=== PATIENT | female | born 1935 | race Caucasian/White ===

== ENCOUNTER → 2024-12-30 05:00 | Outpatient (REF) | payer MEDICARE, SELFPAY ==
--- OUTSIDE RECORDS SUMMARY | 2024-12-30 04:33 | XMS RPT_ITS | CCD ---
Author Organization [facility] Care Team Providers Care Pharmaceutical Representative Name Role Phone Leda Singh Attending Unavailable PROVIDER, UNKNOWN Referring Unavailable Brown, Louis Primary Care Unavailable Leda Singh Attending Unavailable PROVIDER, UNKNOWN Referring Unavailable Brown, Louis Primary Care Unavailable Leda Singh Attending Unavailable PROVIDER, UNKNOWN Referring Unavailable Brown, Louis Primary Care Unavailable BALTES TOLL BRIDGE OPERATOR-HISTOTECHNOLOGIST SUPERVISOR, MINE Primary Care Physician BALTES TOLL BRIDGE OPERATOR-HISTOTECHNOLOGIST SUPERVISOR, MINE Attending Unavailabl e BALTES TOLL BRIDGE OPERATOR-HISTOTECHNOLOGIST SUPERVISOR, MINE Primary Care Unavailabl e BALTES TOLL BRIDGE OPERATOR-HISTOTECHNOLOGIST SUPERVISOR, MINE Attending Unavailabl e BALTES TOLL BRIDGE OPERATOR-HISTOTECHNOLOGIST SUPERVISOR, MINE Primary Care Unavailabl e ALISE FLOWERS DO Attending Unavailable BALTES TOLL BRIDGE OPERATOR-HISTOTECHNOLOGIST SUPERVISOR, MINE Primary Care Unavailabl e BALTES TOLL BRIDGE OPERATOR-HISTOTECHNOLOGIST SUPERVISOR, MINE Attending Unavailabl e BALTES TOLL BRIDGE OPERATOR-HISTOTECHNOLOGIST SUPERVISOR, MINE Primary Care Unavailabl e BALTES TOLL BRIDGE OPERATOR-HISTOTECHNOLOGIST SUPERVISOR, MINE Attending Unavailabl e BALTES TOLL BRIDGE OPERATOR-HISTOTECHNOLOGIST SUPERVISOR, MINE Primary Care Unavailabl e BALTES TOLL BRIDGE OPERATOR-HISTOTECHNOLOGIST SUPERVISOR, MINE Attending Unavailabl e BALTES TOLL BRIDGE OPERATOR-HISTOTECHNOLOGIST SUPERVISOR, MINE Primary Care Unavailabl e BALTES TOLL BRIDGE OPERATOR-HISTOTECHNOLOGIST SUPERVISOR, MINE Attending Unavailabl e BALTES TOLL BRIDGE OPERATOR-HISTOTECHNOLOGIST SUPERVISOR, MINE Primary Care Unavailabl GERARDO Fletcher MD Attending Unavail able BALTES TOLL BRIDGE OPERATOR-HISTOTECHNOLOGIST SUPERVISOR, MINE Primary Care Unavailabl e ALISE FLOWERS DO Attending Unavailable BALTES TOLL BRIDGE OPERATOR-HISTOTECHNOLOGIST SUPERVISOR, MINE Primary Care Unavailabl ALISE Sheikh DO Attending Unavailable BALTES TOLL BRIDGE OPERATOR-HISTOTECHNOLOGIST SUPERVISOR, MINE Primary Care Unavailabl e SARAH MOON, VIKY Attending U navailable BALTES TOLL BRIDGE OPERATOR-HISTOTECHNOLOGIST SUPERVISOR, MINE Primary Care Unavailabl e BALTES TOLL BRIDGE OPERATOR-HISTOTECHNOLOGIST SUPERVISOR, MINE Attending Unavailabl e BALTES TOLL BRIDGE OPERATOR-HISTOTECHNOLOGIST SUPERVISOR, MINE Primary Care Unavailabl e BALTES TOLL BRIDGE OPERATOR-HISTOTECHNOLOGIST SUPERVISOR, MINE Attending Unavailabl e BALTES TOLL BRIDGE OPERATOR-HISTOTECHNOLOGIST SUPERVISOR, MINE Primary Care Unavailabl e BALTES TOLL BRIDGE OPERATOR-HISTOTECHNOLOGIST SUPERVISOR, MINE Attending Unavailabl e BALTES TOLL BRIDGE OPERATOR-HISTOTECHNOLOGIST SUPERVISOR, MINE Primary Care Unavailabl e Candice Ricketts Unavailable Unavailable BALTES TOLL BRIDGE OPERATOR-HISTOTECHNOLOGIST SUPERVISOR, MINE Primary Care Unavailabl e HERVE MOON, DR NOHEMI Trejo Admitting Unavailable PLUNK DO, RAFAELA Attending Unavailable PACO DO, ALOK Sousa Attending Unavailable BALTES TOLL BRIDGE OPERATOR-HISTOTECHNOLOGIST SUPERVISOR, MINE Primary Care Unavailabl e BALTES TOLL BRIDGE OPERATOR-HISTOTECHNOLOGIST SUPERVISOR, MINE Attending Unavailabl e BALTES TOLL BRIDGE OPERATOR-HISTOTECHNOLOGIST SUPERVISOR, MINE Primary Care Unavailabl e BALTES TOLL BRIDGE OPERATOR-HISTOTECHNOLOGIST SUPERVISOR, MINE Attending Unavailabl e BALTES TOLL BRIDGE OPERATOR-HISTOTECHNOLOGIST SUPERVISOR, MINE Primary Care Unavailabl e BALTES TOLL BRIDGE OPERATOR-HISTOTECHNOLOGIST SUPERVISOR, MINE Primary Care Unavailabl e BALTES TOLL BRIDGE OPERATOR-HISTOTECHNOLOGIST SUPERVISOR, MINE Attending Unavailabl e [facility], Apostolic Attending Louis Martin Primary Care Unavailable Allergies Allergy Classification Reported Allergen(s) Allergy Type Date of Onset Reaction(s) Facility (20 sources) Penicillins; Translations: [penicillins] Drug allergy 04-17-2018 [facility] (1 source) Acetaminophen Drug Allergy 04-17-2018 [facility] (1 source) HYDROcodone Drug Allergy 04-17-2018 [facility] Medications Current Medications Medication Drug Class(es) Dates Sig (Normalized) Sig (Original) acetaminophen 500 mg oral tablet (6 sources) Start: 03-13-2024 acetaminophen 500 mg oral tablet Dose : 1,000 mg = 2 tab(s), Oral, TID, PRN pain or fever, 0 Refill(s) Start Date: 03/13/24 Status: Ordered Repeat number: 1 Start: 01-05-2024 acetaminophen 500 mg oral tablet Dose : 1,000 mg = 2 tab(s), Oral, TID, PRN pain or fever, 0 Refill(s) Start Date: 01/05/24 Status: Ordered Start: 08-21-2023 Tylenol Oral, BID, 0 Refill(s) Start Date: 08/21/23 Status: Ordered Albuterol (Eqv-Ventolin HFA) 90 mcg/inh inhalation aerosol (3 sources) Start: 02-16-2024 take 1 dose by inhalation every six hours as needed for wheezing Albuterol (Eqv-Ventolin HFA) 90 mcg/inh inhalation aerosol Dose = 2 puff(s), Inhalation, q6hr, PRN as needed for wheezing, 0 Refill(s) Start Date: 02/16/24 Status: Ordered Repeat number: 1 Start: 02-16-2024 take 1 dose by inhal ation every six hours as needed for wheezing Albuterol (Eqv-Ventolin HFA) 90 mcg/inh inhalation aerosol Dose = 2 puff(s), Inhalation, q6hr, PRN as needed for wheezing, 0 Refill(s) Start Date: 02/16/24 Status: Ordered albuterol MDI (90 mcg/inh) CFC free inhalation aerosol (2 sources) Start: 01-29-2024 take 1-2 puff(s) by inhalation every four hours as needed for wheezing albuterol MDI (90 mcg/inh) CFC free inhalation aerosol See Instructions, PRN Shortness of breath or wheezing, 1 to 2 puff(s) Inhalation q4h, # 18 gram(s), 0 Refill(s), Pharmacy: [facility]/pharmacy #[id number], Acute bronchitis, 169, cm, 01/29/24 11:38:00 EDT, Height, kg, 01/16/24 12:34:00 EDT, Dosing Weight Start Date: 01/29/24 Status: Ordered amLODIPine 5 mg oral tablet (20 sources) Dihydropyridine Calcium Channel Emely Start: 08-07-2024 End: 08-02-2025 amLODIPine 5 mg oral tablet Dose : 5 mg = 1 tab(s), Oral, qDay, TAKE 1 TABLET BY MOUTH EVERY DAY, # 90 tab(s), 3 Refill(s), Pharmacy: [facility], 170.2, cm, 02/16/24 7:41:00 EDT, Height, kg, 03/25/24 10:52:00 EDT, Dosing Weight Start Date: 08/07/24 Stop Date: 08/02/25 Status: Ordered Quantity: 90.0 Unit: tab(s) Repeat number: 4 Start: 08-01-2023 End: 07-26-2024 take 1 tablet by mouth once daily amLODIPine 5 mg oral tablet TAKE 1 TABLET BY MOUTH EVERY DAY Start Date: 02/16/24 Status: Ordered Start: 07-25-2022 amLODIPine 5 m g oral tablet Dose : 5 mg = 1 tab(s), Oral, qDay, # 90 tab(s), 3 Refill(s), Pharmacy: [facility], Hypertension Type 2 diabetes mellitus, 170.2, cm, 06/24/22 9:30:00 EST, Height, kg, 06/24/22 9:30:00 EST, Dosing Weight Start Date: 07/25/22 Status: Ordered Start: 01-15-2021 amLODIPine 5 m g oral tablet Dose : 5 mg = 1 tab(s), Oral, qDay, # 90 tab(s), 3 Refill(s), [facility]acy: [facility] [place] [address], Hypertension Type 2 diabetes mellitus, 171.5, cm, 09/15/20 10:04:00 EDT, Height, kg, 09/15/20 10:04:00 EDT, Dosing Weight Start Date: 01/15/21 Status: Ordered apixaban 2.5 mg oral tablet (3 sources) Factor Xa Inhibitor Start: 06-21-2023 Eliquis 2. 5 mg oral tablet Dose : 2.5 mg = 1 tab(s), Oral, BID, # 60 tab(s), 2 Refill(s), Pharmacy: [facility], 170, cm, 05/22/23 14:08:00 EST, Height, 74.6, kg, 05/22/23 14:08:00 EST, Dosing Weight Start Date: 06/21/23 Status: Ordered Start: 05-10-2023 Eliquis 2.5 mg oral tablet Dose : 2.5 mg = 1 tab(s), Oral, BID, # 60 tab(s), 0 Refill(s), Pharmacy: [facility], 170.2, cm, 04/14/23 15:12:00 EST, Height, 72.7, kg, 04/14/23 15:12:00 EST, Dosing Weight Start Date: 05/10/23 Status: Ordered aspirin 81 mg delayed release oral tablet (20 sources) Platelet Aggregation Inhibitor, Nonsteroidal Anti-inflammatory Drug Start: 03-14-2017 aspirin 81 mg ora l delayed release tablet Dose : 81 mg = 1 tab(s), Oral, Daily, 0 Refill(s) Start Date: 03/14/17 Status: Ordered Start: 03-14-2017 aspirin 81 mg oral delayed release tablet Dose : 81 mg = 1 tab(s), Oral, Daily, 0 Refill(s) Start Date: 03/14/17 Status: Ordered biotin 5 mg oral capsule (12 sources) Start: 06-22-2021 biotin 5000 mc g oral caps Dose : 5,000 mcg = 1 cap(s), Oral, Daily, 0 Refill(s) Start Date: 06/22/21 Status: Ordered DME MISCellaneous (20 sources) Start: 09-23-2022 DME MISCellane ous See Instructions, Libre2 Cardwell Use to scan Edward sensor at least once every 8 hours, # 1 EA, 0 Refill(s), Pharmacy: [facility], 170.2, cm, 09/23/22 11:04:00 EDT, Height, 72.9 Start Date: 09/23/22 Status: Ordered Start: 09-23-2022 DME MISCellane ous See Instructions, Libre2 Sensors. Apply one sensor to back of arm once every 14 days, # 2 EA, 11 Refill(s), Pharmacy: [facility], 170.2, cm, 09/23/22 11:04:00 EDT, Height, 72.9 Start Date: 09/23/22 Status: Ordered doxycycline hyclate 100 mg oral capsule (2 sources) Tetracycline-class Drug Start: 01-29-2024 End: 02-05-2024 doxycycline hyclate 100 mg oral capsule Dose : 100 mg = 1 cap(s), Oral, BID, X 7 day(s), # 14 cap(s), 0 Refill(s), 02/05/24 12:25:00 PM EDT, Pharmacy: [facility]/pharmacy #[id number], Acute rhinosinusitis, 169, cm, 01/29/24 11:38:00 EDT, Height, 74.9, kg, 01/16/24 12:34:00 EDT, Dosing Weight Start Date: 01/29/24 Stop Date: 02/05/24 Status: Ordered 0.5 ML dulaglutide 9 MG/ML Auto-Injector [Trulicity] (20 sources) GLP-1 Receptor Agonist Start: 03-25-2024 inject 1 dose by subcutaneous injection every week Trulicity Pen 4.5 mg/0.5 mL subcutaneous solution Dose : 0.5 mL =, Subcutaneous, qWeek, rotate injection sites, # 2 mL, 6 Refill(s), Pharmacy: [facility], 170.2, cm, 02/16/24 7:41:00 EDT, Height, kg, 03/25/24 10:52:00 EDT, Dosing Weight Start Date: 03/25/24 Status: Ordered Quantity: 2.0 Unit: mL Repeat number: 7 Start: 02-16-2024 inject 0.5 mL by sub cutaneous injection every week Trulicity Pen 4.5 mg/0.5 mL subcutaneous solution INJECT 0.5ML UNDER THE SKIN EVERY WEEK; rotate injection sites Start Date: 02/16/24 Status: Ordered Start: 11-22-2023 inject 1 dose by sub cutaneous injection every week Trulicity Pen 4.5 mg/0.5 mL subcutaneous solution Dose : 0.5 mL =, Subcutaneous, qWeek, rotate injection sites, # 2 mL, 3 Refill(s), Pharmacy: [facility], 170, cm, 08/21/23 11:26:00 EDT, Height, kg, 09/18/23 11:16:00 EDT, Dosing Weight Start Date: 11/22/23 Status: Ordered Start: 06-23-2023 inject 0.5 mL by sub cutaneous injection every week Trulicity Pen 3 mg/0.5 mL subcutaneous solution Dose : 3 mg = 0.5 mL, Subcutaneous, qWeek, rotate injection sites, # 2 mL, 4 Refill(s), 0.5 mL/Pen, Pharmacy: [facility], 170, cm, 05/22/23 14:08:00 EST, Height, kg, 05/22/23 14:08:00 EST, Dosing Weight Start Date: 06/23/23 Status: Ordered Start: 05-25-2023 inject 0.5 mL by sub cutaneous injection every week Trulicity Pen 0.75 mg/0.5 mL subcutaneous solution Dose : 0.75 mg = 0.5 mL, Subcutaneous, qWeek, rotate injection sites, # 2 mL, 3 Refill(s), 0.5 mL/Pen, Pharmacy: [facility], 170, cm, 05/22/23 14:08:00 EST, Height, kg, 05/22/23 14:08:00 EST, Dosing Weight Start Date: 05/25/23 Status: Ordered Start: 08-26-2022 inject 0.5 mL by sub cutaneous injection every week Trulicity Pen 1.5 mg/0.5 mL subcutaneous solution Dose : 1.5 mg = 0.5 mL, Subcutaneous, qWeek, rotate injection sites, # 2 mL, 6 Refill(s), Pharmacy: [facility], 170.2, cm, 06/24/22 9:30:00 EST, Height Start Date: 08/26/22 Status: Ordered Start: 08-20-2021 Trulicity Pen 0.75 mg/0.5 mL subcutaneous solution Dose : 0.75 mg = 0.5 mL, Subcutaneous, qWeek, Patient is receiving medication through [facility] Patient Assistance Program., 0.5 mL/Pen Start Date: 08/20/21 Status: Ordered Fish Oils (19 sources) Start: 06-22-2021 Fish Oil 1200 mg oral capsule Dose : 2,400 mg = 2 cap(s), Oral, Daily, w/D in it, 0 Refill(s) Start Date: 06/22/21 Status: Ordered Repeat number: 1 Start: 06-22-2021 Fish Oil 1200 mg oral capsule Dose : 2,400 mg = 2 cap(s), Oral, Daily, w/D in it, 0 Refill(s) Start Date: 06/22/21 Status: Ordered Start: 06-22-2021 Fish Oil 1200 mg oral capsule Dose : 1,200 mg = 1 cap(s), Oral, BID, 0 Refill(s) Start Date: 06/22/21 Status: Ordered fluticasone propionate 0.05 mg/actuat metered dose nasal spray (2 sources) Corticosteroid Start: 01-29-2024 End: 02-28-2024 take 100 ug nasal route once daily fluticasone 50 mcg/inh NASAL spray 100 mcg Dose = 2 spray(s), Nostril, each, qDay, shake well before using, # 16 gram(s), 0 Refill(s), Pharmacy: [facility]/pharmacy #[id number], Acute rhinosinusitis, 169, cm, 01/29/24 11:38:00 EDT, Height, kg, 01/16/24 12:34:00 EDT, Dosing Weight Start Date: 01/29/24 Stop Date: 02/28/24 Status: Ordered FreeStyle Edward 2 Sensor (5 sources) Start: 03-15-2024 FreeStyle Libr e 2 Sensor See Instructions, Place once sensor to the back of the upper arm every 14 days. Use reader or phone angelina to scan sensor for daily blood sugar checks. 1 month supply, # 2 EA, 11 Refill(s), Pharmacy: [facility], 170.2, cm, 02/16/24 7:41:00 EDT, Height, 74.2, kg, 03/13/24 11:27:00 EDT, Dosing Weight Start Date: 03/15/24 Status: Ordered Quantity: 2.0 Unit: EA Repeat number: 12 Start: 09-19-2023 FreeStyle Libr e 2 Sensor See Instructions, Place once sensor to the back of the upper arm every 14 days. Use reader or phone angelina to scan sensor for daily blood sugar checks. 1 month supply, # 2 EA, 5 Refill(s), Pharmacy: [facility], 170, cm, 08/21/23 11:26:00 EDT, Height, 74.9, kg, 09/18/23 11:16:00 EDT, Dosing Weight Start Date: 09/19/23 Status: Ordered FreeStyle Edward 2 Sensor kit (3 sources) Start: 02-16-2024 FreeStyle Libr e 2 Sensor kit FreeStyle Ewdard 2 Sensor kit, PLACE ONE SENSOR TO THE BACK OF THE UPPER ARM EVERY 14 DAYS,USE READER OR PHONE ANGELINA TO SCAN SENSOR FOR DAILY BLOOD SUGAR CHEC [place] Start Date: 02/16/24 Status: Ordered Repeat number: 1 Start: 02-16-2024 FreeStyle Libr e 2 Sensor kit FreeStyle Edward 2 Sensor kit, PLACE ONE SENSOR TO THE BACK OF THE UPPER ARM EVERY 14 DAYS,USE READER OR PHONE ANGELINA TO SCAN SENSOR FOR DAILY BLOOD SUGAR CHEC [place] Start Date: 02/16/24 Status: Ordered FreeStyle Edward 3 Cardwell (2 sources) Start: 03-25-2024 FreeStyle Libr e 3 Cardwell See Instructions, Use reader to scan sensor once with every new sensor. Keep reader within 33 feet of the sensor and transmitter for daily blood sugar checks, # 1 EA, 0 Refill(s), Pharmacy: [facility], 170.2, cm, 02/16/24 7:41:00 EDT, Height, 74.9, kg, 03/25/24 10:52:00 EDT, Dosing Weight Start Date: 03/25/24 Status: Ordered Quantity: 1.0 Unit: EA Repeat number: 1 FreeStyle Edward 3+ Sensors (2 sources) Start: 03-25-2024 FreeStyle Libr e 3+ Sensors See Instructions, Place once sensor to the back of the upper arm every 15 days. Remove old sensor prior to placing new one and rotate application sites. Use reader or phone angelina for daily blood sugar checks., # 2 EA, 6 Refill(s), Pharmacy: [facility], 170.2, cm, 02/16/24 7:41:00 EDT, Height, 74.9, kg, 03/25/24 10:52:00 EDT, Dosing Weight Start Date: 03/25/24 Status: Ordered Quantity: 2.0 Unit: EA Repeat number: 7 furosemide 20 mg oral tablet (6 sources) Loop Diuretic Start: 08-22-2024 End: 11-30-2024 Lasix 20 mg oral tablet Dose : 10 mg = 0.5 tab(s), Oral, qDay, # 50 tab(s), 0 Refill(s), Pharmacy: [facility]/pharmacy #[id number], HTN - Hypertension Peripheral edema, 163.2, cm, 08/22/24 7:31:00 EDT, Height, kg, 08/22/24 7:31:00 EDT, Dosing Weight Start Date: 08/22/24 Stop Date: 11/30/24 Status: Ordered Quantity: 50.0 Unit: tab(s) Repeat number: 1 Indications: Localized edema; Essential (primary) hypertension; Start: 01-17-2024 End: 04-16-2024 take 1 tablet by mouth once daily as needed furosemide 20 mg oral tablet TAKE 1 TABLET BY MOUTH EVERY DAY NEEDED FOR SWELLING Start Date: 02/16/24 Status: Ordered glipiZIDE 10 mg oral tablet (15 sources) Sulfonylurea Start: 03-15-2024 GlipiZIDE XL 1 0 mg oral tablet, extended release Dose : 20 mg = 2 tab(s), Oral, qDay, # 180 tab(s), 2 Refill(s), Pharmacy: [facility], 170.2, cm, 02/16/24 7:41:00 EDT, Height, kg, 03/13/24 11:27:00 EDT, Dosing Weight Start Date: 03/15/24 Status: Ordered Quantity: 180.0 Unit: tab(s) Repeat number: 3 Start: 02-16-2024 take 2 tablets by mo uth once daily glipiZIDE 10 mg oral tablet, extended release TAKE TWO TABLETS BY MOUTH EVERY DAY Start Date: 02/16/24 Status: Ordered Start: 01-08-2024 glipiZIDE 10 m g oral tablet, extended release Dose : 20 mg = 2 tab(s), Oral, qDay, # 60 tab(s), 1 Refill(s), Pharmacy: [facility], 169, cm, 01/05/24 9:04:00 EDT, Height, kg, 01/05/24 9:04:00 EDT, Dosing Weight Start Date: 01/08/24 Status: Ordered Start: 08-04-2023 glipiZIDE 10 m g oral tablet, extended release Dose : 10 mg = 1 tab(s), Oral, qDay, Take with food, # 30 tab(s), 0 Refill(s), Pharmacy: [facility]/pharmacy #[id number], 170, cm, 05/22/23 14:08:00 EST, Height, kg, 05/22/23 14:08:00 EST, Dosing Weight Start Date: 08/04/23 Status: Ordered Start: 03-25-2021 End: 09-20-2021 glipiZIDE 10 mg oral tablet Dose : 5 mg = 0.5 tab(s), Oral, qDay, 0 Refill(s) Start Date: 08/20/21 Status: Ordered 12 hr guaiFENesin 600 mg extended release oral tablet (2 sources) Start: 01-29-2024 End: 02-08-2024 guaiFENesin 600 mg oral tablet, extended release Dose : 600 mg = 1 tab(s), Oral, q12h, X 10 day(s), # 20 tab(s), 0 Refill(s), 02/08/24 12:25:00 PM EDT, Pharmacy: [facility]/pharmacy #[id number], Acute rhinosinusitis Acute bronchitis, 169, cm, 01/29/24 11:38:00 EDT, Height, kg, 01/16/24 12:34:00 EDT, Dosing Weight Start Date: 01/29/24 Stop Date: 02/08/24 Status: Ordered metFORMIN hydrochloride 500 mg oral tablet (20 sources) Biguanide Start: 08-16-2024 End: 02-12-2025 take 1 tablet by mouth twice daily metFORMIN 500 mg oral tablet (IR) 1 tab, Oral, BID, # 180 tab(s), 1 Refill(s), other reason (Rx), Alternating constipation and diarrhea Start Date: 08/16/24 Stop Date: 02/12/25 Status: Ordered Quantity: 180.0 Unit: tab(s) Repeat number: 2 Indications: Other specified symptoms and signs involving the digestive system and abdomen; Start: 02-16-2024 take 2 tablets by mo uth twice daily metFORMIN 500 mg oral tablet (IR) TAKE TWO TABLETS BY MOUTH TWICE A DAY Start Date: 02/16/24 Status: Ordered Start: 09-19-2023 metFORMIN 500 mg oral tablet (IR) Dose : 1,000 mg = 2 tab(s), Oral, BID, # 360 tab(s), 3 Refill(s), Pharmacy: [facility], 170, cm, 08/21/23 11:26:00 EDT, Height, kg, 09/18/23 11:16:00 EDT, Dosing Weight Start Date: 09/19/23 Status: Ordered Start: 09-02-2022 metFORMIN 500 mg oral tablet (IR) Dose : 1,000 mg = 2 tab(s), Oral, BID, # 360 tab(s), 3 Refill(s), Pharmacy: [facility], 170.2, cm, 06/24/22 9:30:00 EST, Height, kg, 06/24/22 9:30:00 EST, Dosing Weight Start Date: 09/02/22 Status: Ordered Start: 01-15-2021 metFORMIN 500 mg oral tablet (IR) Dose : 1,000 mg = 2 tab(s), Oral, BID, # 360 tab(s), 3 Refill(s), [facility], Type 2 diabetes mellitus, 171.5, cm, 09/15/20 10:04:00 EDT, Height, kg, 09/15/20 10:04:00 EDT, Dosing Weight Start Date: 01/15/21 Status: Ordered [facility] Medication (2 sources) Start: 03-13-2024 [facility] Medicatio n [facility] Mannatech vitamins and things-for some reason they were all removed from he chart., 0 Refill(s), 72.6 Start Date: 03/13/24 Status: Ordered Repeat number: 1 nutritional supplement (20 sources) Start: 03-25-2021 take 1 tablet by mouth twice daily nutritional supplement Dose = 2 tab(s), Oral, BID, Catalyst, 0 Refill(s) Start Date: 03/25/21 Status: Ordered Start: 03-25-2021 nutritional izquierdo pplement BID, Catalyst, 0 Refill(s) Start Date: 03/25/21 Status: Ordered Start: 03-25-2021 nutritional izquierdo pplement Catalyst, 0 Refill(s) Start Date: 03/25/21 Status: Ordered Start: 07-03-2020 take 1 tablet by lvi th once daily at bedtime nutritional supplement Dose = 2 tab(s), Oral, qHS, Manacleanse, 0 Refill(s) Start Date: 07/03/20 Status: Ordered Start: 07-03-2020 take 1 tablet by liv th twice daily nutritional supplement Dose = 1 tab(s), Oral, BID, Phyto-Aloe, 0 Refill(s) Start Date: 07/03/20 Status: Ordered Start: 07-03-2020 nutritional izquierdo pplement BID, Phyto-Aloe, 0 Refill(s) Start Date: 07/03/20 Status: Ordered Start: 07-03-2020 nutritional izquierdo pplement Manacleanse, 0 Refill(s) Start Date: 07/03/20 Status: Ordered Start: 07-03-2020 nutritional izquierdo pplement Phyto-Aloe, 0 Refill(s) Start Date: 07/03/20 Status: Ordered Start: 07-03-2020 take 1 tablet by liv th twice daily nutritional supplement Dose = 1 tab(s), Oral, BID, Cardiobalance, 0 Refill(s) Start Date: 07/03/20 Status: Ordered Start: 07-03-2020 nutritional izquierdo pplement BID, Cardiobalance, 0 Refill(s) Start Date: 07/03/20 Status: Ordered Start: 07-03-2020 nutritional izquierdo pplement Cardiobalance, 0 Refill(s) Start Date: 07/03/20 Status: Ordered Start: 07-03-2020 take 1 tablet by liv th twice daily nutritional supplement Dose = 1 tab(s), Oral, BID, Ambratose AO dietary supplement, 0 Refill(s) Start Date: 07/03/20 Status: Ordered Start: 07-03-2020 nutritional izquierdo pplement BID, Ambratose AO dietary supplement, 0 Refill(s) Start Date: 07/03/20 Status: Ordered Start: 07-03-2020 nutritional izquierdo pplement Ambratose AO dietary supplement, 0 Refill(s) Start Date: 07/03/20 Status: Ordered Start: 07-03-2020 nutritional izquierdo pplement Dose = 1 tab(s), Oral, BID, Mannatech Plus, 0 Refill(s) Start Date: 07/03/20 Status: Ordered Start: 07-03-2020 nutritional izquierdo pplement BID, Mannatech Plus, 0 Refill(s) Start Date: 07/03/20 Status: Ordered Start: 07-03-2020 nutritional izquierdo pplement Mannatech Plus, 0 Refill(s) Start Date: 07/03/20 Status: Ordered oxybutynin chloride 5 mg oral tablet (2 sources) Cholinergic Muscarinic Antagonist Start: 03-12-2021 oxybutynin 5 mg oral tablet Dose : 5 mg = 1 tab(s), Oral, BID, # 30 tab(s), 2 Refill(s), [facility]: [facility], Urinary incontinence Nocturia, 171.5, cm, 03/12/21 9:47:00 EDT, Height, kg, 03/12/21 9:47:00 EDT, Dosing Weight Start Date: 03/12/21 Status: Ordered polyethylene glycol 3350 [id number] mg powder for oral solution (1 source) Osmotic Laxative Start: 02-17-2024 End: 03-18-2024 MiraLax oral powder for reconstitution Dose : 17 gram(s) =, Oral, qDay, May take every other day if having loose stools, X 30 day(s), # 255 gram(s), 0 Refill(s), 03/18/24 9:49:00 AM EDT, [id number] 170.2, cm, 02/16/24 7:41:00 EDT, Height, kg, 02/16/24 7:41:00 EDT, Dosing Weight Start Date: 02/17/24 Stop Date: 03/18/24 Status: Ordered Sport (16 sources) Start: 06-22-2021 Sport Sport, Oral, BID, Mannatech-when exercising, 0 Refill(s), 75.9 Start Date: 06/22/21 Status: Ordered sulfamethoxazole 800 mg / trimethoprim 160 mg oral tablet (2 sources) Dihydrofolate Reductase Inhibitor Antibacterial, Sulfonamide Antimicrobial Start: 09-27-2024 End: 10-02-2024 take 1 tablet by mouth every twelve hours Bactrim DS 800 mg-160 mg oral tablet Dose = 1 tab(s), Oral, q12h, X 5 day(s), # 10 tab(s), 0 Refill(s), Pharmacy: [facility]/pharmacy #[id number], 163.2, cm, 09/27/24 10:39:00 EDT, Height, 73.1, kg, 09/27/24 10:39:00 EDT, Dosing Weight Start Date: 09/27/24 Stop Date: 10/02/24 Status: Ordered Quantity: 10.0 Unit: tab(s) Repeat number: 1 24 hr tolterodine tartrate 2 mg extended release oral capsule (17 sources) Cholinergic Muscarinic Antagonist Start: 05-22-2024 tolterodine 2 mg oral capsule, extended release Dose : 2 mg = 1 cap(s), Oral, BID, TAKE 1 CAPSULE BY MOUTH TWICE A DAY, # 180 cap(s), 1 Refill(s), Pharmacy: [facility], 170.2, cm, 02/16/24 7:41:00 EDT, Height, kg, 03/25/24 10:52:00 EDT, Dosing Weight Start Date: 05/22/24 Status: Ordered Quantity: 180.0 Unit: cap(s) Repeat number: 2 Start: 02-16-2024 take 1 capsule by mo uth twice daily tolterodine 2 mg oral capsule, extended release TAKE 1 CAPSULE BY MOUTH TWICE A DAY Start Date: 02/16/24 Status: Ordered Start: 08-01-2023 End: 11-29-2023 take 1 capsule by mouth twice daily tolterodine 2 mg oral capsule, extended release 1 cap(s), Oral, BID, # 60 cap(s), 3 Refill(s), JANICE, Pharmacy: [facility], 170, cm, 05/22/23 14:08:00 EST, Height, kg, 05/22/23 14:08:00 EST, Dosing Weight Start Date: 08/01/23 Stop Date: 11/29/23 Status: Ordered Start: 12-29-2022 End: 04-28-2023 take 1 capsule by mouth twice daily tolterodine 2 mg oral capsule, extended release 1 cap(s), Oral, BID, # 60 cap(s), 3 Refill(s), JANICE, Pharmacy: [facility], 170.2, cm, 12/23/22 8:59:00 EDT, Height, kg, 12/23/22 8:59:00 EDT, Dosing Weight Start Date: 12/29/22 Stop Date: 04/28/23 Status: Ordered Start: 10-07-2021 tolterodine 2 mg oral capsule, extended release Dose : 2 mg = 1 cap(s), Oral, qDay, # 30 cap(s), 11 Refill(s), Pharmacy: [facility], 170.2, cm, 06/22/21 9:33:00 EST, Height Start Date: 10/07/21 Status: Ordered Vitamin B Complex 100 (19 sources) Start: 03-14-2017 take 1 tablet by mouth once daily Vitamin B Complex 100 1 tab, Oral, Daily, 0 Refill(s) Start Date: 03/14/17 Status: Ordered Vitamin D3 1000 intl units oral capsule (8 sources) Start: 03-14-2017 Vitamin D3 100 0 intl units oral capsule Dose : 1,000 unit(s) = 1 cap(s), Oral, BID, 0 Refill(s) Start Date: 03/14/17 Status: Ordered zinc acetate 50 mg oral capsule (19 sources) Start: 03-14-2017 take 0.5 tablet by mouth once daily zinc (as acetate) 50 mg oral capsule 0.5 tab(s), Oral, Daily, # 250 cap(s), 0 Refill(s) Start Date: 03/14/17 Status: Ordered Start: 03-14-2017 zinc (as aceta te) 50 mg oral capsule Dose : 50 mg = 1 cap(s), Oral, Daily, # 250 cap(s), 0 Refill(s) Start Date: 03/14/17 Status: Ordered Completed/Discontinued Medications Medication Drug Class(es) Dates Sig (Normalized) Sig (Original) docusate sodium 100 mg oral capsule (2 sources) Start: 02-04-2024 End: 02-14-2024 Colace 100 mg oral capsule Dose : 100 mg = 1 cap(s), Oral, BID, PRN for constipation, # 60 cap(s), 0 Refill(s) Start Date: 02/04/24 Stop Date: 02/14/24 Status: Ordered gabapentin 100 mg oral capsule (2 sources) Anti-epileptic Agent Start: 10-15-2021 End: 11-14-2021 gabapentin 100 mg oral capsule Dose : 100 mg = 1 cap(s), Oral, BID, # 60 cap(s), 0 Refill(s), Pharmacy: [address], Peripheral neuropathy, 170.2, cm, 10/15/21 9:37:00 EDT, Height, 66.9 Start Date: 10/15/21 Stop Date: 11/14/21 Status: Ordered meloxicam 15 mg oral tablet (3 sources) Nonsteroidal Anti-inflammatory Drug Start: 10-17-2022 End: 10-24-2022 meloxicam 15 mg oral tablet Dose : 15 mg = 1 tab(s), Oral, qDay, # 7 tab(s), 0 Refill(s), Pharmacy: [facility]/pharmacy #[id number], Bursitis of left knee Left hip pain, 170.2, cm, 10/17/22 10:36:00 EDT, Height Start Date: 10/17/22 Stop Date: 10/24/22 Status: Ordered Problems Active Problems Problem Classification Problem Date Documented Date Episodic/Chronic Acquired foot deformities (16 sources) Hammer toe 10-15-2021 Chronic Cardiac dysrhythmias (18 sources) Atrial fibrillation; Translations: [Atrial trigeminy] 05-22-2023 Chronic Conditions associated with dizziness or vertigo (1 source) Dizziness and giddiness; Translations: [Dizziness and giddiness] Onset: 04-05-20 Episodic Diabetes mellitus with complications (1 source) Type 2 diabetes mellitus with hyperglycemia; Translations: [Type 2 diabetes mellitus with hyperglycemia] Onset: 12-20-19 Chronic Diabetes mellitus without complication (20 sources) Type 2 diabetes mellitus without complications; Translations: [Type 2 diabetes mellitus] Onset: 05-11-2012-10-2019 Chronic Disorders of lipid metabolism (20 sources) Hypercholesterolemia 04-05-2019 Chronic E Codes: Fall (2 sources) Fall 09-27-2024 Essential hypertension (20 sources) Essential (primary) hypertension; Translations: [Hypertensive disorder] Onset: 05-11-2007-09-2019 Chronic Fluid and electrolyte disorders (2 sources) Hyperkalemia; Translations: [Hyperkalemia] Episodic Genitourinary symptoms and ill-defined conditions (20 sources) Urinary incontinence 03-14-2017 Chronic Genitourinary symptoms and ill-defined conditions (4 sources) Increased frequency of urination; Translations: [Frequency of micturition] Onset: 09-28-19 25 09-27-2024 Episodic Heart valve disorders (10 sources) Heart murmur 05-22-2023 Episodic Mycoses (16 sources) Onychomycosis 10-15-2021 Episodic Osteoarthritis (20 sources) Arthritis; Translations: [Osteoarthritis of knee] 03-14-2017 Chronic 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 (2 sources) 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; Translations: [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] Onset: 05-11-20 Other connective tissue disease (1 source) Iliotibial band friction syndrome of left knee; Translations: [Iliotibial band syndrome, left leg] Episodic Other connective tissue disease (14 sources) Bursitis of left knee 10-17-2022 Episodic Other gastrointestinal disorders (2 sources) Constipation, unspecified; Translations: [Constipation, unspecified] Onset: 02-04-20 24 Episodic Other nervous system disorders (2 sources) Carpal tunnel syndrome, left upper limb; Translations: [Carpal tunnel syndrome, left upper limb] Onset: 05-11-20 18 Chronic Other nervous system disorders (2 sources) Carpal tunnel syndrome, right upper limb; Translations: [Carpal tunnel syndrome, right upper limb] Onset: 03-06-20 18 Chronic Other nervous system disorders (20 sources) Carpal tunnel syndrome 03-14-2017 Chronic Comment on above: Right Other nervous system disorders (2 sources) Abnormal gait 09-27-2024 Episodic Other non-traumatic joint disorders (14 sources) Hip pain 10-17-2022 Episodic Residual codes; unclassified (20 sources) Amnesia 03-25-2021 Episodic Residual codes; unclassified (16 sources) Foot at risk 10-15-2021 Episodic Residual codes; unclassified (2 sources) Peripheral edema 08-22-2024 Episodic Spondylosis; intervertebral disc disorders; other back problems (20 sources) Sciatica; Translations: [Stenosis of lumbar vertebral foramen] 03-14-2017 Episodic Comment on above: Right Unclassified (20 sources) Body mass index 20-24 - normal 10-15-2021 Unclassified (14 sources) Never used tobacco 10-17-2022 Unclassified (10 sources) Patient encounter status 05-22-2023 Past or Other Problems Problem Classification Problem Date Documented Da te Episodic/Chronic Allergic reactions (2 sources) Allergy status to penicillin; Translations: [Allergy status to penicillin] Onset: 05-11-2018 Episodic 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 (2 sources) 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; Translations: [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] Onset: 05-11-2018 Episodic Other connective tissue disease (2 sources) Trigger thumb, right thumb; Translations: [Trigger thumb, right thumb] Onset: 03-06-2018 Episodic Other connective tissue disease (2 sources) Ganglion, left hand; Translations: [Ganglion, left hand] Onset: 05-11-2018 Episodic Other connective tissue disease (2 sources) Other synovitis and tenosynovitis, right forearm; Translations: [Other synovitis and tenosynovitis, right forearm] Onset: 03-06-2018 Episodic Other eye disorders (2 sources) Cataract extraction status, right eye; Translations: [Cataract extraction status, right eye] Onset: 05-11-2018 Episodic Other eye disorders (2 sources) Cataract extraction status, left eye; Translations: [Cataract extraction status, left eye] Onset: 05-11-2018 Episodic Results Test Name Value Interpretation Reference Range Facility .Auto Diffon 09-27-2024 Basophil, Absolute 0.0 10 3/mcL Normal 0.0-0.3 [facility] Comment on above: Performed By: #### C BC, CMP, ANEU, ADIFF, GFR #### [address] [address] Basophils/100 WBC (Bld) 0.4 % Normal 0.0-2.5 [facility] Comment on above: Performed By: #### C BC, CMP, ANEU, ADIFF, GFR #### [address] [address] Eosinophil, Absolute 0.0 10 3/mcL Normal 0.0-0.7 [facility] Comment on above: Performed By: #### C BC, CMP, ANEU, ADIFF, GFR #### [address] [address] Eosinophils/100 WBC (Bld) 0.4 % Normal 0.0-6.0 [facility] Comment on above: Performed By: #### C BC, CMP, ANEU, ADIFF, GFR #### [address] [address] Lymphocyte, Absolute 1.6 10 3/mcL Normal 0.9-4.3 [facility] Comment on above: Performed By: #### C BC, CMP, ANEU, ADIFF, GFR #### [address] [address] Lymphocytes/100 WBC (Bld) 16.7 % Low 20.0-40.0 [facility] Comment on above: Performed By: #### C BC, CMP, ANEU, ADIFF, GFR #### [address] [address] Monocyte, Absolute 0.7 10 3/mcL Normal 0.1-1.4 [facility] Comment on above: Performed By: #### C BC, CMP, ANEU, ADIFF, GFR #### [address] [address] Monocytes/100 WBC (Bld) 7.3 % Normal 2.0-13.0 [facility] Comment on above: Performed By: #### C BC, CMP, ANEU, ADIFF, GFR #### [address] [address] Neutrophils/100 WBC (Bld) 75.2 % High 50.0-75.0 [facility] Comment on above: Performed By: #### C BC, CMP, ANEU, ADIFF, GFR #### [address] [address] .GFRon 09-27-2024 Estimated Glomerular Filtration Rate 65 ml/min/1.73sqm Normal [facility] Comment on above: Result Comment: Stages of Chronic Kidney Disease (CKD) Stage Description eGFR(ml/min/1.73 sq.m.) CKD 1 Normal kidney function or >=90 normal kindney function with possible kidney damage (ex. Proteinuria) CKD 2 Kidney damage with mild loss 60-89 of kidney function CKD 3a Mild to moderate loss of kidney 45-59 function CKD 3b Moderate to severe loss of 30-44 of kindey function CKD 4 Severe loss of kidney function 15-29 CKD 5 Kidney failure <15 Note: (go live 2024) the eGFR calculation was updated to the 2020 CKD-EPI creatinine equation without a race factor to calculate the eGFR results. Performed By: #### G FR, FROYLAN, MDW, BMP, CBC, ANEU #### [address] [address] .NEUABSon 09-27-2024 Neutrophil, Absolute 7.2 10 3/mcL Normal 2.3-8.1 [facility] Comment on above: Performed By: #### C BC, CMP, ANEU, ADIFF, GFR #### [address] [id number] [place], [place] [address] CBCon 09-27-2024 Erythrocyte distribution width (RBC) [Ratio] 14.1 % Normal 11.5-15.5 [facility] Comment on above: Performed By: #### C BC, CMP, ANEU, ADIFF, GFR #### [address] [address] Hematocrit (Bld) [Volume fraction] 37.8 % Normal 34.0-46.0 [facility] Comment on above: Performed By: #### C BC, CMP, ANEU, ADIFF, GFR #### [place] [address] Hgb 12.6 G/dL Normal 12.0-16.0 [facility] Comment on above: Performed By: #### C BC, CMP, ANEU, ADIFF, GFR #### [place] [address] MCH (RBC) [Entitic mass] 30.8 pg Normal 27.0-33.0 [facility] Comment on above: Performed By: #### C BC, CMP, ANEU, ADIFF, GFR #### [place] [address] MCHC 33.4 G/dL Normal 32.0-36.0 [facility] Comment on above: Performed By: #### C BC, CMP, ANEU, ADIFF, GFR #### [place] [address] MCV (RBC) [Entitic vol] 92.3 fL Normal 80.0-99.0 [facility] Comment on above: Performed By: #### C BC, CMP, ANEU, ADIFF, GFR #### [address] [address] Platelet 235 10 3/mcL Normal 150-450 [facility] Comment on above: Performed By: #### C BC, CMP, ANEU, ADIFF, GFR #### [address] [address] Platelet mean volume (Bld) [Entitic vol] 8.8 fL Normal 6.6-10.5 [facility] Comment on above: Performed By: #### C BC, CMP, ANEU, ADIFF, GFR #### [address] [address] RBC 4.09 10 6/mcL Low 4.10-5.30 [facility] Comment on above: Performed By: #### C BC, CMP, ANEU, ADIFF, GFR #### [address] [address] WBC 9.6 10 3/mcL Normal 4.5-10.8 [facility] Comment on above: Performed By: #### C BC, CMP, ANEU, ADIFF, GFR #### [address] [address] CMPon 09-27-2024 Albumin Level 3.5 G/dL Normal 3.4-4.8 [facility] Comment on above: Performed By: #### C BC, CMP, ANEU, ADIFF, GFR #### [address] [address] Albumin/Globulin [Mass ratio] 0.9 {ratio} Low 1.1-2.5 [facility] Comment on above: Performed By: #### C BC, CMP, ANEU, ADIFF, GFR #### [address] [address] ALP [Catalytic activity/Vol] 135 U/L Normal 40-135 [facility] Comment on above: Performed By: #### C BC, CMP, ANEU, ADIFF, GFR #### [address] [address] ALT [Catalytic activity/Vol] 30 U/L Normal 14-59 [facility] Comment on above: Performed By: #### C BC, CMP, ANEU, ADIFF, GFR #### [address] [address] AST [Catalytic activity/Vol] 22 U/L Normal 10-40 [facility] Comment on above: Performed By: #### C BC, CMP, ANEU, ADIFF, GFR #### [address] [address] Bili Total 1.0 mg/dL Normal 0.2-1.0 [facility] Comment on above: Result Comment: Use of this assay is not recommended for patients undergoing treatment with eltrombopag due to the potential for falsely elevated results. Performed By: #### C BC, CMP, ANEU, ADIFF, GFR #### [address] [address] BUN/Creatinine Ratio 34 ratio High 7-27 [facility] Comment on above: Performed By: #### C BC, CMP, ANEU, ADIFF, GFR #### [place] [id number] Calcium [Mass/Vol] 9.5 mg/dL Normal 8.4-10.[address] [facility] Comment on above: Performed By: #### C BC, CMP, ANEU, ADIFF, GFR #### [place] [address] Chloride [Moles/Vol] 99 mmol/L Normal 98-107 [facility] Comment on above: Performed By: #### C BC, CMP, ANEU, ADIFF, GFR #### [place] [address] CO2 [Moles/Vol] 27 mmol/L Normal 23-31 [facility] Comment on above: Performed By: #### C BC, CMP, ANEU, ADIFF, GFR #### [address] [address] Creatinine [Mass/Vol] 0.86 mg/dL Normal 0.51-0.95 [facility] Comment on above: Performed By: #### C BC, CMP, ANEU, ADIFF, GFR #### [address] [address] Electrolyte Balance 8.0 mEq/L Normal 4.0-15.0 [facility] Comment on above: Performed By: #### C BC, CMP, ANEU, ADIFF, GFR #### [address] [address] Globulin 3.7 G/dL Normal 2.7-4.4 [facility] Comment on above: Performed By: #### C BC, CMP, ANEU, ADIFF, GFR #### [address] [address] Glucose [Mass/Vol] 359 mg/dL High 83-[address] [facility] Comment on above: Performed By: #### C BC, CMP, ANEU, ADIFF, GFR #### [address] [address] Potassium [Moles/Vol] 5.0 mmol/L Normal 3.5-5.1 [facility] Comment on above: Performed By: #### C BC, CMP, ANEU, ADIFF, GFR #### [address] [address] Sodium [Moles/Vol] 134 mmol/L Low 136-[address] [facility] Comment on above: Performed By: #### C BC, CMP, ANEU, ADIFF, GFR #### [address] [address] Total Protein 7.2 G/dL Normal 6.4-8.2 [facility] Comment on above: Performed By: #### C BC, CMP, ANEU, ADIFF, GFR #### [address] [address] Urea nitrogen [Mass/Vol] 29 mg/dL High 7-18 [facility] Comment on above: Performed By: #### C BC, CMP, ANEU, ADIFF, GFR #### [address] [address] LABORATORYOrdered By: SYSTEM SYSTEM on 09-27-2024 Albumin BCP dye [Mass/Vol] 3.5 G/dL Normal 3.4 - 4.8 G/dL AO ADM SS Albumin/Globulin [Mass ratio] 0.9 {ratio} Low 1.1 - 2.5 ratio AO ADM SS ALP [Catalytic activity/Vol] 135 U/L Normal 40 - 135 U/L AO ADM SS ALT With P-5'-P [Catalytic activity/Vol] 30 U/L Normal 14 - 59 U/L AO ADM SS AST With P-5'-P [Catalytic activity/Vol] 22 U/L Normal 10 - 40 U/L AO ADM SS Basophils (Bld) [#/Vol] 0.0 103/mcL Normal 0.0 - 0.3 10^3/mcL AO Workflow SS Basophils/100 WBC (Bld) 0.4 % Normal 0.0 - 2.5 % AO Workflow SS Bilirubin [Mass/Vol] 1.0 mg/dL Normal 0.2 - 1 .0 mg/dL AO ADM SS Comment on above: Interpretive Data: U se of this assay is not recommended for patients undergoing treatment with eltrombopag due to the potential for falsely elevated results. Calcium [Mass/Vol] 9.5 mg/dL Normal 8.4 - 10. 2 mg/dL AO ADM SS Chloride [Moles/Vol] 99 mmol/L Normal 98 - 10 7 mmol/L AO ADM SS CO2 [Moles/Vol] 27 mmol/L Normal 23 - 31 mmol/L AO ADM SS Creatinine [Mass/Vol] 0.86 mg/dL Normal 0.51 - 0.95 mg/dL AO ADM SS Electrolyte Balance 8.0 mEq/L Normal 4.0 - 15 .0 mEq/L AO ADM SS Eosinophil, Absolute 0.0 103/mcL Normal 0.0 - 0 .7 10^3/mcL AO Workflow SS Eosinophils/100 WBC (Bld) 0.4 % Normal 0.0 - 6.0 % AO Workflow SS Erythrocyte distribution width (RBC) [Ratio] 14.1 % Normal 11.5 - 15.5 % AO Workflow SS Estimated Glomerular Filtration Rate 65 ml/min/1.73sqm Invalid Interpretation Code AO Chemistry S Comment on above: Interpretive Data: Stages of Chronic Kidney Disease (CKD) Stage Description eGFR(ml/min/1.73 sq.m.) CKD 1 Normal kidney function or >=90 normal kindney function with possible kidney damage (ex. Proteinuria) CKD 2 Kidney damage with mild loss 60-89 of kidney function CKD 3a Mild to moderate loss of kidney 45-59 function CKD 3b Moderate to severe loss of 30-44 of kindey function CKD 4 Severe loss of kidney function 15-29 CKD 5 Kidney failure <15 Note: (go live 2024) the eGFR calculation was updated to the 2020 CKD-EPI creatinine equation without a race factor to calculate the eGFR results. Globulin 3.7 G/dL Normal 2.7 - 4.4 G/dL AO ADM SS Glucose [Mass/Vol] 359 mg/dL High 83 - 110 mg/dL AO ADM SS Hematocrit (Bld) [Volume fraction] 37.8 % Normal 34.0 - 46.0 % AO Workflow SS Hemoglobin (Bld) [Mass/Vol] 12.6 G/dL Normal 12.0 - 16.0 G/dL AO Workflow SS Lymphocytes (Bld) [#/Vol] 1.6 103/mcL Normal 0.9 - 4.3 10^3/mcL AO Workflow SS Lymphocytes/100 WBC (Bld) 16.7 % Low 20.0 - 40.0 % AO Workflow SS MCH (RBC) [Entitic mass] 30.8 pg Normal 27.0 - 33.0 pg AO Workflow SS MCHC 33.4 G/dL Normal 32.0 - 36.0 G/dL AO Workflow SS MCV (RBC) [Entitic vol] 92.3 fL Normal 80.0 - 99.0 fL AO Workflow SS Monocytes (Bld) [#/Vol] 0.7 103/mcL Normal 0.1 - 1.4 10^3/mcL AO Workflow SS Monocytes/100 WBC (Bld) 7.3 % Normal 2.0 - 13.0 % AO Workflow SS Neutrophils (Bld) [#/Vol] 7.2 103/mcL Normal 2.3 - 8.1 10^3/mcL AO Workflow SS Neutrophils/100 WBC (Bld) 75.2 % High 50.0 - 75.0 % AO Workflow SS Platelet mean volume (Bld) [Entitic vol] 8.8 fL Normal 6.6 - 10.5 fL AO Workflow SS Platelets (Bld) [#/Vol] 235 103/mcL Normal 150 - 450 10^3/mcL AO Workflow SS Potassium [Moles/Vol] 5.0 mmol/L Normal 3.5 - 5.1 mmol/L AO ADM SS Protein [Mass/Vol] 7.2 G/dL Normal 6.4 - 8.2 G/dL AO ADM SS RBC (Bld) [#/Vol] 4.09 106/mcL Low 4.10 - 5.3 0 10^6/mcL AO Workflow SS Sodium [Moles/Vol] 134 mmol/L Low 136 - 145 mmol/L AO ADM SS Urea nitrogen [Mass/Vol] 29 mg/dL High 7 - 18 mg/dL AO ADM SS Urea nitrogen/Creatinine [Mass ratio] 34 ratio High 7 - 27 ratio AO ADM SS WBC (Bld) [#/Vol] 9.6 103/mcL Normal 4.5 - 10.8 10^3/mcL AO Workflow SS No Panel Informationon 09-27 Culture Urine 50,000 - 100,000 cfu/ml Multiple bacterial morphotypes present. Probable Contamination. Suggest recollection if clinically indicated. [facility] .GFRon 08-19-2024 Estimated Glomerular Filtration Rate 50 ml/min/1.73sqm Normal [facility] Comment on above: Result Comment: Stages of Chronic Kidney Disease (CKD) Stage Description eGFR(ml/min/1.73 sq.m.) CKD 1 Normal kidney function or >=90 normal kindney function with possible kidney damage (ex. Proteinuria) CKD 2 Kidney damage with mild loss 60-89 of kidney function CKD 3a Mild to moderate loss of kidney 45-59 function CKD 3b Moderate to severe loss of 30-44 of kindey function CKD 4 Severe loss of kidney function 15-29 CKD 5 Kidney failure <15 Note: (go live 2024) the eGFR calculation was updated to the 2020 CKD-EPI creatinine equation without a race factor to calculate the eGFR results. Performed By: #### G FROYLAN HAMMER MDW, ISAIAH, CBC, ANEU #### [address] [address] BMPon 08-19-2024 BUN/Creatinine Ratio 24 ratio Normal 7-27 [facility] Comment on above: Performed By: #### FROYLAN EDMOND MDW, ISAIAH, CBC, ANEU #### [id number] [place], [place] [address] Calcium [Mass/Vol] 9.9 mg/dL Normal 8.4-10.[address] [facility] Comment on above: Performed By: #### FROYLAN EDMOND MDW, ISAIAH, CBC, ANEU #### [address] [address] Chloride [Moles/Vol] 100 mmol/L Normal 98-107 [facility] Comment on above: Performed By: #### FROYLAN EDMOND MDW, ISAIAH, CBC, ANEU #### [address] [address] CO2 [Moles/Vol] 29 mmol/L Normal 23-31 [facility] Comment on above: Performed By: #### G FROYLAN HAMMER MDW, ISAIAH, CBC, ANEU #### [address] [address] Creatinine [Mass/Vol] 1.08 mg/dL High 0.55-1.02 [facility] Comment on above: Result Comment: Test ing performed on Siemens Dimension EXL analyzer using a modified kinetic Trung technique. Performed By: #### G FROYLAN HAMMER MDW, ISAIAH, CBC, ANEU #### [address] [address] Electrolyte Balance 8.0 mEq/L Normal 4.0-15.0 [facility] Comment on above: Performed By: #### G FROYLAN HAMMER MDW, ISAIAH, CBC, ANEU #### [address] [address] Glucose [Mass/Vol] 210 mg/dL High 83-[address] [facility] Comment on above: Performed By: #### G FROYLAN HAMMER MDW, ISAIAH, CBC, ANEU #### [address] [address] Potassium [Moles/Vol] 4.8 mmol/L Normal 3.5-5.1 [facility] Comment on above: Performed By: #### FROYLAN EDMOND MDW, BMP, CBC, ANEU #### [address] [address] Sodium [Moles/Vol] 137 mmol/L Normal 136-[address] [facility] Comment on above: Performed By: #### FROYLAN EDMOND MDW, BMP, CBC, ANEU #### [address] [address] Urea nitrogen [Mass/Vol] 26 mg/dL High 7-18 [facility] Comment on above: Performed By: #### G , MD FROYLANW, BMP, CBC, ANEU #### [address] [address] .Auto Diffon 02-17-2024 Basophil, Absolute 0.0 10 3/mcL Normal 0.0-0.2 [facility] Comment on above: Performed By: #### G FR, FROYLAN, MDW, BMP, CBC, ANEU #### [address] [address] Basophils/100 WBC (Bld) 0.5 % Normal 0.0-2.5 [facility] Comment on above: Performed By: #### G FR, FROYLAN, W, BMP, CBC, ANEU #### [address] [address] Eosinophil, Absolute 0.1 10 3/mcL Normal 0.0-0.4 [facility] Comment on above: Performed By: #### G FR, FROYLAN, W, BMP, CBC, ANEU #### [address] [address] Eosinophils/100 WBC (Bld) 1.6 % Normal 0.0-7.0 [facility] Comment on above: Performed By: #### G FR, FROYLAN, W, BMP, CBC, ANEU #### [address] [address] Lymphocyte, Absolute 1.9 10 3/mcL Normal 0.8-3.9 [facility] Comment on above: Performed By: #### G FR, FROYLAN, MDW, BMP, CBC, ANEU #### [address] [address] Lymphocytes/100 WBC (Bld) 31.7 % Normal 10.0-50.0 [facility] Comment on above: Performed By: #### G FR, ADCECILIO, MDW, BMP, CBC, ANEU #### [address] [address] Monocyte, Absolute 0.5 10 3/mcL Normal 0.2-1.0 [facility] Comment on above: Performed By: #### G , ROHITH GALEANO, BMP, CBC, ANEU #### [address] [address] Monocytes/100 WBC (Bld) 9.1 % Normal 1.7-13.0 [facility] Comment on above: Performed By: #### G , FROYLAN, ROHITH, BMP, CBC, ANEU #### [address] [address] Neutrophils/100 WBC (Bld) 57.1 % Normal 37.0-80.0 [facility] Comment on above: Performed By: #### G , FROYLAN, ROHITH, BMP, CBC, ANEU #### [address] [address] .GFRon 02-17-2024 GFR 77 ml/min/1.73sqm Normal [facility] Comment on above: Result Comment: GFR Population mean for , Non- Americans Ages 20-29 = 116 mL/min/1.73 sq.m. Ages 30-39 = 107 mL/min/1.73 sq.m. Ages 40-49 = 99 mL/min/1.73 sq.m. Ages 50-59 = 93 mL/min/1.73 sq.m. Ages 60-69 = 85 mL/min/1.73 sq.m. Ages 70+ = 75 mL/min/1.73 sq.m. Chronic Kidney Disease: Less than 60 mL/min/1.73 square meters End Stage Renal Disease: Less than 15 mL/min/1.73 square meters Performed By: #### G , FROYLAN, ROHITH, BMP, CBC, ANEU #### [address] [address] GFR Non- 63 ml/min/1.73sqm Normal [facility] Comment on above: Result Comment: GFR Population mean for , Non- Americans Ages 20-29 = 116 mL/min/1.73 sq.m. Ages 30-39 = 107 mL/min/1.73 sq.m. Ages 40-49 = 99 mL/min/1.73 sq.m. Ages 50-59 = 93 mL/min/1.73 sq.m. Ages 60-69 = 85 mL/min/1.73 sq.m. Ages 70+ = 75 mL/min/1.73 sq.m. Chronic Kidney Disease: Less than 60 mL/min/1.73 square meters End Stage Renal Disease: Less than 15 mL/min/1.73 square meters Performed By: #### G , ROHITH GALEANO, BMP, CBC, ANEU #### [place] [address] .NEUABSon 02-17-2024 Neutrophil, Absolute 3.4 10 3/mcL Normal 2.9-6.2 [facility] Comment on above: Performed By: #### G FROYLAN HAMMER MDW, BMP, CBC, ANEU #### [place] [address] CBCon 02-17-2024 Erythrocyte distribution width (RBC) [Ratio] 14.4 % Normal 11.5-14.5 [facility] Comment on above: Performed By: #### G FROYLAN HAMMER MDW, BMP, CBC, ANEU #### [place] [address] Hematocrit (Bld) [Volume fraction] 35.1 % Low 37.0-47.0 [facility] Comment on above: Performed By: #### G FROYLAN HAMMER MDW, BMP, CBC, ANEU #### [place] [address] Hgb 11.9 G/dL Low 12.0-16.0 [facility] Comment on above: Performed By: #### G , MD FROYLANW, BMP, CBC, ANEU #### [place] [address] MCH (RBC) [Entitic mass] 30.6 pg Normal 27.0-31.2 [facility] Comment on above: Performed By: #### G , MD FROYLANW, BMP, CBC, ANEU #### [place] [address] MCHC 33.9 G/dL Normal 33.0-37.0 [facility] Comment on above: Performed By: #### G , ROHITH GALEANO, BMP, CBC, ANEU #### [address] [address] MCV (RBC) [Entitic vol] 90.4 fL Normal 80.0-94.0 [facility] Comment on above: Performed By: #### G , ROHITH GALEANO, BMP, CBC, ANEU #### [address] [address] Platelet 229 10 3/mcL Normal 130-400 [facility] Comment on above: Performed By: #### Ana HAMMER, ROHITH GALEANO, BMP, CBC, ANEU #### [address] [address] Platelet mean volume (Bld) [Entitic vol] 7.7 fL Normal 7.4-10.4 [facility] Comment on above: Performed By: #### G , ROHITH GALEANO, BMP, CBC, ANEU #### [address] [address] RBC 3.88 10 6/mcL Low 4.20-5.40 [facility] Comment on above: Performed By: #### G , ROHITH GALEANO, BMP, CBC, ANEU #### [address] [address] WBC 5.9 10 3/mcL Normal 4.6-10.8 [facility] Comment on above: Performed By: #### G , ROHITH GALEANO, BMP, CBC, ANEU #### [address] [address] CMPon 02-17-2024 Albumin Level 3.0 G/dL Low 3.4-4.8 [facility] Comment on above: Performed By: #### G , MD FROYLANW, BMP, CBC, ANEU #### [address] [address] Albumin/Globulin [Mass ratio] 0.9 {ratio} Low 1.1-2.5 [facility] Comment on above: Performed By: #### G FROYLAN HAMMER MDW, ISAIAH, CBC, ANEU #### [address] [address] ALP [Catalytic activity/Vol] 94 U/L Normal 40-135 [facility] Comment on above: Performed By: #### G FROYLAN HAMMER MDW, ISAIAH, CBC, ANEU #### [place] [address] ALT [Catalytic activity/Vol] 18 U/L Normal 14-59 [facility] Comment on above: Performed By: #### G FROYLAN HAMMER MDW, ISAIAH, CBC, ANEU #### [place] [address] AST [Catalytic activity/Vol] 23 U/L Normal 10-40 [facility] Comment on above: Performed By: #### G FROYLAN HAMMER MDW, BMP, CBC, ANEU #### [address] [address] Bili Total 1.2 mg/dL High 0.2-1.0 [facility] Comment on above: Result Comment: Use of this assay is not recommended for patients undergoing treatment with eltrombopag due to the potential for falsely elevated results. Performed By: #### G FROYLAN HAMMER MDW, ISAIAH, CBC, ANEU #### [place] [address] BUN/Creatinine Ratio 16 ratio Normal 7-27 [facility] Comment on above: Performed By: #### G FROYLAN HAMMER MDW, ISAIAH, CBC, ANEU #### [place] [id number] Calcium [Mass/Vol] 8.8 mg/dL Normal 8.4-10.[address] [facility] Comment on above: Performed By: #### G FROYLAN HAMMER MDW, ISAIAH, CBC, ANEU #### [address] [address] Chloride [Moles/Vol] 104 mmol/L Normal 98-107 [facility] Comment on above: Performed By: #### G FROYLAN HAMMER MDW, BMP, CBC, ANEU #### [address] [address] CO2 [Moles/Vol] 30 mmol/L Normal 23-31 [facility] Comment on above: Performed By: #### G FROYLAN HAMMER MDW, BMP, CBC, ANEU #### [place] [address] Creatinine [Mass/Vol] 0.85 mg/dL Normal 0.55-1.02 [facility] Comment on above: Result Comment: Test ing performed on [employer] Dimension EXL analyzer using a modified kinetic Trung technique. Performed By: #### G FROYLAN HAMMER MDW, BMP, CBC, ANEU #### [place] [address] Electrolyte Balance 4.0 mEq/L Normal 4.0-15.0 [facility] Comment on above: Performed By: #### G FROYLAN HAMMER MDW, BMP, CBC, ANEU #### [place] [address] Globulin 3.3 G/dL Normal [facility] Comment on above: Performed By: #### FROYLAN EDMOND MDW, BMP, CBC, ANEU #### [place] [address] Glucose [Mass/Vol] 140 mg/dL High 83-[address] [facility] Comment on above: Performed By: #### G FROYLAN HAMMER MDW, BMP, CBC, ANEU #### [place] [address] Potassium [Moles/Vol] 4.2 mmol/L Normal 3.5-5.1 [facility] Comment on above: Performed By: #### G , ROHITH GALEANO, BMP, CBC, ANEU #### [place] [address] Sodium [Moles/Vol] 138 mmol/L Normal 136-[address] [facility] Comment on above: Performed By: #### G FROYLAN HAMMER MDW, ISAIAH, CBC, ANEU #### [place] [id number] [place], [place] [address] Total Protein 6.3 G/dL Low 6.4-8.2 [facility] Comment on above: Performed By: #### FROYLAN EDMOND MDW, ISAIAH, CBC, ANEU #### [place] [id number] [place], [place] [address] Urea nitrogen [Mass/Vol] 14 mg/dL Normal 7-18 [facility] Comment on above: Performed By: #### G FROYLAN HAMMER MDW, ISAIAH, CBC, ANEU #### [place] [id number] [place], [place] [address] LABORATORYOrdered By: Avril Quinones on 02-17-2024 Blood Glucose Testing Reason Routine (02/17/24 12:03 PM) [facility] Glucose [Mass/Vol] 128 mg/dL High 82 - 115 mg/dL [facility] Blood Glucose Testing Reason Routine (02/17/24 7:57 AM) [facility] Glucose [Mass/Vol] 165 mg/dL High 82 - 115 mg/dL [facility] LABORATORYOrdered By: SYSTEM SYSTEM on 02-17-2024 Albumin BCP dye [Mass/Vol] 3.0 G/dL Low 3.4 - 4.8 G/dL AO ADM SS Albumin/Globulin [Mass ratio] 0.9 {ratio} Low 1.1 - 2.5 ratio AO ADM SS ALP [Catalytic activity/Vol] 94 U/L Normal 40 - 135 U/L AO ADM SS ALT With P-5'-P [Catalytic activity/Vol] 18 U/L Normal 14 - 59 U/L AO ADM SS AST With P-5'-P [Catalytic activity/Vol] 23 U/L Normal 10 - 40 U/L AO ADM SS Basophils (Bld) [#/Vol] 0.0 103/mcL Normal 0.0 - 0.2 10^3/mcL AO Workflow SS Basophils/100 WBC (Bld) 0.5 % Normal 0.0 - 2.5 % AO Workflow SS Bilirubin [Mass/Vol] 1.2 mg/dL High 0.2 - 1 .0 mg/dL AO ADM SS Comment on above: Interpretive Data: U se of this assay is not recommended for patients undergoing treatment with eltrombopag due to the potential for falsely elevated results. Calcium [Mass/Vol] 8.8 mg/dL Normal 8.4 - 10. 2 mg/dL AO ADM SS Chloride [Moles/Vol] 104 mmol/L Normal 98 - 10 7 mmol/L AO ADM SS CO2 [Moles/Vol] 30 mmol/L Normal 23 - 31 mmol/L AO ADM SS Creatinine [Mass/Vol] 0.85 mg/dL Normal 0.55 - 1.02 mg/dL AO ADM SS Comment on above: Interpretive Data: T esting performed on [employer] Dimension EXL analyzer using a modified kinetic Trung technique. Electrolyte Balance 4.0 mEq/L Normal 4.0 - 15 .0 mEq/L AO ADM SS Eosinophil, Absolute 0.1 103/mcL Normal 0.0 - 0 .4 10^3/mcL AO Workflow SS Eosinophils/100 WBC (Bld) 1.6 % Normal 0.0 - 7.0 % AO Workflow SS Erythrocyte distribution width (RBC) [Ratio] 14.4 % Normal 11.5 - 14.5 % AO Workflow SS GFR/1.73 sq M.predicted among blacks MDRD (S/P/Bld) [Vol rate/Area] 77 ml/min/1.73sqm Invalid Interpretation Code AO Chemistry S Comment on above: Interpretive Data: GFR Population mean for , Non- Americans Ages 20-29 = 116 mL/min/1.73 sq.m. Ages 30-39 = 107 mL/min/1.73 sq.m. Ages 40-49 = 99 mL/min/1.73 sq.m. Ages 50-59 = 93 mL/min/1.73 sq.m. Ages 60-69 = 85 mL/min/1.73 sq.m. Ages 70+ = 75 mL/min/1.73 sq.m. Chronic Kidney Disease: Less than 60 mL/min/1.73 square meters End Stage Renal Disease: Less than 15 mL/min/1.73 square meters GFR/1.73 sq M.predicted among non-blacks MDRD (S/P/Bld) [Vol rate/Area] 63 ml/min/1.73sqm Invalid Interpretation Code AO Chemistry S Comment on above: Interpretive Data: GFR Population mean for , Non- Americans Ages 20-29 = 116 mL/min/1.73 sq.m. Ages 30-39 = 107 mL/min/1.73 sq.m. Ages 40-49 = 99 mL/min/1.73 sq.m. Ages 50-59 = 93 mL/min/1.73 sq.m. Ages 60-69 = 85 mL/min/1.73 sq.m. Ages 70+ = 75 mL/min/1.73 sq.m. Chronic Kidney Disease: Less than 60 mL/min/1.73 square meters End Stage Renal Disease: Less than 15 mL/min/1.73 square meters Globulin 3.3 G/dL Invalid Interpretation Code AO ADM SS Glucose [Mass/Vol] 140 mg/dL High 83 - 110 mg/dL AO ADM SS Hematocrit (Bld) [Volume fraction] 35.1 % Low 37.0 - 47.0 % AO Workflow SS Hemoglobin (Bld) [Mass/Vol] 11.9 G/dL Low 12.0 - 16.0 G/dL AO Workflow SS Lymphocytes (Bld) [#/Vol] 1.9 103/mcL Normal 0.8 - 3.9 10^3/mcL AO Workflow SS Lymphocytes/100 WBC (Bld) 31.7 % Normal 10.0 - 50.0 % AO Workflow SS Magnesium [Mass/Vol] 2.5 mg/dL High 1.8 - 2 .4 mg/dL AO ADM SS MCH (RBC) [Entitic mass] 30.6 pg Normal 27.0 - 31.2 pg AO Workflow SS MCHC 33.9 G/dL Normal 33.0 - 37.0 G/dL AO Workflow SS MCV (RBC) [Entitic vol] 90.4 fL Normal 80.0 - 94.0 fL AO Workflow SS Monocytes (Bld) [#/Vol] 0.5 103/mcL Normal 0.2 - 1.0 10^3/mcL AO Workflow SS Monocytes/100 WBC (Bld) 9.1 % Normal 1.7 - 13.0 % AO Workflow SS Neutrophils (Bld) [#/Vol] 3.4 103/mcL Normal 2.9 - 6.2 10^3/mcL AO Workflow SS Neutrophils/100 WBC (Bld) 57.1 % Normal 37.0 - 80.0 % AO Workflow SS Platelet mean volume (Bld) [Entitic vol] 7.7 fL Normal 7.4 - 10.4 fL AO Workflow SS Platelets (Bld) [#/Vol] 229 103/mcL Normal 130 - 400 10^3/mcL AO Workflow SS Potassium [Moles/Vol] 4.2 mmol/L Normal 3.5 - 5.1 mmol/L AO ADM SS Protein [Mass/Vol] 6.3 G/dL Low 6.4 - 8.2 G/dL AO ADM SS RBC (Bld) [#/Vol] 3.88 106/mcL Low 4.20 - 5.4 0 10^6/mcL AO Workflow SS Sodium [Moles/Vol] 138 mmol/L Normal 136 - 145 mmol/L AO ADM SS Urea nitrogen [Mass/Vol] 14 mg/dL Normal 7 - 18 mg/dL AO ADM SS Urea nitrogen/Creatinine [Mass ratio] 16 ratio Normal 7 - 27 ratio AO ADM SS WBC (Bld) [#/Vol] 5.9 103/mcL Normal 4.6 - 10.8 10^3/mcL AO Workflow SS MGon 02-17-2024 Magnesium [Mass/Vol] 2.5 mg/dL High 1.8-2.4 [facility] Comment on above: Performed By: #### G FROYLAN HAMMER MDW, BMP, CBC, ANEU #### [place] [id number] [place], [place] [address] .Auto Diffon 02-16-2024 Basophil, Absolute 0.0 10 3/mcL Normal 0.0-0.2 [facility] Comment on above: Performed By: #### G FROYLAN HAMMER MDW, BMP, CBC, ANEU #### [facility] [address] [place], [place] [address] Basophils/100 WBC (Bld) 0.3 % Normal 0.0-2.5 [facility] Comment on above: Performed By: #### G FR, FROYLAN, W, BMP, CBC, ANEU #### [address] [address] Eosinophil, Absolute 0.0 10 3/mcL Normal 0.0-0.4 [facility] Comment on above: Performed By: #### G FR, FROYLAN, MDW, BMP, CBC, ANEU #### [address] [address] Eosinophils/100 WBC (Bld) 1.0 % Normal 0.0-7.0 [facility] Comment on above: Performed By: #### G FR, FROYLAN, W, BMP, CBC, ANEU #### [address] [address] Lymphocyte, Absolute 1.2 10 3/mcL Normal 0.8-3.9 [facility] Comment on above: Performed By: #### G FR, FROYLAN, MDW, BMP, CBC, ANEU #### [address] [address] Lymphocytes/100 WBC (Bld) 16.6 % Normal 10.0-50.0 [facility] Comment on above: Performed By: #### G FR, FROYLAN, MDW, BMP, CBC, ANEU #### [address] [address] Monocyte, Absolute 0.4 10 3/mcL Normal 0.2-1.0 [facility] Comment on above: Performed By: #### G FR, FROYLAN, MDW, BMP, CBC, ANEU #### [address] [address] Monocytes/100 WBC (Bld) 6.6 % Normal 1.7-13.0 [facility] Comment on above: Performed By: #### G FR, ADIFF, MDW, BMP, CBC, ANEU #### [address] [address] Neutrophils/100 WBC (Bld) 75.3 % Normal 37.0-80.0 [facility] Comment on above: Performed By: #### G FROYLAN HAMMER MDW, BMP, CBC, ANEU #### [address] [address] .GFRon 02-16-2024 GFR 68 ml/min/1.73sqm Normal [facility] Comment on above: Result Comment: GFR Population mean for , Non- Americans Ages 20-29 = 116 mL/min/1.73 sq.m. Ages 30-39 = 107 mL/min/1.73 sq.m. Ages 40-49 = 99 mL/min/1.73 sq.m. Ages 50-59 = 93 mL/min/1.73 sq.m. Ages 60-69 = 85 mL/min/1.73 sq.m. Ages 70+ = 75 mL/min/1.73 sq.m. Chronic Kidney Disease: Less than 60 mL/min/1.73 square meters End Stage Renal Disease: Less than 15 mL/min/1.73 square meters Performed By: #### G , FROYLAN, ROHITH, BMP, CBC, ANEU #### [address] [address] GFR Non- 56 ml/min/1.73sqm Normal [facility] Comment on above: Result Comment: GFR Population mean for , Non- Americans Ages 20-29 = 116 mL/min/1.73 sq.m. Ages 30-39 = 107 mL/min/1.73 sq.m. Ages 40-49 = 99 mL/min/1.73 sq.m. Ages 50-59 = 93 mL/min/1.73 sq.m. Ages 60-69 = 85 mL/min/1.73 sq.m. Ages 70+ = 75 mL/min/1.73 sq.m. Chronic Kidney Disease: Less than 60 mL/min/1.73 square meters End Stage Renal Disease: Less than 15 mL/min/1.73 square meters Performed By: #### G , FROYLAN, ROHITH, BMP, CBC, ANEU #### [address] [address] .MDWon 02-16-2024 Monocyte Distribution Width Not performed Normal 0.00-20.00 [facility] Comment on above: Result Comment: ROHITH testing unable to be performed on [id number] instrumentation. Performed By: #### G FROYLAN HAMMER MDW, BMP, CBC, ANEU #### [address] [address] .NEUABSon 02-16-2024 Neutrophil, Absolute 5.4 10 3/mcL Normal 2.9-6.2 [facility] Comment on above: Performed By: #### G FROYLAN HAMMER MDW, BMP, CBC, ANEU #### [address] [address] BMPon 02-16-2024 BUN/Creatinine Ratio 22 ratio Normal 7-27 [facility] Comment on above: Performed By: #### G FROYLAN HAMMER MDW, BMP, CBC, ANEU #### [address] [address] Calcium [Mass/Vol] 9.3 mg/dL Normal 8.4-10.[address] [facility] Comment on above: Performed By: #### G FROYLAN HAMMER MDW, BMP, CBC, ANEU #### [address] [address] Chloride [Moles/Vol] 100 mmol/L Normal 98-107 [facility] Comment on above: Performed By: #### G FROYLAN HAMMER MDW, BMP, CBC, ANEU #### [address] [address] CO2 [Moles/Vol] 27 mmol/L Normal 23-31 [facility] Comment on above: Performed By: #### G FROYLAN HAMMER MDW, BMP, CBC, ANEU #### [address] [address] Creatinine [Mass/Vol] 0.94 mg/dL Normal 0.55-1.02 [facility] Comment on above: Result Comment: Test ing performed on [employer] Dimension EXL analyzer using a modified kinetic Trung technique. Performed By: #### G FROYLAN HAMMER MDW, BMP, CBC, ANEU #### [address] [address] Electrolyte Balance 10.0 mEq/L Normal 4.0-15.0 [facility] Comment on above: Performed By: #### G , ROHITH GALEANO, BMP, CBC, ANEU #### [address] [address] Glucose [Mass/Vol] 225 mg/dL High 83-[address] [facility] Comment on above: Performed By: #### G , ROHITH GALEANO, BMP, CBC, ANEU #### [address] [address] Potassium [Moles/Vol] 4.1 mmol/L Normal 3.5-5.1 [facility] Comment on above: Performed By: #### G FROYLAN HAMMER MDW, BMP, CBC, ANEU #### [address] [address] Sodium [Moles/Vol] 137 mmol/L Normal 136-[address] [facility] Comment on above: Performed By: #### G FROYLAN HAMMER MDW, BMP, CBC, ANEU #### [address] [address] Urea nitrogen [Mass/Vol] 21 mg/dL High 7-18 [facility] Comment on above: Performed By: #### G FROYLAN HAMMER MDW, BMP, CBC, ANEU #### [address] [address] CBCon 02-16-2024 Erythrocyte distribution width (RBC) [Ratio] 13.8 % Normal 11.5-14.5 [facility] Comment on above: Performed By: #### G FROYLAN HAMMER MDW, BMP, CBC, ANEU #### [address] [address] Hematocrit (Bld) [Volume fraction] 39.0 % Normal 37.0-47.0 [facility] Comment on above: Performed By: #### G , ROHITH GALEANO, BMP, CBC, ANEU #### [address] [address] Hgb 13.4 G/dL Normal 12.0-16.0 [facility] Comment on above: Performed By: #### G , ROHITH GALEANO, BMP, CBC, ANEU #### [place] [address] MCH (RBC) [Entitic mass] 30.7 pg Normal 27.0-31.2 [facility] Comment on above: Performed By: #### G , ROHITH GALEANO, BMP, CBC, ANEU #### [place] [address] MCHC 34.4 G/dL Normal 33.0-37.0 [facility] Comment on above: Performed By: #### G , ROHITH GALEANO, BMP, CBC, ANEU #### [place] [address] MCV (RBC) [Entitic vol] 89.3 fL Normal 80.0-94.0 [facility] Comment on above: Performed By: #### G FROYLAN HAMMER MDW, BMP, CBC, ANEU #### [address] [address] Platelet 252 10 3/mcL Normal 130-400 [facility] Comment on above: Performed By: #### G FROYLAN HAMMER MDW, BMP, CBC, ANEU #### [address] [address] Platelet mean volume (Bld) [Entitic vol] 7.7 fL Normal 7.4-10.4 [facility] Comment on above: Performed By: #### G FROYLAN HMAMER MDW, BMP, CBC, ANEU #### [address] [address] RBC 4.37 10 6/mcL Normal 4.20-5.40 [facility] Comment on above: Performed By: #### G FROYLAN HAMMER MDW, BMP, CBC, ANEU #### [facility] [address] [place], [place] [address] WBC 7.2 10 3/mcL Normal 4.6-10.8 [facility] Comment on above: Performed By: #### G FROYLAN HAMMER MDW, ISAIAH, CBC, ANEU #### [facility] [address] [place], [place] [address] CT ABDOMEN/PELVIS W/O CONTRA STon 02-16-2024 CT ABDOMEN/PELVIS W/O CONTRAST ORIGINAL EXAMINATION: CT OF THE ABDOMEN AND PELVIS WITHOUT CONTRAST TECHNIQUE: CT of the abdomen and pelvis was performed without the administration of intravenous contrast. Multiplanar reformatted images are provided for review. Automated exposure control, iterative reconstruction, and/or weight based adjustment of the mA/kV was utilized to reduce the radiation dose to as low as reasonably achievable. COMPARISON: None HISTORY: ORDERING SYSTEM PROVIDED HISTORY: Reason for Exam: abdominal pain, constipation FINDINGS: Lack of intravenous contrast limits evaluation for certain pathology. LOWER THORAX: Imaged lungs are clear. No visible pericardial or pleural effusion. GI TRACT: Small hiatal hernia. The bowel is not obstructed. Surgically absent appendix. A large amount of well-formed stool distends the rectum up to 8.6 cm in diameter with associated mural thickening and hazy changes in the imaged perianal fat. SOLID ORGANS: The unenhanced liver, spleen, pancreas, and adrenal glands are unremarkable. Sludge and stones are present in the gallbladder. There is no lesion identified in the unenhanced kidneys. No hydronephrosis. The urinary bladder is unremarkable. 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 LYMPH/VASCULAR/MESENT MYRA: No abdominopelvic lymphadenopathy, free fluid, or free air. There is mild to moderate calcified atherosclerotic disease of the nonaneurysmal aorta. SOFT TISSUES/BONES: No acute process of the subcutaneous soft tissues or osseous structures. Degenerative spinal changes include grade 1 anterolisthesis of L3 on L4 and L4 on L5. Bilateral hip degenerative changes. 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 Cholelithiasis and gallbladder sludge. I have personally reviewed the images of this examination and agree with the resident's findings and interpretation. Interpreted by: Chito Ray MD Preliminary Report By: Albert Long Electronically signed By Chito Ray MD Dictated Date: 02/16/2024 5:00:30 AM Prelim Date: 02/16/2024 5:11:56 AM Sign Date: 02/16/2024 5:52:34 AM Ordering Provider: ERIKA JORDAN Normal [facility] LABORATORYOrdered By: Ileana Kam on 02-16-2024 Blood Glucose Testing Reason Routine (02/16/24 9:29 PM) [facility] Glucose [Mass/Vol] 162 mg/dL High 82 - 115 mg/dL [facility] LABORATORYOrdered By: Jacqueline Brown on 02-16-2024 Appearance (U) Clear (02/16/24 4:16 AM) Normal Clear AO Auto Urine SS Bilirubin Ql (U) Negative (02/16/24 4:16 AM) Normal Negative AO Auto Urine SS Color (U) Yellow (02/16/24 4:16 AM) Normal AO Auto Urine SS Glucose Test strip (U) [Mass/Vol] 100 mg/dL Invalid Interpretation Code Negative AO Auto Urine SS Hemoglobin Auto test strip (U) [Mass/Vol] Negative (02/16/24 4:16 AM) Normal Negative AO Auto Urine SS Ketones Ql (U) Negative Normal Negative AO Auto Ur ine SS Monocyte distribution width Auto (Bld) [Entitic vol] Not Performed 1 (02/16/24 4:16 AM) Normal 0.00 - 20.00 AO Hematology S Comment on above: Result Comment: ROHITH testing unable to be performed on [id number] instrumentation. UA Leuk Est Negative (02/16/24 4:16 AM) Normal Negative AO Auto Urine SS UA Nitrite Negative (02/16/24 4:16 AM) Normal Negative AO Auto Urine SS UA pH 7.0 (02/16/24 4:16 AM) Normal 5.0 - 8.0 AO Auto Urine SS UA Protein Negative Normal Negative AO Auto Urine SS UA Spec Grav 1.025 (02/16/24 4:16 AM) Normal 1.015-1.025 AO Auto Urine SS UA Specimen Type Clean Catch (02/16/24 4:16 AM) Normal AO Auto Urine SS UA Urobilinogen 0.2 E.U./dL Normal 0.2-1.0 AO Auto Urine SS LABORATORYOrdered By: SYSTEM SYSTEM on 02-16-2024 Basophils (Bld) [#/Vol] 0.0 103/mcL Normal 0.0 - 0.2 10^3/mcL AO Workflow SS Basophils/100 WBC (Bld) 0.3 % Normal 0.0 - 2.5 % AO Workflow SS Calcium [Mass/Vol] 9.3 mg/dL Normal 8.4 - 10. 2 mg/dL AO ADM SS Chloride [Moles/Vol] 100 mmol/L Normal 98 - 10 7 mmol/L AO ADM SS CO2 [Moles/Vol] 27 mmol/L Normal 23 - 31 mmol/L AO ADM SS Creatinine [Mass/Vol] 0.94 mg/dL Normal 0.55 - 1.02 mg/dL AO ADM SS Comment on above: Interpretive Data: T esting performed on [employer] Dim[employer] EXL analyzer using a modified kinetic Trung technique. Electrolyte Balance 10.0 mEq/L Normal 4.0 - 15 .0 mEq/L AO ADM SS Eosinophil, Absolute 0.0 103/mcL Normal 0.0 - 0 .4 10^3/mcL AO Workflow SS Eosinophils/100 WBC (Bld) 1.0 % Normal 0.0 - 7.0 % AO Workflow SS Erythrocyte distribution width (RBC) [Ratio] 13.8 % Normal 11.5 - 14.5 % AO Workflow SS GFR/1.73 sq M.predicted among blacks MDRD (S/P/Bld) [Vol rate/Area] 68 ml/min/1.73sqm Invalid Interpretation Code AO Chemistry S Comment on above: Interpretive Data: GFR Population mean for , Non- Americans Ages 20-29 = 116 mL/min/1.73 sq.m. Ages 30-39 = 107 mL/min/1.73 sq.m. Ages 40-49 = 99 mL/min/1.73 sq.m. Ages 50-59 = 93 mL/min/1.73 sq.m. Ages 60-69 = 85 mL/min/1.73 sq.m. Ages 70+ = 75 mL/min/1.73 sq.m. Chronic Kidney Disease: Less than 60 mL/min/1.73 square meters End Stage Renal Disease: Less than 15 mL/min/1.73 square meters GFR/1.73 sq M.predicted among non-blacks MDRD (S/P/Bld) [Vol rate/Area] 56 ml/min/1.73sqm Invalid Interpretation Code AO Chemistry S Comment on above: Interpretive Data: GFR Population mean for , Non- Americans Ages 20-29 = 116 mL/min/1.73 sq.m. Ages 30-39 = 107 mL/min/1.73 sq.m. Ages 40-49 = 99 mL/min/1.73 sq.m. Ages 50-59 = 93 mL/min/1.73 sq.m. Ages 60-69 = 85 mL/min/1.73 sq.m. Ages 70+ = 75 mL/min/1.73 sq.m. Chronic Kidney Disease: Less than 60 mL/min/1.73 square meters End Stage Renal Disease: Less than 15 mL/min/1.73 square meters Glucose [Mass/Vol] 225 mg/dL High 83 - 110 mg/dL AO ADM SS Hematocrit (Bld) [Volume fraction] 39.0 % Normal 37.0 - 47.0 % AO Workflow SS Hemoglobin (Bld) [Mass/Vol] 13.4 G/dL Normal 12.0 - 16.0 G/dL AO Workflow SS Lymphocytes (Bld) [#/Vol] 1.2 103/mcL Normal 0.8 - 3.9 10^3/mcL AO Workflow SS Lymphocytes/100 WBC (Bld) 16.6 % Normal 10.0 - 50.0 % AO Workflow SS MCH (RBC) [Entitic mass] 30.7 pg Normal 27.0 - 31.2 pg AO Workflow SS MCHC 34.4 G/dL Normal 33.0 - 37.0 G/dL AO Workflow SS MCV (RBC) [Entitic vol] 89.3 fL Normal 80.0 - 94.0 fL AO Workflow SS Monocytes (Bld) [#/Vol] 0.4 103/mcL Normal 0.2 - 1.0 10^3/mcL AO Workflow SS Monocytes/100 WBC (Bld) 6.6 % Normal 1.7 - 13.0 % AO Workflow SS Neutrophils (Bld) [#/Vol] 5.4 103/mcL Normal 2.9 - 6.2 10^3/mcL AO Workflow SS Neutrophils/100 WBC (Bld) 75.3 % Normal 37.0 - 80.0 % AO Workflow SS Platelet mean volume (Bld) [Entitic vol] 7.7 fL Normal 7.4 - 10.4 fL AO Workflow SS Platelets (Bld) [#/Vol] 252 103/mcL Normal 130 - 400 10^3/mcL AO Workflow SS Potassium [Moles/Vol] 4.1 mmol/L Normal 3.5 - 5.1 mmol/L AO ADM SS RBC (Bld) [#/Vol] 4.37 106/mcL Normal 4.20 - 5.4 0 10^6/mcL AO Workflow SS Sodium [Moles/Vol] 137 mmol/L Normal 136 - 145 mmol/L AO ADM SS Urea nitrogen [Mass/Vol] 21 mg/dL High 7 - 18 mg/dL AO ADM SS Urea nitrogen/Creatinine [Mass ratio] 22 ratio Normal 7 - 27 ratio AO ADM SS WBC (Bld) [#/Vol] 7.2 103/mcL Normal 4.6 - 10.8 10^3/mcL AO Workflow SS UAon 02-16-2024 Color (U) Yellow Normal [facility] Comment on above: Performed By: #### G FROYLAN HAMMER MDW, BMP, CBC, ANEU #### [address] [address] Glucose (U) [Mass/Vol] 100 mg/dL Abnormal Negative [facility] Comment on above: Performed By: #### FROYLAN EDMOND MDW, BMP, CBC, ANEU #### [address] [address] Ketones Ql (U) Negative Normal Negative [facility] Comment on above: Performed By: #### FROYLAN EDMOND MDW, BMP, CBC, ANEU #### [address] [address] UA Appear Clear Normal Clear [facility] Comment on above: Performed By: #### FROYLAN EDMOND MDW, BMP, CBC, ANEU #### [id number] [place], [place] [address] UA Blood Negative Normal Negative [facility] Comment on above: Performed By: #### FROYLAN EDMOND MDW, ISAIAH, CBC, ANEU #### [address] [address] UA Leuk Est Negative Normal Negative [facility] Comment on above: Performed By: #### FROYLAN EDMOND MDW, BMP, CBC, ANEU #### [address] [address] UA Nitrite Negative Normal Negative [facility] Comment on above: Performed By: #### FROYLAN EDMOND MDW, BMP, CBC, ANEU #### [address] [address] UA pH 7.0 Normal 5.0 - 8.0 [facility] Comment on above: Performed By: #### FROYLAN EDMOND MDW, BMP, CBC, ANEU #### [address] [address] UA Protein Negative Normal Negative [facility] Comment on above: Performed By: #### FROYLAN EDMOND MDW, BMP, CBC, ANEU #### [address] [address] UA Spec Grav 1.025 Normal 1.015-1.025 [facility] Comment on above: Performed By: #### FROYLAN EDMOND MDW, BMP, CBC, ANEU #### [address] [address] UA Specimen Type Clean Catch Normal [facility] Comment on above: Performed By: #### FROYLAN EDMOND MDW, BMP, CBC, ANEU #### [address] [address] UA Urobilinogen 0.2 E.U./dL Normal 0.2-1.0 [facility] Comment on above: Performed By: #### FROYLAN EDMOND MDW, BMP, CBC, ANEU #### [address] [address] Urobilinogen (U) [Mass/Vol] Negative Normal Negative [facility] Comment on above: Performed By: #### FROYLAN EDMOND MDAdebayo, BMP, CBC, ANEU #### [address] [address] .GFRon 01-26-2024 GFR 63 ml/min/1.73sqm Normal [facility] ([place]) Comment on above: Result Comment: GFR Population mean for , Non- Americans Ages 20-29 = 116 mL/min/1.73 sq.m. Ages 30-39 = 107 mL/min/1.73 sq.m. Ages 40-49 = 99 mL/min/1.73 sq.m. Ages 50-59 = 93 mL/min/1.73 sq.m. Ages 60-69 = 85 mL/min/1.73 sq.m. Ages 70+ = 75 mL/min/1.73 sq.m. Chronic Kidney Disease: Less than 60 mL/min/1.73 square meters End Stage Renal Disease: Less than 15 mL/min/1.73 square meters Performed By: #### G FR, ANEU, CMP, CBC, PBNP, ADIFF #### [address] [address] GFR Non- 52 ml/min/1.73sqm Normal [facility] ([place]) Comment on above: Result Comment: GFR Population mean for , Non- Americans Ages 20-29 = 116 mL/min/1.73 sq.m. Ages 30-39 = 107 mL/min/1.73 sq.m. Ages 40-49 = 99 mL/min/1.73 sq.m. Ages 50-59 = 93 mL/min/1.73 sq.m. Ages 60-69 = 85 mL/min/1.73 sq.m. Ages 70+ = 75 mL/min/1.73 sq.m. Chronic Kidney Disease: Less than 60 mL/min/1.73 square meters End Stage Renal Disease: Less than 15 mL/min/1.73 square meters Performed By: #### G FR, ANEU, CMP, CBC, PBNP, ADIFF #### [address] [address] BMPon 01-26-2024 BUN/Creatinine Ratio 18 ratio Normal 12-29 [facility] ([place]) Comment on above: Performed By: #### G FR, ANEU, CMP, CBC, PBNP, ADIFF #### [address] [address] Calcium [Mass/Vol] 9.3 mg/dL Normal 8.4-10.2 [facility] ([place]) Comment on above: Performed By: #### G FR, ANEU, CMP, CBC, PBNP, ADIFF #### [address] [address] Chloride [Moles/Vol] 101 mmol/L Normal 98-107 [facility] ([place]) Comment on above: Performed By: #### G FR, ANEU, CMP, CBC, PBNP, ADIFF #### [address] [address] CO2 [Moles/Vol] 30 mmol/L Normal 23-31 [facility] ([place] Comment on above: Performed By: #### G FR, ANEU, CMP, CBC, PBNP, ADIFF #### [address] [address] Creatinine [Mass/Vol] 1.01 mg/dL Normal 0.55-1.02 [facility] ([place]) Comment on above: Performed By: #### G FR, ANEU, CMP, CBC, PBNP, ADIFF #### [address] [address] Electrolyte Balance 7.0 mEq/L Normal 4.0-15.0 [facility] ([place] Comment on above: Performed By: #### G FR, ANEU, CMP, CBC, PBNP, ADIFF #### [address] [address] Glucose [Mass/Vol] 188 mg/dL High 83-110 [facility] ([place]) Comment on above: Performed By: #### G FR, ANEU, CMP, CBC, PBNP, ADIFF #### [address] [address] Potassium [Moles/Vol] 4.6 mmol/L Normal 3.5-5.1 [facility] ([place]) Comment on above: Performed By: #### G FR, ANEU, CMP, CBC, PBNP, ADIFF #### [id number] [place], [place] [address] Sodium [Moles/Vol] 138 mmol/L Normal 136-145 [facility] ([place]) Comment on above: Performed By: #### G FR, ANEU, CMP, CBC, PBNP, ADIFF #### [id number] [place], [place] [address] Urea nitrogen [Mass/Vol] 18 mg/dL Normal 7-18 [facility] ([place] Comment on above: Performed By: #### G FR, ANEU, CMP, CBC, PBNP, ADIFF #### [id number] [place], [place] [address] LABORATORYOrdered By: Page Arce on 01-26-2024 Albumin DL <= 20 mg/L (U) [Mass/Vol] 6221 mcg/dL Invalid Interpretation Code AO ADM SS Albumin/Creatinine DL <= 20 mg/L (U) [Mass ratio] 49 mcg/mg High 0 - 30 mcg/mg AO ADM SS Creatinine (U) [Mass/Vol] 127.0 mg/dL High 28.0 - 117.0 mg/dL AO ADM SS LABORATORYOrdered By: [employer] on 01-26-2024 Calcium [Mass/Vol] 9.3 mg/dL Normal 8.4 - 10. 2 mg/dL AO ADM SS Chloride [Moles/Vol] 101 mmol/L Normal 98 - 10 7 mmol/L AO ADM SS CO2 [Moles/Vol] 30 mmol/L Normal 23 - 31 mmol/L AO ADM SS Creatinine [Mass/Vol] 1.01 mg/dL Normal 0.55 - 1.02 mg/dL AO ADM SS Electrolyte Balance 7.0 mEq/L Normal 4.0 - 15 .0 mEq/L AO ADM SS GFR/1.73 sq M.predicted among blacks MDRD (S/P/Bld) [Vol rate/Area] 63 ml/min/1.73sqm Invalid Interpretation Code AO Chemistry S Comment on above: Interpretive Data: GFR Population mean for , Non- Americans Ages 20-29 = 116 mL/min/1.73 sq.m. Ages 30-39 = 107 mL/min/1.73 sq.m. Ages 40-49 = 99 mL/min/1.73 sq.m. Ages 50-59 = 93 mL/min/1.73 sq.m. Ages 60-69 = 85 mL/min/1.73 sq.m. Ages 70+ = 75 mL/min/1.73 sq.m. Chronic Kidney Disease: Less than 60 mL/min/1.73 square meters End Stage Renal Disease: Less than 15 mL/min/1.73 square meters GFR/1.73 sq M.predicted among non-blacks MDRD (S/P/Bld) [Vol rate/Area] 52 ml/min/1.73sqm Invalid Interpretation Code AO Chemistry S Comment on above: Interpretive Data: GFR Population mean for , Non- Americans Ages 20-29 = 116 mL/min/1.73 sq.m. Ages 30-39 = 107 mL/min/1.73 sq.m. Ages 40-49 = 99 mL/min/1.73 sq.m. Ages 50-59 = 93 mL/min/1.73 sq.m. Ages 60-69 = 85 mL/min/1.73 sq.m. Ages 70+ = 75 mL/min/1.73 sq.m. Chronic Kidney Disease: Less than 60 mL/min/1.73 square meters End Stage Renal Disease: Less than 15 mL/min/1.73 square meters Glucose [Mass/Vol] 188 mg/dL High 83 - 110 mg/dL AO ADM SS Potassium [Moles/Vol] 4.6 mmol/L Normal 3.5 - 5.1 mmol/L AO ADM SS Sodium [Moles/Vol] 138 mmol/L Normal 136 - 145 mmol/L AO ADM SS Urea nitrogen [Mass/Vol] 18 mg/dL Normal 7 - 18 mg/dL AO ADM SS Urea nitrogen/Creatinine [Mass ratio] 18 ratio Normal 7 - 27 ratio AO ADM SS MALBRon 01-26-2024 U Creatinine 127.0 mg/dL High 28.0-117.0 [facility] ([place]) Comment on above: Performed By: #### G FR, ANEU, CMP, CBC, PBNP, ADIFF #### [address] [address] U Microalb 6221 mcg/dL Normal [facility] ([place]) Comment on above: Performed By: #### G FR, ANEU, CMP, CBC, PBNP, ADIFF #### [address] [address] U Ratio Alb/Cre 49 mcg/mg High 0-30 [facility] ([place]) Comment on above: Performed By: #### G FR, ANEU, CMP, CBC, PBNP, ADIFF #### [address] [address] .Auto Diffon 01-16-2024 Basophil, Absolute 0.1 10 3/mcL Normal 0.0-0.2 [facility] ([place]) Comment on above: Performed By: #### C BC, BMP, PBNP, ADIFF, ANEU, TSH, GFR #### [address] [address] Basophils/100 WBC (Bld) 0.8 % Normal 0.0-2.5 [facility] ([place]) Comment on above: Performed By: #### C BC, BMP, PBNP, ADIFF, ANEU, TSH, GFR #### [address] [address] Eosinophil, Absolute 0.1 10 3/mcL Normal 0.0-0.4 [facility] ([place]) Comment on above: Performed By: #### C BC, BMP, PBNP, ADIFF, ANEU, TSH, GFR #### [address] [address] Eosinophils/100 WBC (Bld) 0.9 % Normal 0.0-7.0 [facility] ([place]) Comment on above: Performed By: #### C BC, BMP, PBNP, ADIFF, ANEU, TSH, GFR #### [address] [address] Lymphocyte, Absolute 1.9 10 3/mcL Normal 0.8-3.9 [facility] ([place]) Comment on above: Performed By: #### C BC, BMP, PBNP, ADIFF, ANEU, TSH, GFR #### [address] [address] Lymphocytes/100 WBC (Bld) 29.0 % Normal 10.0-50.0 [facility] ([place]) Comment on above: Performed By: #### C BC, BMP, PBNP, ADIFF, ANEU, TSH, GFR #### [address] [address] Monocyte, Absolute 0.5 10 3/mcL Normal 0.2-1.0 [facility] ([place]) Comment on above: Performed By: #### C BC, BMP, PBNP, ADIFF, ANEU, TSH, GFR #### [address] [address] Monocytes/100 WBC (Bld) 8.0 % Normal 1.7-13.0 [facility] ([place]) Comment on above: Performed By: #### C BC, BMP, PBNP, ADIFF, ANEU, TSH, GFR #### [address] [address] Neutrophils/100 WBC (Bld) 61.3 % Normal 37.0-80.0 [facility] ([place] Comment on above: Performed By: #### C BC, BMP, PBNP, ADIFF, ANEU, TSH, GFR #### [address] [address] .GFRon 01-16-2024 GFR 72 ml/min/1.73sqm Normal [facility] ([place]) Comment on above: Result Comment: GFR Population mean for , Non- Americans Ages 20-29 = 116 mL/min/1.73 sq.m. Ages 30-39 = 107 mL/min/1.73 sq.m. Ages 40-49 = 99 mL/min/1.73 sq.m. Ages 50-59 = 93 mL/min/1.73 sq.m. Ages 60-69 = 85 mL/min/1.73 sq.m. Ages 70+ = 75 mL/min/1.73 sq.m. Chronic Kidney Disease: Less than 60 mL/min/1.73 square meters End Stage Renal Disease: Less than 15 mL/min/1.73 square meters Performed By: #### G FR, ANEU, CMP, CBC, PBNP, ADIFF #### [address] [address] GFR Non- 59 ml/min/1.73sqm Normal [facility] ([place] Comment on above: Result Comment: GFR Population mean for , Non- Americans Ages 20-29 = 116 mL/min/1.73 sq.m. Ages 30-39 = 107 mL/min/1.73 sq.m. Ages 40-49 = 99 mL/min/1.73 sq.m. Ages 50-59 = 93 mL/min/1.73 sq.m. Ages 60-69 = 85 mL/min/1.73 sq.m. Ages 70+ = 75 mL/min/1.73 sq.m. Chronic Kidney Disease: Less than 60 mL/min/1.73 square meters End Stage Renal Disease: Less than 15 mL/min/1.73 square meters Performed By: #### G FR, ANEU, CMP, CBC, PBNP, ADIFF #### [address] [address] .NEUABSon 01-16-2024 Neutrophil, Absolute 4.1 10 3/mcL Normal 2.9-6.2 [facility] ([place] Comment on above: Performed By: #### C BC, BMP, PBNP, ADIFF, ANEU, TSH, GFR #### [address] [address] BMPon 01-16-2024 BUN/Creatinine Ratio 20 ratio Normal 7-27 [facility] ([place] Comment on above: Performed By: #### C BC, BMP, PBNP, ADIFF, ANEU, TSH, GFR #### [address] [address] Calcium [Mass/Vol] 10.0 mg/dL Normal 8.4-10.2 [facility] ([place] Comment on above: Performed By: #### C BC, BMP, PBNP, ADIFF, ANEU, TSH, GFR #### [address] [address] Chloride [Moles/Vol] 103 mmol/L Normal 98-107 [facility] ([place] Comment on above: Performed By: #### C BC, BMP, PBNP, ADIFF, ANEU, TSH, GFR #### [address] [address] CO2 [Moles/Vol] 27 mmol/L Normal 23-31 [facility] ([place] Comment on above: Performed By: #### C BC, BMP, PBNP, ADIFF, ANEU, TSH, GFR #### [address] [address] Creatinine [Mass/Vol] 0.90 mg/dL Normal 0.55-1.02 [facility] ([place] Comment on above: Performed By: #### C BC, BMP, PBNP, ADIFF, ANEU, TSH, GFR #### [address] [address] Electrolyte Balance 11.0 mEq/L Normal 4.0-15.0 [facility] ([place] Comment on above: Performed By: #### C BC, BMP, PBNP, ADIFF, ANEU, TSH, GFR #### [address] [address] Glucose [Mass/Vol] 120 mg/dL High 83-110 [facility] ([place] Comment on above: Performed By: #### C BC, BMP, PBNP, ADIFF, ANEU, TSH, GFR #### [address] [address] Potassium [Moles/Vol] 5.5 mmol/L High 3.5-5.1 [facility] ([place] Comment on above: Performed By: #### C BC, BMP, PBNP, ADIFF, ANEU, TSH, GFR #### [address] [address] Sodium [Moles/Vol] 141 mmol/L Normal 136-145 [facility] ([place] Comment on above: Performed By: #### C BC, BMP, PBNP, ADIFF, ANEU, TSH, GFR #### [place] [address] Urea nitrogen [Mass/Vol] 18 mg/dL Normal 7-18 [facility] ([place] Comment on above: Performed By: #### C BC, BMP, PBNP, ADIFF, ANEU, TSH, GFR #### [address] [place] [address] CBCon 01-16-2024 Erythrocyte distribution width (RBC) [Ratio] 13.8 % Normal 11.5-14.5 [facility] ([place] Comment on above: Performed By: #### C BC, BMP, PBNP, ADIFF, ANEU, TSH, GFR #### [address] [place] [address] Hematocrit (Bld) [Volume fraction] 37.2 % Normal 37.0-47.0 [facility] ([place] Comment on above: Performed By: #### C BC, BMP, PBNP, ADIFF, ANEU, TSH, GFR #### [address] [place] [address] Hgb 12.3 G/dL Normal 12.0-16.0 [facility] ([place] Comment on above: Performed By: #### C BC, BMP, PBNP, ADIFF, ANEU, TSH, GFR #### [address] [place] [address] MCH (RBC) [Entitic mass] 30.6 pg Normal 27.0-31.2 [facility] ([place] Comment on above: Performed By: #### C BC, BMP, PBNP, ADIFF, ANEU, TSH, GFR #### [address] [place] [address] MCHC 33.0 G/dL Normal 33.0-37.0 [facility] ([place] Comment on above: Performed By: #### C BC, BMP, PBNP, ADIFF, ANEU, TSH, GFR #### [address] [place] [address] MCV (RBC) [Entitic vol] 92.7 fL Normal 80.0-94.0 [facility] ([place] Comment on above: Performed By: #### C BC, BMP, PBNP, ADIFF, ANEU, TSH, GFR #### [address] [address] Platelet 248 10 3/mcL Normal 130-400 [facility] [place] Comment on above: Performed By: #### C BC, BMP, PBNP, ADIFF, ANEU, TSH, GFR #### [address] [address] Platelet mean volume (Bld) [Entitic vol] 8.8 fL Normal 7.4-10.4 [facility] [place] Comment on above: Performed By: #### C BC, BMP, PBNP, ADIFF, ANEU, TSH, GFR #### [address] [address] RBC 4.01 10 6/mcL Low 4.20-5.40 [facility] ([place]) Comment on above: Performed By: #### C BC, BMP, PBNP, ADIFF, ANEU, TSH, GFR #### [address] [address] WBC 6.6 10 3/mcL Normal 4.6-10.8 [facility] [place] Comment on above: Performed By: #### C BC, BMP, PBNP, ADIFF, ANEU, TSH, GFR #### [address] [address] PBNPon 01-16-2024 Natriuretic peptide B (Bld) [Mass/Vol] 189 pg/mL Normal 0-450 [facility] ([place] Comment on above: Result Comment: NT-p roBNP results of less than 300 pg/mL effectively rules out acute congestive heart failure with 99% negative predictive value. Performed By: #### G FR, ANEU, CMP, CBC, PBNP, ADIFF #### [address] [address] TSHon 01-16-2024 TSH Qn 1.47 m[IU]/L Normal 0.36-3.74 [facility] [place] Comment on above: Performed By: #### G FR, ANEU, CMP, CBC, PBNP, ADIFF #### [address] [address] XR CHEST 2 VIEWSon 4 XR CHEST 2 VIEWS ORIGINAL EXAMINATION: TWO XRAY VIEWS OF THE CHEST08/18/2023 11:57 am COMPARISON: 05/02/2023 HISTORY: ORDERING SYSTEM PROVIDED HISTORY: Reason for Exam: Encounter for preprocedural respiratory exam FINDINGS: The cardiomediastinal contours are normal.Bilateral lung hyperinflation. There is no consolidation, vascular congestion, pleural effusion, or pneumothorax. There are no acute abnormalities to osseous structures. IMPRESSION: Mild hyperinflation, otherwise unremarkable. I have personally reviewed the images of this examination and agree with the resident's findings and interpretation. Interpreted by: Colin Spencer MD Preliminary Report By: Quentin Mckoy Electronically signed By Colin Spencer MD Dictated Date: 08/22/2023 10:20:57 AM Prelim Date: 08/22/2023 10:25:13 AM Sign Date: 08/22/2023 10:25:13 AM Ordering Provider: ALISE Swanson [facility] ([place]) .Auto Diffon 08-18-2023 Basophil, Absolute 0.0 10 3/mcL Normal 0.0-0.2 [facility]) Comment on above: Performed By: #### G FR, ANEU, CMP, CBC, PBNP, ADIFF #### [address] [address] Basophils/100 WBC (Bld) 0.7 % Normal 0.0-2.5 [facility] ([place] Comment on above: Performed By: #### G FR, ANEU, CMP, CBC, PBNP, ADIFF #### [address] [address] Eosinophil, Absolute 0.0 10 3/mcL Normal 0.0-0.4 [facility] ([place]) Comment on above: Performed By: #### G FR, ANEU, CMP, CBC, PBNP, ADIFF #### [address] [address] Eosinophils/100 WBC (Bld) 0.4 % Normal 0.0-7.0 [facility] ([place] Comment on above: Performed By: #### G FR, ANEU, CMP, CBC, PBNP, ADIFF #### [address] [address] Lymphocyte, Absolute 1.6 10 3/mcL Normal 0.8-3.9 [facility] ([place]) Comment on above: Performed By: #### G FR, ANEU, CMP, CBC, PBNP, ADIFF #### [address] [address] Lymphocytes/100 WBC (Bld) 23.1 % Normal 10.0-50.0 [facility] ([place] Comment on above: Performed By: #### G FR, ANEU, CMP, CBC, PBNP, ADIFF #### [address] [address] Monocyte, Absolute 0.5 10 3/mcL Normal 0.2-1.0 [facility] ([place] Comment on above: Performed By: #### G FR, ANEU, CMP, CBC, PBNP, ADIFF #### [address] [address] Monocytes/100 WBC (Bld) 7.6 % Normal 1.7-13.0 [facility] ([place] Comment on above: Performed By: #### G FR, ANEU, CMP, CBC, PBNP, ADIFF #### [address] [address] Neutrophils/100 WBC (Bld) 68.2 % Normal 37.0-80.0 [facility] ([place] Comment on above: Performed By: #### G FR, ANEU, CMP, CBC, PBNP, ADIFF #### [address] [address] .GFRon 08-18-2023 GFR 75 ml/min/1.73sqm Normal [facility] ([place] Comment on above: Result Comment: GFR Population mean for , Non- Americans Ages 20-29 = 116 mL/min/1.73 sq.m. Ages 30-39 = 107 mL/min/1.73 sq.m. Ages 40-49 = 99 mL/min/1.73 sq.m. Ages 50-59 = 93 mL/min/1.73 sq.m. Ages 60-69 = 85 mL/min/1.73 sq.m. Ages 70+ = 75 mL/min/1.73 sq.m. Chronic Kidney Disease: Less than 60 mL/min/1.73 square meters End Stage Renal Disease: Less than 15 mL/min/1.73 square meters Performed By: #### G FR, ANEU, CMP, CBC, PBNP, ADIFF #### [address] [address] GFR Non- 62 ml/min/1.73sqm Normal [facility] ([place] Comment on above: Result Comment: GFR Population mean for , Non- Americans Ages 20-29 = 116 mL/min/1.73 sq.m. Ages 30-39 = 107 mL/min/1.73 sq.m. Ages 40-49 = 99 mL/min/1.73 sq.m. Ages 50-59 = 93 mL/min/1.73 sq.m. Ages 60-69 = 85 mL/min/1.73 sq.m. Ages 70+ = 75 mL/min/1.73 sq.m. Chronic Kidney Disease: Less than 60 mL/min/1.73 square meters End Stage Renal Disease: Less than 15 mL/min/1.73 square meters Performed By: #### G FR, ANEU, CMP, CBC, PBNP, ADIFF #### [address] [address] .NEUABSon 08-18-2023 Neutrophil, Absolute 4.6 10 3/mcL Normal 2.9-6.2 [facility] ([place]) Comment on above: Performed By: #### G FR, ANEU, CMP, CBC, PBNP, ADIFF #### [address] [address] APTTon 08-18-2023 aPTT Coag (Bld) [Time] 31.9 s Normal 25.0-35.0 [facility] ([place] Comment on above: Result Comment: For Heparin anticoagulation therapy, the recommended therapeutic range is: 50.6-87.4 seconds. Patients on heparin therapy may have an extreme result. Performed By: #### G FR, ANEU, CMP, CBC, PBNP, ADIFF #### [address] [address] Heparin dose (APTT) Unknown Normal [facility] ([place] Comment on above: Performed By: #### G FR, ANEU, CMP, CBC, PBNP, ADIFF #### [address] [address] BMPon 08-18-2023 BUN/Creatinine Ratio 29 ratio High 7-27 [facility] ([place] Comment on above: Performed By: #### G FR, ANEU, CMP, CBC, PBNP, ADIFF #### [address] [address] Calcium [Mass/Vol] 9.9 mg/dL Normal 8.4-10.2 [facility] ([place] Comment on above: Performed By: #### G FR, ANEU, CMP, CBC, PBNP, ADIFF #### [address] [address] Chloride [Moles/Vol] 100 mmol/L Normal 98-107 [facility] ([place] Comment on above: Performed By: #### G FR, ANEU, CMP, CBC, PBNP, ADIFF #### [address] [address] CO2 [Moles/Vol] 29 mmol/L Normal 23-31 [facility] ([place] Comment on above: Performed By: #### G FR, ANEU, CMP, CBC, PBNP, ADIFF #### [address] [address] Creatinine [Mass/Vol] 0.87 mg/dL Normal 0.55-1.02 [facility] ([place] Comment on above: Performed By: #### G FR, ANEU, CMP, CBC, PBNP, ADIFF #### [address] [address] Electrolyte Balance 8.0 mEq/L Normal 4.0-15.0 [facility] ([place] Comment on above: Performed By: #### G FR, ANEU, CMP, CBC, PBNP, ADIFF #### [address] [address] Glucose [Mass/Vol] 187 mg/dL High 83-110 [facility] ([place] Comment on above: Performed By: #### G FR, ANEU, CMP, CBC, PBNP, ADIFF #### [address] [address] Potassium [Moles/Vol] 5.4 mmol/L High 3.5-5.1 [facility] ([place] Comment on above: Performed By: #### G FR, ANEU, CMP, CBC, PBNP, ADIFF #### [address] [address] Sodium [Moles/Vol] 137 mmol/L Normal 136-145 [facility] ([place] Comment on above: Performed By: #### G FR, ANEU, CMP, CBC, PBNP, ADIFF #### [address] [address] Urea nitrogen [Mass/Vol] 25 mg/dL High 7-18 [facility] ([place] Comment on above: Performed By: #### G FR, ANEU, CMP, CBC, PBNP, ADIFF #### [address] [address] CBCon 08-18-2023 Erythrocyte distribution width (RBC) [Ratio] 13.8 % Normal 11.5-14.5 [facility] ([place] Comment on above: Performed By: #### G FR, ANEU, CMP, CBC, PBNP, ADIFF #### [address] [address] Hematocrit (Bld) [Volume fraction] 36.0 % Low 37.0-47.0 [facility] ([place] Comment on above: Performed By: #### G FR, ANEU, CMP, CBC, PBNP, ADIFF #### [address] [address] Hgb 12.3 G/dL Normal 12.0-16.0 [facility] ([place] Comment on above: Performed By: #### G FR, ANEU, CMP, CBC, PBNP, ADIFF #### [address] [address] MCH (RBC) [Entitic mass] 30.8 pg Normal 27.0-31.2 [facility] ([place] Comment on above: Performed By: #### G FR, ANEU, CMP, CBC, PBNP, ADIFF #### [address] [address] MCHC 34.1 G/dL Normal 33.0-37.0 [facility] ([place] Comment on above: Performed By: #### G FR, ANEU, CMP, CBC, PBNP, ADIFF #### [address] [address] MCV (RBC) [Entitic vol] 90.6 fL Normal 80.0-94.0 [facility] ([place] Comment on above: Performed By: #### G FR, ANEU, CMP, CBC, PBNP, ADIFF #### [address] [address] Platelet 261 10 3/mcL Normal 130-400 [facility] [place] Comment on above: Performed By: #### G FR, ANEU, CMP, CBC, PBNP, ADIFF #### [address] [address] Platelet mean volume (Bld) [Entitic vol] 8.3 fL Normal 7.4-10.4 [facility] [place] Comment on above: Performed By: #### G FR, ANEU, CMP, CBC, PBNP, ADIFF #### [address] [address] RBC 3.98 10 6/mcL Low 4.20-5.40 [facility] ([place] Comment on above: Performed By: #### G FR, ANEU, CMP, CBC, PBNP, ADIFF #### [facility] [address] [place], [place] [address] WBC 6.7 10 3/mcL Normal 4.6-10.8 [facility] [place] Comment on above: Performed By: #### G FR, ANEU, CMP, CBC, PBNP, ADIFF #### [facility] [address] [place], [place] [address] LABORATORYOrdered By: Jazmin Ascencio on 08-18-2023 aPTT Coag (PPP) [Time] 31.9 s Normal 25.0 - 35.0 seconds AO [facility] Comment on above: Interpretive Data: F or Heparin anticoagulation therapy, the recommended therapeutic range is: 50.6-87.4 seconds. Patients on heparin therapy may have an extreme result. Heparin dose (APTT) Unknown (08/18/23 10:58 AM) Normal AO Coagulation S INR Coag (PPP) [Relative time] 1.0 {INR} Invalid Interpretation Code AO [facility] Comment on above: Interpretive Data: Maximiliano sen [employer] [place] [employer] (CHEST, 1992, [id number]) recommended therapeutic range for oral anticoagulant therapy is: LOW RISK: Prophylaxis of venous thrombosis INR: 2.0-3.0 Treatment of pulmonary embolism 2.0-3.0 Prevention of systemic embolism 2.0-3.0 HIGH RISK: Mechanical prosthetic valves 2.5-3.5 PT Coag (PPP) [Time] 12.0 s Normal 9.0 - 1 4.2 seconds AO [facility] SS LABORATORYOrdered By: SYSTEM SYSTEM on 08-18-2023 Basophil, Absolute 0.0 103/mcL Normal 0.0 - 0.2 10^3/mcL AO Workflow SS Basophils/100 WBC (Bld) 0.7 % Normal 0.0 - 2.5 % AO Workflow SS Calcium [Mass/Vol] 9.9 mg/dL Normal 8.4 - 10. 2 mg/dL AO ADM SS Chloride [Moles/Vol] 100 mmol/L Normal 98 - 10 7 mmol/L AO ADM SS CO2 [Moles/Vol] 29 mmol/L Normal 23 - 31 mmol/L AO ADM SS Creatinine [Mass/Vol] 0.87 mg/dL Normal 0.55 - 1.02 mg/dL AO ADM SS Electrolyte Balance 8.0 mEq/L Normal 4.0 - 15 .0 mEq/L AO ADM SS Eosinophil, Absolute 0.0 103/mcL Normal 0.0 - 0 .4 10^3/mcL AO Workflow SS Eosinophils/100 WBC (Bld) 0.4 % Normal 0.0 - 7.0 % AO Workflow SS Erythrocyte distribution width (RBC) [Ratio] 13.8 % Normal 11.5 - 14.5 % AO Workflow SS GFR/1.73 sq M.predicted among blacks MDRD (S/P/Bld) [Vol rate/Area] 75 ml/min/1.73sqm Invalid Interpretation Code AO Chemistry S Comment on above: Interpretive Data: GFR Population mean for , Non- Americans Ages 20-29 = 116 mL/min/1.73 sq.m. Ages 30-39 = 107 mL/min/1.73 sq.m. Ages 40-49 = 99 mL/min/1.73 sq.m. Ages 50-59 = 93 mL/min/1.73 sq.m. Ages 60-69 = 85 mL/min/1.73 sq.m. Ages 70+ = 75 mL/min/1.73 sq.m. Chronic Kidney Disease: Less than 60 mL/min/1.73 square meters End Stage Renal Disease: Less than 15 mL/min/1.73 square meters GFR/1.73 sq M.predicted among non-blacks MDRD (S/P/Bld) [Vol rate/Area] 62 ml/min/1.73sqm Invalid Interpretation Code AO Chemistry S Comment on above: Interpretive Data: GFR Population mean for , Non- Americans Ages 20-29 = 116 mL/min/1.73 sq.m. Ages 30-39 = 107 mL/min/1.73 sq.m. Ages 40-49 = 99 mL/min/1.73 sq.m. Ages 50-59 = 93 mL/min/1.73 sq.m. Ages 60-69 = 85 mL/min/1.73 sq.m. Ages 70+ = 75 mL/min/1.73 sq.m. Chronic Kidney Disease: Less than 60 mL/min/1.73 square meters End Stage Renal Disease: Less than 15 mL/min/1.73 square meters Glucose [Mass/Vol] 187 mg/dL High 83 - 110 mg/dL AO ADM SS Hematocrit (Bld) [Volume fraction] 36.0 % Low 37.0 - 47.0 % AO Workflow SS Hemoglobin (Bld) [Mass/Vol] 12.3 G/dL Normal 12.0 - 16.0 G/dL AO Workflow SS Lymphocyte, Absolute 1.6 103/mcL Normal 0.8 - 3 .9 10^3/mcL AO Workflow SS Lymphocytes/100 WBC (Bld) 23.1 % Normal 10.0 - 50.0 % AO Workflow SS MCH (RBC) [Entitic mass] 30.8 pg Normal 27.0 - 31.2 pg AO Workflow SS MCHC 34.1 G/dL Normal 33.0 - 37.0 G/dL AO Workflow SS MCV (RBC) [Entitic vol] 90.6 fL Normal 80.0 - 94.0 fL AO Workflow SS Monocyte, Absolute 0.5 103/mcL Normal 0.2 - 1.0 10^3/mcL AO Workflow SS Monocytes/100 WBC (Bld) 7.6 % Normal 1.7 - 13.0 % AO Workflow SS Neutrophil, Absolute 4.6 103/mcL Normal 2.9 - 6 .2 10^3/mcL AO Workflow SS Neutrophils/100 WBC (Bld) 68.2 % Normal 37.0 - 80.0 % AO Workflow SS Platelet mean volume (Bld) [Entitic vol] 8.3 fL Normal 7.4 - 10.4 fL AO Workflow SS Platelets (Bld) [#/Vol] 261 103/mcL Normal 130 - 400 10^3/mcL AO Workflow SS Potassium [Moles/Vol] 5.4 mmol/L High 3.5 - 5.1 mmol/L AO ADM SS RBC (Bld) [#/Vol] 3.98 106/mcL Low 4.20 - 5.4 0 10^6/mcL AO Workflow SS Sodium [Moles/Vol] 137 mmol/L Normal 136 - 145 mmol/L AO ADM SS Urea nitrogen [Mass/Vol] 25 mg/dL High 7 - 18 mg/dL AO ADM SS Urea nitrogen/Creatinine [Mass ratio] 29 ratio High 7 - 27 ratio AO ADM SS WBC (Bld) [#/Vol] 6.7 103/mcL Normal 4.6 - 10.8 10^3/mcL AO Workflow SS PROon 08-18-2023 PT Coag (PPP) [Time] 12.0 s Normal 9.0-14.2 [facility] ([place]) Comment on above: Performed By: #### G FR, ANEU, CMP, CBC, PBNP, ADIFF #### [address] [address] PT International Ratio 1.0 Normal [facility] ([place]) Comment on above: Result Comment: [employer] [place] [employer] (CHEST, 1992, 102:312S-25S) recommended therapeutic range for oral anticoagulant therapy is: LOW RISK: Prophylaxis of venous thrombosis INR: 2.0-3.0 Treatment of pulmonary embolism 2.0-3.0 Prevention of systemic embolism 2.0-3.0 HIGH RISK: Mechanical prosthetic valves 2.5-3.5 Performed By: #### G FR, ANEU, CMP, CBC, PBNP, ADIFF #### [address] [address] CPEPon 08-04-2023 C-Peptide 4.24 ng/mL High 0.81-3.85 [facility] ([place]) Comment on above: Performed By: #### G FR, ANEU, CMP, CBC, PBNP, ADIFF #### [address] [address] LABORATORYOrdered By: SYSTEM SYSTEM on 08-04-2023 C peptide [Mass/Vol] 4.24 ng/mL High 0.81 - 3.85 ng/mL ADM SS .Auto Diffon 05-02-2023 Basophil, Absolute 0.1 10 3/mcL Normal 0.0-0.2 [facility] ([place]) Comment on above: Performed By: #### G FR, ANEU, CMP, CBC, PBNP, ADIFF #### [address] [address] Basophils/100 WBC (Bld) 0.9 % Normal 0.0-2.5 [facility] ([place]) Comment on above: Performed By: #### G FR, ANEU, CMP, CBC, PBNP, ADIFF #### [place] [address] [place], [place] [address] Eosinophil, Absolute 0.1 10 3/mcL Normal 0.0-0.4 [facility] ([place]) Comment on above: Performed By: #### G FR, ANEU, CMP, CBC, PBNP, ADIFF #### [address] [address] Eosinophils/100 WBC (Bld) 1.3 % Normal 0.0-7.0 [facility] ([place] Comment on above: Performed By: #### G FR, ANEU, CMP, CBC, PBNP, ADIFF #### [address] [address] Lymphocyte, Absolute 1.7 10 3/mcL Normal 0.8-3.9 [facility] ([place]) Comment on above: Performed By: #### G FR, ANEU, CMP, CBC, PBNP, ADIFF #### [address] [address] Lymphocytes/100 WBC (Bld) 23.2 % Normal 10.0-50.0 [facility] ([place] Comment on above: Performed By: #### G FR, ANEU, CMP, CBC, PBNP, ADIFF #### [address] [address] Monocyte, Absolute 0.6 10 3/mcL Normal 0.2-1.0 [facility] ([place] Comment on above: Performed By: #### G FR, ANEU, CMP, CBC, PBNP, ADIFF #### [address] [address] Monocytes/100 WBC (Bld) 8.4 % Normal 1.7-13.0 [facility] ([place] Comment on above: Performed By: #### G FR, ANEU, CMP, CBC, PBNP, ADIFF #### [address] [address] Neutrophils/100 WBC (Bld) 66.2 % Normal 37.0-80.0 [facility] ([place] Comment on above: Performed By: #### G FR, ANEU, CMP, CBC, PBNP, ADIFF #### [address] [address] .GFRon 05-02-2023 GFR 75 ml/min/1.73sqm Normal [facility] ([place]) Comment on above: Result Comment: GFR Population mean for , Non- Americans Ages 20-29 = 116 mL/min/1.73 sq.m. Ages 30-39 = 107 mL/min/1.73 sq.m. Ages 40-49 = 99 mL/min/1.73 sq.m. Ages 50-59 = 93 mL/min/1.73 sq.m. Ages 60-69 = 85 mL/min/1.73 sq.m. Ages 70+ = 75 mL/min/1.73 sq.m. Chronic Kidney Disease: Less than 60 mL/min/1.73 square meters End Stage Renal Disease: Less than 15 mL/min/1.73 square meters Performed By: #### G FR, ANEU, CMP, CBC, PBNP, ADIFF #### [address] [address] GFR Non- 62 ml/min/1.73sqm Normal [facility] ([place] Comment on above: Result Comment: GFR Population mean for , Non- Americans Ages 20-29 = 116 mL/min/1.73 sq.m. Ages 30-39 = 107 mL/min/1.73 sq.m. Ages 40-49 = 99 mL/min/1.73 sq.m. Ages 50-59 = 93 mL/min/1.73 sq.m. Ages 60-69 = 85 mL/min/1.73 sq.m. Ages 70+ = 75 mL/min/1.73 sq.m. Chronic Kidney Disease: Less than 60 mL/min/1.73 square meters End Stage Renal Disease: Less than 15 mL/min/1.73 square meters Performed By: #### G FR, ANEU, CMP, CBC, PBNP, ADIFF #### [address] [address] .NEUABSon 05-02-2023 Neutrophil, Absolute 4.9 10 3/mcL Normal 2.9-6.2 [facility] ([place]) Comment on above: Performed By: #### G FR, ANEU, CMP, CBC, PBNP, ADIFF #### [address] [address] APTTon 05-02-2023 aPTT Coag (Bld) [Time] 33.0 s Normal 25.0-35.0 [facility] ([place]) Comment on above: Result Comment: For Heparin anticoagulation therapy, the recommended therapeutic range is: 50.6-87.4 seconds. Patients on heparin therapy may have an extreme result. Performed By: #### G FR, ANEU, CMP, CBC, PBNP, ADIFF #### [address] [address] Heparin dose (APTT) Unknown Normal [facility] ([place] Comment on above: Performed By: #### G FR, ANEU, CMP, CBC, PBNP, ADIFF #### [address] [address] BMPon 05-02-2023 BUN/Creatinine Ratio 26 ratio Normal 7-27 [facility] ([place] Comment on above: Performed By: #### G FR, ANEU, CMP, CBC, PBNP, ADIFF #### [address] [address] Calcium [Mass/Vol] 9.4 mg/dL Normal 8.4-10.2 [facility] ([place]) Comment on above: Performed By: #### G FR, ANEU, CMP, CBC, PBNP, ADIFF #### [address] [address] Chloride [Moles/Vol] 102 mmol/L Normal 98-107 [facility] ([place] Comment on above: Performed By: #### G FR, ANEU, CMP, CBC, PBNP, ADIFF #### [address] [address] CO2 [Moles/Vol] 29 mmol/L Normal 23-31 [facility] ([place]) Comment on above: Performed By: #### G FR, ANEU, CMP, CBC, PBNP, ADIFF #### [address] [address] Creatinine [Mass/Vol] 0.87 mg/dL Normal 0.55-1.02 [facility] ([place]) Comment on above: Performed By: #### G FR, ANEU, CMP, CBC, PBNP, ADIFF #### [address] [address] Electrolyte Balance 8.0 mEq/L Normal 4.0-15.0 [facility] ([place] Comment on above: Performed By: #### G FR, ANEU, CMP, CBC, PBNP, ADIFF #### [address] [address] Glucose [Mass/Vol] 187 mg/dL High 83-110 [facility] ([place] Comment on above: Performed By: #### G FR, ANEU, CMP, CBC, PBNP, ADIFF #### [address] [address] Potassium [Moles/Vol] 5.3 mmol/L High 3.5-5.1 [facility] ([place] Comment on above: Performed By: #### G FR, ANEU, CMP, CBC, PBNP, ADIFF #### [address] [address] Sodium [Moles/Vol] 139 mmol/L Normal 136-145 [facility] ([place] Comment on above: Performed By: #### G FR, ANEU, CMP, CBC, PBNP, ADIFF #### [address] [address] Urea nitrogen [Mass/Vol] 23 mg/dL High 7-18 [facility] ([place] Comment on above: Performed By: #### G FR, ANEU, CMP, CBC, PBNP, ADIFF #### [address] [address] CBCon 05-02-2023 Erythrocyte distribution width (RBC) [Ratio] 13.5 % Normal 11.5-14.5 [facility] ([place] Comment on above: Performed By: #### G FR, ANEU, CMP, CBC, PBNP, ADIFF #### [address] [address] Hematocrit (Bld) [Volume fraction] 37.0 % Normal 37.0-47.0 [facility] ([place] Comment on above: Performed By: #### G FR, ANEU, CMP, CBC, PBNP, ADIFF #### [place] [id number] Hgb 12.3 G/dL Normal 12.0-16.0 [facility] ([place] Comment on above: Performed By: #### G FR, ANEU, CMP, CBC, PBNP, ADIFF #### [place] [address] MCH (RBC) [Entitic mass] 30.6 pg Normal 27.0-31.2 [facility] ([place] Comment on above: Performed By: #### G FR, ANEU, CMP, CBC, PBNP, ADIFF #### [place] [address] MCHC 33.4 G/dL Normal 33.0-37.0 [facility] ([place] Comment on above: Performed By: #### G FR, ANEU, CMP, CBC, PBNP, ADIFF #### [address] [address] MCV (RBC) [Entitic vol] 91.8 fL Normal 80.0-94.0 [facility] ([place] Comment on above: Performed By: #### G FR, ANEU, CMP, CBC, PBNP, ADIFF #### [address] [address] Platelet 336 10 3/mcL Normal 130-400 [facility] [place] Comment on above: Performed By: #### G FR, ANEU, CMP, CBC, PBNP, ADIFF #### [address] [address] Platelet mean volume (Bld) [Entitic vol] 7.8 fL Normal 7.4-10.4 [facility] [place] Comment on above: Performed By: #### G FR, ANEU, CMP, CBC, PBNP, ADIFF #### [place] [id number] [place], [place] [address] RBC 4.03 10 6/mcL Low 4.20-5.40 [facility] ([place]) Comment on above: Performed By: #### G FR, ANEU, CMP, CBC, PBNP, ADIFF #### [place] [id number] [place], [place] [address] WBC 7.4 10 3/mcL Normal 4.6-10.8 [facility] [place] Comment on above: Performed By: #### G FR, ANEU, CMP, CBC, PBNP, ADIFF #### [address] [address] PROon 05-02-2023 PT Coag (PPP) [Time] 11.6 s Normal 9.0-14.2 [facility] ([place] Comment on above: Performed By: #### G FR, ANEU, CMP, CBC, PBNP, ADIFF #### [address] [address] PT International Ratio 1.0 Normal [facility] ([place] Comment on above: Result Comment: [employer] [place] [employer] (CHEST, 1992, 102:312S-25S) recommended therapeutic range for oral anticoagulant therapy is: LOW RISK: Prophylaxis of venous thrombosis INR: 2.0-3.0 Treatment of pulmonary embolism 2.0-3.0 Prevention of systemic embolism 2.0-3.0 HIGH RISK: Mechanical prosthetic valves 2.5-3.5 Performed By: #### G FR, ANEU, CMP, CBC, PBNP, ADIFF #### [address] [address] XR CHEST 2 VIEWSon XR CHEST 2 VIEWS ORIGINAL EXAMINATION: TWO XRAY VIEWS OF THE CHEST05/02/2023 10:05 am XR Chest, two views COMPARISON: 04/05/2021 HISTORY: ORDERING SYSTEM PROVIDED HISTORY: Reason for Exam: Encounter for pre-procedural respiratory exam, , patient with diabetes and hypertension FINDINGS: The lungs show no suspicious nodule, infiltrate, consolidation or mass. Heart size and mediastinal contours are stable accounting for differences in projection and patient position. No pneumothorax, pleural fluid, or vascular congestion is seen. The bones show no acute process. Mild calcification of aorta. Lungs appear hyperexpanded on the lateral view with increased retrosternal clear space. IMPRESSION: No acute cardio pulmonary process. Question lung hyperexpansion/COPD. Interpreted by: Jose Matthew MD Preliminary Report By: Jose Matthew MD Electronically signed By Jose Matthew MD Dictated Date: 05/02/2023 5:03:10 PM Prelim Date: 05/02/2023 5:04:28 PM Sign Date: 05/02/2023 5:04:28 PM Ordering Provider: ALISE FLOWERS [facility] ([place]) .GFRon 04-17-2023 GFR 78 ml/min/1.73sqm Normal [facility] ([place]) Comment on above: Result Comment: GFR Population mean for , Non- Americans Ages 20-29 = 116 mL/min/1.73 sq.m. Ages 30-39 = 107 mL/min/1.73 sq.m. Ages 40-49 = 99 mL/min/1.73 sq.m. Ages 50-59 = 93 mL/min/1.73 sq.m. Ages 60-69 = 85 mL/min/1.73 sq.m. Ages 70+ = 75 mL/min/1.73 sq.m. Chronic Kidney Disease: Less than 60 mL/min/1.73 square meters End Stage Renal Disease: Less than 15 mL/min/1.73 square meters Performed By: #### G FR, ANEU, CMP, CBC, PBNP, ADIFF #### [address] [address] GFR Non- 64 ml/min/1.73sqm Normal [facility] ([place] Comment on above: Result Comment: GFR Population mean for , Non- Americans Ages 20-29 = 116 mL/min/1.73 sq.m. Ages 30-39 = 107 mL/min/1.73 sq.m. Ages 40-49 = 99 mL/min/1.73 sq.m. Ages 50-59 = 93 mL/min/1.73 sq.m. Ages 60-69 = 85 mL/min/1.73 sq.m. Ages 70+ = 75 mL/min/1.73 sq.m. Chronic Kidney Disease: Less than 60 mL/min/1.73 square meters End Stage Renal Disease: Less than 15 mL/min/1.73 square meters Performed By: #### G FR, ANEU, CMP, CBC, PBNP, ADIFF #### [address] [address] BMPon 04-17-2023 BUN/Creatinine Ratio 24 ratio Normal 7-27 [facility] ([place] Comment on above: Order Comment: STAT Performed By: #### G FR, ANEU, CMP, CBC, PBNP, ADIFF #### [address] [address] Calcium [Mass/Vol] 9.3 mg/dL Normal 8.4-10.2 [facility] ([place]) Comment on above: Order Comment: STAT Performed By: #### G FR, ANEU, CMP, CBC, PBNP, ADIFF #### [address] [address] Chloride [Moles/Vol] 98 mmol/L Normal 98-107 [facility] ([place] Comment on above: Order Comment: STAT Performed By: #### G FR, ANEU, CMP, CBC, PBNP, ADIFF #### [address] [address] CO2 [Moles/Vol] 26 mmol/L Normal 23-31 [facility] ([place]) Comment on above: Order Comment: STAT Performed By: #### G FR, ANEU, CMP, CBC, PBNP, ADIFF #### [address] [address] Creatinine [Mass/Vol] 0.84 mg/dL Normal 0.55-1.02 [facility] ([place]) Comment on above: Order Comment: STAT Performed By: #### G FR, ANEU, CMP, CBC, PBNP, ADIFF #### [address] [address] Electrolyte Balance 12.0 mEq/L Normal 4.0-15.0 [facility] ([place] Comment on above: Order Comment: STAT Performed By: #### G FR, ANEU, CMP, CBC, PBNP, ADIFF #### [address] [address] Glucose [Mass/Vol] 126 mg/dL High 83-110 [facility] ([place]) Comment on above: Order Comment: STAT Performed By: #### G FR, ANEU, CMP, CBC, PBNP, ADIFF #### [address] [address] Potassium [Moles/Vol] 4.4 mmol/L Normal 3.5-5.1 [facility] ([place] Comment on above: Order Comment: STAT Performed By: #### G FR, ANEU, CMP, CBC, PBNP, ADIFF #### [address] [address] Sodium [Moles/Vol] 136 mmol/L Normal 136-145 [facility] ([place] Comment on above: Order Comment: STAT Performed By: #### G FR, ANEU, CMP, CBC, PBNP, ADIFF #### [address] [address] Urea nitrogen [Mass/Vol] 20 mg/dL High 7-18 [facility] ([place] Comment on above: Order Comment: STAT Performed By: #### G FR, ANEU, CMP, CBC, PBNP, ADIFF #### [address] [address] LABORATORYOrdered By: SYSTEM SYSTEM on 04-17-2023 Calcium [Mass/Vol] 9.3 mg/dL Invalid Interpretation Code 8.4 - 10.2 mg/dL AO ADM SS Chloride [Moles/Vol] 98 mmol/L Invalid Interpretation Code 98 - 107 mmol/L AO ADM SS CO2 [Moles/Vol] 26 mmol/L Invalid Interpretation Code 23 - 31 mmol/L AO ADM SS Creatinine [Mass/Vol] 0.84 mg/dL Invalid Interpretation Code 0.55 - 1.02 mg/dL AO ADM SS Electrolyte Balance 12.0 mEq/L Invalid Interpretation Code 4.0 - 15.0 mEq/L AO ADM SS GFR/1.73 sq M.predicted among blacks MDRD (S/P/Bld) [Vol rate/Area] 78 ml/min/1.73sqm Invalid Interpretation Code AO Chemistry S Comment on above: Interpretive Data: GFR Population mean for , Non- Americans Ages 20-29 = 116 mL/min/1.73 sq.m. Ages 30-39 = 107 mL/min/1.73 sq.m. Ages 40-49 = 99 mL/min/1.73 sq.m. Ages 50-59 = 93 mL/min/1.73 sq.m. Ages 60-69 = 85 mL/min/1.73 sq.m. Ages 70+ = 75 mL/min/1.73 sq.m. Chronic Kidney Disease: Less than 60 mL/min/1.73 square meters End Stage Renal Disease: Less than 15 mL/min/1.73 square meters GFR/1.73 sq M.predicted among non-blacks MDRD (S/P/Bld) [Vol rate/Area] 64 ml/min/1.73sqm Invalid Interpretation Code AO Chemistry S Comment on above: Interpretive Data: GFR Population mean for , Non- Americans Ages 20-29 = 116 mL/min/1.73 sq.m. Ages 30-39 = 107 mL/min/1.73 sq.m. Ages 40-49 = 99 mL/min/1.73 sq.m. Ages 50-59 = 93 mL/min/1.73 sq.m. Ages 60-69 = 85 mL/min/1.73 sq.m. Ages 70+ = 75 mL/min/1.73 sq.m. Chronic Kidney Disease: Less than 60 mL/min/1.73 square meters End Stage Renal Disease: Less than 15 mL/min/1.73 square meters Glucose [Mass/Vol] 126 mg/dL Invalid Interpretation Code 83 - 110 mg/dL AO ADM SS Potassium [Moles/Vol] 4.4 mmol/L Invalid Interpretation Code 3.5 - 5.1 mmol/L AO ADM SS Sodium [Moles/Vol] 136 mmol/L Invalid Interpretation Code 136 - 145 mmol/L AO ADM SS Urea nitrogen [Mass/Vol] 20 mg/dL Invalid Interpretation Code 7 - 18 mg/dL AO ADM SS Urea nitrogen/Creatinine [Mass ratio] 24 ratio Invalid Interpretation Code 7 - 27 ratio AO ADM SS .Auto Diffon 04-14-2023 Basophil, Absolute 0.1 10 3/mcL Normal 0.0-0.2 [facility] ([place]) Comment on above: Performed By: #### G FR, ANEU, CMP, CBC, PBNP, ADIFF #### [address] [address] Basophils/100 WBC (Bld) 0.9 % Normal 0.0-2.5 [facility] ([place] Comment on above: Performed By: #### G FR, ANEU, CMP, CBC, PBNP, ADIFF #### [address] [address] Eosinophil, Absolute 0.1 10 3/mcL Normal 0.0-0.4 [facility] ([place]) Comment on above: Performed By: #### G FR, ANEU, CMP, CBC, PBNP, ADIFF #### [address] [address] Eosinophils/100 WBC (Bld) 1.2 % Normal 0.0-7.0 [facility] ([place] Comment on above: Performed By: #### G FR, ANEU, CMP, CBC, PBNP, ADIFF #### [address] [address] Lymphocyte, Absolute 1.8 10 3/mcL Normal 0.8-3.9 [facility] ([place]) Comment on above: Performed By: #### G FR, ANEU, CMP, CBC, PBNP, ADIFF #### [address] [address] Lymphocytes/100 WBC (Bld) 25.9 % Normal 10.0-50.0 [facility] ([place] Comment on above: Performed By: #### G FR, ANEU, CMP, CBC, PBNP, ADIFF #### [address] [address] Monocyte, Absolute 0.6 10 3/mcL Normal 0.2-1.0 [facility] ([place] Comment on above: Performed By: #### G FR, ANEU, CMP, CBC, PBNP, ADIFF #### [address] [address] Monocytes/100 WBC (Bld) 9.4 % Normal 1.7-13.0 [facility] ([place] Comment on above: Performed By: #### G FR, ANEU, CMP, CBC, PBNP, ADIFF #### [address] [address] Neutrophils/100 WBC (Bld) 62.6 % Normal 37.0-80.0 [facility] ([place]) Comment on above: Performed By: #### G FR, ANEU, CMP, CBC, PBNP, ADIFF #### [address] [address] .GFRon 04-14-2023 GFR 72 ml/min/1.73sqm Normal [facility] ([place]) Comment on above: Result Comment: GFR Population mean for , Non- Americans Ages 20-29 = 116 mL/min/1.73 sq.m. Ages 30-39 = 107 mL/min/1.73 sq.m. Ages 40-49 = 99 mL/min/1.73 sq.m. Ages 50-59 = 93 mL/min/1.73 sq.m. Ages 60-69 = 85 mL/min/1.73 sq.m. Ages 70+ = 75 mL/min/1.73 sq.m. Chronic Kidney Disease: Less than 60 mL/min/1.73 square meters End Stage Renal Disease: Less than 15 mL/min/1.73 square meters Performed By: #### G FR, ANEU, CMP, CBC, PBNP, ADIFF #### [address] [address] GFR Non- 60 ml/min/1.73sqm Normal [facility] ([place] Comment on above: Result Comment: GFR Population mean for , Non- Americans Ages 20-29 = 116 mL/min/1.73 sq.m. Ages 30-39 = 107 mL/min/1.73 sq.m. Ages 40-49 = 99 mL/min/1.73 sq.m. Ages 50-59 = 93 mL/min/1.73 sq.m. Ages 60-69 = 85 mL/min/1.73 sq.m. Ages 70+ = 75 mL/min/1.73 sq.m. Chronic Kidney Disease: Less than 60 mL/min/1.73 square meters End Stage Renal Disease: Less than 15 mL/min/1.73 square meters Performed By: #### G FR, ANEU, CMP, CBC, PBNP, ADIFF #### [place] [id number] .NEUABSon 04-14-2023 Neutrophil, Absolute 4.3 10 3/mcL Normal 2.9-6.2 [facility] ([place]) Comment on above: Performed By: #### G FR, ANEU, CMP, CBC, PBNP, ADIFF #### [address] [address] CBCon 04-14-2023 Erythrocyte distribution width (RBC) [Ratio] 13.7 % Normal 11.5-14.5 [facility] ([place] Comment on above: Performed By: #### G FR, ANEU, CMP, CBC, PBNP, ADIFF #### [place] [address] Hematocrit (Bld) [Volume fraction] 37.9 % Normal 37.0-47.0 [facility] ([place] Comment on above: Performed By: #### G FR, ANEU, CMP, CBC, PBNP, ADIFF #### [place] [id number] Hgb 12.4 G/dL Normal 12.0-16.0 [facility] ([place] Comment on above: Performed By: #### G FR, ANEU, CMP, CBC, PBNP, ADIFF #### [address] [address] MCH (RBC) [Entitic mass] 30.5 pg Normal 27.0-31.2 [facility] ([place] Comment on above: Performed By: #### G FR, ANEU, CMP, CBC, PBNP, ADIFF #### [address] [address] MCHC 32.9 G/dL Low 33.0-37.0 [facility] ([place] Comment on above: Performed By: #### G FR, ANEU, CMP, CBC, PBNP, ADIFF #### [address] [address] MCV (RBC) [Entitic vol] 92.7 fL Normal 80.0-94.0 [facility] ([place] Comment on above: Performed By: #### G FR, ANEU, CMP, CBC, PBNP, ADIFF #### [address] [address] Platelet 295 10 3/mcL Normal 130-400 [facility] [place] Comment on above: Performed By: #### G FR, ANEU, CMP, CBC, PBNP, ADIFF #### [address] [address] Platelet mean volume (Bld) [Entitic vol] 8.3 fL Normal 7.4-10.4 [facility] [place] Comment on above: Performed By: #### G FR, ANEU, CMP, CBC, PBNP, ADIFF #### [address] [address] RBC 4.08 10 6/mcL Low 4.20-5.40 [facility] ([place]) Comment on above: Performed By: #### G FR, ANEU, CMP, CBC, PBNP, ADIFF #### [address] [address] WBC 6.9 10 3/mcL Normal 4.6-10.8 [facility] [place] Comment on above: Performed By: #### G FR, ANEU, CMP, CBC, PBNP, ADIFF #### [address] [address] CMPon 04-14-2023 Albumin Level 3.7 G/dL Normal 3.4-4.8 [facility] ([place]) Comment on above: Performed By: #### G FR, ANEU, CMP, CBC, PBNP, ADIFF #### [address] [address] Albumin/Globulin [Mass ratio] 1.0 {ratio} Low 1.1-2.5 [facility] ([place]) Comment on above: Performed By: #### G FR, ANEU, CMP, CBC, PBNP, ADIFF #### [address] [id number] ALP [Catalytic activity/Vol] 124 U/L Normal 40-135 [facility] ([place]) Comment on above: Performed By: #### G FR, ANEU, CMP, CBC, PBNP, ADIFF #### [address] [address] ALT [Catalytic activity/Vol] 29 U/L Normal 14-59 [facility] ([place] Comment on above: Performed By: #### G FR, ANEU, CMP, CBC, PBNP, ADIFF #### [address] [address] AST [Catalytic activity/Vol] 19 U/L Normal 10-40 [facility] ([place] Comment on above: Performed By: #### G FR, ANEU, CMP, CBC, PBNP, ADIFF #### [address] [address] Bili Total 0.6 mg/dL Normal 0.2-1.0 [facility] ([place] Comment on above: Result Comment: Use of this assay is not recommended for patients undergoing treatment with eltrombopag due to the potential for falsely elevated results. Performed By: #### G FR, ANEU, CMP, CBC, PBNP, ADIFF #### [address] [address] BUN/Creatinine Ratio 24 ratio Normal 7-27 [facility] ([place]) Comment on above: Performed By: #### G FR, ANEU, CMP, CBC, PBNP, ADIFF #### [address] [address] Calcium [Mass/Vol] 9.9 mg/dL Normal 8.4-10.2 [facility] ([place]) Comment on above: Performed By: #### G FR, ANEU, CMP, CBC, PBNP, ADIFF #### [address] [address] Chloride [Moles/Vol] 101 mmol/L Normal 98-107 [facility] ([place]) Comment on above: Performed By: #### G FR, ANEU, CMP, CBC, PBNP, ADIFF #### [address] [address] CO2 [Moles/Vol] 28 mmol/L Normal 23-31 [facility] ([place] Comment on above: Performed By: #### G FR, ANEU, CMP, CBC, PBNP, ADIFF #### [address] [address] Creatinine [Mass/Vol] 0.90 mg/dL Normal 0.55-1.02 [facility] ([place]) Comment on above: Performed By: #### G FR, ANEU, CMP, CBC, PBNP, ADIFF #### [address] [address] Electrolyte Balance 10.0 mEq/L Normal 4.0-15.0 [facility] ([place] Comment on above: Performed By: #### G FR, ANEU, CMP, CBC, PBNP, ADIFF #### [address] [address] Globulin 3.7 G/dL Normal [facility] ([place] Comment on above: Performed By: #### G FR, ANEU, CMP, CBC, PBNP, ADIFF #### [address] [address] Glucose [Mass/Vol] 216 mg/dL High 83-110 [facility] ([place] Comment on above: Performed By: #### G FR, ANEU, CMP, CBC, PBNP, ADIFF #### [address] [address] Potassium [Moles/Vol] 5.9 mmol/L High 3.5-5.1 [facility] ([place] Comment on above: Performed By: #### G FR, ANEU, CMP, CBC, PBNP, ADIFF #### [address] [address] Sodium [Moles/Vol] 139 mmol/L Normal 136-145 [facility] ([place] Comment on above: Performed By: #### G FR, ANEU, CMP, CBC, PBNP, ADIFF #### [address] [address] Total Protein 7.4 G/dL Normal 6.4-8.2 [facility] ([place]) Comment on above: Performed By: #### G FR, ANEU, CMP, CBC, PBNP, ADIFF #### [id number] [place], [place] [address] Urea nitrogen [Mass/Vol] 22 mg/dL High 7-18 [facility]) Comment on above: Performed By: #### G FR, ANEU, CMP, CBC, PBNP, ADIFF #### [address] [address] PBNPon 04-14-2023 Natriuretic peptide B (Bld) [Mass/Vol] 158 pg/mL Normal 0-450 [facility] ([place] Comment on above: Result Comment: NT-p roBNP results of less than 300 pg/mL effectively rules out acute congestive heart failure with 99% negative predictive value. Performed By: #### G FR, ANEU, CMP, CBC, PBNP, ADIFF #### [address] [address] MRI SPINE LUMBAR W/O CONTRAS Ton 03-02-2023 MRI SPINE LUMBAR W/O CONTRAST ORIGINAL EXAMINATION: MRI OF THE LUMBAR SPINE WITHOUT CONTRAST, 02/27/2023 2:37 pm TECHNIQUE: Multiplanar multisequence MRI of the lumbar spine was performed without the administration of intravenous contrast. COMPARISON: None. HISTORY: ORDERING SYSTEM PROVIDED HISTORY: Reason for Exam: spinal stenosis lumbar region, spondylolisthesis Weakness and cramping in legs, right sciatica FINDINGS: BONES/ALIGNMENT: There is grade 1 anterolisthesis from L3 through L5. Minimal anterolisthesis of L5 on S1 is also observed. Vertebral body heights are grossly maintained. There are multilevel degenerative discs, most prominent in the lower lumbar spine. No acute or otherwise abnormal bone marrow signal changes. SPINAL CORD: The conus terminates at L2. Bunching of the cauda quinine nerve roots at L3-4 secondary to stenosis. SOFT TISSUES: No paraspinal mass identified. Small extrarenal pelves. DEGENERATIVE CHANGES: Multilevel fairly symmetric bulges, ligamentum flavum hypertrophy and facet arthropathy. T12-L1: Left central disc protrusion indents the ventral thecal sac. Mild central spinal stenosis. No neural foraminal narrowing. L1-L2: No stenosis. L2-L3: No stenosis. L3-L4: Disc material contacts the bilateral exiting nerve roots in the extraforaminal zone. Moderate spinal canal stenosis secondary to superimposed disc uncovering. Moderate to severe left and moderate right foraminal narrowing. L4-L5: Disc material, slightly asymmetric to the left, contacts the bilateral exiting nerve roots at the extraforaminal zone. Mild central canal stenosis secondary to superimposed disc uncovering. Moderate left and [id number] right neural foraminal narrowing. L5-S1: Flattened anterior thecal sac secondary to superimposed disc uncovering without central spinal stenosis. Moderate to severe right and mild left neural foraminal narrowing. IMPRESSION: Moderate L3-4 and mild L4-5 spinal canal stenosis. Foraminal stenosis (moderate right L3-4, moderate to severe right L5-S1). Correlate with radicular symptoms. I have personally reviewed the images of this examination and agree with the resident's findings and interpretation. Interpreted by: Donny Moreno DO Preliminary Report By: Yaakov Higuera Electronically signed By Donny Moreno DO Dictated Date: 03/02/2023 8:56:00 AM Prelim Date: 03/02/2023 3:44:20 PM Sign Date: 03/02/2023 3:44:20 PM Ordering Provider: ALISE FLOWERS [facility] ([place] LABORATORYOrdered By: Sahara Clancy on 10-20-2021 Albumin BCP dye [Mass/Vol] 3.7 G/dL Invalid Interpretation Code 3.4 - 4.8 G/dL AO ADM SS Albumin/Globulin [Mass ratio] 1.0 {ratio} Invalid Interpretation Code 1.1 - 2.5 ratio AO ADM SS ALP [Catalytic activity/Vol] 105 U/L Invalid Interpretation Code 40 - 135 U/L AO ADM SS ALT With P-5'-P [Catalytic activity/Vol] 53 U/L Invalid Interpretation Code 14 - 59 U/L AO ADM SS AST With P-5'-P [Catalytic activity/Vol] 36 U/L Invalid Interpretation Code 10 - 40 U/L AO ADM SS Bilirubin [Mass/Vol] 1.0 mg/dL Invalid Interpretation Code 0.2 - 1.0 mg/dL AO ADM SS Calcium [Mass/Vol] 9.6 mg/dL Invalid Interpretation Code 8.4 - 10.2 mg/dL AO ADM SS Chloride [Moles/Vol] 104 mmol/L Invalid Interpretation Code 98 - 107 mmol/L AO ADM SS Cholesterol [Mass/Vol] 222 mg/dL Invalid Interpretation Code 0 - 200 mg/dL AO ADM SS Cholesterol in HDL [Mass/Vol] 71 mg/dL Invalid Interpretation Code 40 - 60 mg/dL AO ADM SS Cholesterol in LDL [Mass/Vol] 136 mg/dL Invalid Interpretation Code 0 - 130 mg/dL AO ADM SS CO2 [Moles/Vol] 26 mmol/L Invalid Interpretation Code 23 - 31 mmol/L AO ADM SS Creatinine [Mass/Vol] 0.77 mg/dL Invalid Interpretation Code 0.55 - 1.02 mg/dL AO ADM SS Electrolyte Balance 12.0 mEq/L Invalid Interpretation Code 4.0 - 15.0 mEq/L AO ADM SS Globulin 3.6 G/dL Invalid Interpretation Code AO ADM SS Glucose [Mass/Vol] 128 mg/dL Invalid Interpretation Code 83 - 110 mg/dL AO ADM SS Potassium [Moles/Vol] 5.0 mmol/L Invalid Interpretation Code 3.5 - 5.1 mmol/L AO ADM SS Protein [Mass/Vol] 7.3 G/dL Invalid Interpretation Code 6.4 - 8.2 G/dL AO ADM SS Sodium [Moles/Vol] 142 mmol/L Invalid Interpretation Code 136 - 145 mmol/L AO ADM SS Triglyceride [Mass/Vol] 76 mg/dL Invalid Interpretation Code 0 - 150 mg/dL AO ADM SS Urea nitrogen [Mass/Vol] 21 mg/dL Invalid Interpretation Code 7 - 18 mg/dL AO ADM SS Urea nitrogen/Creatinine [Mass ratio] 27 ratio Invalid Interpretation Code 7 - 27 ratio AO ADM SS LABORATORYOrdered By: Nelida Lr on 10-20-2021 Basophil, Absolute 0.00 103/mcL Invalid Interpretation Code 0.00 - 0.19 10^3/mcL AO Auto Heme SS Basophils/100 WBC (Bld) 0.8 % Invalid Interpretation Code 0.0 - 2.5 % AO Auto Heme SS Eosinophil, Absolute 0.10 103/mcL Invalid Interpretation Code 0.00 - 0.40 10^3/mcL AO Auto Heme SS Eosinophils/100 WBC (Bld) 1.3 % Invalid Interpretation Code 0.0 - 7.0 % AO Auto Heme SS Erythrocyte distribution width (RBC) [Ratio] 14.1 % Invalid Interpretation Code 11.5 - 14.5 % AO Auto Heme SS Hematocrit (Bld) [Volume fraction] 37.7 % Invalid Interpretation Code 37.0 - 47.0 % AO Auto Heme SS Hemoglobin (Bld) [Mass/Vol] 12.8 G/dL Invalid Interpretation Code 12.0 - 16.0 G/dL AO Auto Heme SS Lymphocyte, Absolute 1.70 103/mcL Invalid Interpretation Code 0.77 - 3.85 10^3/mcL AO Auto Heme SS Lymphocytes/100 WBC (Bld) 31.9 % Invalid Interpretation Code 10.0 - 50.0 % AO Auto Heme SS MCH (RBC) [Entitic mass] 30.8 pg Invalid Interpretation Code 27.0 - 31.2 pg AO Auto Heme SS MCHC (RBC) [Mass/Vol] 33.8 G/dL Invalid Interpretation Code 33.0 - 37.0 G/dL AO Auto Heme SS MCV (RBC) [Entitic vol] 91.0 fL Invalid Interpretation Code 80.0 - 94.0 fL AO Auto Heme SS Monocyte, Absolute 0.50 103/mcL Invalid Interpretation Code 0.15 - 1.00 10^3/mcL AO Auto Heme SS Monocytes/100 WBC (Bld) 8.8 % Invalid Interpretation Code 1.7 - 13.0 % AO Auto Heme SS Neutrophil, Absolute 3.10 103/mcL Invalid Interpretation Code 2.85 - 6.16 10^3/mcL AO Auto Heme SS Neutrophils/100 WBC (Bld) 57.2 % Invalid Interpretation Code 37.0 - 80.0 % AO Auto Heme SS Platelet mean volume (Bld) [Entitic vol] 8.6 fL Invalid Interpretation Code 7.4 - 10.4 fL AO Auto Heme SS Platelets (Bld) [#/Vol] 288 103/mcL Invalid Interpretation Code 130 - 400 10^3/mcL AO Auto Heme SS RBC (Bld) [#/Vol] 4.15 106/mcL Invalid Interpretation Code 4.20 - 5.40 10^6/mcL AO Auto Heme SS WBC (Bld) [#/Vol] 5.40 103/mcL Invalid Interpretation Code 4.60 - 10.80 10^3/mcL AO Auto Heme SS LABORATORYOrdered By: SYSTEM SYSTEM on 10-20-2021 GFR 87 ml/min/1.73sqm Invalid Interpretation Code AO Chemistry S GFR Non- 71 ml/min/1.73sqm Invalid Interpretation Code AO Chemistry S No Panel Informationon 06-14 Culture Urine 50,000 - 100,000 cfu/ml Mixed growth consistent with normal urogenital laura. [facility] LABORATORYOrdered By: Homer Hurd on 04-05-2021 Albumin BCP dye [Mass/Vol] 3.7 G/dL Invalid Interpretation Code 3.4 - 4.8 G/dL AO ADM SS Albumin/Globulin [Mass ratio] 1.1 {ratio} Invalid Interpretation Code 1.1 - 2.5 ratio AO ADM SS ALP [Catalytic activity/Vol] 109 U/L Invalid Interpretation Code 40 - 135 U/L AO ADM SS ALT With P-5'-P [Catalytic activity/Vol] 40 U/L Invalid Interpretation Code 14 - 59 U/L AO ADM SS AST With P-5'-P [Catalytic activity/Vol] 30 U/L Invalid Interpretation Code 10 - 40 U/L AO ADM SS Bilirubin [Mass/Vol] 0.7 mg/dL Invalid Interpretation Code 0.2 - 1.0 mg/dL AO ADM SS Calcium [Mass/Vol] 9.2 mg/dL Invalid Interpretation Code 8.4 - 10.2 mg/dL AO ADM SS Chloride [Moles/Vol] 103 mmol/L Invalid Interpretation Code 98 - 107 mmol/L AO ADM SS CO2 [Moles/Vol] 26 mmol/L Invalid Interpretation Code 23 - 31 mmol/L AO ADM SS Creatinine [Mass/Vol] 0.84 mg/dL Invalid Interpretation Code 0.55 - 1.02 mg/dL AO ADM SS Electrolyte Balance 10.0 mEq/L Invalid Interpretation Code AO ADM SS Globulin 3.5 G/dL Invalid Interpretation Code AO ADM SS Glucose [Mass/Vol] 185 mg/dL Invalid Interpretation Code 83 - 110 mg/dL AO ADM SS Potassium [Moles/Vol] 4.6 mmol/L Invalid Interpretation Code 3.5 - 5.1 mmol/L AO ADM SS Protein [Mass/Vol] 7.2 G/dL Invalid Interpretation Code 6.4 - 8.2 G/dL AO ADM SS Sodium [Moles/Vol] 139 mmol/L Invalid Interpretation Code 136 - 145 mmol/L AO ADM SS Troponin I.cardiac DL <= 0.01 ng/mL [Mass/Vol] 5.4 ng/L Invalid Interpretation Code 0.0 - 51.4 ng/L AO ADM SS Urea nitrogen [Mass/Vol] 19 mg/dL Invalid Interpretation Code 7 - 18 mg/dL AO ADM SS Urea nitrogen/Creatinine [Mass ratio] 23 ratio Invalid Interpretation Code 7 - 27 ratio AO ADM SS LABORATORYOrdered By: Mary Ann Jolly on 04-05-2021 Appearance (U) Clear (04/05/21 8:18 AM) Invalid Interpretation Code Clear AO Auto Urine SS Basophil, Absolute 0.10 103/mcL Invalid Interpretation Code 0.00 - 0.19 10^3/mcL AO Auto Heme SS Basophils/100 WBC (Bld) 1.0 % Invalid Interpretation Code 0.0 - 2.5 % AO Auto Heme SS Bilirubin Ql (U) Negative (04/05/21 8:18 AM) Invalid Interpretation Code Negative AO Auto Urine SS Color (U) Yellow (04/05/21 8:18 AM) Invalid Interpretation Code AO Auto Urine SS Eosinophil, Absolute 0.10 103/mcL Invalid Interpretation Code 0.00 - 0.40 10^3/mcL AO Auto Heme SS Eosinophils/100 WBC (Bld) 1.1 % Invalid Interpretation Code 0.0 - 7.0 % AO Auto Heme SS Erythrocyte distribution width (RBC) [Ratio] 14.9 % Invalid Interpretation Code 11.5 - 14.5 % AO Auto Heme SS Glucose Test strip (U) [Mass/Vol] Negative Invalid Interpretation Code Negativemg/d L AO Auto Urine SS Hematocrit (Bld) [Volume fraction] 37.7 % Invalid Interpretation Code 37.0 - 47.0 % AO Auto Heme SS Hemoglobin (Bld) [Mass/Vol] 12.6 G/dL Invalid Interpretation Code 12.0 - 16.0 G/dL AO Auto Heme SS Hemoglobin Auto test strip (U) [Mass/Vol] Negative (04/05/21 8:18 AM) Invalid Interpretation Code Negative AO Auto Urine SS Ketones Ql (U) Negative Invalid Interpretation Code Negativemg/d L AO Auto Urine SS Lymphocyte, Absolute 1.30 103/mcL Invalid Interpretation Code 0.77 - 3.85 10^3/mcL AO Auto Heme SS Lymphocytes/100 WBC (Bld) 24.8 % Invalid Interpretation Code 10.0 - 50.0 % AO Auto Heme SS MCH (RBC) [Entitic mass] 30.4 pg Invalid Interpretation Code 27.0 - 31.2 pg AO Auto Heme SS MCHC (RBC) [Mass/Vol] 33.5 G/dL Invalid Interpretation Code 33.0 - 37.0 G/dL AO Auto Heme SS MCV (RBC) [Entitic vol] 90.9 fL Invalid Interpretation Code 80.0 - 94.0 fL AO Auto Heme SS Monocyte, Absolute 0.40 103/mcL Invalid Interpretation Code 0.15 - 1.00 10^3/mcL AO Auto Heme SS Monocytes/100 WBC (Bld) 8.3 % Invalid Interpretation Code 1.7 - 13.0 % AO Auto Heme SS Neutrophil, Absolute 3.30 103/mcL Invalid Interpretation Code 2.85 - 6.16 10^3/mcL AO Auto Heme SS Neutrophils/100 WBC (Bld) 64.8 % Invalid Interpretation Code 37.0 - 80.0 % AO Auto Heme SS Platelet mean volume (Bld) [Entitic vol] 8.5 fL Invalid Interpretation Code 7.4 - 10.4 fL AO Auto Heme SS Platelets (Bld) [#/Vol] 266 103/mcL Invalid Interpretation Code 130 - 400 10^3/mcL AO Auto Heme SS RBC (Bld) [#/Vol] 4.14 106/mcL Invalid Interpretation Code 4.20 - 5.40 10^6/mcL AO Auto Heme SS UA Leuk Est Negative (04/05/21 8:18 AM) Invalid Interpretation Code Negative AO Auto Urine SS UA Nitrite Negative (04/05/21 8:18 AM) Invalid Interpretation Code Negative AO Auto Urine SS UA pH 7.0 (04/05/21 8:18 AM) Invalid Interpretation Code 5.0 - 8.0 AO Auto Urine SS UA Protein Negative Invalid Interpretation Code Negativemg/d L AO Auto Urine SS UA Spec Grav 1.025 (04/05/21 8:18 AM) Invalid Interpretation Code 1.015-1.025 AO Auto Urine SS UA Specimen Type Clean Catch (04/05/21 8:18 AM) Invalid Interpretation Code AO Auto Urine SS UA Urobilinogen 0.2 E.U./dL Invalid Interpretation Code 0.2-1.0E.U./ dL AO Auto Urine SS WBC (Bld) [#/Vol] 5.10 103/mcL Invalid Interpretation Code 4.60 - 10.80 10^3/mcL AO Auto Heme SS LABORATORYOrdered By: SYSTEM SYSTEM on 04-05-2021 GFR 78 ml/min/1.73sqm Invalid Interpretation Code AO Chemistry S GFR Non- 65 ml/min/1.73sqm Invalid Interpretation Code AO Chemistry S No Panel Informationon 03-25 Culture Urine 10,000 - 50,000 cfu/ml Multiple bacterial morphotypes present. Probable Contamination. Suggest recollection if clinically indicated. [facility] Glucose,Bedsideon 05-11-2018 Glucose mass conc 143 mg/dL High 70-100 [facility] Comment on above: Result Comment: Test performed by glucose meter. Results may be 10%-15% lower than serum/plasma values. (CLIA ID [id number]) Performed By: #### B GLU #### [employer] [address] [place] [place] [address] Glucose mass conc 170 mg/dL High 70-100 [facility] Comment on above: Result Comment: Test performed by glucose meter. Results may be 10%-15% lower than serum/plasma values. (CLIA ID [id number]) Performed By: #### B GLU #### [employer] [address] [place] [place] [address] Surgical Pathologyon 018 Surgical Pathology [id number] [facility] PATHOLOGY AND LABORATORY MEDICINE [address] [place] [address] Fax - FINAL SURGICAL PATHOLOGY REPORT NAME: MICKEY PARRA : 1935 83 Y F BILLSADIA NO.: [id number] LOCATION: [place] [address] PROCEDURE 05/11/2018 DATE: SURGEON: LEDA SINGH MD RECEIVED 05/11/2018 DATE: ATTENDING: LEDA SINGH MD REPORT DATE: 05/16/2018 COPIES TO: DIAGNOSIS: LEFT MIDDLE FINGER MASS, EXCISION - PORTION OF FIBROCONNECTIVE TISSUE WITH FEATURES CONSISTENT WITH GANGLION CYST. PORTION OF BONE AND CARTILAGE WITH DEGENERATIVE CHANGES. T/KMS1 Signature> S DEAN SMITH M.D. CLINICAL INFORMATION: Left carpal tunnel syndrome SPECIMEN: MASS - SMALL, EXCISION GROSS DESCRIPTION: Left middle finger mass" Received in formalin are rubbery [id number] tissue segments which aggregate to 0.5 x 1 cm. The specimen is entirely submitted as received. (bits ns, 1) JCK/0RW Disclaimer: The following statement applies to all immunohistochemistry, in situ hybridization, molecular studies, and immunofluorescence testing. The use of one or more reagents in the above tests is regulated as an analyte specific reagent (ASR). These tests were developed and their performance characteristics determined by the clinical laboratories of [facility]. They have not been cleared by the US Food and Drug Administration (FDA). The FDA has determined that such clearance or approval is not necessary. All the above immunostains were performed on paraffin embedded tissue. Appropriate positive and negative controls (where applicable) were run in parallel with the patient's specimen; these controls showed expected staining pattern, with acceptable intensity of staining. Immunohistochemical assays have not been validated on decalcified tissues. Results should be interpreted with caution given the raised possibility of false negativity on decalcified specimens. Case reviewed at [place] [address] [place] [address]. DEPARTMENT OF PATHOLOGY AND LABORATORY MEDICINE [place], [place] [address] Normal [facility] Glucose,Bedsideon 03-06-2018 Glucose mass conc 133 mg/dL High 70-100 [facility] Comment on above: Result Comment: Test performed by glucose meter. Results may be 10%-15% lower than serum/plasma values. (CLIA ID [id number]) Performed By: #### B GLU #### [facility] [address] [place] [place] [address] Glucose mass conc 157 mg/dL High 70-100 [facility] Comment on above: Result Comment: Test performed by glucose meter. Results may be 10%-15% lower than serum/plasma values. (CLIA ID [id number]) Performed By: #### B GLU #### [facility] [address] [place] [place] [address] Vital Signs Date Time Vital Sign Value Performing Clinician Facility 02-17-2024 12:02-0400 Body temperature 97.7 [degF] DR NOHEMI EDGAR MD [facility] 02-17-2024 12:02-0400 Diastolic Blood Pressure Non-Invasive 93 mm[Hg] DR NOHEMI EDGAR MD [facility] 02-17-2024 12:02-0400 Heart rate 76 /min DR NOHEMI EDGAR MD [facility] 02-17-2024 12:02-0400 Respiratory rate 18 /min DR NOHEMI EDGAR MD [facility] 02-17-2024 12:02-0400 Systolic Blood Pressure Non-Invasive 144 mm[Hg] DR NOHEMI EDGAR MD [facility] 02-17-2024 06:23-0400 Body temperature 98.06 [degF] DR NOHEMI EDGAR MD [facility] 02-17-2024 06:23-0400 Diastolic Blood Pressure Non-Invasive 77 mm[Hg] DR NOHEMI EDGAR MD [facility] 02-17-2024 06:23-0400 Heart rate 80 /min DR NOHEMI EDGAR MD [facility] 02-17-2024 06:23-0400 Respiratory rate 18 /min DR NOHEMI EDGAR MD [facility] 02-17-2024 06:23-0400 Systolic Blood Pressure Non-Invasive 137 mm[Hg] DR NOHEMI EDGAR MD [facility] 02-17-2024 04:01-0400 Body temperature 97.7 [degF] DR NOHEMI EDGAR MD [facility] 02-17-2024 04:01-0400 Diastolic Blood Pressure Non-Invasive 71 mm[Hg] DR NOHEMI EDGAR MD [facility] 02-17-2024 04:01-0400 Heart rate 71 /min DR NOHEMI EDGAR MD [facility] 02-17-2024 04:01-0400 Respiratory rate 18 /min DR NOHEMI EDGAR MD [address] [place] [address] 02-17-2024 04:01-0400 Systolic Blood Pressure Non-Invasive 137 mm[Hg] DR NOHEMI EDGAR MD [facility] 02-16-2024 23:07-0400 Heart rate 80 /min DR NOHEMI EDGAR MD [address] [place] [address] 02-16-2024 19:19-0400 Heart rate 85 /min DR NOHEMI EDGAR MD [address] [place] [address] 02-16-2024 11:53-0400 Heart rate 85 /min DR NOHEMI EDGAR MD [address] [place] [address] 02-16-2024 07:41-0400 Body height 170.[address] NOHEMI EDGAR MD [address] [place] [address] 02-16-2024 07:41-0400 Body weight 72.[address] NOHEMI EDGAR MD [address] [place] [address] 02-16-2024 07:41-0400 Body weight 25.06 kg/m2 DR NOHEMI EDGAR MD [address] [place] [address] 02-16-2024 06:41-0400 Body weight 72.[address] NOHEMI EDGAR MD [address] [place] [address] 02-16-2024 06:37-0400 Mean blood pressure 109 mm[Hg] DR NOHEMI EDGAR MD [address] [place] [address] 02-16-2024 03:57-0400 Body height 170.[address] NOHEMI EDGAR MD [address] [place] [address] 02-16-2024 03:57-0400 Body weight 72.[address] NOHEMI EDGAR MD [address] [place] [address] 02-04-2024 06:39-0400 Diastolic Blood Pressure Non-Invasive 84 mm[Hg] GERARDO MANNING MD [facility] 02-04-2024 06:39-0400 Heart rate 82 /min GERARDO MANNING MD [facility] 02-04-2024 06:39-0400 Respiratory rate 18 /min GERARDO MANNING MD [facility] 02-04-2024 06:39-0400 Systolic Blood Pressure Non-Invasive 164 mm[Hg] GERARDO MANNING MD [facility] 02-04-2024 05:31-0400 Blood Pressure Cuff Size GERARDO MANNING MD [facility] 02-04-2024 05:31-0400 Blood Pressure Location GERARDO MANNING MD [facility] 02-04-2024 05:31-0400 Blood Pressure Method GERARDO MANNING MD [facility] 02-04-2024 05:31-0400 Body height 172.7 cm GERARDO MANNING MD [facility] 02-04-2024 05:31-0400 Body temperature 96.98 [degF] GERARDO MANNING MD [facility] 02-04-2024 05:31-0400 Body weight 72.7 kg GERARDO MANNING MD [facility] 02-04-2024 05:31-0400 Diastolic Blood Pressure Non-Invasive 90 mm[Hg] GERARDO MANNING MD [facility] 02-04-2024 05:31-0400 Heart rate 85 /min GERARDO MANNING MD [facility] 02-04-2024 05:31-0400 Respiratory rate 18 /min GERARDO MANNING MD [facility] 02-04-2024 05:31-0400 Systolic Blood Pressure Non-Invasive 182 mm[Hg] GERARDO AMNNING MD [facility] 08-21-2023 07:58-0400 Body height 170 cm MINE MONTANEZ [employer] OPERATOR-HISTOTECHNOLOGIST SUPERVISOR [facility] 08-21-2023 07:58-0400 Body weight 75.3 kg MINE MONTANEZ [employer] OPERATOR-HISTOTECHNOLOGIST SUPERVISOR [facility] Comment on above: Result Comment: 160# pt reports 08-21-2023 07:58-0400 Body weight 26.06 kg/m2 MINE MONTANE[employer] OPERATOR-HISTOTECHNOLOGIST SUPERVISOR [facility] 04-05-2021 09:39-0400 Diastolic blood pressure 71 mm[Hg] SHAGGY VAZ DO [facility] 04-05-2021 09:39-0400 Heart rate 67 /min SHAGGY VAZ DO [facility] 04-05-2021 09:39-0400 Respiratory rate 16 /min SHAGGY VAZ DO [facility] 04-05-2021 09:39-0400 Systolic blood pressure 120 mm[Hg] SHAGGY VAZ DO [facility] 04-05-2021 09:01-0400 Diastolic blood pressure 73 mm[Hg] SHAGGY VAZ DO [facility] 04-05-2021 09:01-0400 Heart rate 64 /min SHAGGY VAZ DO [facility] 04-05-2021 09:01-0400 Mean blood pressure 111 mm[Hg] SHAGGY VAZ DO [facility] 04-05-2021 09:01-0400 Respiratory rate 16 /min SHAGGY VAZ DO [facility] 04-05-2021 09:01-0400 Systolic blood pressure 188 mm[Hg] SHAGGY VAZ DO [facility] 04-05-2021 07:31-0400 Body temperature 98.06 [degF] SHAGGY VAZ DO [facility] 04-05-2021 07:31-0400 Diastolic blood pressure 78 mm[Hg] SHAGGY VAZ DO [facility] 04-05-2021 07:31-0400 Heart rate 66 /min SHAGGY VAZ DO [facility] 04-05-2021 07:31-0400 Mean blood pressure 119 mm[Hg] SHAGGY VAZ DO [facility] 04-05-2021 07:31-0400 Respiratory rate 16 /min SHAGGY VAZ DO [facility] 04-05-2021 07:31-0400 Systolic blood pressure 200 mm[Hg] SHAGGY VAZ DO [facility] Encounters Encounter Date Encounter Type Care Provider Facility Start: 12-30-2024 ambulatory [facility] Facility:[facility] Start: 12-19-2024 ambulatory MINE BALTES TOLL BRIDGE OPERATOR-HISTOTECHNOLOGIST SUPERVISOR Fa cility:[facility] Start: 09-27-2024 End: 10-01-2024 ambulatory ALOK ANTONIO DO Facility:[facility] Start: 09-27-2024 End: 10-01-2024 Outreach Lab ALOK Merry ANTONIO DO [facility] Start: 09-27-2024 End: 09-27-2024 ambulatory MINE FAIZATES TOLL BRIDGE OPERATOR-HISTOTECHNOLOGIST SUPERVISOR Facility:[facility] Start: 09-27-2024 End: 09-27-2024 Patient encounter procedure MINE BALTES TOLL BRIDGE OPERATOR-HISTOTECHNOLOGIST SUPERVISOR [facility] Start: 08-19-2024 End: 08-19-2024 ambulatory MINE BALTES TOLL BRIDGE OPERATOR-HISTOTECHNOLOGIST SUPERVISOR Facility:[facility] Start: 02-16-2024 End: 02-17-2024 Emergency department patient visit MINE TARIK TOLL BRIDGE OPERATOR-HISTOTECHNOLOGIST SUPERVISOR Facility:[facility] Start: 02-16-2024 End: 02-17-[address] NOHEMI EDGAR MD [facility] Start: 02-04-2024 End: 02-04-2024 Emergency department patient visit GERARDO MANNING MD Facility:[facility] Start: 01-26-2024 End: 01-30-2024 ambulatory MINE BALTES TOLL BRIDGE OPERATOR-HISTOTECHNOLOGIST SUPERVISOR Facility:[facility] Start: 01-26-2024 End: 01-30-2024 Outreach Lab MINE BALTES TOLL BRIDGE OPERATOR-HISTOTECHNOLOGIST SUPERVISOR [facility] Start: 01-26-2024 End: 01-26-2024 ambulatory MINE BALTES TOLL BRIDGE OPERATOR-HISTOTECHNOLOGIST SUPERVISOR Facility:[facility] Start: 01-26-2024 End: 01-26-2024 Patient encounter procedure MINE BALTES TOLL BRIDGE OPERATOR-HISTOTECHNOLOGIST SUPERVISOR [facility] Start: 01-16-2024 End: 01-16-2024 ambulatory MINE BALTES TOLL BRIDGE OPERATOR-HISTOTECHNOLOGIST SUPERVISOR Facility:[facility] Start: 12-20-2023 ambulatory MINE BALTES TOLL BRIDGE OPERATOR-HISTOTECHNOLOGIST SUPERVISOR Fa cility:[facility] Start: 08-21-2023 End: 08-21-2023 ambulatory MINE BALTES TOLL BRIDGE OPERATOR-HISTOTECHNOLOGIST SUPERVISOR Facility:[facility] Start: 08-21-2023 End: 08-21-2023 Patient encounter procedure MINE BALTES TOLL BRIDGE OPERATOR-HISTOTECHNOLOGIST SUPERVISOR [facility] Start: 08-18-2023 End: 08-18-2023 ambulatory ALISE FLOWERS DO Facility:[facility] Start: 08-18-2023 End: 08-18-2023 Patient encounter procedure ALISE FLOWERS DO [facility] Start: 08-04-2023 End: 08-04-2023 ambulatory MINE BALTES TOLL BRIDGE OPERATOR-HISTOTECHNOLOGIST SUPERVISOR Facility:[facility] Start: 08-04-2023 End: 08-04-2023 Patient encounter procedure MINE BALTES TOLL BRIDGE OPERATOR-HISTOTECHNOLOGIST SUPERVISOR [facility] Start: 06-12-2023 End: 06-12-2023 ambulatory VIKY SMITH MD Facility:[facility] Start: 06-12-2023 End: 06-12-2023 Patient encounter procedure VIKY SMITH MD [facility] Start: 05-02-2023 End: 05-02-2023 ambulatory ALISE FLOWERS DO Facility:[facility] Start: 04-17-2023 End: 04-17-2023 ambulatory MINE BALTES TOLL BRIDGE OPERATOR-HISTOTECHNOLOGIST SUPERVISOR Facility:[facility] Start: 04-17-2023 End: 04-17-2023 Patient encounter procedure MINE MONTANEZ TOLL BRIDGE OPERATOR-HISTOTECHNOLOGIST SUPERVISOR [facility] Start: 04-14-2023 End: 04-14-2023 ambulatory MINE MONTANEZ TOLL BRIDGE OPERATOR-HISTOTECHNOLOGIST SUPERVISOR Facility:[facility] Start: 02-27-2023 End: 02-27-2023 ambulatory ALISE FLOWERS DO Facility:[facility] Start: 02-27-2023 End: 02-27-2023 Patient encounter procedure ALISE FLOWERS DO [facility] Start: 01-17-2023 End: 01-17-2023 Patient encounter procedure MINE MONTANEZ TOLL BRIDGE OPERATOR-HISTOTECHNOLOGIST SUPERVISOR [facility] Start: 11-24-2022 End: 01-17-2023 Physical therapy management KOKO SOLITARIO PA-C [facility] Start: 12-13-2021 End: 12-13-2021 Patient encounter procedure MINE TARIK TOLL BRIDGE OPERATOR-HISTOTECHNOLOGIST SUPERVISOR [facility] Start: 10-20-2021 End: 10-20-2021 Patient encounter procedure MINE TARIK TOLL BRIDGE OPERATOR-HISTOTECHNOLOGIST SUPERVISOR [facility] Start: 10-11-2021 End: 10-11-2021 Patient encounter procedure MINE TARIK TOLL BRIDGE OPERATOR-HISTOTECHNOLOGIST SUPERVISOR [facility] Start: 09-20-2021 End: 09-20-2021 Patient encounter procedure MINE KENDALLCHRIS TOLL BRIDGE OPERATOR-HISTOTECHNOLOGIST SUPERVISOR [facility] Start: 08-09-2021 End: 03-07-2022 Patient encounter procedure MINE MONTANEZ TOLL BRIDGE OPERATOR-HISTOTECHNOLOGIST SUPERVISOR [facility] Start: 06-14-2021 End: 06-18-2021 Outreach Lab FLORIN BERGMAN MD [facility] Start: 04-05-2021 End: 04-05-2021 Emergency department patient visit HSAGGY VAZ DO [facility] Start: 03-25-2021 End: 03-29-2021 Outreach Lab MINE MONTANEZ TOLL BRIDGE OPERATOR-HISTOTECHNOLOGIST SUPERVISOR [facility] Start: 05-24-2018 Patient encounter procedure [facility] Start: 05-11-2018 Patient encounter procedure [facility] Start: 03-06-2018 Patient encounter procedure [facility] Procedures Date Procedure Procedure Detail Performing Clinician Start: 07-31-2020 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 L x1, R x2. Laceration of toe (disorder) MINE MONTANEZ TOLL BRIDGE OPERATOR-HISTOTECHNOLOGIST SUPERVISOR Comment on above: Right foot Oral surgery (qualif ier value) MINE MONTANEZ TOLL BRIDGE OPERATORDigital Vision Multimedia GroupHISTOTECHNOLOGIST SUPERVISOR Umbilical hernia (disorder) MINE MONTANEZ TOLL BRIDGE OPERATORDigital Vision Multimedia GroupHISTOTECHNOLOGIST SUPERVISOR Payers Date Payer Category Payer Self-pay [id number] 2024 Unknown 2021 Medicare [id number] 2021 Unknown [id number] 2019 Medicare 1937 Unknown [id number] 2.16.8 [id number] 1937 Unknown [id number] 2.16.8 40.1.690104.3.579.2.668 1937 Unknown [id number] 2.16.8 40.1.519784.3.579.2.668 1937 Unknown [id number] 2.16.8 40.1.054383.3.579.2.627 1937 Unknown [id number] 2.16.8 40.1.826569.3.579.2.627 1937 Unknown [id number] 2.16.8 40.1.694550.3.579.2.627 1937 Unknown [id number] 2.16.8 40.1.754849.3.579.2.627 1937 Unknown [id number] 2.16.8 40.1.434136.3.579.2.627 1937 Unknown [id number] 2.16.8 40.1.645454.3.579.2.627 1937 Unknown [id number] 2.16.8 40.1.393986.3.579.2.627 1937 Unknown [id number] 2.16.8 40.1.777599.3.579.2.627 1937 Unknown [id number] 2.16.8 40.1.568017.3.579.2.627 1937 Unknown [id number] 2.16.8 40.1.205246.3.579.2.627 1937 Unknown [id number] 2.16.8 40.1.915353.3.579.2.627 1937 Unknown [id number] 2.16.8 40.1.560706.3.579.2.627 1937 Unknown [id number] 2.16.8 40.1.528093.3.579.2.627 1937 Unknown [id number] 2.16.8 40.1.175408.3.579.2.627 1937 Unknown [id number] 2.16. 840.1.288218.3.579.2.7 1937 Unknown [id number] 2.16.8 40.1.224668.3.579.2.627 1937 Unknown [id number] 2.16.8 40.1.898654.3.579.2.627 1937 Unknown [id number] 2.16.8 40.1.902438.3.579.2.627 1937 Unknown [id number] 2.16.8 40.1.652950.3.579.2.627 Unknown [id number] 2.16.8 40.1.544018.3.579.2.462 Social History Date Type Detail Facility Start: 01-04-2019 End: 08-22-2024 Never smoked tobacco (finding) [facility] Comment on above: Smoke exposure for 4 0 yrs at work Sex Assigned At Female [facility] Sexual Orientation [facility] Start: 11-28-2018 Sex Female (finding) [facility] Medical Equipment Procedure Code Equipment Code Equipment Origin al Text Equipment Identifier Dates Blood Glucose Te st Strips Start: 03-16-[address]ps Start: 03-16-[address]ps Start: 03-16-[address]ps Start: 06-25-2021 See Instructions , FreeStyle Lite Test Strips, 2 Strips daily Dx: E11.9 Replaces old script., # 1 EA, 11 Refill(s), Pharmacy: [address] Controlled diabetes mellitus, 170.2, cm, 06/22/21 9:33:00 EST, Height, 75.7, kg, 06/22/21 9:33:00 E... Start: 06-25-2021 See Instructions , FreeStyle Lite Test Strips, 2 Strips daily Dx: E11.9 Replaces old script., # 1 EA, 11 Refill(s), Pharmacy: [address] Controlled diabetes mellitus, 170.2, cm, 06/22/21 9:33:00 EST, Height, 75.7, kg, 06/22/21 9:33:00 E... Start: 06-25-2021 See Instructions , FreeStyle Lite Test Strips, 2 Strips daily Dx: E11.9 Replaces old script., # 1 EA, 11 Refill(s), Pharmacy: [address] Controlled diabetes mellitus, 170.2, cm, 06/22/21 9:33:00 EST, Height, 75.7, kg, 06/22/21 9:33:00 E... Start: 06-25-2021 See Instructions , FreeStyle Lite Test Strips, 2 Strips daily Dx: E11.9 Replaces old script., # 1 EA, 11 Refill(s), Pharmacy: [address] Controlled diabetes mellitus, 170.2, cm, 06/22/21 9:33:00 EST, Height, 75.7, kg, 06/22/21 9:33:00 E... Start: 06-25-2021 See Instructions , FreeStyle Lite Test Strips, 2 Strips daily Dx: E11.9 Replaces old script., # 1 EA, 11 Refill(s), Pharmacy: [address] Controlled diabetes mellitus, 170.2, cm, 06/22/21 9:33:00 EST, Height, 75.7, kg, 06/22/21 9:33:00 EST, Dosing Weight Start: 06-25-2021 See Instructions , FreeStyle Lite Test Strips, 2 Strips daily Dx: E11.9 Replaces old script., # 1 EA, 11 Refill(s), Pharmacy: [address], Controlled diabetes mellitus, 170.2, cm, 06/22/21 9:33:00 EST, Height, 75.7, kg, 06/22/21 9:33:00 EST, Dosing Weight Start: 06-25-2021 See Instructions , FreeStyle Lite Test Strips, 2 Strips daily Dx: E11.9 Replaces old script., # 1 EA, 11 Refill(s), Pharmacy: [address], Controlled diabetes mellitus, 170.2, cm, 06/22/21 9:33:00 EST, Height, 75.7, kg, 06/22/21 9:33:00 EST, Dosing Weight Start: 06-25-2021 See Instructions , FreeStyle Lite Test Strips, 2 Strips daily Dx: E11.9 Replaces old script., # 1 EA, 11 Refill(s), Pharmacy: [address], Controlled diabetes mellitus, 170.2, cm, 06/22/21 9:33:00 EST, Height, 75.7, kg, 06/22/21 9:33:00 EST, Dosing Weight Start: 06-25-2021 See Instructions , FreeStyle Lite Test Strips, 2 Strips daily Dx: E11.9 Replaces old script., # 1 EA, 11 Refill(s), Pharmacy: [address], Controlled diabetes mellitus, 170.2, cm, 06/22/21 9:33:00 EST, Height, 75.7, kg, 06/22/21 9:33:00 EST, Dosing Weight Start: 06-25-2021 See Instructions , FreeStyle Lite Test Strips, 2 Strips daily Dx: E11.9 Replaces old script., # 1 EA, 11 Refill(s), Pharmacy: [address], Controlled diabetes mellitus, 170.2, cm, 06/22/21 9:33:00 EST, Height, 75.7, kg, 06/22/21 9:33:00 EST, Dosing Weight Start: 06-25-2021 See Instructions , FreeStyle Lite Test Strips, 2 Strips daily Dx: E11.9 Replaces old script., # 1 EA, 11 Refill(s), Pharmacy: [address], Controlled diabetes mellitus, 170.2, cm, 06/22/21 9:33:00 EST, Height, 75.7, kg, 06/22/21 9:33:00 EST, Dosing Weight Start: 06-25-2021 See Instructions , FreeStyle Lite Test Strips, 2 Strips daily Dx: E11.9 Replaces old script., # 1 EA, 11 Refill(s), Pharmacy: [address], Controlled diabetes mellitus, 170.2, cm, 06/22/21 9:33:00 EST, Height, 75.7, kg, 06/22/21 9:33:00 EST, Dosing Weight Start: 06-25-2021 See Instructions , FreeStyle Lite Test Strips, 2 Strips daily Dx: E11.9 Replaces old script., # 1 EA, 11 Refill(s), Pharmacy: [address], Controlled diabetes mellitus, 170.2, cm, 06/22/21 9:33:00 EST, Height, 75.7, kg, 06/22/21 9:33:00 EST, Dosing Weight Start: 06-25-2021 See Instructions , FreeStyle Lite Test Strips, 2 Strips daily Dx: E11.9 Replaces old script., # 1 EA, 11 Refill(s), Pharmacy: [address], Controlled diabetes mellitus, 170.2, cm, 06/22/21 9:33:00 EST, Height, 75.7, kg, 06/22/21 9:33:00 EST, Dosing Weight Start: 06-25-2021 See Instructions , FreeStyle Lite Test Strips, 2 Strips daily Dx: E11.9 Replaces old script., # 1 EA, 11 Refill(s), Pharmacy: [address], Controlled diabetes mellitus, 170.2, cm, 06/22/21 9:33:00 EST, Height, 75.7, kg, 06/22/21 9:33:00 EST, Dosing Weight Start: 06-25-2021 Functional Status Date Assessment Result Facility 02-17-2024 Functional Status Nurse Serg butler q2hrs Performed Other: [id number] [facility] 02-17-2024 Functional Status Room check performed [facility] 02-17-2024 Functional Status [facility] 02-17-2024 Functional Status [facility] 02-16-2024 Functional Status [facility] 02-16-2024 Functional Status [facility] 02-16-2024 Functional Status Other[facility] Functional Status Lunch Percent 95 [facility] 02-16-2024 Functional Status None [facility] 02-16-2024 Functional Status Minimum assistance [facility] 02-04-2024 Functional Status Up ad emy [facility] 11-24-2022 Functional Status Home Living Ad ditional Information Objective: Cardiovascular screen: BP: 120/78 HR: 73 BPM 96% Gait: Ambulates with decreased stride length and stiff leg gait pattern on the L, Lacks some terminal knee extension during terminal swing phase on the L. Effusion: min to no anterior knee effusion Functional Strength: Sit to stand: relies heavily on UE's weight shifts R, aSLR: 5 deg lag Palpation: Denies tenderness to medial and later joint line and peripatellar region. No excess warmth or obvious signs of infection [facility] Mental Status Date Assessment Result Facility 02-17-2024 Mental Status Oriented x 4, Forgetful [facility] 02-16-2024 Mental Status [facility] 02-16-2024 Mental Status [facility] 02-16-2024 Mental Status [facility] 02-04-2024 Mental Status Orientation Oriented x 4 [facility] 02-04-2024 Mental Status [facility] Clinical Notes 04-05-2021 to 09-29-2024 Note Date & Type Note Facility 09-29-2024 Note . MICRO - Microbiology PROCEDURE: Urine Culture [*1] SOURCE: Urine, Clean Catch BODY SITE: COLLECTED DATE/TIME: 09/27/2024 13:12 EDT RECEIVED DATE/TIME: 09/28/2024 13:16 EDT START DATE/TIME: 09/28/2024 13:16 EDT FREE TEXT SOURCE: FINAL REPORTS Final Report [] Verified Date/Time/Personnel: 09/29/2024 14:54 EDT 50,000 - 100,000 cfu/ml Multiple bacterial morphotypes present. Probable Contamination. Suggest recollection if clinically indicated. PRELIMINARY REPORTS Preliminary Report [] Verified Date/Time/Personnel: 09/28/2024 13:59 EDT Specimen received in lab. Performing Locations *1: This test was performed at: [address], [facility] , [facility] 02-17-2024 Note Discharge Instructions Thank you for allowing [facility] to assist you with your healthcare needs. The following is important discharge information regarding your hospital visit. Your Care Team [facility] Team Your Diagnosis Constipation HTN - Hypertension Type 2 diabetes mellitus What to do next Scheduled Follow-Up Appointments Appointment Type When With Where Contact Information StatusMEDS - Diabetic Individual Visit 03/25/2024 10:00 AM [facility] Diet Visits [phone] Confirmed PC OV 07/05/2024 08:30 AM MINE WISDOM [address] [phone] Confirmed Follow Up Appointments Follow Up with Go to emergency room if symptoms worsen When:Within 2-4 days Follow Up with MINE MONTANEZ When:Within 2-4 days Where:[address] [place] [phone] The Following Activity and Diet Have Been Ordered for You Discharge Activity - Ordered -- Resume your pre-hospitalization activity, 02/17/24 11:11:00 EDT Discharge Diet - Ordered -- No changes were made to your diet during your hospital stay. Please resume your pre hospitalization diet on discharge., 02/17/24 11:11:00 EDT The Following Equipment Has Been Ordered for You No qualifying data available. The Following Treatments Have Been Ordered for You Discharge Labs No qualifying data available. Discharge Radiology No qualifying data available. Other Therapies No qualifying data available. Post Acute Orders No qualifying data available. Someone Will Contact You Regarding These Home Health Referrals No home referrals have been ordered for you. No one will call you. Allergies penicillins Rash Medications Please ask your primary doctor or pharmacist before taking any other medication not listed, including over the counter drugs, herbal medications, vitamins and or supplements as they may interact with your home medications. What How Much When Instructions Last Dose New polyethylene glycol 3350 (MiraLax oral powder for reconstitution) 17 gram(s) by mouth Once a day Duration: 30 Days May take every other day if having loose stools Pickup at [facility]/pharmacy #[id number] Unchanged albuterol (Albuterol (Eqv-Ventolin HFA) 90 mcg/ inh inhalation aerosol) 2 puff(s) by inhalation Every 6 hours as needed for as needed for wheezing Unchanged amLODIPine (amLODIPine 5 mg oral tablet) TAKE 1 TABLET BY MOUTH EVERY DAY Unchanged aspirin (aspirin 81 mg oral delayed release tablet) 1 tab(s) by mouth Every day Unchanged docusate (Colace 100 mg oral capsule) 1 cap by mouth Two (2) times a day as needed for for constipation Duration: 10 Days Unchanged dulaglutide (Trulicity Pen 4.5 mg/ 0.5 mL subcutaneous solution) INJECT 0.5ML UNDER THE SKIN EVERY WEEK; rotate injection sites Unchanged furosemide (furosemide 20 mg oral tablet) TAKE 1 TABLET BY MOUTH EVERY DAY NEEDED FOR SWELLING Unchanged glipiZIDE (glipiZIDE 10 mg oral tablet, extended release) TAKE TWO TABLETS BY MOUTH EVERY DAY Unchanged metFORMIN (metFORMIN 500 mg oral tablet (IR)) TAKE TWO TABLETS BY MOUTH TWICE A DAY Unchanged Misc Medication (FreeStyle Edward 2 Sensor kit) PLACE ONE SENSOR TO THE BACK OF THE UPPER ARM EVERY 14 DAYS,USE READER OR PHONE ANGELINA TO SCAN SENSOR FOR DAILY BLOOD SUGAR [place] Unchanged omega-3 polyunsaturated fatty acids (Fish Oil 1200 mg oral capsule) 2 cap by mouth Every day w/ D in it Unchanged tolterodine (tolterodine 2 mg oral capsule, extended release) TAKE 1 CAPSULE BY MOUTH TWICE A DAY Pharmacy Information [facility]/pharmacy #[id number]: [address], [place] [id number] [phone] Please take this list to your next doctor s visit. Bring all medications you take, including over the counter medications, herbals and other supplements with you to your doctor s visit. Patients and families are reminded to discard old lists and to update any records with all medication providers or retail pharmacies. Education Materials Constipation (Adult) Constipation means that you have bowel movements that are less frequent than usual. Stools often become very hard and difficult to pass. Constipation is very common. At some point in life, it affects almost everyone. Since everyone's bowel habits are different, what is constipation to one person may not be to another. Your healthcare provider may do tests to diagnose constipation. It depends on what he or she finds when evaluating you. Symptoms of constipation include: Abdominal pain Bloating Vomiting Painful bowel movements Itching, swelling, bleeding, or pain around the anus Causes Constipation can have many causes. These include: Diet low in fiber Too much dairy Not drinking enough liquids Lack of exercise or physical activity (especially true for older adults) Changes in lifestyle or daily routine, including , aging, work, and travel Frequent use or misuse of laxatives Ignoring the urge to have a bowel movement or delaying it until later Medicines, such as certain prescription pain medicines, iron supplements, antacids, certain antidepressants, and calcium supplements Diseases like irritable bowel syndrome, bowel obstructions, stroke, diabetes, thyroid disease, Parkinson disease, hemorrhoids, and colon cancer Complications Potential complications of constipation can include: Hemorrhoids Rectal bleeding from hemorrhoids or anal fissures (skin tears) Hernias Dependency on laxatives Chronic constipation Fecal impaction, a severe form of constipation in which a large amount of hard stool is in your rectum that you can't pass Bowel obstruction or perforation Home care All treatment should be done after talking with your healthcare provider. This is especially true if you have another medical problems, are taking prescription medicines, or are an older adult. Treatment most often involves lifestyle changes. You may also need medicines. Your healthcare provider will tell you which will work best for you. Follow the advice below to help avoid this problem in the future. Lifestyle changes These lifestyle changes can help prevent constipation: Diet. Eat a high-fiber diet, with fresh fruit and vegetables, and reduce dairy intake, meats, and processed foods Fluids. It's important to get enough fluids each day. Drink plenty of water when you eat more fiber. If you are on diet that limits the amount of fluid you can have, talk about this with your healthcare provider. Regular exercise. Check with your healthcare provider first. Medicines Take any medicines as directed. Some laxatives are safe to use only every now and then. Others can be taken on a regular basis. While laxatives don't cause bowel dependence, they are treating the symptoms. So your constipation may return if you don't make other changes. Talk with your healthcare provider or pharmacist if you have questions. Prescription pain medicines can cause constipation. If you are taking this kind of medicine, ask your healthcare provider if you should also take a stool softener. Medicines you may take to treat constipation include: Fiber supplements Stool softeners Laxatives Enemas Rectal suppositories Follow-up care Follow up with your healthcare provider if symptoms don't get better in the next few days. You may need to have more tests or see a specialist. Call 911 Call 911 if any of these occur: Trouble breathing Stiff, rigid abdomen that is severely painful to touch Confusion Fainting or loss of consciousness Rapid heart rate Chest pain When to seek medical advice Call your healthcare provider right away if any of these occur: Fever of 100.4 F (38 C) or higher, or as directed by your healthcare provider Failure to resume normal bowel movements Pain in your abdomen or back gets worse Nausea or vomiting Swelling in your abdomen Blood in the stool Black, tarry stool Involuntary weight loss Weakness [id number] [employer] [address] [place] [address]. All rights reserved. This information is not intended as a substitute for professional medical care. Always follow your healthcare professional's instructions. Additional Information VACCINATE! IT SAVES LIVES! Members of the community who have not yet received the COVID-19 vaccine and would like to receive it can visit one of [facility] vaccine clinics. There are many vaccine clinic locations within the [facility]. For locations and available times, please visit [email or web address] It is important to note that some COVID mobile vaccine clinics are held outdoors and may be canceled in rainy or stormy conditions. To learn more about pediatric vaccinations (ages 5-11), we invite you to visit the [facility] webpage. [email or web address]-[email or web address] -Questions.html To learn more about the COVID-19 vaccine, we invite you to visit the CDC website for a list of frequently asked questions.https://www.cdc.gov/coronavi oscar/2019-ncov/vaccines/faq.html [employer] Patient Portal Access Instructions: Stay connected with your healthcare team and access your personal medical information anytime with the [employer] Patient Portal. Please follow the directions below to create your [employer] account: 1.Access the email account you provided upon registration to the hospital/physician office.2.Look for an invitation email from [facility].3.Open the email and access the invitation link: Accept Invitation to [employer].4.Fill in the required will to create your account. To access your account, visit [employer]. Click the blue button labeled "Access Patient Portal" and then log in with the username and password that you created in the steps above. You will be able to view your test results, lab results, a summary of your visits, upcoming appointments and more. There is also a convenient messaging option where you can send secure messages to your provider. In addition, you will have the ability to download any documents or summaries to your computer and/or send the information securely to a physician. Remember that your healthcare information is confidential, so carefully consider who you will allow to register on the [employer] Patient Portal for access to your information. You can also access the [employer] Patient Portal on the [employer] Anywhere angelina. Simply click on "Patient Portal" and then log into your account. If you would like to receive a full copy of your medical records, please contact the [facility] Medical Records Department by calling [phone], Monday through Monday between 8 a.m. and 4:30 p.m. HOW TO SAFELY DISPOSE OF PRESCRIPTION MEDICATIONS Please use one of the following methods to safely dispose of your unused medications. 1.Use a drug disposal kit: the drug disposal pouch allows you to safely discard your old and unused drugs. Ask your nurse to give you one when you are discharged.2.Visit a local take-back location: Many local pharmacies and police departments have programs that collect old and unwanted prescription drugs. Call your local pharmacy or go to http://[email or web address]/8I5Ks9i to find one close to you.3.Make use of household items: Use cat litter or old coffee grounds to dispose medications if other options are not available. Mix your drugs with these household products, seal them in an airtight container and throw it into the garbage. Call [facility]: [phone] to be sure your drugs can be disposed of in this way. Some medicines may require a different approach.4.Never flush your medications down the toilet. IF YOU HAVE BEEN PRESCRIBED AN OPIOID FOR PAIN If you have been prescribed an opioid (such as hydrocodone, oxycodone or morphine), it is critical to understand the possible side effects and risks of opioid pain medications. Even when taken as directed, opioids can have several side effects including: Tolerance, meaning you might need to take more of a medication for the same pain relief. Nausea, vomiting and/or constipation. Sleepiness, dizziness, dry mouth, confusion, depression or itching. Physical dependence, meaning you have withdrawal symptoms when a medication is stopped, can develop within a few days. KNOW YOUR RESPONSIBILITIES It is important to know exactly how much and how often to take the opioid pain medications you are prescribed. Never take opioids in higher amounts or more often than prescribed. Do not combine opioids with alcohol or other drugs that cause drowsiness, such as benzodiazepines, also known as benzos, including diazepam and alprazolam, muscle relaxants or sleep aids. Never sell or share prescription opioids. This is illegal. Store opioids in a secure place and out of reach of others (including children, family, friends and visitors). The last page of this document has been signed and retained as a CHART COPY. Signatures Patient Education Materials Constipation (Adult) Medication Leaflets My discharge plan and instructions have been reviewed and explained to me and IAIDA CAROLYN E understand my current condition and have read and understand these discharge instructions. I have received a written copy of the plan/instructions. If I have questions, I am aware that I should contact my doctor. 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 Patient presented to [facility] emergency department on 02/16/2024 with abdominal/rectal pain and inability to have a bowel movement. In the emergency department she was hypertensive with adequate oxygenation on room air. Labs reviewed and unremarkable. 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 Cholelithiasis and gallbladder sludge. Patient was given milk of magnesia and fleets enema in the emergency department. She was subsequently admitted. On exam today, pt denies any fever or chills. No headache or dizziness. Denies chest pain, palpitations. No cough, dyspnea, sputum production. Denies N/V/D. She has constipated and experiencing rectal pressure.. Patient states that she has never had issues with constipation prior to this month. No melena/hematochezia. No dysuria or hematuria. No new paresthesias. Review of Systems See HPI for specific ROS. All other systems reviewed and negative. Physical Exam Vitals and Measurements T: 36.6 C (Oral) TMIN: 36.1 C (Oral) TMAX: 36.6 C (Oral) HR: 85 (Monitored) RR: 20 BP: 161/74 SpO2: 97% HT: 170.2 cm WT: 72.6 kg BMI: 25.06 Weight Dosing Weight: 72.6 kg (02/16/24) Dosing Weight: 72.6 kg (02/16/24) GEN: Appears chronically ill EYES: No conjunctival erythema, drainage. EOMI EARS: Hearing grossly intact. NOSE: No nasal discharge. THROAT: Oral cavity and pharynx pink and moist. CHEST: Normal S1 and S2. Rhythm is regular. Clear to auscultation, without rales, rhonchi, wheezing. ABD: Positive bowel sounds x 4 quads. Soft, mild tenderness with palpation EXT: No significant deformity or joint abnormality. No edema. Peripheral pulses intact. 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 Cholelithiasis and gallbladder sludge. I have personally reviewed the images of this examination and agree with theresident's findings and interpretation. Assessment/Plan 1. Constipation 2. Type 2 diabetes mellitus 3. HTN - Hypertension Constipation soapsuds enema x 2, Magnesium citrate. Pattient states she normally does not get constipated. She was earlier this month. Has been eating alot of fruit and cheese lately. Type 2 diabetes mellitus- Glucose goal 180 or less and avoid hypoglycemia. Corrective sliding scale insulin. ADA diet. HTN- SBP goal 140 or less. Continue home antihypertensives. DVT prophylaxis:Lovenox Code Status:Full Code Plan of care discussed with patient. All questions answered. Patient verbalizes understanding is agreeable to plan of care. This dictation was performed using voice recognition software and may include grammatical and/or spelling errors. Problem List/Past Medical History Ongoing ??? 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: 07/31/20 Appendectomy Oral surgery Umbilical hernia Bilateral cataracts Carpal tunnel release Medications Home Medications (11) Active Albuterol (Eqv-Ventolin HFA) 90 mcg/inh inhalation aerosol 2 puff(s), PRN, Inhalation, q6hr amLODIPine 5 mg oral tablet aspirin 81 mg oral delayed release tablet 81 mg = 1 tab(s), Oral, Daily Colace 100 mg oral capsule 100 mg = 1 cap(s), PRN, Oral, BID Fish Oil 1200 mg oral capsule 2,400 mg = 2 cap(s), Oral, Daily FreeStyle Edward 2 Sensor kit furosemide 20 mg oral tablet glipiZIDE 10 mg oral tablet, extended release metFORMIN 500 mg oral tablet (IR) tolterodine 2 mg oral capsule, extended release Trulicity Pen 4.5 mg/0.5 mL subcutaneous solution Allergies penicillins Rash Social History Smoking Status - 05/03/2017 Never smoker Alcohol - No Risk, 03/21/2017 Use: Never., 01/04/2019 Exercise Exercise type: Walking., 09/01/2020 Home/Environment Self Primary State Editor:., 01/04/2019 Nutrition/Health Type of diet: Diabetic, is folllowing pbx repairer suggestions. Appetite Good. Eating Difficulties None, If mouth is dry needs a glass of water. Caffeine intake amount: One coffee daily, sometimes more., 12/23/2022 Substance Abuse - No Risk, 03/21/2017 Use: Never., 01/04/2019 Tobacco Tobacco Use: Never (less than 100 in lifetime)., 01/04/2019 Family History CAD (coronary artery disease) 02-Dec-2015 02:42:16<$>: Father. Dementia: Sister. Diabetes mellitus: Father, Sister and Brother. Heart disease: Mother and Brother. Hypertension: Mother. Memory loss: Brother. Parkinson disease: Father. Skin cancer: Brother. Stroke: Mother. Health Status Family Member(s) Immunizations No qualifying data available. Code Status Code Status - Ordered -- 02/16/24 5:59:00 EDT, Full Code, Constant Order Digitally Signed by LUIS GUZMÁN on 02/16/2024 04:01 PM [facility] 02-16-2024 Evaluation + Plan note Extrac zachary from: Title:History and Physical Author:LUIS GUZMÁN Date:02/16/24 1. Constipation 2. Type 2 diabetes mellitus 3. HTN - Hypertension Constipation soapsuds enema x 2, Magnesium citrate. Pattient states she normally does not get constipated. She was earlier this month. Has been eating alot of fruit and cheese lately. Type 2 diabetes mellitus- Glucose goal 180 or less and avoid hypoglycemia. Corrective sliding scale insulin. ADA diet. HTN- SBP goal 140 or less. Continue home antihypertensives. DVT prophylaxis:Lovenox Code Status:Full Code Plan of care discussed with patient. All questions answered. Patient verbalizes understanding is agreeable to plan of care. This dictation was performed using voice recognition software and may include grammatical and/or spelling errors. Future Appointments Appointment Date:03/25/2024 10:00:00 AM Scheduled Provider: Location:[facility] Appointment Type:MEDS - Diabetic Individual Visit Appointment Date:07/05/2024 08:30:00 AM Scheduled Provider:MINE MONTANEZ Location:[facility] Appointment Type:[facility] 09-13-2024 Pastoral care Progress note Pastoral Care Note Entered On: 02/16/2024 9:44 EDT Performed On: 02/16/2024 9:42 EDT by Rodolfo Márquez Pastoral Care Type of Pastoral Visit : Initial visit Spiritual Care Visit Initiated by : Sql Ssis Developer Spiritual Care Reason for Visit : General Spiritual Assessment : Faithful, Spiritually Strong Spiritual Care Emotional Assessment : Has Support Network, Other: tired and weary Spiritual Care Intervention : Compassion/Empathy, Supportive presence, Prayer with Patient/Family Spiritual Outcomes : Increased Peace of Mind Spiritual Plan of Care : Visit as Requested Pastoral Care Comments : patient was just admitted; pt has not slept all night and is tired; pt is encouraged to get rest and is offered a prayer and future support; pt receives these and expresses thankfulness Pastoral Care Visit Length : 5 minute(s) Rodolfo Márquez - 02/16/2024 9:42 EDT Digitally Signed by Rodolfo Márquez on 02/16/2024 09:42 AM [facility]09-13-2024 Hospital Discharge instructions Patient Education 02/16/2024 04:03:29 Constipation (Adult) Constipation (Adult) Constipation means that you have bowel movements that are less frequent than usual. Stools often become very hard and difficult to pass. Constipation is very common. At some point in life, it affects almost everyone. Since everyone's bowel habits are different, what is constipation to one person may not be to another. Your healthcare provider may do tests to diagnose constipation. It depends on what he or she finds when evaluating you. Symptoms of constipation include: Abdominal pain Bloating Vomiting Painful bowel movements Itching, swelling, bleeding, or pain around the anus Causes Constipation can have many causes. These include: Diet low in fiber Too much dairy Not drinking enough liquids Lack of exercise or physical activity (especially true for older adults) Changes in lifestyle or daily routine, including , aging, work, and travel Frequent use or misuse of laxatives Ignoring the urge to have a bowel movement or delaying it until later Medicines, such as certain prescription pain medicines, iron supplements, antacids, certain antidepressants, and calcium supplements Diseases like irritable bowel syndrome, bowel obstructions, stroke, diabetes, thyroid disease, Parkinson disease, hemorrhoids, and colon cancer Complications Potential complications of constipation can include: Hemorrhoids Rectal bleeding from hemorrhoids or anal fissures (skin tears) Hernias Dependency on laxatives Chronic constipation Fecal impaction, a severe form of constipation in which a large amount of hard stool is in your rectum that you can't pass Bowel obstruction or perforation Home care All treatment should be done after talking with your healthcare provider. This is especially true if you have another medical problems, are taking prescription medicines, or are an older adult. Treatment most often involves lifestyle changes. You may also need medicines. Your healthcare provider will tell you which will work best for you. Follow the advice below to help avoid this problem in the future. Lifestyle changes These lifestyle changes can help prevent constipation: Diet. Eat a high-fiber diet, with fresh fruit and vegetables, and reduce dairy intake, meats, and processed foods Fluids. It's important to get enough fluids each day. Drink plenty of water when you eat more fiber. If you are on diet that limits the amount of fluid you can have, talk about this with your healthcare provider. Regular exercise. Check with your healthcare provider first. Medicines Take any medicines as directed. Some laxatives are safe to use only every now and then. Others can be taken on a regular basis. While laxatives don't cause bowel dependence, they are treating the symptoms. So your constipation may return if you don't make other changes. Talk with your healthcare provider or pharmacist if you have questions. Prescription pain medicines can cause constipation. If you are taking this kind of medicine, ask your healthcare provider if you should also take a stool softener. Medicines you may take to treat constipation include: Fiber supplements Stool softeners Laxatives Enemas Rectal suppositories Follow-up care Follow up with your healthcare provider if symptoms don't get better in the next few days. You may need to have more tests or see a specialist. Call 911 Call 911 if any of these occur: Trouble breathing Stiff, rigid abdomen that is severely painful to touch Confusion Fainting or loss of consciousness Rapid heart rate Chest pain When to seek medical advice Call your healthcare provider right away if any of these occur: Fever of 100.4 F (38 C) or higher, or as directed by your healthcare provider Failure to resume normal bowel movements Pain in your abdomen or back gets worse Nausea or vomiting Swelling in your abdomen Blood in the stool Black, tarry stool Involuntary weight loss Weakness [id number] [employer] [address] [place] [address]. All rights reserved. This information is not intended as a substitute for professional medical care. Always follow yourhealthcare professional's instructions. Follow Up Care 02/16/2024 03:47:03 With:Go to emergency room if symptoms worsen Address:Unknown When:2-4 days With:MINE MONTANEZ Address: [address] [place] [address]- [phone] When:2-4 days [facility] 09-13-2024 Note ORIGINAL EXAMINATION: CT OF THE ABDOMEN AND PELVIS WITHOUT CONTRAST TECHNIQUE: CT of the abdomen and pelvis was performed without the administration of intravenous contrast. Multiplanar reformatted images are provided for review. Automated exposure control, iterative reconstruction, and/or weight based adjustment of the mA/kV was utilized to reduce the radiation dose to as low as reasonably achievable. COMPARISON: None HISTORY: ORDERING SYSTEM PROVIDED HISTORY: Reason for Exam: abdominal pain, constipation FINDINGS: Lack of intravenous contrast limits evaluation for certain pathology. LOWER THORAX: Imaged lungs are clear. No visible pericardial or pleural effusion. GI TRACT: Small hiatal hernia. The bowel is not obstructed. Surgically absent appendix. A large amount of well-formed stool distends the rectum up to 8.6 cm in diameter with associated mural thickening and hazy changes in the imaged perianal fat. SOLID ORGANS: The unenhanced liver, spleen, pancreas, and adrenal glands are unremarkable. Sludge and stones are present in the gallbladder. There is no lesion identified in the unenhanced kidneys. No hydronephrosis. The urinary bladder is unremarkable. 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 LYMPH/VASCULAR/MESENTERY: No abdominopelvic lymphadenopathy, free fluid, or free air. There is mild to moderate calcified atherosclerotic disease of the nonaneurysmal aorta. SOFT TISSUES/BONES: No acute process of the subcutaneous soft tissues or osseous structures. Degenerative spinal changes include grade 1 anterolisthesis of L3 on L4 and L4 on L5. Bilateral hip degenerative changes. 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 Cholelithiasis and gallbladder sludge. I have personally reviewed the images of this examination and agree with the resident's findings and interpretation. Interpreted by: Chito Ray MD Preliminary Report By: Albert Long Electronically signed By Chito Ray MD Dictated Date: 02/16/2024 5:00:30 AM Prelim Date: 02/16/2024 5:11:56 AM Sign Date: 02/16/2024 5:52:34 AM Ordering Provider: [facility]09-01-2024 Hospital Discharge instructions Patient Education 02/04/2024 06:00:03 Constipation (Adult) Constipation (Adult) Constipation means that you have bowel movements that are less frequent than usual. Stools often become very hard and difficult to pass. Constipation is very common. At some point in life, it affects almost everyone. Since everyone's bowel habits are different, what is constipation to one person may not be to another. Your healthcare provider may do tests to diagnose constipation. It depends on what he or she finds when evaluating you. Symptoms of constipation include: Abdominal pain Bloating Vomiting Painful bowel movements Itching, swelling, bleeding, or pain around the anus Causes Constipation can have many causes. These include: Diet low in fiber Too much dairy Not drinking enough liquids Lack of exercise or physical activity (especially true for older adults) Changes in lifestyle or daily routine, including , aging, work, and travel Frequent use or misuse of laxatives Ignoring the urge to have a bowel movement or delaying it until later Medicines, such as certain prescription pain medicines, iron supplements, antacids, certain antidepressants, and calcium supplements Diseases like irritable bowel syndrome, bowel obstructions, stroke, diabetes, thyroid disease, Parkinson disease, hemorrhoids, and colon cancer Complications Potential complications of constipation can include: Hemorrhoids Rectal bleeding from hemorrhoids or anal fissures (skin tears) Hernias Dependency on laxatives Chronic constipation Fecal impaction, a severe form of constipation in which a large amount of hard stool is in your rectum that you can't pass Bowel obstruction or perforation Home care All treatment should be done after talking with your healthcare provider. This is especially true if you have another medical problems, are taking prescription medicines, or are an older adult. Treatment most often involves lifestyle changes. You may also need medicines. Your healthcare provider will tell you which will work best for you. Follow the advice below to help avoid this problem in the future. Lifestyle changes These lifestyle changes can help prevent constipation: Diet. Eat a high-fiber diet, with fresh fruit and vegetables, and reduce dairy intake, meats, and processed foods Fluids. It's important to get enough fluids each day. Drink plenty of water when you eat more fiber. If you are on diet that limits the amount of fluid you can have, talk about this with your healthcare provider. Regular exercise. Check with your healthcare provider first. Medicines Take any medicines as directed. Some laxatives are safe to use only every now and then. Others can be taken on a regular basis. While laxatives don't cause bowel dependence, they are treating the symptoms. So your constipation may return if you don't make other changes. Talk with your healthcare provider or pharmacist if you have questions. Prescription pain medicines can cause constipation. If you are taking this kind of medicine, ask your healthcare provider if you should also take a stool softener. Medicines you may take to treat constipation include: Fiber supplements Stool softeners Laxatives Enemas Rectal suppositories Follow-up care Follow up with your healthcare provider if symptoms don't get better in the next few days. You may need to have more tests or see a specialist. Call 911 Call 911 if any of these occur: Trouble breathing Stiff, rigid abdomen that is severely painful to touch Confusion Fainting or loss of consciousness Rapid heart rate Chest pain When to seek medical advice Call your healthcare provider right away if any of these occur: Fever of 100.4 F (38 C) or higher, or as directed by your healthcare provider Failure to resume normal bowel movements Pain in your abdomen or back gets worse Nausea or vomiting Swelling in your abdomen Blood in the stool Black, tarry stool Involuntary weight loss Weakness [id number] [employer] [address] [place] [address]. All rights reserved. This information is not intended as a substitute for professional medical care. Always follow yourhealthcare professional's instructions. Follow Up Care 02/04/2024 05:28:55 With:MINE MONTANEZ Address: [address] [place] [id number] [phone] When:2-4 days [facility] 09-01-2024 Note Discharge Instructions Thank you for allowing [facility] to assist you with your healthcare needs. The following is importantdischarge information regarding your hospital visit. Diagnosis from Today's Visit Constipation What to Do Next Instructions from Your Care Team No qualifying data available. Post Acute Orders No qualifying data available. You Need to Schedule the Following Appointments Follow Up with MINE MONTANEZ When:Within 2-4 days Where:0 [place] [address]- [phone] Allergies penicillins Rash Medications Please ask your primary doctor or pharmacist before taking any other medication not listed, including over the counter drugs, herbal medications, vitamins and or supplements as they may interact withyour home medications. What How Much When Why Instructions Last Dose New docusate (Colace 100 mg oral capsule) 1 cap by mouth Two (2) times a day as needed for for constipation Duration: 10 Days Printed Prescription Unchanged acetaminophen (acetaminophen 500 mg oral tablet) 2 tab(s) by mouth Three (3) times a day as needed for pain or fever Unchanged albuterol (albuterol MDI (90 mcg/ inh) CFC free inhalation aerosol) See instructions Acute bronchitis 1 to 2 puff(s) Inhalation q4h, As needed for Shortness of breath or wheezing Unchanged amLODIPine (amLODIPine 5 mg oral tablet) 1 tab(s) by mouth Once a day Hypertension Type 2 diabetes mellitus Duration: 90 Days Unchanged aspirin (aspirin 81 mg oral delayed release tablet) 1 tab(s) by mouth Every day Unchanged DME (Blood Glucose Test Strips) See instructions Controlled diabetes mellitus FreeStyle Lite Test Strips, 2 Strips daily Dx: E11.9 Replaces old script. Unchanged DME (DME MISCellaneous) See instructions Libre2 Sensors. Apply one sensor to back of arm once every 14 days Unchanged DME (DME MISCellaneous) See instructions Libre2 Cardwell Use to scan Edward sensor at least once every 8 hours Unchanged DME (FreeStyle Edward 2 Sensor) See instructions Place once sensor to the back of the upper arm every 14 days. Use reader or phone angelina to scan sensor for daily blood sugar checks. 1 month supply Unchanged doxycycline (doxycycline hyclate 100 mg oral capsule) 1 cap by mouth Two (2) times a day Acute rhinosinusitis Duration: 7 Days Unchanged dulaglutide (Trulicity Pen 4.5 mg/ 0.5 mL subcutaneous solution) 0.5 Milliliter Subcutaneous Every week rotate injection sites Unchanged fluticasone nasal (fluticasone 50 mcg/ inh NASAL spray) 2 spray(s) each nostril Once a day Acute rhinosinusitis Duration: 30 Days shake well before using Unchanged furosemide (Lasix 20 mg oral tablet) 1 tab(s) by mouth Once a day as needed for Swelling Peripheral edema Serum potassium elevated Duration: 90 Days Unchanged glipiZIDE (glipiZIDE 10 mg oral tablet, extended release) 2 tab(s) by mouth Once a day Unchanged guaiFENesin (guaiFENesin 600 mg oral tablet, extended release) 1 tab(s) by mouth Every 12 hours Acute rhinosinusitis Acute bronchitis Duration: 10 Days Unchanged metFORMIN (metFORMIN 500 mg oral tablet (IR)) 2 tab(s) by mouth Two (2) times a day Unchanged Misc Medication (Sport) by mouth Two (2) times a day Mannatech-when exercising Unchanged multivitamin (Vitamin B Complex 100) 1 tab by mouth Every day Unchanged nutritional supplement 2 tab(s) by mouth Daily at bedtime Manacleanse Unchanged nutritional supplement 1 tab(s) by mouth Two (2) times a day Cardiobalance Unchanged nutritional supplement 1 tab(s) by mouth Two (2) times a day Ambratose AO dietary supplement Unchanged nutritional supplement 2 tab(s) by mouth Two (2) times a day Catalyst Unchanged nutritional supplement 1 tab(s) by mouth Two (2) times a day Mannatech Plus Unchanged nutritional supplement 1 tab(s) by mouth Two (2) times a day Phyto-Aloe Unchanged omega-3 polyunsaturated fatty acids (Fish Oil 1200 mg oral capsule) 2 cap by mouth Every day w/ D in it Unchanged tolterodine (tolterodine 2 mg oral capsule, extended release) 1 cap by mouth Two (2) times a day Duration: 30 Days Unchanged zinc acetate (zinc (as acetate) 50 mg oral capsule) 0.5 tab(s) by mouth Every day Please take this list to your next doctor s visit. Bring all medications you take, including over the counter medications, herbals and other supplements with you to your doctor s visit. Patients and families are reminded to discard old lists and to update any records with all medication providers or retail pharmacies. Education Materials Constipation (Adult) Constipation means that you have bowel movements that are less frequent than usual. Stools often become very hard and difficult to pass. Constipation is very common. At some point in life, it affects almost everyone. Since everyone's bowel habits are different, what is constipation to one person may not be to another. Your healthcare provider may do tests to diagnose constipation. It depends on what he or she finds when evaluating you. Symptoms of constipation include: Abdominal pain Bloating Vomiting Painful bowel movements Itching, swelling, bleeding, or pain around the anus Causes Constipation can have many causes. These include: Diet low in fiber Too much dairy Not drinking enough liquids Lack of exercise or physical activity (especially true for older adults) Changes in lifestyle or daily routine, including , aging, work, and travel Frequent use or misuse of laxatives Ignoring the urge to have a bowel movement or delaying it until later Medicines, such as certain prescription pain medicines, iron supplements, antacids, certain antidepressants, and calcium supplements Diseases like irritable bowel syndrome, bowel obstructions, stroke, diabetes, thyroid disease, Parkinson disease, hemorrhoids, and colon cancer Complications Potential complications of constipation can include: Hemorrhoids Rectal bleeding from hemorrhoids or anal fissures (skin tears) Hernias Dependency on laxatives Chronic constipation Fecal impaction, a severe form of constipation in which a large amount of hard stool is in your rectum that you can't pass Bowel obstruction or perforation Home care All treatment should be done after talking with your healthcare provider. This is especially true if you have another medical problems, are taking prescription medicines, or are an older adult. Treatment most often involves lifestyle changes. You may also need medicines. Your healthcare provider will tell you which will work best for you. Follow the advice below to help avoid this problem in the future. Lifestyle changes These lifestyle changes can help prevent constipation: Diet. Eat a high-fiber diet, with fresh fruit and vegetables, and reduce dairy intake, meats, and processed foods Fluids. It's important to get enough fluids each day. Drink plenty of water when you eat more fiber. If you are on diet that limits the amount of fluid you can have, talk about this with your healthcare provider. Regular exercise. Check with your healthcare provider first. Medicines Take any medicines as directed. Some laxatives are safe to use only every now and then. Others can be taken on a regular basis. While laxatives don't cause bowel dependence, they are treating the symptoms. So your constipation may return if you don't make other changes. Talk with your healthcare provider or pharmacist if you have questions. Prescription pain medicines can cause constipation. If you are taking this kind of medicine, ask your healthcare provider if you should also take a stool softener. Medicines you may take to treat constipation include: Fiber supplements Stool softeners Laxatives Enemas Rectal suppositories Follow-up care Follow up with your healthcare provider if symptoms don't get better in the next few days. You may need to have more tests or see a specialist. Call 911 Call 911 if any of these occur: Trouble breathing Stiff, rigid abdomen that is severely painful to touch Confusion Fainting or loss of consciousness Rapid heart rate Chest pain When to seek medical advice Call your healthcare provider right away if any of these occur: Fever of 100.4 F (38 C) or higher, or as directed by your healthcare provider Failure to resume normal bowel movements Pain in your abdomen or back gets worse Nausea or vomiting Swelling in your abdomen Blood in the stool Black, tarry stool Involuntary weight loss Weakness 9548-[address] [employer] [address] [place] [address], [place] [address]. All rights reserved. This information is not intended as a substitute for professional medical care. Always follow yourhealthcare professional's instructions. Additional Information VACCINATE! IT SAVES LIVES! Members of the community who have not yet received the COVID-19 vaccine and would like to receive it can visit one of [facility] vaccine clinics. There are many vaccine clinic locations within the [facility]. For locations and available times, please visit [email or web address].[place].gov/. It is important to note that some COVID mobile vaccine clinics are held outdoors and may be canceled in rainy or stormy conditions. To learn more about pediatric vaccinations (ages 5-11), we invite you to visit the [facility] webpage. [email or web address] learn more about the COVID-19 vaccine, we invite you to visit the CDC website for a list of frequently asked questions. https://www.cdc.gov/coronavirus/2019-ncov/vaccines/faq.html [employer] Patient Portal Access Instructions: Stay connected with your healthcare team and access your personal medical information anytime with the [employer] Patient Portal. If you would like a full copy of your medical records please contact the [facility] Medical Records Department Monday through Monday between 8a.m. and 4:30p.m. Please follow the directions below to access the portal: 1.Access the email account you provided upon registration to the hospital.2.Look for an invitation email from [facility].3.Open the email and access the invitation link: Accept Invitation to [employer]4.Fill in the required will to create your account. Sign into [email or web address] with your username and password that you created in the above steps to stay up to date. You can then view a summary of results, a summary of your visits, and the ability to download your summaries to your computer or send the information securely to a physician. Remember that your healthcare information is confidential, so carefully consider who you will allow to register on the [employer] Patient Portal for access to your information. You can also access the [employer] Patient Portal on the [employer]. Simply click on "Health Records" under "[employer]" and then click on the [employer] logo. HOW TO SAFELY DISPOSE OF PRESCRIPTION MEDICATIONS Please use one of the following methods to safely dispose of your unused medications. 1.Use a drug disposal kit: the drug disposal pouch allows you to safely discard your old and unuseddrugs. Ask your nurse to give you one when you are discharged.2.Visit a local take-back location: Many local pharmacies and police departments have programs that collect old and unwanted prescriptiondrugs. Call your local pharmacy or go to [email or web address] [email or web address]/7O0Tj8a to find one close to you.3.Make use of household items: Use cat litter or old coffee grounds to dispose medications if other options arenot available. Mix your drugs with these household products, seal them in an airtight container andthrow it into the garbage. Call [facility]: [phone] to be sure your drugs can be disposed of in this way. Some medicines may require a different approach.4.Never flush your medications down the toilet. IF YOU HAVE BEEN PRESCRIBED AN OPIOIDS FOR PAIN If you have been prescribed an opioid (such as hydrocodone, oxycodone or morphine), it is critical to understand the possible side effects and risks of opioid pain medications. Even when taken as directed, opioids can have several side effects including: Tolerance, meaning you might need to take more of a medication for the same pain relief. Nausea, vomiting and/or constipation. Sleepiness, dizziness, dry mouth, confusion, depression or itching. Physical dependence, meaning you have withdrawal symptoms when a medication is stopped ? this can develop within a few days. KNOW YOUR RESPONSIBILITIES It is important to know exactly how much and how often to take the opioid pain medications you are prescribed. Never take opioids in higher amounts or more often than prescribed. Do not combine opioids with alcohol or other drugs that cause drowsiness, such as benzodiazepines, also known as benzos,including diazepam and alprazolam, muscle relaxants or sleep aids. Never sell or share prescriptionopioids. This is illegal. Store opioids in a secure place and out of reach of others (including children, family, friends and visitors). The last page(s) of this document has been signed and retained as a CHART COPY Signatures Patient Education Materials Constipation (Adult) Medication Leaflets My discharge plan and instructions have been reviewed and explained to me and I,MICKEY PARRA understand my current condition and have read and understand these discharge instructions. I have received a written copy of the plan/instructions. If I have questions, I am aware that I should contact my doctor. 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 COMPARISON: None. HISTORY: ORDERING SYSTEM PROVIDED HISTORY: Reason for Exam: Osteoporosis Screening Osteoporosis screening. FINDINGS: T Score Left Femoral Neck:-0.8. BMD left Femoral Neck: 0.765 (g/cm2) T Score Left Hip: 0.7. BMD left Hip: 1.028 (g/cm2) T Score Lumbar Spine:-0.7. BMD lumbar Spine: 0.968 (g/cmd2) IMPRESSION: Normal bone mineral density. I have personally reviewed the images of this examination and agree with the resident's findings and interpretation. Interpreted by: Rafael Barr DO Preliminary Report By: Racheal Cardona Electronically signed By Rafael Barr DO Dictated Date: 01/17/2023 11:34:24 AM Prelim Date: 01/17/2023 11:40:16 AM Sign Date: 01/17/2023 11:40:16 AM Ordering Provider: [facility]11-01-2021 Hospital Discharge instructions Patient Education 04/05/2021 12:24:07 Hypertension, Established Established High Blood Pressure High blood pressure (hypertension) is a chronic disease. Often, healthcare providers don t know what causes it. But it can be caused by certain health conditions and medicines. If you have high blood pressure, you may not have any symptoms. If you do have symptoms, they may include headache, dizziness, changes in your vision, chest pain, and shortness of breath. But even without symptoms, high blood pressure that s not treated raises your risk for heart attack, heart failure, and stroke. High blood pressure is a serious health risk and shouldn t be ignored. Blood pressure measurements are given as 2 numbers. Systolic blood pressure is the upper number. This is the pressure when the heart contracts. Diastolic blood pressure is the lower number. This is the pressure when the heart relaxes between beats. You will see your blood pressure readings written together. For example, a person with a systolic pressure of 118 and a diastolic pressure of 78 will have 118/78 written in the medical record. Blood pressure is categorized as normal, elevated, or stage 1 or stage 2 high blood pressure: Normal blood pressure is systolic of less than 120 and diastolic of less than 80 (120/80) Elevated blood pressure is systolic of 120 to 129 and diastolic less than 80 Stage 1 high blood pressure is systolic is 130 to 139 or diastolic between 80 to 89 Stage 2 high blood pressure is when systolic is 140 or higher or the diastolic is 90 or higher Home care If you have high blood pressure, follow these home care guidelines to help lower your blood pressure. If you are taking medicines for high blood pressure, these methods may reduce or end your need for medicines in the future. Start a weight-loss program if you are overweight. Cut back on how much salt you get in your diet. Here s how to do this: oDon t eat foods that have a lot of salt. These include olives, pickles, smoked meats, and salted potato chips. oDon t add salt to your food at the table. oUse only small amounts of salt when cooking. Start an exercise program. Talk with your healthcare provider about the type of exercise program that would be best for you. It doesn't have to be hard. Even brisk walking for 20 minutes 3 times a week is a good form of exercise. Don t take medicines that stimulate the heart. This includes many qsgi-coa-fervelh cold and sinus decongestant pills and sprays, as well as diet pills. Check the warnings about high blood pressure onthe label. Before buying any kpko-nfo-ubmqnll medicines or supplements, always ask the pharmacist about the product's potential interaction with your high blood pressure and your high blood pressure medicines. Stimulants such as amphetamine or cocaine could be deadly for someone with high blood pressure. Never take these. Limit how much caffeine you get in your diet. Switch to caffeine-free products. Stop smoking. If you are a long-time smoker, this can be hard. Talk to your healthcare provider about medicines and nicotine replacement options to help you. Also, enroll in a stop-smoking program tomake it more likely that you will quit for good. Learn how to handle stress. This is an important part of any program to lower blood pressure. Learnabout relaxation methods like meditation, yoga, or biofeedback. If your provider prescribed medicines, take them exactly as directed. Missing doses may cause your blood pressure get out of control. If you miss a dose or doses, check with your healthcare provider or pharmacist about what to do. Consider buying an automatic blood pressure machine to check your blood pressure at home. Ask your provider for a recommendation. You can get one of these at most pharmacies. The [place] [employer] recommends the following guidelines for home blood pressure monitoring: Don't smoke or drink coffee for 30 minutes before taking your blood pressure. Go to the bathroom before the test. Relax for 5 minutes before taking the measurement. Sit with your back supported (don't sit on a couch or soft chair); keep your feet on the floor uncrossed. Place your arm on a solid flat surface (like a table) with the upper part of the arm at heartlevel. Place the middle of the cuff directly above the bend of the elbow. Check the monitor's instruction manual for an illustration. Take multiple readings. When you measure, take 2 to 3 readings one minute apart and record all of the results. Take your blood pressure at the same time every day, or as your healthcare provider recommends. Record the date, time, and blood pressure reading. Take the record with you to your next medical appointment. If your blood pressure monitor has a built-in memory, simply take the monitor with you to your next appointment. Call your provider if you have several high readings. Don't be frightened by a single high blood pressure reading, but if you get several high readings, check in with your healthcare provider. Note: When blood pressure reaches a systolic (top number) of 180 or higher OR diastolic (bottom number) of 110 or higher, seek emergency medical treatment. Follow-up care You will need to see your healthcare provider regularly. This is to check your blood pressure and to make changes to your medicines. Make a follow-up appointment as directed. Bring the record of yourhome blood pressure readings to the appointment. When to seek medical advice Call your healthcare provider right away if any of these occur: Blood pressure reaches a systolic (upper number) of 180 or higher OR a diastolic (bottom number) of110 or higher Chest pain or shortness of breath Severe headache Throbbing or rushing sound in the ears Nosebleed Sudden severe pain in your belly (abdomen) Extreme drowsiness, confusion, or fainting Dizziness or spinning sensation (vertigo) Weakness of an arm or leg or one side of the face You have problems speaking or seeing 4557-[address] [employer] [address] [place] [address]. All rights reserved. This information is not intended as a substitute for professional medical care. Always follow yourhealthcare professional's instructions. 04/05/2021 12:24:05 Dizziness, Uncertain Cause Dizziness (Uncertain Cause) Dizziness is a common symptom. It may be described as lightheadedness, spinning, or feeling like you are going to faint. Dizziness can have many causes. Be sure to tell the healthcare provider about: All medicines you take, including prescription, zeek-gkr-nniruwg, herbs, and supplements Any other symptoms you have Any health problems you are being treated for Any past major health problems you've had, such as a heart attack, balance issues, hearing problems, or blood pressure problems Anything that causes the dizziness to get worse or better Today's exam did not show an exact cause for your dizziness. Other tests may be needed. Follow up with your healthcare provider. Home care Dizziness that occurs with sudden standing may be a sign of mild dehydration. Drink extra fluids for the next few days. If you recently started a new medicine, stopped a medicine, or had the dose of a current medicine changed, talk with the prescribing healthcare provider. Your medicine plan may need adjustment. If dizziness lasts more than a few seconds, sit or lie down until it passes. This may help prevent injury in case you pass out. Get up slowly when you feel better. Don't drive or use power tools or dangerous equipment until you have had no dizziness for at least 48 hours. Follow-up care Follow up with your healthcare provider for further evaluation within the next 7 days or as advised. When to seek medical advice Call your healthcare provider for any of the following: Worsening of symptoms or new symptoms Passing out or seizure Repeated vomiting Headache Palpitations (the sense that your heart is fluttering or beating fast or hard) Shortness of breath Blood in vomit or stool (black or red color) Weakness of an arm or leg or 1 side of the face Vision or hearing changes Trouble walking or speaking Chest, arm, neck, back, or jaw pain [id number] [employer] [address] [place] [address]. All rights reserved. This information is not intended as a substitute for professional medical care. Always follow yourhealthcare professional's instructions. Follow Up Care 04/05/2021 07:20:22 With:MINE MONTANEZ Address: [phone] When:2-4 days [facility] Evaluation + Plan note Future Appointments Appointment Date:04/09/2021 10:00:00 AM Scheduled Provider:MINE MONTANEZ Location:[facility] Appointment Type:PC OV Appointment Date:06/14/2021 09:30:00 AM Scheduled Provider:FAUSTINO CARSON MD Location: [place] Appointment Type: OV Appointment Date:06/22/2021 09:30:00 AM Scheduled Provider:MINE MONTANEZ Location:[facility] Appointment Type:PC OV [facility] Evaluation + Plan note Future Appointments Appointment Date:04/06/2021 11:30:00 AM Scheduled Provider:MINE MONTANEZ Location:[facility] Appointment Type:PC OV Appointment Date:04/09/2021 10:00:00 AM Scheduled Provider:MINE MONTANEZ Location:[facility] Appointment Type:PC OV Appointment Date:06/14/2021 09:30:00 AM Scheduled Provider:FAUSTINO CARSON MD Location: [place] Appointment Type: OV Appointment Date:06/22/2021 09:30:00 AM Scheduled Provider:MINE MONTANEZ Location:[facility] Appointment Type:PC OV [facility] Evaluation + Plan note Future Appointments Appointment Date:06/22/2021 09:30:00 AM Scheduled Provider:MINE MONTANEZ [facility] [facility] Appointment Type:PC OV [facility] Evaluation + Plan note Future Appointments Appointment Date:08/20/2021 09:30:00 AM Scheduled Provider: Location:[facility] Appointment Type:DB Diabetic Individual Visit Appointment Date:08/30/2021 02:30:00 PM Scheduled Provider: Location:[facility] Appointment Type:NUT Diet Visit Individual Appointment Date:09/17/2021 10:00:00 AM Scheduled Provider: Location:[facility] Appointment Type:DB Diabetic Individual Visit Appointment Date:12/14/2021 10:30:00 AM Scheduled Provider:MINE MONTANEZ Location:[facility] Appointment Type:PC OV [facility] Evaluation + Plan note Future Appointments Appointment Date:10/11/2021 11:30:00 AM Scheduled Provider: Location:[facility] Appointment Type:NUT Diet Visit Individual Appointment Date:12/14/2021 10:30:00 AM Scheduled Provider:MINE MONTANEZ Location:[facility] Appointment Type:PC OV Appointment Date:12/17/2021 09:00:00 AM Scheduled Provider: Location:[facility] Appointment Type:DB Diabetic Individual Visit [facility] Evaluation + Plan note Future Appointments Appointment Date:10/15/2021 09:30:00 AM Scheduled Provider:MINE MONTANEZ Location:[facility] Appointment Type:PC OV Appointment Date:11/08/2021 11:30:00 AM Scheduled Provider: Location:[facility] Appointment Type:NUT Diet Visit Individual Appointment Date:12/14/2021 10:30:00 AM Scheduled Provider:MINE MONTANEZ Location:[facility] Appointment Type:PC OV Appointment Date:12/17/2021 09:00:00 AM Scheduled Provider: Location:[facility] Appointment Type:DB Diabetic Individual Visit [facility] Evaluation + Plan note Future Appointments Appointment Date:11/08/2021 11:30:00 AM Scheduled Provider: Location:[facility] Appointment Type:NUT Diet Visit Individual Appointment Date:12/14/2021 10:30:00 AM Scheduled Provider:MINE MONTANEZ Location:[facility] Appointment Type:PC OV Appointment Date:12/17/2021 09:00:00 AM Scheduled Provider: Location:[facility] Appointment Type:DB Diabetic Individual Visit Diagnostic Tests Pending * Vitamin B12 Level 10/20/21 * Folate Level 10/20/21 [facility] Evaluation + Plan note Future Appointments Appointment Date:12/14/2021 10:30:00 AM Scheduled Provider:MINE MONTANEZ Location:[facility] Appointment Type:PC OV Appointment Date:12/17/2021 09:00:00 AM Scheduled Provider: Location:[facility] Appointment Type:DB Diabetic Individual Visit [facility] Evaluation + Plan note Future Appointments Appointment Date:03/24/2023 10:00:00 AM Scheduled Provider: Location:[facility] Appointment Type:DB Diabetic Individual Visit (AOH) Appointment Date:12/26/2023 09:00:00 AM Scheduled Provider:MINE MONTANEZ Location:[facility] Appointment Type: Wellness Medicare Future Scheduled Tests Laboratory* Complete Blood Count 06/24/22 * Lipid Profile 06/24/22 * Hepatitis C Antibody IgG 06/24/22 * Complete Metabolic Panel 06/24/22 [facility] Evaluation + Plan note Future Appointments Appointment Date:06/23/2023 10:00:00 AM Scheduled Provider: Location:[facility] Appointment Type:DB Diabetic Individual Visit (AOH) Appointment Date:12/26/2023 09:00:00 AM Scheduled Provider:MINE MONTANEZ Location:[facility] Appointment Type:PC Wellness Medicare Future Scheduled Tests Laboratory* Complete Blood Count 06/24/22 * Lipid Profile 06/24/22 * Hepatitis C Antibody IgG 06/24/22 * Complete Metabolic Panel 06/24/22 [facility] Evaluation + Plan note Future Appointments Appointment Date:06/23/2023 10:00:00 AM Scheduled Provider: Location:[facility] Appointment Type:DB Diabetic Individual Visit (AOH) Appointment Date:08/21/2023 11:30:00 AM Scheduled Provider: [facility] Appointment Type:CV OV Appointment Date:12/26/2023 09:00:00 AM Scheduled Provider:MINE MONTANEZ Location:[facility] Appointment Type:PC Wellness Medicare Future Scheduled Tests Laboratory* Complete Blood Count 06/24/22 * Lipid Profile 06/24/22 * Hepatitis C Antibody IgG 06/24/22 * Complete Metabolic Panel 06/24/22 [facility] Evaluation + Plan note Future Appointments Appointment Date:08/18/2023 10:00:00 AM Scheduled Provider: Location:[facility] Appointment Type:MEDS - Diabetic Individual Visit Appointment Date:08/21/2023 11:30:00 AM Scheduled Provider: Location:[facility] Appointment Type:CV OV Appointment Date:12/26/2023 09:00:00 AM Scheduled Provider:MINE MONTANEZ Location:[facility] Appointment Type:PC Wellness Medicare [facility] Evaluation + Plan note Future Appointments Appointment Date:08/21/2023 08:00:00 AM Scheduled Provider: Location:[facility] Appointment Type:NUT Diet Visit Individual Appointment Date:08/21/2023 11:30:00 AM Scheduled Provider: Location:[facility] Appointment Type:CV OV Appointment Date:09/18/2023 10:00:00 AM Scheduled Provider: Location:[facility] Appointment Type:MEDS - Diabetic Individual Visit Appointment Date:12/26/2023 09:00:00 AM Scheduled Provider:MINE MONTANEZ Location:[facility] Appointment Type:PC Wellness Medicare [facility] Evaluation + Plan note Future Appointments Appointment Date:09/18/2023 10:00:00 AM Scheduled Provider: Location:[facility] Appointment Type:MEDS - Diabetic Individual Visit Appointment Date:12/26/2023 09:00:00 AM Scheduled Provider:MINE MONTANEZ Location:[facility] Appointment Type:PC Wellness Medicare [facility] Evaluation + Plan note Future Appointments Appointment Date:03/25/2024 10:00:00 AM Scheduled Provider: Location:[facility] Appointment Type:MEDS - Diabetic Individual Visit Appointment Date:07/05/2024 08:30:00 AM Scheduled Provider:MINE MONTANEZ Location:[facility] Appointment Type:PC OV [facility] Evaluation + Plan note Future Appointments Appointment Date:10/08/2024 03:00:00 PM Scheduled Provider: Location:[facility] Appointment Type:MEDS - Diabetic Individual Visit Appointment Date:11/21/2024 09:00:00 AM Scheduled Provider:MINE MONTANEZ Location:[facility] Appointment Type:PC OV [facility] Hospital course Narrative No data available for this section [facility] Hospital Discharge instructions No data available for this section [facility] Progress note No data available for this section [facility] Summary Purpose Family History No Family History Records Found No data available for this section No data available for this section No data available for this section No data available for this section No data available for this section No data available for this section No data available for this section No data available for this section No data available for this section No data available for this section No Family History Records Found No data available for this section No data available for this section No data available for this section No data available for this section No Family History Records FoundNo Family History Records Found Advance Directives No Advanced Directives Records FoundNo Advanced Directives Records FoundNo Advanced Directives Records FoundNo Advanced Directives Records Found Additional Source Comments INFORMATION SOURCE (unrecogn ized section and content) DATE CREATED AUTHOR 09/13/2018 [facility] DATE CREATED AUTHOR AUTHOR'S ORGANIZ ATION 02/04/2024 [facility] ([place]) DATE CREATED AUTHOR AUTHOR'S ORGANIZ ATION 12/23/2024 [facility] DATE CREATED AUTHOR AUTHOR'S ORGANIZ ATION 12/30/2024 [facility] Care Team (unrecognized sect ion and content) Personnel Name: MINE MONTANEZ Address: [address] [place] [address] Personnel Name: MINE MONTANEZ Address: [address] [place] [address] Personnel Name: MINE MONTANEZ Address: [address] [place] [address] Care Team Personnel Name: MINE MONTANEZ Position: [employer] Coordinator Member Role: Primary Care Physician Address: Address: [address] [place] [address] Name: LEDA SINGH MD Member Role: Orthopaedist Address: Address: [address] [place] [id number] [place] [address] Care Team Related Persons Name: NOHEMI PARRA Care Team Personnel Name: MINE MONTANEZ Position: [employer] Coordinator Member Role: Primary Care Physician Address: Address: [address] [place] [address] Name: LEDA SINGH MD Member Role: Orthopaedist Address: Address: [address] [place] [address]- Care Team Related Persons Name: AIDA NOHEMI Care Team Personnel Name: MINE MONTANEZ Position: [employer] Coordinator Member Role: Primary Care Physician Address: Address: [address] [place] [address]- Name: LEDA SINGH MD Member Role: Orthopaedist Address: Address: [address] [place] [address] Care Team Related Persons Name: AIDA NOHEMI Care Team Personnel Name: MINE MONTANEZ Position: [employer] Coordinator Member Role: Primary Care Physician Address: Address: [address] [place] [address]- Name: LEDA SINGH MD Member Role: Orthopaedist Address: Address: [address] [place] [address] Care Team Related Persons Name: AIDA NOHEMI Care Team Personnel Name: MINE MONTANEZ Position: [employer] Coordinator Member Role: Primary Care Physician Address: Address: [address] [place] [address]- Name: LEDA SINGH MD Member Role: Orthopaedist Address: Address: [address] [place] [address]- Name: LOUISE Chin ([facility]) [place] Position: Quality Review Member Role: Marketing Account Executive Care Team Related Persons Name: NOHEMI PARRA Care Team Personnel Name: MINE MONTANEZ Position: [employer] Coordinator Member Role: Primary Care Physician Address: Address: [address] [place] [address]- Name: LEDA SINGH MD Member Role: Orthopaedist Address: Address: [address] [place] [id number]- Name: LOUISE Chin ([facility]) Shalonda Position: Quality Review Member Role: Marketing Account Executive Care Team Related Persons Name: NOHEMI PARRA Care Team Personnel Name: MINE MONTANEZ Position: [employer] Coordinator Member Role: Primary Care Physician Address: Address: [address] [place] [address]- [place] Name: LEDA SINGH MD Member Role: Orthopaedist Address: Address: [address] [address]- Name: LOUISE Chin ([facility]) Shalonda Position: Quality Review Member Role: Marketing Account Executive Care Team Related Persons Name: NOHEMI PARRA Care Team Personnel Name: MINE MONTANEZ Position: [employer] Coordinator Member Role: Primary Care Physician Address: Address: [address] [place] [address]- [place] Name: LEDA SINGH MD Member Role: Orthopaedist Address: Address: [address] [address]- Name: LOUISE Chin ([facility]) [place] Position: Quality Review Member Role: Marketing Account Executive Care Team Related Persons Name: NOHEMI PARRA Care Team Personnel Name: MINE MONTANEZ Position: [employer] Coordinator Member Role: Primary Care Physician Address: Address: [address] [place] [phone]- Name: LEDA SINGH MD Member Role: Orthopaedist Address: Address: [address] [address]- Care Team Related Persons Name: NOHEMI PARRA Care Team Personnel Name: MINE MONTANEZ Position: [employer] Coordinator Member Role: Primary Care Physician Address: Address: [address] [place] [address]- Name: LEDA SINGH MD Member Role: Orthopaedist Address: Address: [address] [address]- Care Team Related Persons Name: NOHEMI PARRA Care Team Personnel Name: MINE MONTANEZ Position: [employer] Coordinator Member Role: Primary Care Physician Address: Address: [address] [place] [address]- [place] Name: LEDA SINGH MD Member Role: Orthopaedist Address: Address: [address] [place] [address] Care Team Related Persons Name: NOHEMI PARRA Care Team Personnel Name: MINE MONTANEZ Position: [employer] Coordinator Member Role: Primary Care Physician Address: Address: [address] [place] [address] Name: Candice Ricketts Position: Bed Management Member Role: Other Name: LEDA SINGH MD Member Role: Orthopaedist Address: Address: [address] [place] [address] Care Team Related Persons Name: NOHEMI PARRA Care Team Personnel Name: MINE MONTANEZ Position: [employer] Coordinator Member Role: Primary Care Physician Address: [address] [place] [address] Telecom: Name: Candice Ricketts Position: Bed Management Member Role: Other Name: LEDA SINGH MD Member Role: Orthopaedist Address: [address] [place] [address] Telecom: Care Team Related Persons Name: NOHEMI PARRA Care Team Personnel Name: MINE MONTANEZ Position: [employer] Coordinator Member Role: Primary Care Physician Address: [address] [place] [address] Telecom: Name: Candice Ricketts Position: Bed Management Member Role: Other Name: LEDA SINGH MD Member Role: Orthopaedist Address: [address] [place] [address] Telecom: Care Team Related Persons Name: NOHEMI PARRA Care Team (unrecognized sect ion and content) Care Team Personnel Name: MINE MONTANEZ Position: P4 Advanced Practice Nurse Med Service: Active Provider Member Role: Primary Care Physician Address: Address: [address] [place] [address] Care Team Related Persons Name: NOHEMI PARRA Name: DERICK PARRA FOR RECORDS PERTAINING TO PATIENTS WHO ARE OR HAVE BEEN ENROLLED IN A CHEMICAL DEPENDENCY/SUBSTANCEABUSE PROGRAM, SOME INFORMATION MAY BE OMITTED. This clinical summary was aggregated from multiple sources. Caution should be exercised in using it in the provision of clinical care. This summary normalizes information from multiple sources, and as a consequence, information in this document may materially change the coding, format and clinical context of patient data. In addition, data may be omitted in some cases. CLINICAL DECISIONS SHOULD BE BASED ON THE PRIMARY CLINICAL RECORDS. [facility] [employer] [facility]. provides no warranty or guarantee of the accuracy or completeness of information in this document.
[2024-12-30 09:14] LABS: Hematocrit 34.9 % (37-47); Hemoglobin 11.5 g/dL (12.0-15.0); Mean Corp Hgb Conc 33.0 g/dL (32-36); Mean Corpuscular Volume 94.6 fL (81-99); Mean Platelet Vol. 10.2 fl (6.2-12.0); Platelet Count 237 K/mm3 (150-450); RBC Distribution Width CV 13.6 % (11.6-14.6); RBC Distribution Width SD 46.9 fl (35.1-43.9); Red Blood Count 3.69 M/mm3 (4.2-5.4); White Blood Count 6.2 K/mm3 (4.4-11.0)
[2024-12-30 09:40] LABS: AST(SGOT) 33 U/L (<=31); Alanine Aminotransfer ALT/SGPT 41 U/L (<=34); Albumin, Serum 3.8 g/dL (3.4-4.8); Alkaline Phosphatase 95 U/L (35-104); Anion Gap 14 (5-15); BUN 23 mg/dL (4-19); BUN/Creat Ratio 26.3 RATIO (10-20); Calcium,Total 9.3 mg/dL (7.6-11.0); Carbon Dioxide 20.8 mmol/L (21.0-32.0); Chloride 105 mmol/L (98-108); Globulin 2.6 g/dL (2.2-4.2); Glucose 145 mg/dL (70-99); Potassium 4.5 mmol/L (3.3-5.1)
== END ==
LOC: OLS.ACH2 05:00
PROVIDERS: PCP Family Medicine
DX: E11.9 Type 2 diabetes mellitus without complications (principal); I10 Essential (primary) hypertension
CPT/HCPCS: 36415; 80053; 83036; 85027

== ENCOUNTER → 2025-02-04 | Outpatient (REF) | payer MEDICARE, SELFPAY ==
[2025-02-04 08:48] LABS: Anion Gap 12 (5-15); BUN 22 mg/dL (4-19); BUN/Creat Ratio 26.3 RATIO (10-20); Calcium,Total 9.5 mg/dL (7.6-11.0); Carbon Dioxide 21.6 mmol/L (21.0-32.0); Chloride 104 mmol/L (98-108); Glucose 152 mg/dL (70-99); Potassium 4.4 mmol/L (3.3-5.1)
== END ==
LOC: OLS.ACH2 04:00
PROVIDERS: PCP Family Medicine
DX: I10 Essential (primary) hypertension (principal); R60.0 Localized edema
CPT/HCPCS: 36415; 80048

== ENCOUNTER → 2025-03-24 05:00 | Outpatient (REF) | payer MEDICARE, SELFPAY ==
--- OUTSIDE RECORDS SUMMARY | 2025-03-24 03:59 | XMS RPT_ITS | CCD ---
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 Role Phone Leda Mclaughlin Attending Unavailable PROVIDER, UNKNOWN Referring Unavailable Brown, Louis Primary Care Unavailable Leda Mclaughlin Attending Unavailable PROVIDER, UNKNOWN Referring Unavailable Brown, Louis Primary Care Unavailable Leda Mclaughlin Attending Unavailable PROVIDER, UNKNOWN Referring Unavailable Brown, Louis Primary Care Unavailable BALTES 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-FLUX TUBE ATTENDANT, MINE Primary Care Physician [phone] BALTES 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-FLUX TUBE ATTENDANT, MINE Attending Unavailabl e BALTES 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-FLUX TUBE ATTENDANT, MINE Primary Care Unavailabl e BALTES 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-FLUX TUBE ATTENDANT, MINE Attending Unavailabl e BALTES 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-FLUX TUBE ATTENDANT, MINE Primary Care Unavailabl e ALISE FLOWERS DO Attending Unavailable BALTES 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-FLUX TUBE ATTENDANT, MINE Primary Care Unavailabl e BALTES 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-FLUX TUBE ATTENDANT, MINE Attending Unavailabl e BALTES 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-FLUX TUBE ATTENDANT, MINE Primary Care Unavailabl e BALTES 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-FLUX TUBE ATTENDANT, MINE Attending Unavailabl e BALTES 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-FLUX TUBE ATTENDANT, MINE Primary Care Unavailabl e BALTES 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-FLUX TUBE ATTENDANT, MINE Attending Unavailabl e BALTES 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-FLUX TUBE ATTENDANT, MINE Primary Care Unavailabl e BALTES 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-FLUX TUBE ATTENDANT, MINE Attending Unavailabl e BALTES 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-FLUX TUBE ATTENDANT, MINE Primary Care Unavailabl GERARDO Fletcher MD Attending Unavail able BALTES 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-FLUX TUBE ATTENDANT, MINE Primary Care Unavailabl ALISE Sheikh DO Attending Unavailable BALTES 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-FLUX TUBE ATTENDANT, MINE Primary Care Unavailabl ALISE Sheikh DO Attending Unavailable BALTES 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-FLUX TUBE ATTENDANT, MINE Primary Care Unavailabl VIKY Padilla MD Attending U navailable BALTES 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-FLUX TUBE ATTENDANT, MINE Primary Care Unavailabl e BALTES 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-FLUX TUBE ATTENDANT, MINE Attending Unavailabl e BALTES 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-FLUX TUBE ATTENDANT, MINE Primary Care Unavailabl e BALTES 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-FLUX TUBE ATTENDANT, MINE Attending Unavailabl e BALTES 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-FLUX TUBE ATTENDANT, MINE Primary Care Unavailabl e BALTES 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-FLUX TUBE ATTENDANT, MINE Attending Unavailabl e BALTES 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-FLUX TUBE ATTENDANT, MINE Primary Care Unavailabl e Candice Ricketts S Unavailable Unavailable Brown, Louis R Primary Care Unavailable [facility], Apostolic Attending Mine Suero Referring Unavailable Brown, Louis R Primary Care Unavailable Baltes OLS, Mine Attending Unavailable BALTES 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-FLUX TUBE ATTENDANT, MINE Primary Care Unavailabl e ALOK ANTONIO DO Attending Unavailable BALTES 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-FLUX TUBE ATTENDANT, MINE Primary Care Unavailabl e BALTES 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-FLUX TUBE ATTENDANT, MINE Attending Unavailabl e BALTES 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-FLUX TUBE ATTENDANT, MINE Primary Care Unavailabl e BALTES 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-FLUX TUBE ATTENDANT, MINE Attending Unavailabl e BALTES 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-FLUX TUBE ATTENDANT, MINE Primary Care Unavailabl e BALTES 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-FLUX TUBE ATTENDANT, MINE Attending Unavailabl e Allergies Allergy Classification Reported Allergen(s) Allergy Type Date of Onset Reaction(s) Facility (20 sources) Penicillins; Translations: [penicillins] Drug allergy 04-17-2018 [facility] (1 source) Acetaminophen Drug Allergy 04-17-2018 [facility] (1 source) HYDROcodone Drug Allergy 04-17-2018 [facility] Medications Current Medications Medication Drug Class(es) [...] q4h, # 18 gram(s), 0 Refill(s), Pharmacy: [facility]/pharmacy #[id number], Acute bronchitis, 169, cm, 01/29/24 11:38:00 EDT, Height, kg, 01/16/24 12:34:00 EDT, Dosing Weight Start Date: 01/29/24 Status: Ordered amLODIPine 5 mg oral tablet (20 sources) Dihydropyridine Calcium Channel Emely Start: 08-07-2024 End: 08-02-2025 amLODIPine 5 mg oral tablet Dose : 5 mg = 1 tab(s), Oral, qDay, TAKE 1 TABLET BY MOUTH EVERY DAY, # 90 tab(s), 3 Refill(s), Pharmacy: [facility], 170.2, cm, 02/16/24 7:41:00 EDT, [...] qDay, # 90 tab(s), 3 Refill(s), Pharmacy: [facility], Hypertension Type 2 diabetes mellitus, 170.2, cm, 06/24/22 9:30:00 EST, Height, kg, 06/24/22 9:30:00 EST, Dosing Weight Start Date: 07/25/22 Status: Ordered Start: 01-15-2021 amLODIPine 5 m g oral tablet Dose : 5 mg = 1 tab(s), Oral, qDay, # 90 tab(s), 3 Refill(s), Pharmacy: [facility], Hypertension Type 2 diabetes mellitus, 171.5, cm, 09/15/20 10:04:00 EDT, Height, kg, 09/15/20 10:04:00 EDT, Dosing Weight Start Date: 01/15/21 Status: Ordered apixaban 2.5 mg oral tablet (3 sources) Factor Xa Inhibitor Start: 06-21-2023 Eliquis 2. 5 mg oral tablet Dose : 2.5 mg = 1 tab(s), Oral, BID, # 60 tab(s), 2 Refill(s), Pharmacy: [facility], 170, cm, 05/22/23 14:08:00 EST, Height, 74.6, kg, 05/22/23 14:08:00 EST, Dosing Weight Start Date: 06/21/23 Status: Ordered Start: 05-10-2023 Eliquis 2.5 mg oral tablet Dose : 2.5 mg = 1 tab(s), Oral, BID, # 60 tab(s), 0 Refill(s), Pharmacy: [facility], 170.2, cm, 04/14/23 15:12:00 EST, [...] 09-23-2022 DME MISCellane ous See Instructions, Libre2 Houck Use to scan Edward sensor at least once every 8 hours, # 1 EA, 0 Refill(s), Pharmacy: [facility], 170.2, cm, 09/23/22 11:04:00 EDT, Height, 72.9 Start Date: 09/23/22 Status: Ordered Start: 09-23-2022 DME MISCellane ous See Instructions, Libre2 Sensors. Apply one sensor to back of arm once every 14 days, # 2 EA, 11 Refill(s), Pharmacy: [facility], 170.2, cm, 09/23/22 11:04:00 EDT, Height, 72.9 Start Date: 09/23/22 Status: Ordered doxycycline hyclate 100 mg oral capsule (2 sources) Tetracycline-class Drug Start: 01-29-2024 End: 02-05-2024 doxycycline hyclate 100 mg oral capsule Dose : 100 mg = 1 cap(s), Oral, BID, X 7 day(s), # 14 cap(s), 0 Refill(s), 02/05/24 12:25:00 PM EDT, Pharmacy: [facility]/pharmacy #[id number], Acute rhinosinusitis, 169, cm, 01/29/24 [...] sites, # 2 mL, 6 Refill(s), Pharmacy: [facility], 170.2, cm, 02/16/24 7:41:00 EDT, [...] sites, # 2 mL, 3 Refill(s), Pharmacy: [facility], 170, cm, 08/21/23 11:26:00 EDT, Height, kg, 09/18/23 11:16:00 EDT, Dosing Weight Start Date: 11/22/23 Status: Ordered Start: 06-23-2023 inject 0.5 mL by sub cutaneous injection every week Trulicity Pen 3 mg/0.5 mL subcutaneous solution Dose : 3 mg = 0.5 mL, Subcutaneous, qWeek, rotate injection sites, # 2 mL, 4 Refill(s), 0.5 mL/Pen, Pharmacy: [facility], 170, cm, 05/22/23 14:08:00 EST, Height, kg, 05/22/23 14:08:00 EST, Dosing Weight Start Date: 06/23/23 Status: Ordered Start: 05-25-2023 inject 0.5 mL by sub cutaneous injection every week Trulicity Pen 0.75 mg/0.5 mL subcutaneous solution Dose : 0.75 mg = 0.5 mL, Subcutaneous, qWeek, rotate injection sites, # 2 mL, 3 Refill(s), 0.5 mL/Pen, Pharmacy: [facility], 170, cm, 05/22/23 14:08:00 EST, Height, kg, 05/22/23 14:08:00 EST, Dosing Weight Start Date: 05/25/23 Status: Ordered Start: 08-26-2022 inject 0.5 mL by sub cutaneous injection every week Trulicity Pen 1.5 mg/0.5 mL subcutaneous solution Dose : 1.5 mg = 0.5 mL, Subcutaneous, qWeek, rotate injection sites, # 2 mL, 6 Refill(s), Pharmacy: [facility], 170.2, cm, 06/24/22 9:30:00 EST, Height Start Date: 08/26/22 Status: Ordered Start: 08-20-2021 Trulicity Pen 0.75 mg/0.5 mL subcutaneous solution Dose : 0.75 mg = 0.5 mL, Subcutaneous, qWeek, Patient is receiving medication through [facility] Patient Assistance Program., 0.5 mL/Pen Start Date: [...] using, # 16 gram(s), 0 Refill(s), Pharmacy: [facility]/pharmacy #[id number], Acute rhinosinusitis, 169, cm, 01/29/24 11:38:00 EDT, [...] supply, # 2 EA, 11 Refill(s), Pharmacy: [facility], 170.2, cm, 02/16/24 7:41:00 EDT, [...] supply, # 2 EA, 5 Refill(s), Pharmacy: [facility], 170, cm, 08/21/23 11:26:00 EDT, Height, [...] Date: 02/16/24 Status: Ordered FreeStyle Edward 3 Houck (2 sources) Start: 03-25-2024 FreeStyle Libr e 3 Houck See Instructions, Use reader to scan sensor once with every new sensor. Keep reader within 33 feet of the sensor and transmitter for daily blood sugar checks, # 1 EA, 0 Refill(s), Pharmacy: [facility], 170.2, cm, 02/16/24 7:41:00 EDT, Height, [...] checks., # 2 EA, 6 Refill(s), Pharmacy: [facility], 170.2, cm, 02/16/24 7:41:00 EDT, Height, 74.9, kg, 03/25/24 10:52:00 EDT, Dosing Weight Start Date: 03/25/24 Status: Ordered Quantity: 2.0 Unit: EA Repeat number: 7 furosemide 20 mg oral tablet (6 sources) Loop Diuretic Start: 08-22-2024 End: 11-30-2024 Lasix 20 mg oral tablet Dose : 10 mg = 0.5 tab(s), Oral, qDay, # 50 tab(s), 0 Refill(s), Pharmacy: [facility]/pharmacy #[id number], HTN - Hypertension Peripheral edema, 163.2, cm, [...] qDay, # 180 tab(s), 2 Refill(s), Pharmacy: [facility], 170.2, cm, 02/16/24 7:41:00 EDT, Height, kg, 03/13/24 11:27:00 EDT, Dosing Weight Start Date: 03/15/24 Status: Ordered Quantity: 180.0 Unit: tab(s) Repeat number: 3 Start: 02-16-2024 take 2 tablets by mo ut once daily glipiZIDE 10 mg oral tablet, extended release TAKE TWO TABLETS BY MOUTH EVERY DAY Start Date: 02/16/24 Status: Ordered Start: 01-08-2024 glipiZIDE 10 m g oral tablet, extended release Dose : 20 mg = 2 tab(s), Oral, qDay, # 60 tab(s), 1 Refill(s), Pharmacy: [facility], 169, cm, 01/05/24 9:04:00 EDT, Height, kg, 01/05/24 9:04:00 EDT, Dosing Weight Start Date: 01/08/24 Status: Ordered Start: 08-04-2023 glipiZIDE 10 m g oral tablet, extended release Dose : 10 mg = 1 tab(s), Oral, qDay, Take with food, # 30 tab(s), 0 Refill(s), Pharmacy: [facility]/pharmacy #[id number], 170, cm, 05/22/23 14:08:00 EST, [...] 0 Refill(s), 02/08/24 12:25:00 PM EDT, Pharmacy: [facility]/pharmacy #[id number], Acute rhinosinusitis Acute bronchitis, 169, cm, 01/29/24 [...] BID, # 360 tab(s), 3 Refill(s), Pharmacy: [facility], 170, cm, 08/21/23 11:26:00 EDT, Height, kg, 09/18/23 11:16:00 EDT, Dosing Weight Start Date: 09/19/23 Status: Ordered Start: 09-02-2022 metFORMIN 500 mg oral tablet (IR) Dose : 1,000 mg = 2 tab(s), Oral, BID, # 360 tab(s), 3 Refill(s), Pharmacy: [facility], 170.2, cm, 06/24/22 9:30:00 EST, Height, kg, 06/24/22 9:30:00 EST, Dosing Weight Start Date: 09/02/22 Status: Ordered Start: 01-15-2021 metFORMIN 500 mg oral tablet (IR) Dose : 1,000 mg = 2 tab(s), Oral, BID, # 360 tab(s), 3 Refill(s), Pharmacy: [facility] Type 2 diabetes mellitus, 171.5, cm, 09/15/20 10:04:00 EDT, Height, kg, 09/15/20 10:04:00 EDT, Dosing Weight Start Date: 01/15/21 Status: Ordered [facility] Medication (2 sources) Start: 03-13-2024 [facility] Medicatio [place] [facility] Mannatech vitamins and things-for some reason they [...] 07-03-2020 take 1 tablet by liv th once daily at bedtime nutritional supplement [...] Ordered Start: 07-03-2020 take 1 tablet by [facility] twice daily nutritional supplement Dose = 1 [...] # 30 tab(s), 2 Refill(s), Pharmacy: [facility], Urinary incontinence Nocturia, 171.5, cm, 03/12/21 9:47:00 EDT, Height, kg, 03/12/21 9:47:00 EDT, Dosing Weight Start Date: 03/12/21 Status: Ordered polyethylene glycol 3350 [id number] mg powder for oral solution (1 source) Osmotic Laxative Start: 02-17-2024 End: 03-18-2024 MiraLax oral powder for reconstitution Dose : 17 gram(s) =, Oral, qDay, May take every other day if having loose stools, X 30 day(s), # 255 gram(s), 0 Refill(s), 03/18/24 9:49:00 AM EDT, Pharmacy: [facility]/pharmacy #[id number], 170.2, cm, 02/16/24 7:41:00 EDT, Height, [...] day(s), # 10 tab(s), 0 Refill(s), Pharmacy: [facility]/pharmacy #[id number], 163.2, cm, 09/27/24 10:39:00 EDT, [...] # 60 cap(s), 3 Refill(s), JANICE, Pharmacy: [facility], 170, cm, 05/22/23 14:08:00 EST, Height, kg, 05/22/23 14:08:00 EST, Dosing Weight Start Date: 08/01/23 Stop Date: 11/29/23 Status: Ordered Start: 12-29-2022 End: 04-28-2023 take 1 capsule by mouth twice daily tolterodine 2 mg oral capsule, extended release 1 cap(s), Oral, BID, # 60 cap(s), 3 Refill(s), JANICE, Pharmacy: [facility], 170.2, cm, 12/23/22 8:59:00 EDT, Height, kg, 12/23/22 8:59:00 EDT, Dosing Weight Start Date: 12/29/22 Stop Date: 04/28/23 Status: Ordered Start: 10-07-2021 tolterodine 2 mg oral capsule, extended release Dose : 2 mg = 1 cap(s), Oral, qDay, # 30 cap(s), 11 Refill(s), [facility]: [facility], 170.2, cm, 06/22/21 9:33:00 EST, Height [...] BID, # 60 cap(s), 0 Refill(s), Pharmacy: [address], Peripheral neuropathy, 170.2, cm, 10/15/21 9:37:00 EDT, Height, 66.9 Start Date: 10/15/21 Stop Date: 11/14/21 Status: Ordered meloxicam 15 mg oral tablet (3 sources) Nonsteroidal Anti-inflammatory Drug Start: 10-17-2022 End: 10-24-2022 meloxicam 15 mg oral tablet Dose : 15 mg = 1 tab(s), Oral, qDay, # 7 tab(s), 0 Refill(s), Pharmacy: [facility]/pharmacy #[id number], Bursitis of left knee Left hip pain, [...] [Type 2 diabetes mellitus with hyperglycemia] Onset: 03-20-20 Chronic Diabetes mellitus without complication (20 sources) Type 2 diabetes mellitus without complications; Translations: [Type 2 diabetes mellitus] Onset: 05-11-2012-10-2019 Chronic Disorders of lipid metabolism (20 sources) Hypercholesterolemia 04-05-2019 Chronic E Codes: Fall (2 sources) Fall 09-27-2024 Essential hypertension (20 sources) Essential (primary) hypertension; Translations: [Hypertensive disorder] Onset: 05-11-20 18 07-09-2019 Chronic Fluid and electrolyte disorders (2 sources) Hyperkalemia; Translations: [Hyperkalemia] Episodic Genitourinary symptoms and ill-defined conditions (20 sources) Urinary incontinence 03-14-2017 Chronic Heart valve disorders (10 sources) Heart murmur 05-22-2023 Episodic Mycoses (16 sources) Onychomycosis 10-15-2021 Episodic Osteoarthritis (20 sources) Arthritis; Translations: [Osteoarthritis of knee] 03-14-2017 Chronic 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 (2 sources) 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; Translations: [senior care (current) use of oral hypoglycemic drugs] Onset: 05-11-20 Other connective tissue disease (1 source) Iliotibial band friction syndrome of left knee; Translations: [Iliotibial band syndrome, left leg] Episodic Other connective tissue disease (14 sources) Bursitis of left knee 10-17-2022 Episodic Other gastrointestinal disorders (2 sources) Constipation, unspecified; Translations: [Constipation, unspecified] Onset: 02-04-20 Episodic Other nervous system disorders (2 sources) Carpal tunnel syndrome, left upper limb; Translations: [Carpal tunnel syndrome, left upper limb] Onset: 05-11-20 Chronic Other nervous system disorders (2 sources) Carpal tunnel syndrome, right upper limb; Translations: [Carpal tunnel syndrome, right upper limb] Onset: 03-06-20 Chronic Other nervous system disorders (20 sources) Carpal tunnel syndrome 03-14-2017 Chronic Comment on above: Right Other nervous system disorders (2 sources) Abnormal gait 09-27-2024 Episodic Other non-traumatic joint disorders (14 sources) Hip pain 10-17-2022 Episodic Residual codes; unclassified (20 sources) Amnesia 03-25-2021 Episodic Residual codes; unclassified (16 sources) Foot at risk 10-15-2021 Episodic Residual codes; unclassified (2 sources) Peripheral edema 08-22-2024 Episodic Residual codes; unclassified (1 source) Localized edema; Translations: [Localized edema] Onset: 02-11-20 Episodic Spondylosis; intervertebral disc disorders; other back [...] [Allergy status to penicillin] Onset: 05-11-2018 Episodic Genitourinary symptoms and ill-defined conditions (4 sources) Increased frequency of urination; Translations: [Frequency of micturition] Onset: 09-27-2024 09-27-2024 Episodic 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 Comment on above: Order Comment: 403 Performed By: #### L 500.2500 #### [facility] [address] [place], [address] Calcium [Mass/Vol] 9.5 mg/dL Normal 7.6-11.0 [facility] Comment on above: Order Comment: 403 Performed By: #### L 500.2500 #### [facility] [address] [place], [address] Chloride [Moles/Vol] 104 mmol/L Normal 98-108 [facility] Comment on above: Order Comment: 403 Performed By: #### L 500.2500 #### [facility] [address] [place], [address] CO2 [Moles/Vol] 21.6 mmol/L Normal 21.0-32.0 [facility] Comment on above: Order Comment: 403 Performed By: #### L 500.2500 #### [facility] [address] [place], [address] Creatinine [Mass/Vol] 0.83 mg/dL Normal 0.70-1.20 [facility] Comment on above: Order Comment: 403 Performed By: #### L 500.2500 #### [facility] [address] [place], [address] GAP 12 Normal 5-15 [facility] Comment on above: Order Comment: 403 Performed By: #### L 500.2500 #### [facility] [address] [place], [address] GFR/1.73 sq M.predicted among non-blacks MDRD (S/P/Bld) [Vol rate/Area] 69 mL/min/{1.73_m2} Normal >60 [facility] Comment on above: Order Comment: 403 Result Comment: mL/m in/1.73m2 CKD-EPI Creatinine Equation (2020) Performed By: #### L 500.2500 #### [facility] [address] [place], [address] Glucose [Mass/Vol] 152 mg/dL High 70-99 [facility] Comment on above: Order Comment: 403 Performed By: #### L 500.2500 #### [facility] [address] [place], [address] Potassium [Moles/Vol] 4.4 mmol/L Normal 3.3-5.1 [facility] Comment on above: Order Comment: 403 Performed By: #### L 500.2500 #### [facility] [address] [place], [address] Sodium [Moles/Vol] 138 mmol/L Normal 133-145 [facility] Comment on above: Order Comment: 403 Performed By: #### L 500.2500 #### [facility] [address] [place], [address] Urea nitrogen [Mass/Vol] 22 mg/dL High 4-19 [facility] Comment on above: Order Comment: 403 Performed By: #### L 500.2500 #### [facility] [address] [place], [address] CBC-Complete Blood Cnt No Di ffon 12-30-2024 Erythrocyte distribution width (RBC) [Ratio] 13.6 % Normal 11.6-14.6 [facility] Comment on above: Order Comment: 403 Performed By: #### L 500.4050, L501.9985, L100.0500 #### [facility] [address] [place], [address] Hematocrit (Bld) [Volume fraction] 34.9 % Low 37-47 [facility] Comment on above: Order Comment: 403 Performed By: #### L [id number], [id number], L100.0500 #### [facility] [address] [place], [address] Hemoglobin (Bld) [Mass/Vol] 11.5 g/dL Low 12.0-15.0 [facility] Comment on above: Order Comment: 403 Performed By: #### L 500.4050, [id number], [id number] #### [facility] [address] [place], [address] MCH (RBC) [Entitic mass] 31.2 pg Normal 27.0-32.0 [facility] Comment on above: Order Comment: 403 Performed By: #### L 500.4050, [id number], [id number] #### [facility] [address] [place], [address] MCHC (RBC) [Mass/Vol] 33.0 g/dL Normal 32-36 [facility] Comment on above: Order Comment: 403 Performed By: #### L 500.4050, [id number], [id number] #### [facility] [address] [place], [address] MCV (RBC) [Entitic vol] 94.6 fL Normal 81-99 [facility] Comment on above: Order Comment: 403 Performed By: #### L 500.4050, [id number], [id number] #### [facility] [address] [place], [address] Platelet mean volume (Bld) [Entitic vol] 10.2 fL Normal 6.2-12.0 [facility] Comment on above: Order Comment: 403 Performed By: #### L 500.4050, [id number], [id number] #### [facility] [address] [place], [address] Platelets (Bld) [#/Vol] 237 10*3/uL Normal 150-450 [facility] Comment on above: Order Comment: 403 Performed By: #### L 500.4050, [id number], [id number] #### [facility] [address] [place], [address] RBC (Bld) [#/Vol] 3.69 10*6/uL Low 4.2-5.4 [facility] Comment on above: Order Comment: 403 Performed By: #### L 500.4050, [id number], [id number] #### [facility] [address] [place], [address] RDW SD 46.9 fl High 35.1-43.9 [facility] Comment on above: Order Comment: 403 Performed By: #### L 500.4050, [id number], [id number] #### [facility] [address] [place], [address] WBC (Bld) [#/Vol] 6.2 10*3/uL Normal 4.4-11.0 [facility] Comment on above: Order Comment: 403 Performed By: #### L 500.4050, [id number], [id number] #### [facility] [address] [place], [address] [facility] 12-30-2024 Albumin [Mass/Vol] 3.8 g/dL Normal 3.4-4.8 [facility] Comment on above: Order Comment: 403 Performed By: #### L 500.4050, [id number], [id number] #### [facility] [address] [place], [address] Albumin/Globulin [Mass ratio] 1.4 {ratio} Normal 0.9-2.4 [facility] Comment on above: Order Comment: 403 Performed By: #### L 500.4050, [id number], [id number] #### [facility] [address] [place], [address] ALK PHOS 95 U/L Normal 35-104 [facility] Comment on above: Order Comment: 403 Performed By: #### L 500.4050, [id number], [id number] #### [facility] [address] [place], [address] ALT [Catalytic activity/Vol] 41 U/L High <=34 [facility] Comment on above: Order Comment: 403 Performed By: #### L 500.4050, [id number], [id number] #### [facility] [address] [place], [address] AST [Catalytic activity/Vol] 33 U/L High <=31 [facility] Comment on above: Order Comment: 403 Performed By: #### L 500.4050, [id number], [id number] #### [facility] [address] [place], [address] Bilirubin [Mass/Vol] 0.48 mg/dL Normal 0.00-1.30 [facility] Comment on above: Order Comment: 403 Performed By: #### L 500.4050, [id number], [id number] #### [facility] [address] [place], [address] BUN/CRE 26.3 RATIO High 10-20 [facility] [facility] Comment on above: Order Comment: 403 Performed By: #### L 500.4050, L501.9985, L100.0500 #### [facility] [address] [place], [address] Calcium [Mass/Vol] 9.3 mg/dL Normal 7.6-11.0 [facility] Comment on above: Order Comment: 403 Performed By: #### L 500.4050, L501.9985, L100.0500 #### [facility] [address] [place] [place], [address] Chloride [Moles/Vol] 105 mmol/L Normal 98-108 [facility] Comment on above: Order Comment: 403 Performed By: #### L 500.4050, L501.9985, L100.0500 #### [facility] [address] [place], [address] CO2 [Moles/Vol] 20.8 mmol/L Low 21.0-32.0 [facility] Comment on above: Order Comment: 403 Performed By: #### L 500.4050, [id number], L100.0500 #### [facility] [address] [place], [address] Creatinine [Mass/Vol] 0.89 mg/dL Normal 0.70-1.20 [facility] Comment on above: Order Comment: 403 Performed By: #### L 500.4050, [id number], L100.0500 #### [facility] [address] [place], [address] GAP 14 Normal 5-15 [facility] Comment on above: Order Comment: 403 Performed By: #### L 500.4050, [id number], L100.0500 #### [facility] [address] [place], [address] GFR/1.73 sq M.predicted among non-blacks MDRD (S/P/Bld) [Vol rate/Area] 63 mL/min/{1.73_m2} Normal >60 [facility] Comment on above: Order Comment: 403 Result Comment: mL/m in/1.73m2 CKD-EPI Creatinine Equation (2020) Performed By: #### L 500.4050, L501.9985, L100.0500 #### [facility] [address] [place], [address] Globulin (S) [Mass/Vol] 2.6 g/dL Normal 2.2-4.2 [facility] Comment on above: Order Comment: 403 Performed By: #### L 500.4050, [id number], L100.0500 #### [facility] [address] [place], [address] Glucose [Mass/Vol] 145 mg/dL High 70-99 [facility] Comment on above: Order Comment: 403 Performed By: #### L 500.4050, L501.9985, L100.0500 #### [facility] [address] [place], [address] Potassium [Moles/Vol] 4.5 mmol/L Normal 3.3-5.1 [facility] Comment on above: Order Comment: 403 Performed By: #### L 500.4050, L501.9985, L100.0500 #### [facility] [address] [place], [address] Sodium [Moles/Vol] 139 mmol/L Normal 133-145 [facility] Comment on above: Order Comment: 403 Performed By: #### L 500.4050, L501.9985, L100.0500 #### [facility] [address] [place], [address] T PROT 6.4 g/dL Normal 5.9-8.4 [facility] Comment on above: Order Comment: 403 Performed By: #### L 500.4050, [id number], L100.0500 #### [facility] [address] [place], [address] Urea nitrogen [Mass/Vol] 23 mg/dL High 4-19 [facility] Comment on above: Order Comment: 403 Performed By: #### L 500.4050, [id number], L100.0500 #### [facility] [address] [place], [address] Hemoglobin A1con 12-30-2024 HbA1c (Bld) [Mass fraction] 7.4 % High <=5.6 [facility] Comment on above: Order Comment: 403 Result Comment: Norm al < 5.7 % Prediabetic 5.7 - 6.4 % Diabetic >or= 6.5 % Please note range changes. Performed By: #### L 500.4050, L501.9985, L100.0500 #### [facility] [address] [place], [address] .Auto Diffon 09-27-2024 Basophil, Absolute 0.0 10 3/mcL Normal 0.0-0.3 [facility] Comment on above: Performed By: #### A DIFF, GFR, CBC, CMP, ANEU #### [address] [address] Basophils/100 WBC (Bld) 0.4 % Normal 0.0-2.5 [facility] Comment on above: Performed By: #### A DIFF, GFR, CBC, CMP, ANEU #### [address] [address] Eosinophil, Absolute 0.0 10 3/mcL Normal 0.0-0.7 [facility] Comment on above: Performed By: #### A DIFF, GFR, CBC, CMP, ANEU #### [address] [address] Eosinophils/100 WBC (Bld) 0.4 % Normal 0.0-6.0 [facility] Comment on above: Performed By: #### A DIFF, GFR, CBC, CMP, ANEU #### [address] [address] Lymphocyte, Absolute 1.6 10 3/mcL Normal 0.9-4.3 [facility] Comment on above: Performed By: #### A DIFF, GFR, CBC, CMP, ANEU #### [address] [address] Lymphocytes/100 WBC (Bld) 16.7 % Low 20.0-40.0 [facility] Comment on above: Performed By: #### A DIFF, GFR, CBC, CMP, ANEU #### [address] [address] Monocyte, Absolute 0.7 10 3/mcL Normal 0.1-1.4 [facility] Comment on above: Performed By: #### A DIFF, GFR, CBC, CMP, ANEU #### [address] [address] Monocytes/100 WBC (Bld) 7.3 % Normal 2.0-13.0 [facility] Comment on above: Performed By: #### A DIFF, GFR, CBC, CMP, ANEU #### [address] [address] Neutrophils/100 WBC (Bld) 75.2 % High 50.0-75.0 [facility] Comment on above: Performed By: #### A DIFF, GFR, CBC, CMP, ANEU #### [address] [address] .GFRon 09-27-2024 Estimated Glomerular Filtration Rate 65 ml/min/1.73sqm Normal [facility] Comment on above: Result Comment: Stages of [...] calculate the eGFR results. Performed By: #### A DIFF, GFR, CBC, CMP, ANEU #### [address] [address] .NEUABSon 09-27-2024 Neutrophil, Absolute 7.2 10 3/mcL Normal 2.3-8.1 [facility] Comment on above: Performed By: #### A DIFF, GFR, CBC, CMP, ANEU #### [place] [address] CBCon 09-27-2024 Erythrocyte distribution width (RBC) [Ratio] 14.1 % Normal 11.5-15.5 [facility] Comment on above: Performed By: #### A DIFF, GFR, CBC, CMP, ANEU #### [place] [address] Hematocrit (Bld) [Volume fraction] 37.8 % Normal 34.0-46.0 [facility] Comment on above: Performed By: #### A DIFF, GFR, CBC, CMP, ANEU #### [place] [address] Hgb 12.6 G/dL Normal 12.0-16.0 [facility] Comment on above: Performed By: #### A DIFF, GFR, CBC, CMP, ANEU #### [place] [address] MCH (RBC) [Entitic mass] 30.8 pg Normal 27.0-33.0 [facility] Comment on above: Performed By: #### A DIFF, GFR, CBC, CMP, ANEU #### [place] [address] MCHC 33.4 G/dL Normal 32.0-36.0 [facility] Comment on above: Performed By: #### A DIFF, GFR, CBC, CMP, ANEU #### [place] [address] MCV (RBC) [Entitic vol] 92.3 fL Normal 80.0-99.0 [facility] Comment on above: Performed By: #### A DIFF, GFR, CBC, CMP, ANEU #### [place] [address] Platelet 235 10 3/mcL Normal 150-450 [facility] Comment on above: Performed By: #### A DIFF, GFR, CBC, CMP, ANEU #### [address] [address] Platelet mean volume (Bld) [Entitic vol] 8.8 fL Normal 6.6-10.5 [facility] Comment on above: Performed By: #### A DIFF, GFR, CBC, CMP, ANEU #### [place] [address] RBC 4.09 10 6/mcL Low 4.10-5.30 [facility] Comment on above: Performed By: #### A DIFF, GFR, CBC, CMP, ANEU #### [place] [address] WBC 9.6 10 3/mcL Normal 4.5-10.8 [facility] Comment on above: Performed By: #### A DIFF, GFR, CBC, CMP, ANEU #### [address] [address] CMPon 09-27-2024 Albumin Level 3.5 G/dL Normal 3.4-4.8 [facility] Comment on above: Performed By: #### A DIFF, GFR, CBC, CMP, ANEU #### [place] [id number] Albumin/Globulin [Mass ratio] 0.9 {ratio} Low 1.1-2.5 [facility] Comment on above: Performed By: #### A DIFF, GFR, CBC, CMP, ANEU #### [address] [address] ALP [Catalytic activity/Vol] 135 U/L Normal 40-135 [facility] Comment on above: Performed By: #### A DIFF, GFR, CBC, CMP, ANEU #### [address] [address] ALT [Catalytic activity/Vol] 30 U/L Normal 14-59 [facility] Comment on above: Performed By: #### A DIFF, GFR, CBC, CMP, ANEU #### [address] [address] AST [Catalytic activity/Vol] 22 U/L Normal 10-40 [facility] Comment on above: Performed By: #### A DIFF, GFR, CBC, CMP, ANEU #### [address] [address] Bili Total 1.0 mg/dL Normal 0.2-1.0 [facility] Comment on above: Result Comment: Use of this assay is not recommended for patients undergoing treatment with eltrombopag due to the potential for falsely elevated results. Performed By: #### A DIFF, GFR, CBC, CMP, ANEU #### [place] [address] BUN/Creatinine Ratio 34 ratio High 7-27 [facility] Comment on above: Performed By: #### A DIFF, GFR, CBC, CMP, ANEU #### [place] [address] Calcium [Mass/Vol] 9.5 mg/dL Normal 8.4-10.2 [facility] Comment on above: Performed By: #### A DIFF, GFR, CBC, CMP, ANEU #### [place] [address] Chloride [Moles/Vol] 99 mmol/L Normal 98-107 [facility] Comment on above: Performed By: #### A DIFF, GFR, CBC, CMP, ANEU #### [place] [address] CO2 [Moles/Vol] 27 mmol/L Normal 23-31 [facility] Comment on above: Performed By: #### A DIFF, GFR, CBC, CMP, ANEU #### [place] [address] Creatinine [Mass/Vol] 0.86 mg/dL Normal 0.51-0.95 [facility] Comment on above: Performed By: #### A DIFF, GFR, CBC, CMP, ANEU #### [place] [address] Electrolyte Balance 8.0 mEq/L Normal 4.0-15.0 [facility] Comment on above: Performed By: #### A DIFF, GFR, CBC, CMP, ANEU #### [address] [address] Globulin 3.7 G/dL Normal 2.7-4.4 [facility] Comment on above: Performed By: #### A DIFF, GFR, CBC, CMP, ANEU #### [address] [address] Glucose [Mass/Vol] 359 mg/dL High 83-110 [facility] Comment on above: Performed By: #### A DIFF, GFR, CBC, CMP, ANEU #### [address] [address] Potassium [Moles/Vol] 5.0 mmol/L Normal 3.5-5.1 [facility] Comment on above: Performed By: #### A DIFF, GFR, CBC, CMP, ANEU #### [address] [address] Sodium [Moles/Vol] 134 mmol/L Low 136-145 [facility] Comment on above: Performed By: #### A DIFF, GFR, CBC, CMP, ANEU #### [address] [address] Total Protein 7.2 G/dL Normal 6.4-8.2 [facility] Comment on above: Performed By: #### A DIFF, GFR, CBC, CMP, ANEU #### [address] [address] Urea nitrogen [Mass/Vol] 29 mg/dL High 7-18 [facility] Comment on above: Performed By: #### A DIFF, GFR, CBC, CMP, ANEU #### [address] [address] LABORATORYOrdered By: SYSTEM SYSTEM on 09-27-2024 Albumin [...] Probable Contamination. Suggest recollection if clinically indicated. [facility] .GFRon 08-19-2024 Estimated Glomerular Filtration Rate 50 ml/min/1.73sqm Normal [facility] Comment on above: Result Comment: Stages of [...] calculate the eGFR results. Performed By: #### Ana , BMP #### [address] [address] BMPon 08-19-2024 BUN/Creatinine Ratio 24 ratio Normal 7-27 [facility] Comment on above: Performed By: #### G , BMP #### [place] [address] [place], [place] [address] Calcium [Mass/Vol] 9.9 mg/dL Normal 8.4-10.2 [facility] Comment on above: Performed By: #### G , BMP #### [address] [address] Chloride [Moles/Vol] 100 mmol/L Normal 98-107 [facility] Comment on above: Performed By: #### G , BMP #### [address] [address] CO2 [Moles/Vol] 29 mmol/L Normal 23-31 [facility] Comment on above: Performed By: #### G , BMP #### [address] [address] Creatinine [Mass/Vol] 1.08 mg/dL High 0.55-1.02 [facility] Comment on above: Result Comment: Test ing performed on Yasm[employer] Dimension EXL analyzer using a modified kinetic Trung technique. Performed By: #### G , BMP #### [address] [address] Electrolyte Balance 8.0 mEq/L Normal 4.0-15.0 [facility] Comment on above: Performed By: #### G , BMP #### [address] [address] Glucose [Mass/Vol] 210 mg/dL High 83-110 [facility] Comment on above: Performed By: #### G , BMP #### [address] [address] Potassium [Moles/Vol] 4.8 mmol/L Normal 3.5-5.1 [facility] Comment on above: Performed By: #### G FR, BMP #### [address] [address] Sodium [Moles/Vol] 137 mmol/L Normal 136-145 [facility] Comment on above: Performed By: #### G FR, BMP #### [address] [address] Urea nitrogen [Mass/Vol] 26 mg/dL High 7-18 [facility] Comment on above: Performed By: #### G FR, BMP #### [address] [place], [place] [address] LABORATORYOrdered By: Avril Quniones on 02-17-2024 Blood Glucose Testing Reason Routine (02/17/24 12:03 PM) [facility] Glucose [Mass/Vol] 128 mg/dL High 82 - 115 mg/dL [facility] Blood Glucose Testing Reason Routine (02/17/24 7:57 AM) [facility] Glucose [Mass/Vol] 165 mg/dL High 82 - 115 mg/dL [facility] LABORATORYOrdered By: SYSTEM SYSTEM on 02-17-2024 Albumin [...] 4.6 - 10.8 10^3/mcL AO Workflow SS LABORATORYOrdered By: Ileana Kam on 02-16-2024 Blood Glucose Testing Reason Routine (02/16/24 9:29 PM) [facility] Glucose [Mass/Vol] 162 mg/dL High 82 - 115 mg/dL [facility] LABORATORYOrdered By: Jacqueline Brown on 02-16-2024 Appearance [...] Hematology S Comment on above: Result Comment: MDW testing unable to be performed on [id number] instrumentation. UA Leuk Est Negative (02/16/24 4:16 [...] 4.6 - 10.8 10^3/mcL AO Workflow SS .GFRon 01-26-2024 GFR 63 ml/min/1.73sqm Normal [facility] ([place] Comment on above: Result Comment: GFR Population [...] FR, ANEU, CMP, CBC, PBNP, ADIFF #### [address] [address] GFR Non- 52 ml/min/1.73sqm Normal [facility] ([place] Comment on above: Result Comment: GFR Population [...] FR, ANEU, CMP, CBC, PBNP, ADIFF #### [address] [address] BMPon 01-26-2024 BUN/Creatinine Ratio 18 ratio Normal 7-27 [facility] ([place] Comment on above: Performed By: #### G FR, ANEU, CMP, CBC, PBNP, ADIFF #### [address] [address] Calcium [Mass/Vol] 9.3 mg/dL Normal 8.4-10.2 [facility] ([place]) Comment on above: Performed By: #### G FR, ANEU, CMP, CBC, PBNP, ADIFF #### [address] [address] Chloride [Moles/Vol] 101 mmol/L Normal 98-107 [facility] ([place] Comment on above: Performed By: #### G FR, ANEU, CMP, CBC, PBNP, ADIFF #### [address] [address] CO2 [Moles/Vol] 30 mmol/L Normal 23-31 [facility] ([place]) Comment on above: Performed By: #### G FR, ANEU, CMP, CBC, PBNP, ADIFF #### [address] [address] Creatinine [Mass/Vol] 1.01 mg/dL Normal 0.55-1.02 [facility] ([place]) Comment on above: Performed By: #### G FR, ANEU, CMP, CBC, PBNP, ADIFF #### [address] [address] Electrolyte Balance 7.0 mEq/L Normal 4.0-15.0 [facility] ([place]) Comment on above: Performed By: #### G FR, ANEU, CMP, CBC, PBNP, ADIFF #### [address] [address] Glucose [Mass/Vol] 188 mg/dL High 83-110 [facility] ([place] Comment on above: Performed By: #### G FR, ANEU, CMP, CBC, PBNP, ADIFF #### [address] [address] Potassium [Moles/Vol] 4.6 mmol/L Normal 3.5-5.1 [facility] ([place] Comment on above: Performed By: #### G FR, ANEU, CMP, CBC, PBNP, ADIFF #### [address] [address] Sodium [Moles/Vol] 138 mmol/L Normal 136-145 [facility] ([place] Comment on above: Performed By: #### G FR, ANEU, CMP, CBC, PBNP, ADIFF #### [address] [address] Urea nitrogen [Mass/Vol] 18 mg/dL Normal 7-18 [facility] ([place] Comment on above: Performed By: #### G FR, ANEU, CMP, CBC, PBNP, ADIFF #### [address] [address] LABORATORYOrdered By: Page Arce on 01-26-2024 Albumin DL <= 20 mg/L (U) [Mass/Vol] 6221 mcg/dL Invalid Interpretation Code AO ADM SS Albumin/Creatinine DL <= 20 mg/L (U) [Mass ratio] 49 mcg/mg High 0 - 30 mcg/mg AO ADM SS Creatinine (U) [Mass/Vol] 127.0 mg/dL High 28.0 - 117.0 mg/dL AO ADM SS LABORATORYOrdered By: SYSTEM SYSTEM on 01-26-2024 Calcium [Mass/Vol] 9.3 mg/dL [...] U Creatinine 127.0 mg/dL High 28.0-117.0 [facility] ([place]) Comment on above: Performed By: #### G FR, ANEU, CMP, CBC, PBNP, ADIFF #### [address] [address] U Microalb 6221 mcg/dL Normal [facility] ([place]) Comment on above: Performed By: #### G FR, ANEU, CMP, CBC, PBNP, ADIFF #### [address] [address] U Ratio Alb/Cre 49 mcg/mg High 0-30 [facility] ([place]) Comment on above: Performed By: #### G FR, ANEU, CMP, CBC, PBNP, ADIFF #### [address] [address] .Auto Diffon 01-16-2024 Basophil, Absolute 0.1 10 3/mcL Normal 0.0-0.2 [facility] ([place] Comment on above: Performed By: #### C BC, BMP, PBNP, ADIFF, ANEU, TSH, GFR #### [place] [address] [place], [place] [address] Basophils/100 WBC (Bld) 0.8 % Normal 0.0-2.5 [facility] ([place] Comment on above: Performed By: #### C BC, BMP, PBNP, ADIFF, ANEU, TSH, GFR #### [address] [address] Eosinophil, Absolute 0.1 10 3/mcL Normal 0.0-0.4 [facility] ([place]) Comment on above: Performed By: #### C BC, BMP, PBNP, ADIFF, ANEU, TSH, GFR #### [address] [address] Eosinophils/100 WBC (Bld) 0.9 % Normal 0.0-7.0 [facility] ([place] Comment on above: Performed By: #### C BC, BMP, PBNP, ADIFF, ANEU, TSH, GFR #### [address] [address] Lymphocyte, Absolute 1.9 10 3/mcL Normal 0.8-3.9 [facility] ([place]) Comment on above: Performed By: #### C BC, BMP, PBNP, ADIFF, ANEU, TSH, GFR #### [address] [address] Lymphocytes/100 WBC (Bld) 29.0 % Normal 10.0-50.0 [facility] ([place] Comment on above: Performed By: #### C BC, BMP, PBNP, ADIFF, ANEU, TSH, GFR #### [address] [address] Monocyte, Absolute 0.5 10 3/mcL Normal 0.2-1.0 [facility] ([place] Comment on above: Performed By: #### C BC, BMP, PBNP, ADIFF, ANEU, TSH, GFR #### [address] [address] Monocytes/100 WBC (Bld) 8.0 % Normal 1.7-13.0 [facility] ([place] Comment on above: Performed By: #### C BC, BMP, PBNP, ADIFF, ANEU, TSH, GFR #### [address] [address] Neutrophils/100 WBC (Bld) 61.3 % Normal 37.0-80.0 [facility] ([place] Comment on above: Performed By: #### C BC, BMP, PBNP, ADIFF, ANEU, TSH, GFR #### [address] [address] .GFRon 01-16-2024 GFR 72 ml/min/1.73sqm Normal [facility] ([place] Comment on above: Result Comment: GFR Population [...] FR, ANEU, CMP, CBC, PBNP, ADIFF #### [address] [address] GFR Non- 59 ml/min/1.73sqm Normal [facility] ([place] Comment on above: Result Comment: GFR Population [...] FR, ANEU, CMP, CBC, PBNP, ADIFF #### [address] [address] .NEUABSon 01-16-2024 Neutrophil, Absolute 4.1 10 3/mcL Normal 2.9-6.2 [facility] ([place] Comment on above: Performed By: #### C BC, BMP, PBNP, ADIFF, ANEU, TSH, GFR #### [address] [address] BMPon 01-16-2024 BUN/Creatinine Ratio 20 ratio Normal 7-27 [facility] ([place] Comment on above: Performed By: #### C BC, BMP, PBNP, ADIFF, ANEU, TSH, GFR #### [address] [address] Calcium [Mass/Vol] 10.0 mg/dL Normal 8.4-10.2 [facility] ([place] Comment on above: Performed By: #### C BC, BMP, PBNP, ADIFF, ANEU, TSH, GFR #### [address] [address] Chloride [Moles/Vol] 103 mmol/L Normal 98-107 [facility] ([place] Comment on above: Performed By: #### C BC, BMP, PBNP, ADIFF, ANEU, TSH, GFR #### [address] [address] CO2 [Moles/Vol] 27 mmol/L Normal 23-31 [facility] ([place]) Comment on above: Performed By: #### C BC, BMP, PBNP, ADIFF, ANEU, TSH, GFR #### [address] [address] Creatinine [Mass/Vol] 0.90 mg/dL Normal 0.55-1.02 [facility] ([place]) Comment on above: Performed By: #### C BC, BMP, PBNP, ADIFF, ANEU, TSH, GFR #### [address] [address] Electrolyte Balance 11.0 mEq/L Normal 4.0-15.0 [facility] ([place]) Comment on above: Performed By: #### C BC, BMP, PBNP, ADIFF, ANEU, TSH, GFR #### [address] [address] Glucose [Mass/Vol] 120 mg/dL High 83-110 [facility] ([place] Comment on above: Performed By: #### C BC, BMP, PBNP, ADIFF, ANEU, TSH, GFR #### [address] [address] Potassium [Moles/Vol] 5.5 mmol/L High 3.5-5.1 [facility] ([place] Comment on above: Performed By: #### C BC, BMP, PBNP, ADIFF, ANEU, TSH, GFR #### [address] [address] Sodium [Moles/Vol] 141 mmol/L Normal 136-145 [facility] ([place] Comment on above: Performed By: #### C BC, BMP, PBNP, ADIFF, ANEU, TSH, GFR #### [address] [address] Urea nitrogen [Mass/Vol] 18 mg/dL Normal 7-18 [facility] ([place] Comment on above: Performed By: #### C BC, BMP, PBNP, ADIFF, ANEU, TSH, GFR #### [address] [address] CBCon 01-16-2024 Erythrocyte distribution width (RBC) [Ratio] 13.8 % Normal 11.5-14.5 [facility] ([place] Comment on above: Performed By: #### C BC, BMP, PBNP, ADIFF, ANEU, TSH, GFR #### [address] [address] Hematocrit (Bld) [Volume fraction] 37.2 % Normal 37.0-47.0 [facility] ([place] Comment on above: Performed By: #### C BC, BMP, PBNP, ADIFF, ANEU, TSH, GFR #### [address] [address] Hgb 12.3 G/dL Normal 12.0-16.0 [facility] ([place] Comment on above: Performed By: #### C BC, BMP, PBNP, ADIFF, ANEU, TSH, GFR #### [address] [address] MCH (RBC) [Entitic mass] 30.6 pg Normal 27.0-31.2 [facility] ([place] Comment on above: Performed By: #### C BC, BMP, PBNP, ADIFF, ANEU, TSH, GFR #### [place] [address] MCHC 33.0 G/dL Normal 33.0-37.0 [facility] ([place] Comment on above: Performed By: #### C BC, BMP, PBNP, ADIFF, ANEU, TSH, GFR #### [address] [address] MCV (RBC) [Entitic vol] 92.7 fL Normal 80.0-94.0 [facility] ([place] Comment on above: Performed By: #### C BC, BMP, PBNP, ADIFF, ANEU, TSH, GFR #### [address] [address] Platelet 248 10 3/mcL Normal 130-400 [facility] ([place]) Comment on above: Performed By: #### C BC, BMP, PBNP, ADIFF, ANEU, TSH, GFR #### [address] [address] Platelet mean volume (Bld) [Entitic vol] 8.8 fL Normal 7.4-10.4 [facility] ([place]) Comment on above: Performed By: #### C BC, BMP, PBNP, ADIFF, ANEU, TSH, GFR #### [address] [address] RBC 4.01 10 6/mcL Low 4.20-5.40 [facility] ([place]) Comment on above: Performed By: #### C BC, BMP, PBNP, ADIFF, ANEU, TSH, GFR #### [address] [address] WBC 6.6 10 3/mcL Normal 4.6-10.8 [facility] ([place]) Comment on above: Performed By: #### C BC, BMP, PBNP, ADIFF, ANEU, TSH, GFR #### [address] [address] PBNPon 01-16-2024 Natriuretic peptide B (Bld) [Mass/Vol] 189 pg/mL Normal 0-450 [facility] ([place] Comment on above: Result Comment: NT-p roBNP results of less than 300 pg/mL effectively rules out acute congestive heart failure with 99% negative predictive value. Performed By: #### G FR, ANEU, CMP, CBC, PBNP, ADIFF #### [address] [address] TSHon 01-16-2024 TSH Qn 1.47 m[IU]/L Normal 0.36-3.74 [facility] ([place]) Comment on above: Performed By: #### G FR, ANEU, CMP, CBC, PBNP, ADIFF #### [address] [address] XR CHEST 2 VIEWSon 4 XR CHEST [...] 08/22/2023 10:25:13 AM Ordering Provider: ALISE Swanson [facility] ([place]) .Auto Diffon 08-18-2023 Basophil, Absolute 0.0 10 3/mcL Normal 0.0-0.2 [facility] ([place]) Comment on above: Performed By: #### G FR, ANEU, CMP, CBC, PBNP, ADIFF #### [address] [address] Basophils/100 WBC (Bld) 0.7 % Normal 0.0-2.5 [facility] ([place]) Comment on above: Performed By: #### G FR, ANEU, CMP, CBC, PBNP, ADIFF #### [address] [address] Eosinophil, Absolute 0.0 10 3/mcL Normal 0.0-0.4 [facility] ([place]) Comment on above: Performed By: #### G FR, ANEU, CMP, CBC, PBNP, ADIFF #### [address] [address] Eosinophils/100 WBC (Bld) 0.4 % Normal 0.0-7.0 [facility] ([place]) Comment on above: Performed By: #### G FR, ANEU, CMP, CBC, PBNP, ADIFF #### [address] [address] Lymphocyte, Absolute 1.6 10 3/mcL Normal 0.8-3.9 [facility] ([place]) Comment on above: Performed By: #### G FR, ANEU, CMP, CBC, PBNP, ADIFF #### [address] [address] Lymphocytes/100 WBC (Bld) 23.1 % Normal 10.0-50.0 [facility] ([place] Comment on above: Performed By: #### G FR, ANEU, CMP, CBC, PBNP, ADIFF #### [address] [address] Monocyte, Absolute 0.5 10 3/mcL Normal 0.2-1.0 [facility] ([place] Comment on above: Performed By: #### G FR, ANEU, CMP, CBC, PBNP, ADIFF #### [address] [address] Monocytes/100 WBC (Bld) 7.6 % Normal 1.7-13.0 [facility] ([place] Comment on above: Performed By: #### G FR, ANEU, CMP, CBC, PBNP, ADIFF #### [address] [address] Neutrophils/100 WBC (Bld) 68.2 % Normal 37.0-80.0 [facility] ([place] Comment on above: Performed By: #### G FR, ANEU, CMP, CBC, PBNP, ADIFF #### [address] [address] .GFRon 08-18-2023 GFR 75 ml/min/1.73sqm Normal [facility] ([place] Comment on above: Result Comment: GFR Population [...] FR, ANEU, CMP, CBC, PBNP, ADIFF #### [address] [address] GFR Non- 62 ml/min/1.73sqm Normal [facility] ([place] Comment on above: Result Comment: GFR Population [...] FR, ANEU, CMP, CBC, PBNP, ADIFF #### [address] [address] .NEUABSon 08-18-2023 Neutrophil, Absolute 4.6 10 3/mcL Normal 2.9-6.2 [facility] ([place] Comment on above: Performed By: #### G FR, ANEU, CMP, CBC, PBNP, ADIFF #### [address] [address] APTTon 08-18-2023 aPTT Coag (Bld) [Time] 31.9 s Normal 25.0-35.0 [facility] ([place] Comment on above: Result Comment: For Heparin anticoagulation therapy, the recommended therapeutic range is: 50.6-87.4 seconds. Patients on heparin therapy may have an extreme result. Performed By: #### G FR, ANEU, CMP, CBC, PBNP, ADIFF #### [address] [address] Heparin dose (APTT) Unknown Normal [facility] ([place]) Comment on above: Performed By: #### G FR, ANEU, CMP, CBC, PBNP, ADIFF #### [address] [address] BMPon 08-18-2023 BUN/Creatinine Ratio 29 ratio High 7-27 [facility] ([place] Comment on above: Performed By: #### G FR, ANEU, CMP, CBC, PBNP, ADIFF #### [address] [address] Calcium [Mass/Vol] 9.9 mg/dL Normal 8.4-10.2 [facility] ([place]) Comment on above: Performed By: #### G FR, ANEU, CMP, CBC, PBNP, ADIFF #### [address] [address] Chloride [Moles/Vol] 100 mmol/L Normal 98-107 [facility] ([place] Comment on above: Performed By: #### G FR, ANEU, CMP, CBC, PBNP, ADIFF #### [address] [address] CO2 [Moles/Vol] 29 mmol/L Normal 23-31 [facility] ([place]) Comment on above: Performed By: #### G FR, ANEU, CMP, CBC, PBNP, ADIFF #### [address] [address] Creatinine [Mass/Vol] 0.87 mg/dL Normal 0.55-1.02 [facility] ([place]) Comment on above: Performed By: #### G FR, ANEU, CMP, CBC, PBNP, ADIFF #### [address] [address] Electrolyte Balance 8.0 mEq/L Normal 4.0-15.0 [facility] ([place]) Comment on above: Performed By: #### G FR, ANEU, CMP, CBC, PBNP, ADIFF #### [address] [address] Glucose [Mass/Vol] 187 mg/dL High 83-110 [facility] ([place] Comment on above: Performed By: #### G FR, ANEU, CMP, CBC, PBNP, ADIFF #### [address] [address] Potassium [Moles/Vol] 5.4 mmol/L High 3.5-5.1 [facility] ([place] Comment on above: Performed By: #### G FR, ANEU, CMP, CBC, PBNP, ADIFF #### [address] [address] Sodium [Moles/Vol] 137 mmol/L Normal 136-145 [facility] ([place] Comment on above: Performed By: #### G FR, ANEU, CMP, CBC, PBNP, ADIFF #### [address] [address] Urea nitrogen [Mass/Vol] 25 mg/dL High 7-18 [facility] ([place] Comment on above: Performed By: #### G FR, ANEU, CMP, CBC, PBNP, ADIFF #### [place] [id number] CBCon 08-18-2023 Erythrocyte distribution width (RBC) [Ratio] 13.8 % Normal 11.5-14.5 [facility] ([place] Comment on above: Performed By: #### G FR, ANEU, CMP, CBC, PBNP, ADIFF #### [address] [address] Hematocrit (Bld) [Volume fraction] 36.0 % Low 37.0-47.0 [facility] ([place] Comment on above: Performed By: #### G FR, ANEU, CMP, CBC, PBNP, ADIFF #### [address] [address] Hgb 12.3 G/dL Normal 12.0-16.0 [facility] ([place] Comment on above: Performed By: #### G FR, ANEU, CMP, CBC, PBNP, ADIFF #### [address] [address] MCH (RBC) [Entitic mass] 30.8 pg Normal 27.0-31.2 [facility] ([place] Comment on above: Performed By: #### G FR, ANEU, CMP, CBC, PBNP, ADIFF #### [place] [address]247 MCHC 34.1 G/dL Normal 33.0-37.0 [facility] ([place] Comment on above: Performed By: #### G FR, ANEU, CMP, CBC, PBNP, ADIFF #### Tiff[place] [address] [place], [place] [address] MCV (RBC) [Entitic vol] 90.6 fL Normal 80.0-94.0 [facility] ([place] Comment on above: Performed By: #### G FR, ANEU, CMP, CBC, PBNP, ADIFF #### [place] [address] [place], [place] [address] Platelet 261 10 3/mcL Normal 130-400 [facility] ([place]) Comment on above: Performed By: #### G FR, ANEU, CMP, CBC, PBNP, ADIFF #### [place] [address] [place], [place] [address] Platelet mean volume (Bld) [Entitic vol] 8.3 fL Normal 7.4-10.4 [facility] ([place] Comment on above: Performed By: #### G FR, ANEU, CMP, CBC, PBNP, ADIFF #### [address] [address] RBC 3.98 10 6/mcL Low 4.20-5.40 [facility] ([place]) Comment on above: Performed By: #### G FR, ANEU, CMP, CBC, PBNP, ADIFF #### [address] [address] WBC 6.7 10 3/mcL Normal 4.6-10.8 [facility] ([place] Comment on above: Performed By: #### G FR, ANEU, CMP, CBC, PBNP, ADIFF #### [address] [address] LABORATORYOrdered By: Jazmin Ascencio on 08-18-2023 aPTT [...] [facility] SS Comment on above: Interpretive Data: T francy [employer] (CHEST, 1991, 102:312S-25S) recommended therapeutic range for oral anticoagulant [...] Coag (PPP) [Time] 12.0 s Normal 9.0-14.2 [facility] ([place] Comment on above: Performed By: #### G FR, ANEU, CMP, CBC, PBNP, ADIFF #### [address] [address] PT International Ratio 1.0 Normal [facility] ([place]) Comment on above: Result Comment: [employer] (CHEST, 1991, 102:312S-25S) recommended therapeutic range for oral anticoagulant therapy is: LOW RISK: Prophylaxis of venous thrombosis INR: 2.0-3.0 Treatment of pulmonary embolism 2.0-3.0 Prevention of systemic embolism 2.0-3.0 HIGH RISK: Mechanical prosthetic valves 2.5-3.5 Performed By: #### G FR, ANEU, CMP, CBC, PBNP, ADIFF #### [place] [address] [place], [place] [address] CPEPon 08-04-2023 C-Peptide 4.24 ng/mL High 0.81-3.85 [facility] ([place] Comment on above: Performed By: #### G FR, ANEU, CMP, CBC, PBNP, ADIFF #### [address] [address] LABORATORYOrdered By: SYSTEM SYSTEM on 08-04-2023 C peptide [Mass/Vol] 4.24 ng/mL High 0.81 - 3.85 ng/mL AH ADM SS .Auto Diffon 05-02-2023 Basophil, Absolute 0.1 10 3/mcL Normal 0.0-0.2 [facility] ([place] Comment on above: Performed By: #### G FR, ANEU, CMP, CBC, PBNP, ADIFF #### [address] [address] Basophils/100 WBC (Bld) 0.9 % Normal 0.0-2.5 [facility] ([place] Comment on above: Performed By: #### G FR, ANEU, CMP, CBC, PBNP, ADIFF #### [address] [address] Eosinophil, Absolute 0.1 10 3/mcL Normal 0.0-0.4 [facility] ([place] Comment on above: Performed By: #### G FR, ANEU, CMP, CBC, PBNP, ADIFF #### [address] [address] Eosinophils/100 WBC (Bld) 1.3 % Normal 0.0-7.0 [facility] ([place] Comment on above: Performed By: #### G FR, ANEU, CMP, CBC, PBNP, ADIFF #### [address] [address] Lymphocyte, Absolute 1.7 10 3/mcL Normal 0.8-3.9 [facility] ([place] Comment on above: Performed By: #### G FR, ANEU, CMP, CBC, PBNP, ADIFF #### [address] [address] Lymphocytes/100 WBC (Bld) 23.2 % Normal 10.0-50.0 [facility] ([place] Comment on above: Performed By: #### G FR, ANEU, CMP, CBC, PBNP, ADIFF #### [address] [address] Monocyte, Absolute 0.6 10 3/mcL Normal 0.2-1.0 [facility] ([place] Comment on above: Performed By: #### G FR, ANEU, CMP, CBC, PBNP, ADIFF #### [address] [address] Monocytes/100 WBC (Bld) 8.4 % Normal 1.7-13.0 [facility] ([place] Comment on above: Performed By: #### G FR, ANEU, CMP, CBC, PBNP, ADIFF #### [address] [address] Neutrophils/100 WBC (Bld) 66.2 % Normal 37.0-80.0 [facility] ([place] Comment on above: Performed By: #### G FR, ANEU, CMP, CBC, PBNP, ADIFF #### [address] [address] .GFRon 05-02-2023 GFR 75 ml/min/1.73sqm Normal [facility] ([place] Comment on above: Result Comment: GFR Population [...] FR, ANEU, CMP, CBC, PBNP, ADIFF #### [address] [address] GFR Non- 62 ml/min/1.73sqm Normal [facility] ([place] Comment on above: Result Comment: GFR Population [...] FR, ANEU, CMP, CBC, PBNP, ADIFF #### [address] [address] .NEUABSon 05-02-2023 Neutrophil, Absolute 4.9 10 3/mcL Normal 2.9-6.2 [facility] ([place] Comment on above: Performed By: #### G FR, ANEU, CMP, CBC, PBNP, ADIFF #### [address] [address] APTTon 05-02-2023 aPTT Coag (Bld) [Time] 33.0 s Normal 25.0-35.0 [facility] ([place] Comment on above: Result Comment: For Heparin anticoagulation therapy, the recommended therapeutic range is: 50.6-87.4 seconds. Patients on heparin therapy may have an extreme result. Performed By: #### G FR, ANEU, CMP, CBC, PBNP, ADIFF #### [address] [address] Heparin dose (APTT) Unknown Normal [facility] ([place]) Comment on above: Performed By: #### G FR, ANEU, CMP, CBC, PBNP, ADIFF #### [address] [address] BMPon 05-02-2023 BUN/Creatinine Ratio 26 ratio Normal 7-27 [facility] ([place] Comment on above: Performed By: #### G FR, ANEU, CMP, CBC, PBNP, ADIFF #### [address] [address] Calcium [Mass/Vol] 9.4 mg/dL Normal 8.4-10.2 [facility] ([place] Comment on above: Performed By: #### G FR, ANEU, CMP, CBC, PBNP, ADIFF #### [address] [address] Chloride [Moles/Vol] 102 mmol/L Normal 98-107 [facility] ([place] Comment on above: Performed By: #### G FR, ANEU, CMP, CBC, PBNP, ADIFF #### [address] [address] CO2 [Moles/Vol] 29 mmol/L Normal 23-31 [facility] ([place] Comment on above: Performed By: #### G FR, ANEU, CMP, CBC, PBNP, ADIFF #### [address] [address] Creatinine [Mass/Vol] 0.87 mg/dL Normal 0.55-1.02 [facility] ([place] Comment on above: Performed By: #### G FR, ANEU, CMP, CBC, PBNP, ADIFF #### [address] [address] Electrolyte Balance 8.0 mEq/L Normal 4.0-15.0 [facility] ([place] Comment on above: Performed By: #### G FR, ANEU, CMP, CBC, PBNP, ADIFF #### [address] [address] Glucose [Mass/Vol] 187 mg/dL High 83-110 [facility] ([place] Comment on above: Performed By: #### G FR, ANEU, CMP, CBC, PBNP, ADIFF #### [address] [address] Potassium [Moles/Vol] 5.3 mmol/L High 3.5-5.1 [facility] ([place] Comment on above: Performed By: #### G FR, ANEU, CMP, CBC, PBNP, ADIFF #### [address] [address] Sodium [Moles/Vol] 139 mmol/L Normal 136-145 [facility] ([place] Comment on above: Performed By: #### G FR, ANEU, CMP, CBC, PBNP, ADIFF #### [address] [address] Urea nitrogen [Mass/Vol] 23 mg/dL High 7-18 [facility] ([place] Comment on above: Performed By: #### G FR, ANEU, CMP, CBC, PBNP, ADIFF #### [address] [address] CBCon 05-02-2023 Erythrocyte distribution width (RBC) [Ratio] 13.5 % Normal 11.5-14.5 [facility] ([place] Comment on above: Performed By: #### G FR, ANEU, CMP, CBC, PBNP, ADIFF #### [address] [address] Hematocrit (Bld) [Volume fraction] 37.0 % Normal 37.0-47.0 [facility] ([place] Comment on above: Performed By: #### G FR, ANEU, CMP, CBC, PBNP, ADIFF #### [address] [address] Hgb 12.3 G/dL Normal 12.0-16.0 [facility] ([place] Comment on above: Performed By: #### G FR, ANEU, CMP, CBC, PBNP, ADIFF #### [address] [address] MCH (RBC) [Entitic mass] 30.6 pg Normal 27.0-31.2 [facility] ([place] Comment on above: Performed By: #### G FR, ANEU, CMP, CBC, PBNP, ADIFF #### [address] [address] MCHC 33.4 G/dL Normal 33.0-37.0 [facility] ([place] Comment on above: Performed By: #### G FR, ANEU, CMP, CBC, PBNP, ADIFF #### [address] [address] MCV (RBC) [Entitic vol] 91.8 fL Normal 80.0-94.0 [facility] ([place] Comment on above: Performed By: #### G FR, ANEU, CMP, CBC, PBNP, ADIFF #### [address] [address] Platelet 336 10 3/mcL Normal 130-400 [facility] ([place] Comment on above: Performed By: #### G FR, ANEU, CMP, CBC, PBNP, ADIFF #### [place] [address] Platelet mean volume (Bld) [Entitic vol] 7.8 fL Normal 7.4-10.4 [facility] ([place] Comment on above: Performed By: #### G FR, ANEU, CMP, CBC, PBNP, ADIFF #### [address] [address] RBC 4.03 10 6/mcL Low 4.20-5.40 [facility] ([place] Comment on above: Performed By: #### G FR, ANEU, CMP, CBC, PBNP, ADIFF #### [place] [address] WBC 7.4 10 3/mcL Normal 4.6-10.8 [facility] ([place] Comment on above: Performed By: #### G FR, ANEU, CMP, CBC, PBNP, ADIFF #### [place] [id number] PROon 05-02-2023 PT Coag (PPP) [Time] 11.6 s Normal 9.0-14.2 [facility] ([place] Comment on above: Performed By: #### G FR, ANEU, CMP, CBC, PBNP, ADIFF #### [place] [place] [address] [place], [place] [address] PT International Ratio 1.0 Normal [facility] ([place] Comment on above: Result Comment: [employer] (CHEST, 1992, 102:312S-25S) recommended therapeutic range for oral anticoagulant therapy is: LOW RISK: Prophylaxis of venous thrombosis INR: 2.0-3.0 Treatment of pulmonary embolism 2.0-3.0 Prevention of systemic embolism 2.0-3.0 HIGH RISK: Mechanical prosthetic valves 2.5-3.5 Performed By: #### G FR, ANEU, CMP, CBC, PBNP, ADIFF #### [address] [place] [address] [place], [place] [address] XR CHEST 2 VIEWSon 3 XR CHEST 2 VIEWS ORIGINAL EXAMINATION: TWO [...] 05/02/2023 5:04:28 PM Ordering Provider: ALISE FLOWERS Normal [facility] ([place]) .GFRon 04-17-2023 GFR 78 ml/min/1.73sqm Normal [facility] ([place] Comment on above: Result Comment: GFR Population [...] FR, ANEU, CMP, CBC, PBNP, ADIFF #### [address] [address] GFR Non- 64 ml/min/1.73sqm Normal [facility] ([place] Comment on above: Result Comment: GFR Population [...] FR, ANEU, CMP, CBC, PBNP, ADIFF #### [address] [address] BMPon 04-17-2023 BUN/Creatinine Ratio 24 ratio Normal 7-27 [facility] ([place] Comment on above: Order Comment: STAT Performed By: #### G FR, ANEU, CMP, CBC, PBNP, ADIFF #### [address] [address] Calcium [Mass/Vol] 9.3 mg/dL Normal 8.4-10.2 [facility] ([place] Comment on above: Order Comment: STAT Performed By: #### G FR, ANEU, CMP, CBC, PBNP, ADIFF #### [address] [address] Chloride [Moles/Vol] 98 mmol/L Normal 98-107 [facility] ([place] Comment on above: Order Comment: STAT Performed By: #### G FR, ANEU, CMP, CBC, PBNP, ADIFF #### [address] [address] CO2 [Moles/Vol] 26 mmol/L Normal 23-31 [facility] ([place] Comment on above: Order Comment: STAT Performed By: #### G FR, ANEU, CMP, CBC, PBNP, ADIFF #### [address] [address] Creatinine [Mass/Vol] 0.84 mg/dL Normal 0.55-1.02 [facility] ([place] Comment on above: Order Comment: STAT Performed By: #### G FR, ANEU, CMP, CBC, PBNP, ADIFF #### [address] [address] Electrolyte Balance 12.0 mEq/L Normal 4.0-15.0 [facility] ([place] Comment on above: Order Comment: STAT Performed By: #### G FR, ANEU, CMP, CBC, PBNP, ADIFF #### [address] [address] Glucose [Mass/Vol] 126 mg/dL High 83-110 [facility] ([place] Comment on above: Order Comment: STAT Performed By: #### G FR, ANEU, CMP, CBC, PBNP, ADIFF #### [address] [address] Potassium [Moles/Vol] 4.4 mmol/L Normal 3.5-5.1 [facility] ([place] Comment on above: Order Comment: STAT Performed By: #### G FR, ANEU, CMP, CBC, PBNP, ADIFF #### [address] [address] Sodium [Moles/Vol] 136 mmol/L Normal 136-145 [facility] ([place]) Comment on above: Order Comment: STAT Performed By: #### G FR, ANEU, CMP, CBC, PBNP, ADIFF #### [place] [address] [place], [place] [address] Urea nitrogen [Mass/Vol] 20 mg/dL High 7-18 [facility] ([place] Comment on above: Order Comment: STAT Performed By: #### G FR, ANEU, CMP, CBC, PBNP, ADIFF #### [facility] [address] [place], [place] [address] LABORATORYOrdered By: SYSTEM SYSTEM on 04-17-2023 Calcium [...] Basophil, Absolute 0.1 10 3/mcL Normal 0.0-0.2 [facility] ([place] Comment on above: Performed By: #### G FR, ANEU, CMP, CBC, PBNP, ADIFF #### [address] [address] Basophils/100 WBC (Bld) 0.9 % Normal 0.0-2.5 [facility] ([place] Comment on above: Performed By: #### G FR, ANEU, CMP, CBC, PBNP, ADIFF #### [address] [address] Eosinophil, Absolute 0.1 10 3/mcL Normal 0.0-0.4 [facility] ([place] Comment on above: Performed By: #### G FR, ANEU, CMP, CBC, PBNP, ADIFF #### [address] [address] Eosinophils/100 WBC (Bld) 1.2 % Normal 0.0-7.0 [facility] ([place] Comment on above: Performed By: #### G FR, ANEU, CMP, CBC, PBNP, ADIFF #### [address] [address] Lymphocyte, Absolute 1.8 10 3/mcL Normal 0.8-3.9 [facility] ([place] Comment on above: Performed By: #### G FR, ANEU, CMP, CBC, PBNP, ADIFF #### [address] [address] Lymphocytes/100 WBC (Bld) 25.9 % Normal 10.0-50.0 [facility] ([place] Comment on above: Performed By: #### G FR, ANEU, CMP, CBC, PBNP, ADIFF #### [address] [address] Monocyte, Absolute 0.6 10 3/mcL Normal 0.2-1.0 [facility] ([place] Comment on above: Performed By: #### G FR, ANEU, CMP, CBC, PBNP, ADIFF #### [address] [address] Monocytes/100 WBC (Bld) 9.4 % Normal 1.7-13.0 [facility] ([place] Comment on above: Performed By: #### G FR, ANEU, CMP, CBC, PBNP, ADIFF #### [address] [address] Neutrophils/100 WBC (Bld) 62.6 % Normal 37.0-80.0 [facility] ([place] Comment on above: Performed By: #### G FR, ANEU, CMP, CBC, PBNP, ADIFF #### [address] [address] .GFRon 04-14-2023 GFR 72 ml/min/1.73sqm Normal [facility] ([place] Comment on above: Result Comment: GFR Population [...] FR, ANEU, CMP, CBC, PBNP, ADIFF #### [address] [address] GFR Non- 60 ml/min/1.73sqm Normal [facility] ([place] Comment on above: Result Comment: GFR Population [...] FR, ANEU, CMP, CBC, PBNP, ADIFF #### [address] [address] .NEUABSon 04-14-2023 Neutrophil, Absolute 4.3 10 3/mcL Normal 2.9-6.2 [facility] ([place] Comment on above: Performed By: #### G FR, ANEU, CMP, CBC, PBNP, ADIFF #### [address] [address] CBCon 04-14-2023 Erythrocyte distribution width (RBC) [Ratio] 13.7 % Normal 11.5-14.5 [facility] ([place] Comment on above: Performed By: #### G FR, ANEU, CMP, CBC, PBNP, ADIFF #### [address] [address] Hematocrit (Bld) [Volume fraction] 37.9 % Normal 37.0-47.0 [facility] ([place] Comment on above: Performed By: #### G FR, ANEU, CMP, CBC, PBNP, ADIFF #### [address] [address] Hgb 12.4 G/dL Normal 12.0-16.0 [facility] ([place] Comment on above: Performed By: #### G FR, ANEU, CMP, CBC, PBNP, ADIFF #### [address] [address] MCH (RBC) [Entitic mass] 30.5 pg Normal 27.0-31.2 [facility] ([place] Comment on above: Performed By: #### G FR, ANEU, CMP, CBC, PBNP, ADIFF #### [address] [address] MCHC 32.9 G/dL Low 33.0-37.0 [facility] ([place] Comment on above: Performed By: #### G FR, ANEU, CMP, CBC, PBNP, ADIFF #### [address] [address] MCV (RBC) [Entitic vol] 92.7 fL Normal 80.0-94.0 [facility] ([place] Comment on above: Performed By: #### G FR, ANEU, CMP, CBC, PBNP, ADIFF #### [address] [address] Platelet 295 10 3/mcL Normal 130-400 [facility] ([place] Comment on above: Performed By: #### G FR, ANEU, CMP, CBC, PBNP, ADIFF #### [address] [address] Platelet mean volume (Bld) [Entitic vol] 8.3 fL Normal 7.4-10.4 [facility] ([place] Comment on above: Performed By: #### G FR, ANEU, CMP, CBC, PBNP, ADIFF #### [address] [address] RBC 4.08 10 6/mcL Low 4.20-5.40 [facility] ([place] Comment on above: Performed By: #### G FR, ANEU, CMP, CBC, PBNP, ADIFF #### [address] [address] WBC 6.9 10 3/mcL Normal 4.6-10.8 [facility] ([place] Comment on above: Performed By: #### G FR, ANEU, CMP, CBC, PBNP, ADIFF #### [address] [address] CMPon 04-14-2023 Albumin Level 3.7 G/dL Normal 3.4-4.8 [facility] ([place] Comment on above: Performed By: #### G FR, ANEU, CMP, CBC, PBNP, ADIFF #### [address] [address] [address] Albumin/Globulin [Mass ratio] 1.0 {ratio} Low 1.1-2.5 [facility] ([place]) Comment on above: Performed By: #### G FR, ANEU, CMP, CBC, PBNP, ADIFF #### [address] [address] ALP [Catalytic activity/Vol] 124 U/L Normal 40-135 [facility] ([place]) Comment on above: Performed By: #### G FR, ANEU, CMP, CBC, PBNP, ADIFF #### [address] [address] ALT [Catalytic activity/Vol] 29 U/L Normal 14-59 [facility] ([place] Comment on above: Performed By: #### G FR, ANEU, CMP, CBC, PBNP, ADIFF #### [address] [address] AST [Catalytic activity/Vol] 19 U/L Normal 10-40 [facility] ([place] Comment on above: Performed By: #### G FR, ANEU, CMP, CBC, PBNP, ADIFF #### [address] [address] Bili Total 0.6 mg/dL Normal 0.2-1.0 [facility] ([place]) Comment on above: Result Comment: Use of this assay is not recommended for patients undergoing treatment with eltrombopag due to the potential for falsely elevated results. Performed By: #### G FR, ANEU, CMP, CBC, PBNP, ADIFF #### [address] [address] BUN/Creatinine Ratio 24 ratio Normal 7-27 [facility] ([place]) Comment on above: Performed By: #### G FR, ANEU, CMP, CBC, PBNP, ADIFF #### [address] [address] Calcium [Mass/Vol] 9.9 mg/dL Normal 8.4-10.2 [facility] ([place]) Comment on above: Performed By: #### G FR, ANEU, CMP, CBC, PBNP, ADIFF #### [address] [address] Chloride [Moles/Vol] 101 mmol/L Normal 98-107 [facility] ([place]) Comment on above: Performed By: #### G FR, ANEU, CMP, CBC, PBNP, ADIFF #### [address] [address] CO2 [Moles/Vol] 28 mmol/L Normal 23-31 [facility] ([place]) Comment on above: Performed By: #### G FR, ANEU, CMP, CBC, PBNP, ADIFF #### [address] [address] Creatinine [Mass/Vol] 0.90 mg/dL Normal 0.55-1.02 [facility] ([place]) Comment on above: Performed By: #### G FR, ANEU, CMP, CBC, PBNP, ADIFF #### [address] [address] Electrolyte Balance 10.0 mEq/L Normal 4.0-15.0 [facility] ([place]) Comment on above: Performed By: #### G FR, ANEU, CMP, CBC, PBNP, ADIFF #### [address] [address] Globulin 3.7 G/dL Normal [facility] ([place]) Comment on above: Performed By: #### G FR, ANEU, CMP, CBC, PBNP, ADIFF #### [address] [address] Glucose [Mass/Vol] 216 mg/dL High 83-110 [facility] ([place]) Comment on above: Performed By: #### G FR, ANEU, CMP, CBC, PBNP, ADIFF #### [address] [address] Potassium [Moles/Vol] 5.9 mmol/L High 3.5-5.1 [facility] ([place]) Comment on above: Performed By: #### G FR, ANEU, CMP, CBC, PBNP, ADIFF #### [address] [address] Sodium [Moles/Vol] 139 mmol/L Normal 136-145 [facility] ([place]) Comment on above: Performed By: #### G FR, ANEU, CMP, CBC, PBNP, ADIFF #### [address] [address] Total Protein 7.4 G/dL Normal 6.4-8.2 [facility] ([place]) Comment on above: Performed By: #### G FR, ANEU, CMP, CBC, PBNP, ADIFF #### [address] [address] Urea nitrogen [Mass/Vol] 22 mg/dL High 7-18 [facility] ([place]) Comment on above: Performed By: #### G FR, ANEU, CMP, CBC, PBNP, ADIFF #### [address] [place], [place] [address] PBNPon 04-14-2023 Natriuretic peptide B (Bld) [Mass/Vol] 158 pg/mL Normal 0-450 [facility] ([place]) Comment on above: Result Comment: NT-p roBNP results of less than 300 pg/mL effectively rules out acute congestive heart failure with 99% negative predictive value. Performed By: #### G FR, ANEU, CMP, CBC, PBNP, ADIFF #### [address] [place], [place] [address] MRI SPINE LUMBAR W/O CONTRAS Ton 03-02-2023 [...] to superimposed disc uncovering. Moderate left and [id number] right neural foraminal narrowing. L5-S1: Flattened anterior [...] 03/02/2023 3:44:20 PM Ordering Provider: ALISE FLOWERS [facility] ([place]) LABORATORYOrdered By: Sahara Clancy on 10-20-2021 Albumin [...] Mixed growth consistent with normal urogenital laura. [facility] LABORATORYOrdered By: Homer Hurd on 04-05-2021 Albumin [...] Probable Contamination. Suggest recollection if clinically indicated. [facility] Glucose,Bedsideon 05-11-2018 Glucose mass conc 143 mg/dL High 70-100 [facility] Comment on above: Result Comment: Test performed by glucose meter. Results may be 10%-15% lower than serum/plasma values. (CLIA ID [id number]) Performed By: #### B GLU #### [facility] [address] [place] [address] Glucose mass conc 170 mg/dL High 70-100 [facility] Comment on above: Result Comment: Test performed by glucose meter. Results may be 10%-15% lower than serum/plasma values. (CLIA ID [id number]) Performed By: #### B GLU #### [facility] [address] [place] [address] [facility] Surgical Pathology [id number] [facility] PATHOLOGY AND LABORATORY MEDICINE [address] [place] [phone] Fax - FINAL SURGICAL PATHOLOGY REPORT NAME: MICKEY PARRA : 1935 83 Y F BILLING NO.: [id number] LOCATION: [facility] 07 PROCEDURE 05/11/2018 DATE: SURGEON: LEDA MCLAUGHLIN MD RECEIVED 05/11/2018 DATE: ATTENDING: LEDA MCLAUGHLIN MD REPORT DATE: 05/16/2018 COPIES TO: DIAGNOSIS: LEFT MIDDLE FINGER MASS, EXCISION - PORTION OF FIBROCONNECTIVE TISSUE WITH FEATURES CONSISTENT WITH GANGLION CYST. PORTION OF BONE AND CARTILAGE WITH DEGENERATIVE CHANGES. SMT/KMS1 Signature> S DEAN SMITH M.D. CLINICAL INFORMATION: Left carpal tunnel syndrome SPECIMEN: MASS - SMALL, EXCISION GROSS DESCRIPTION: Left middle finger mass Received in formalin are rubbery [id number] tissue segments which aggregate to 0.5 x [...] characteristics determined by the clinical laboratories of [facility]. They have not been cleared by [...] negativity on decalcified specimens. Case reviewed at [facility] [address] [place] [address]. DEPARTMENT OF PATHOLOGY AND LABORATORY MEDICINE [place], [place] [address] Normal [facility] VISE[facility] Glucose,Bedsideon 03-06-2018 Glucose mass conc 133 mg/dL High 70-100 [facility] Comment on above: Result Comment: Test performed by glucose meter. Results may be 10%-15% lower than serum/plasma values. (CLIA ID [id number]) Performed By: #### B GLU #### [facility] VISEO [facility] [address] [place] [address] Glucose mass conc 157 mg/dL High 70-100 [facility] Comment on above: Result Comment: Test performed by glucose meter. Results may be 10%-15% lower than serum/plasma values. (CLIA ID [id number]) Performed By: #### B GLU #### [facility] [address] [place] [address] Vital Signs Date Time Vital Sign Value Performing Clinician Facility 02-17-2024 12:02-0400 Body temperature 97.7 [degF] DR NOHEMI EDGAR MD [address] [place] [address] 02-17-2024 12:02-0400 Diastolic Blood Pressure Non-Invasive 93 mm[Hg] DR NOHEMI EDGAR MD [address] [place] [address] 02-17-2024 12:02-0400 Heart rate 76 /min DR NOHEMI EDGAR MD [address] [place] [address] 02-17-2024 12:02-0400 Respiratory rate 18 /min DR NOHEMI EDGAR MD [address] [place] [address] 02-17-2024 12:02-0400 Systolic Blood Pressure Non-Invasive 144 mm[Hg] DR NOHEMI EDGAR MD [address] [place] [address] 02-17-2024 06:23-0400 Body temperature 98.06 [degF] DR NOHEMI EDGAR MD [address] [place] [address] 02-17-2024 06:23-0400 Diastolic Blood Pressure Non-Invasive 77 mm[Hg] DR NOHEMI EDGAR MD [address] [place] [address] 02-17-2024 06:23-0400 Heart rate 80 /min DR NOHEMI EDGAR MD [address] [place] [address] 02-17-2024 06:23-0400 Respiratory rate 18 /min DR NOHEMI EDGAR MD [facility] 02-17-2024 06:23-0400 Systolic Blood Pressure Non-Invasive 137 mm[Hg] DR NOHEMI EDGAR MD [facility] 02-17-2024 04:01-0400 Body temperature 97.7 [degF] DR NOHEMI EDGAR MD [facility] 02-17-2024 04:01-0400 Diastolic Blood Pressure Non-Invasive 71 mm[Hg] DR NOHEMI EDGAR MD [facility] 02-17-2024 04:01-0400 Heart rate 71 /min DR NOHEMI EDGAR MD [facility] 02-17-2024 04:01-0400 Respiratory rate 18 /min DR NOHEMI EDGAR MD [facility] 02-17-2024 04:01-0400 Systolic Blood Pressure Non-Invasive 137 mm[Hg] DR NOHEMI EDGAR MD [facility] 02-16-2024 23:07-0400 Heart rate 80 /min DR NOHEMI EDGAR MD [facility] 02-16-2024 19:19-0400 Heart rate 85 /min DR NOHEMI EDGAR MD [facility] 02-16-2024 11:53-0400 Heart rate 85 /min DR NOHEMI EDGAR MD [facility] 02-16-2024 07:41-0400 Body height 170.[address] NOHEMI EDGAR MD [facility] 02-16-2024 07:41-0400 Body weight 72.[address] NOHEMI EDGAR MD [facility] 02-16-2024 07:41-0400 Body weight 25.06 kg/m2 DR NOHEMI EDGAR MD [facility] 02-16-2024 06:41-0400 Body weight 72.[address] NOHEMI EDGAR MD [facility] 02-16-2024 06:37-0400 Mean blood pressure 109 mm[Hg] DR NOHEMI EDGAR MD [facility] 02-16-2024 03:57-0400 Body height 170.[address] NOHEMI EDGAR MD [facility] 02-16-2024 03:57-0400 Body weight 72.[address] NOHEMI EDGAR MD [facility] 02-04-2024 06:39-0400 Diastolic Blood Pressure Non-Invasive 84 mm[Hg] GERARDO MANNING MD [facility] 02-04-2024 06:39-0400 Heart rate 82 /min GERARDO MANNING MD [facility] 02-04-2024 06:39-0400 Respiratory rate 18 /min GERARDO MANNING MD [facility] 02-04-2024 06:39-0400 Systolic Blood Pressure Non-Invasive 164 mm[Hg] GERARDO MANNING MD [facility] 02-04-2024 05:31-0400 Blood Pressure Cuff Size GERARDO MANNING MD [facility] 02-04-2024 05:31-0400 Blood Pressure Location GERARDO MANNING MD [facility] 02-04-2024 05:31-0400 Blood Pressure Method GERARDO MANNING MD [facility] 02-04-2024 05:31-0400 Body height 172.7 cm GERARDO MANNING MD [facility] 02-04-2024 05:31-0400 Body temperature 96.98 [degF] GERARDO MANNING MD [facility] 02-04-2024 05:31-0400 Body weight 72.7 kg GERARDO MANNING MD [facility] 02-04-2024 05:31-0400 Diastolic Blood Pressure Non-Invasive 90 mm[Hg] GERARDO MANNING MD [facility] 02-04-2024 05:31-0400 Heart rate 85 /min GERARDO MANNING MD [facility] 02-04-2024 05:31-0400 Respiratory rate 18 /min GERARDO MANNING MD [facility] 02-04-2024 05:31-0400 Systolic Blood Pressure Non-Invasive 182 mm[Hg] GERARDO MANNING MD [facility] 08-21-2023 07:58-0400 Body height 170 cm MINE MONTANEZ APRN-FLUX TUBE ATTENDANT [facility] 08-21-2023 07:58-0400 Body weight 75.3 kg MINE MONTANEZ 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-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 [facility] Comment on above: Result Comment: 160# pt reports 08-21-2023 07:58-0400 Body weight 26.06 kg/m2 MINE MONTANEZ 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-FLUX TUBE ATTENDANT [facility] 04-05-2021 09:39-0400 Diastolic blood pressure 71 mm[Hg] SHAGGY VAZ DO [facility] 04-05-2021 09:39-0400 Heart rate 67 /min SHAGGY VAZ DO [facility] 04-05-2021 09:39-0400 Respiratory rate 16 /min SHAGGY VAZ DO [facility] 04-05-2021 09:39-0400 Systolic blood pressure 120 mm[Hg] SHAGGY VAZ DO [facility] 04-05-2021 09:01-0400 Diastolic blood pressure 73 mm[Hg] SHAGGY VAZ DO [facility] 04-05-2021 09:01-0400 Heart rate 64 /min SHAGGY VAZ DO [facility] 04-05-2021 09:01-0400 Mean blood pressure 111 mm[Hg] SHAGGY VAZ DO [facility] 04-05-2021 09:01-0400 Respiratory rate 16 /min SHAGGY VAZ DO [facility] 04-05-2021 09:01-0400 Systolic blood pressure 188 mm[Hg] SHAGGY VAZ DO [facility] 04-05-2021 07:31-0400 Body temperature 98.06 [degF] SHAGGY VAZ DO [facility] 04-05-2021 07:31-0400 Diastolic blood pressure 78 mm[Hg] SHAGGY VAZ DO [facility] 04-05-2021 07:31-0400 Heart rate 66 /min SHAGGY VAZ DO [facility] 04-05-2021 07:31-0400 Mean blood pressure 119 mm[Hg] SHAGGY VAZ DO [facility] 04-05-2021 07:31-0400 Respiratory rate 16 /min SHAGGY VAZ DO [facility] 04-05-2021 07:31-0400 Systolic blood pressure 200 mm[Hg] SHAGGY VAZ DO [facility] Encounters Encounter Date Encounter Type Care Provider Facility Start: 03-20-2025 ambulatory MINE MONTANEZ 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-FLUX TUBE ATTENDANT Fa cility:[facility] Start: 02-04-2025 ambulatory Mine Montanez OLS Facilit y:[facility] Start: 12-30-2024 ambulatory Louis Garcia Facilit y:[facility] Start: 09-27-2024 End: 10-01-2024 ambulatory MINE MONTANEZ 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-FLUX TUBE ATTENDANT Facility:[facility] Start: 09-27-2024 End: 10-01-2024 Outreach Lab ALOK ANTONIO DO [facility] Start: 09-27-2024 End: 09-27-2024 ambulatory MINE BALTES 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-FLUX TUBE ATTENDANT Facility:[facility] Start: 09-27-2024 End: 09-27-2024 Patient encounter procedure MINE TARIK 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-FLUX TUBE ATTENDANT [facility] Start: 08-19-2024 End: 08-19-2024 ambulatory MINE BALCHRIS 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-FLUX TUBE ATTENDANT Facility:[facility] Start: 02-16-2024 End: 02-17-[address] NOHMEI EDGAR MD [facility] Start: 02-04-2024 End: 02-04-2024 Emergency department patient visit GERARDO MANNING MD Facility:[facility] Start: 01-26-2024 End: 01-30-2024 ambulatory MINE BALCHRIS 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-FLUX TUBE ATTENDANT Facility:[facility] Start: 01-26-2024 End: 01-30-2024 Outreach Lab MINE MONTANEZ 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-FLUX TUBE ATTENDANT [facility] Start: 01-26-2024 End: 01-26-2024 ambulatory MINE BALCHRIS 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-FLUX TUBE ATTENDANT Facility:[facility] Start: 01-26-2024 End: 01-26-2024 Patient encounter procedure MINE BALCHRIS 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-FLUX TUBE ATTENDANT [facility] Start: 01-16-2024 End: 01-16-2024 ambulatory MINE BALTES 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-FLUX TUBE ATTENDANT Facility:[facility] Start: 12-20-2023 ambulatory MINE BALTES 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-FLUX TUBE ATTENDANT Fa cility:[facility] Start: 08-21-2023 End: 08-21-2023 ambulatory MINE BALTES 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-FLUX TUBE ATTENDANT Facility:[facility] Start: 08-21-2023 End: 08-21-2023 Patient encounter procedure MINE BALTES 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-FLUX TUBE ATTENDANT [facility] Start: 08-18-2023 End: 08-18-2023 ambulatory ALISE FLOWERS DO Facility:[facility] Start: 08-18-2023 End: 08-18-2023 Patient encounter procedure ALISE FLOWERS DO [facility] Start: 08-04-2023 End: 08-04-2023 ambulatory MINE BALTES 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-FLUX TUBE ATTENDANT Facility:[facility] Start: 08-04-2023 End: 08-04-2023 Patient encounter procedure MINE BALTES 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-FLUX TUBE ATTENDANT [facility] Start: 06-12-2023 End: 06-12-2023 ambulatory VIKY SMITH MD Facility:[facility] Start: 06-12-2023 End: 06-12-2023 Patient encounter procedure VIKY SIMTH MD [facility] Start: 05-02-2023 End: 05-02-2023 ambulatory ALISE FLOWERS DO Facility:[facility] Start: 04-17-2023 End: 04-17-2023 ambulatory MINE BALTES 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-FLUX TUBE ATTENDANT Facility:[facility] Start: 04-17-2023 End: 04-17-2023 Patient encounter procedure MINE BALTES 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-FLUX TUBE ATTENDANT [facility] Start: 04-14-2023 End: 04-14-2023 ambulatory MINE BALTES 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-FLUX TUBE ATTENDANT Facility:[facility] Start: 02-27-2023 End: 02-27-2023 ambulatory ALISE FLOWERS DO Facility:[facility] Start: 02-27-2023 End: 02-27-2023 Patient encounter procedure ALISE FLOWERS DO [facility] Start: 01-17-2023 End: 01-17-2023 Patient encounter procedure MINE BALTES 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-FLUX TUBE ATTENDANT [facility] Start: 11-24-2022 End: 01-17-2023 Physical therapy management KOKO SOLITARIO PA-C [facility] Start: 12-13-2021 End: 12-13-2021 Patient encounter procedure MINE MONTANEZ 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-FLUX TUBE ATTENDANT [facility] Start: 10-20-2021 End: 10-20-2021 Patient encounter procedure MINE MONTANEZ 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-FLUX TUBE ATTENDANT [facility] Start: 10-11-2021 End: 10-11-2021 Patient encounter procedure MINE MONTANEZ 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-FLUX TUBE ATTENDANT [facility] Start: 09-20-2021 End: 09-20-2021 Patient encounter procedure MINE MONTANEZ 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-FLUX TUBE ATTENDANT [facility] Start: 08-09-2021 End: 08-09-2021 Patient encounter procedure MINE MONTANEZ 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-FLUX TUBE ATTENDANT [facility] Start: 06-14-2021 End: 06-18-2021 Outreach Lab FLORIN BERGMAN MD [facility] Start: 04-05-2021 End: 04-05-2021 Emergency department patient visit SHAGGY VAZ DO [facility] Start: 03-25-2021 End: 03-29-2021 Outreach Lab MINE MONTANEZ 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-FLUX TUBE ATTENDANT [facility] Start: 05-24-2018 [facility] Start: 05-11-2018 [facility] Start: 03-06-2018 Patient encounter procedure Leda Arnoldo [facility] Procedures Date Procedure Procedure Detail Performing Clinician Start: 07-31-2020 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 L x1, R x2. Laceration of toe (disorder) MINE MONTANEZ 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EverCloudFLUX TUBE ATTENDANT Comment on above: Right foot Oral surgery (qualif ier value) MINE MONTANEZ 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oways Umbilical hernia (disorder) MINE MONTANEZ 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[employer]oways Payers Date Payer Category Payer Medicare [id number] 2024 Self-pay [id number] 2024 Unknown 2021 Medicare [id number] 2021 Unknown [id number] 2019 Medicare 1935 Unknown [id number] 2.16.8 40.1.380883.3.579.2.668 1935 Unknown [id number] 2.16.8 40.1.181320.3.579.2.668 1937 Unknown [id number] 2.16.8 40.1.740481.3.579.2.668 1937 Unknown [id number] 2.16.8 40.1.579971.3.579.2.627 1937 Unknown [id number] 2.16.8 40.1.293571.3.579.2.627 1937 Unknown [id number] 2.16.8 40.1.177212.3.579.2. 1937 Unknown [id number] 2.16.8 40.1.586401.3.579.2. 1937 Unknown [id number] 2.16.8 40.1.529600.3.579.2. 1937 Unknown [id number] 2.16.8 40.1.096197.3.579.2. 1937 Unknown [id number] 2.16.8 40.1.581006.3.579.2. 1937 Unknown [id number] 2.16.8 40.1.949344.3.579.2. 1937 Unknown [id number] 2.16.8 40.1.417670.3.579.2. 1935 Unknown [id number] 2.16.8 40.1.998110.3.579.2. 1937 Unknown [id number] 2.16.8 40.1.592888.3.579.2. 1937 Unknown [id number] 2.16.8 40.1.862443.3.579.2. 1937 Unknown [id number] 2.16.8 40.1.786556.3.579.2. 1937 Unknown [id number] 2.16.8 40.1.164634.3.579.2. 1935 Unknown [id number] 2.16. 840.1.081332.3.579.2. 1935 Unknown [id number] 2.16.8 40.1.472440.3.579.2. 1937 Unknown [id number] 2.16.8 40.1.609050.3.579.2. 1937 Unknown [id number] 2.16.8 40.1.019966.3.579.2.627 Unknown [id number] 2.16.8 40.1.191830.3.579.2.462 Unknown [id number] 2.16.8 40.1.532305.3.579.2.462 Social History Date Type Detail Facility Start: 01-04-2019 End: 08-22-2024 Never smoked tobacco (finding) [facility] Comment on above: Smoke exposure for 4 0 yrs at work Sex Assigned At Female [facility] Sexual Orientation [facility] Start: 11-28-2018 Sex Female (finding) [facility] Medical Equipment Procedure Code Equipment Code Equipment Origin al Text Equipment Identifier Dates Blood Glucose [facility] Strips Start: 03-16-[address]ps Start: 03-16-[address]ps Start: 03-16-[address] Start: 06-25-2021 See Instructions , FreeStyle Lite Test Strips, 2 Strips daily Dx: E11.9 Replaces old script., # 1 EA, 11 Refill(s), Pharmacy: [address] Controlled diabetes mellitus, 170.2, cm, 06/22/21 9:33:00 EST, Height, 75.7, kg, 06/22/21 9:33:00 E... Start: 06-25-2021 See Instructions , FreeStyle Lite Test Strips, 2 Strips daily Dx: E11.9 Replaces old script., # 1 EA, 11 Refill(s), Pharmacy: [address] Controlled diabetes mellitus, 170.2, cm, 06/22/21 9:33:00 EST, Height, 75.7, kg, 06/22/21 9:33:00 E... Start: 06-25-2021 See Instructions , FreeStyle Lite Test Strips, 2 Strips daily Dx: E11.9 Replaces old script., # 1 EA, 11 Refill(s), Pharmacy: [address], Controlled diabetes mellitus, 170.2, cm, 06/22/21 9:33:00 EST, Height, 75.7, kg, 06/22/21 9:33:00 E... Start: 06-25-2021 See Instructions , FreeStyle Lite Test Strips, 2 Strips daily Dx: E11.9 Replaces old script., # 1 EA, 11 Refill(s), Pharmacy: [address], Controlled diabetes mellitus, 170.2, cm, 06/22/21 9:33:00 EST, Height, 75.7, kg, 06/22/21 9:33:00 E... Start: 06-25-2021 See Instructions , FreeStyle Lite Test Strips, 2 Strips daily Dx: E11.9 Replaces old script., # 1 EA, 11 Refill(s), Pharmacy: [address], Controlled diabetes mellitus, 170.2, cm, 06/22/21 9:33:00 EST, Height, 75.7, kg, 06/22/21 9:33:00 EST, Dosing Weight Start: 06-25-2021 See Instructions , FreeStyle Lite Test Strips, 2 Strips daily Dx: E11.9 Replaces old script., # 1 EA, 11 Refill(s), Pharmacy: [address], Controlled diabetes mellitus, 170.2, cm, 06/22/21 9:33:00 EST, Height, 75.7, kg, 06/22/21 9:33:00 EST, Dosing Weight Start: 06-25-2021 See Instructions , FreeStyle Lite Test Strips, 2 Strips daily Dx: E11.9 Replaces old script., # 1 EA, 11 Refill(s), Pharmacy: [address], Controlled diabetes mellitus, 170.2, cm, 06/22/21 9:33:00 EST, Height, 75.7, kg, 06/22/21 9:33:00 EST, Dosing Weight Start: 06-25-2021 See Instructions , FreeStyle Lite Test Strips, 2 Strips daily Dx: E11.9 Replaces old script., # 1 EA, 11 Refill(s), Pharmacy: [address], Controlled diabetes mellitus, 170.2, cm, 06/22/21 9:33:00 EST, Height, 75.7, kg, 06/22/21 9:33:00 EST, Dosing Weight Start: 06-25-2021 See Instructions , FreeStyle Lite Test Strips, 2 Strips daily Dx: E11.9 Replaces old script., # 1 EA, 11 Refill(s), Pharmacy: [address], Controlled diabetes mellitus, 170.2, cm, 06/22/21 9:33:00 EST, Height, 75.7, kg, 06/22/21 9:33:00 EST, Dosing Weight Start: 06-25-2021 See Instructions , FreeStyle Lite Test Strips, 2 Strips daily Dx: E11.9 Replaces old script., # 1 EA, 11 Refill(s), Pharmacy: [address], Controlled diabetes mellitus, 170.2, cm, 06/22/21 9:33:00 EST, Height, 75.7, kg, 06/22/21 9:33:00 EST, Dosing Weight Start: 06-25-2021 See Instructions , FreeStyle Lite Test Strips, 2 Strips daily Dx: E11.9 Replaces old script., # 1 EA, 11 Refill(s), Pharmacy: [address], Controlled diabetes mellitus, 170.2, cm, 06/22/21 9:33:00 EST, Height, 75.7, kg, 06/22/21 9:33:00 EST, Dosing Weight Start: 06-25-2021 See Instructions , FreeStyle Lite Test Strips, 2 Strips daily Dx: E11.9 Replaces old script., # 1 EA, 11 Refill(s), Pharmacy: [address], Controlled diabetes mellitus, 170.2, cm, 06/22/21 9:33:00 EST, Height, 75.7, kg, 06/22/21 9:33:00 EST, Dosing Weight Start: 06-25-2021 See Instructions , FreeStyle Lite Test Strips, 2 Strips daily Dx: E11.9 Replaces old script., # 1 EA, 11 Refill(s), Pharmacy: [facility] [place] [address]., Controlled diabetes mellitus, 170.2, cm, 06/22/21 9:33:00 EST, Height, 75.7, kg, 06/22/21 9:33:00 EST, Dosing Weight Start: 06-25-2021 See Instructions , FreeStyle Lite Test Strips, 2 Strips daily Dx: E11.9 Replaces old script., # 1 EA, 11 Refill(s), Pharmacy: [facility] [place] [address]., Controlled diabetes mellitus, 170.2, cm, 06/22/21 9:33:00 EST, Height, 75.7, kg, 06/22/21 9:33:00 EST, Dosing Weight Start: 06-25-2021 See Instructions , FreeStyle Lite Test Strips, 2 Strips daily Dx: E11.9 Replaces old script., # 1 EA, 11 Refill(s), Pharmacy: [address], Controlled diabetes mellitus, 170.2, cm, 06/22/21 9:33:00 EST, Height, 75.7, kg, 06/22/21 9:33:00 EST, Dosing Weight Start: 06-25-2021 Functional Status Date Assessment Result Facility 02-17-2024 Functional Status Nurse Serg butler q2hrs Performed Other: [id number] [facility] 02-17-2024 Functional Status Room check performed [facility] 02-17-2024 Functional Status [facility] 02-17-2024 Functional Status [facility] 02-16-2024 Functional Status [facility] 02-16-2024 Functional Status [facility] 02-16-2024 Functional Status Other: Duplex [facility] Functional Status Lunch Percent [facility] 02-16-2024 Functional Status None [facility] 02-16-2024 Functional Status Minimum assistance [facility] 02-04-2024 Functional Status Up ad emy [facility] mejia [facility] 11-24-2022 Functional Status Home Living Ad ditional [...] excess warmth or obvious signs of infection [facility] Mental Status Date Assessment Result Facility 02-17-2024 Mental Status Oriented x 4, Forgetful [facility] 02-16-2024 Mental Status [facility] 02-16-2024 Mental Status [facility] 02-16-2024 Mental Status [facility] 02-04-2024 Mental Status Orientation Oriented x 4 [facility] 02-04-2024 Mental Status [facility] Clinical Notes 04-05-2021 to 09-29-2024 Note Date [...] Locations *1: This test was performed at: [facility], [address] [place] [address], [facility] , [facility] 02-17-2024 Note Discharge Instructions Thank you for allowing [facility] to assist you with your healthcare needs. The following is important discharge information regarding your hospital visit. Your Care Team [facility] Team Your Diagnosis Constipation HTN - Hypertension Type 2 diabetes mellitus What to do next Scheduled Follow-Up Appointments Appointment Type When With Where Contact Information StatusMEDS - Diabetic Individual Visit 03/25/2024 10:00 AM EDT [place] Diet Visits [phone] Confirmed PC OV 07/05/2024 08:30 AM MINE WISDOM [facility] [address] [place] [phone] Confirmed Follow Up Appointments Follow Up with Go to emergency room if symptoms worsen When:Within 2-4 days Follow Up with MINE MONTANEZ When:Within 2-4 days Where:[address] [place] [phone] The Following Activity and Diet Have Been [...] day if having loose stools Pickup at [facility]/pharmacy #[id number] Unchanged albuterol (Albuterol (Eqv-Ventolin HFA) 90 mcg/ [...] BY MOUTH TWICE A DAY Pharmacy Information [facility]/pharmacy #[id number]: [address], [place] [id number] [phone] Please take this list to your next [...] Black, tarry stool Involuntary weight loss Weakness [phone] [employer]. [address] [place] [address]. All rights reserved. This information is not intended as a substitute for professional medical care. Always follow your healthcare professional's instructions. Additional Information VACCINATE! IT SAVES LIVES! Members of the community who have not yet received the COVID-19 vaccine and would like to receive it can visit one of [facility] vaccine clinics. There are many vaccine clinic locations within the [facility]. For locations and available times, please visit [email or web address] [email or web address] It is important to note that some COVID mobile vaccine clinics are held outdoors and may be canceled in rainy or stormy conditions. To learn more about pediatric vaccinations (ages 5-11), we invite you to visit the [facility] webpage. https://www.[facility].org/pages/2 793-Bashg-Fscyppffcxm-Frequently-Asked -Questions.html To learn more about the COVID-19 vaccine, we invite you to visit the CDC website for a list of frequently asked questions.https://www.cdc.gov/coronavi oscar/2019-ncov/vaccines/faq.html [employer] Patient Portal Access Instructions: Stay connected with your healthcare team and access your personal medical information anytime with the [employer] Patient Portal. Please follow the directions below to create your [employer] account: 1.Access the email account you provided upon registration to the hospital/physician office.2.Look for an invitation email from [facility].3.Open the email and access the invitation link: Accept Invitation to [employer].4.Fill in the required will to create your account. To access your account, visit Pelliano/C[facility] LakeTrilliantOneChart. Click the blue button labeled Access Patient Portal and then log in with the username [...] you will allow to register on the [facility] Patient Portal for access to your information. You can also access the [facility] Patient Portal on the (In)Touch Network Anywhere angelina. Simply click on Patient Portal and then log into your account. If you would like to receive a full copy of your medical records, please contact the [facility] Medical Records Department by calling [phone], Monday through Monday between 8 a.m. and [...] Call your local pharmacy or go to [email or web address] to find one close to you.3.Make use of household items: Use cat litter or old coffee grounds to dispose medications if other options are not available. Mix your drugs with these household products, seal them in an airtight container and throw it into the garbage. Call [facility]: [phone] to be sure your drugs can be [...] aware that I should contact my doctor. Patient/Medical Microbiologist Signature: _ Date/Time: Relationship to Patient: Witness Name/Signature: Date/Time: [facility] 02-16-2024 Note Date of Service 02/16/24 Chief Complaint rectal and abdominal pain started tonight around 0100, denies N/V, here recently for constipation, unknown last BM History of Present Illness 88-year-old female with past medical history significant for hypertension, type 2 diabetes mellitus, HLD. Patient presented to [facility] emergency department on 02/16/2024 with abdominal/rectal [...] tolterodine 2 mg oral capsule, extended release [facility] Pen 4.5 mg/0.5 mL subcutaneous solution Allergies penicillins Rash Social History Smoking Status - 05/03/2017 Never smoker Alcohol - No Risk, 03/21/2017 Use: Never., 01/04/2019 Exercise Exercise type: Walking., 09/01/2020 Home/Environment Self Primary Fur Stretcher:., 01/04/2019 Nutrition/Health Type of diet: Diabetic, is folllowing rural sociologist suggestions. Appetite Good. Eating Difficulties None, If [...] by LUIS GUZMÁN on 02/16/2024 04:01 PM [facility] 02-16-2024 Evaluation + Plan note Extrac zachary [...] Appointments Appointment Date:03/25/2024 10:00:00 AM Scheduled Provider: Location:[facility] Appointment Type:MEDS - Diabetic Individual Visit Appointment Date:07/05/2024 08:30:00 AM Scheduled Provider:MINE MONTANEZ Location:[facility] Appointment Type:PC OV [facility] 09-13-2024 Pastoral care Progress note Pastoral Care Note Entered On: 02/16/2024 9:44 EDT Performed On: 02/16/2024 9:42 EDT by Rodolfo Márquez Pastoral Care Type of Pastoral Visit : Initial visit Spiritual Care Visit Initiated by : Supervisor Fruit Grading Spiritual Care Reason for Visit : General [...] by Rodolfo Márquez on 02/16/2024 09:42 AM [facility]09-13-2024 Hospital Discharge instructions Patient Education 02/16/2024 04:03:29 [...] Black, tarry stool Involuntary weight loss Weakness [phone] [employer]. [address] [place] [address]841. All rights reserved. This information is not intended as a substitute for professional medical care. Always follow yourhealthcare professional's instructions. Follow Up Care 02/16/2024 03:47:03 With:Go to emergency room if symptoms worsen Address:Unknown When:2-4 days With:MINE MONTANEZ APRN-FLUX TUBE ATTENDANT Address: [address] [place] [address] [phone] When:2-4 days [facility] 09-13-2024 Note ORIGINAL EXAMINATION: CT OF THE [...] Sign Date: 02/16/2024 5:52:34 AM Ordering Provider: [facility]09-01-2024 Hospital Discharge instructions Patient Education 02/04/2024 06:00:03 [...] Black, tarry stool Involuntary weight loss Weakness [phone] [employer]. [address] [place] [address], [place] [address]. All rights reserved. This information is not intended as a substitute for professional medical care. Always follow yourhealthcare professional's instructions. Follow Up Care 02/04/2024 05:28:55 With:MINE MONTANEZ Address: [address] [place] [phone] When:2-4 days [facility] 09-01-2024 Note Discharge Instructions Thank you for allowing [facility] to assist you with your healthcare needs. The following is importantdischarge information regarding your hospital visit. Diagnosis from Today's Visit Constipation What to Do Next Instructions from Your Care Team No qualifying data available. Post Acute Orders No qualifying data available. You Need to Schedule the Following Appointments Follow Up with MINE MONTANEZ When:Within 2-4 days Where:[address] [place] [phone] Allergies penicillins Rash Medications Please ask your [...] Unchanged DME (DME MISCellaneous) See instructions Libre2 Houck Use to scan Edward sensor at least [...] Black, tarry stool Involuntary weight loss Weakness [phone] [employer]. [address] [place] [address]. All rights reserved. This information is not intended as a substitute for professional medical care. Always follow yourhealthcare professional's instructions. Additional Information VACCINATE! IT SAVES LIVES! Members of the community who have not yet received the COVID-19 vaccine and would like to receive it can visit one of [facility] vaccine clinics. There are many vaccine clinic locations within the [facility]. For locations and available times, please visit www.[email or web address].gov/. It is important to note that some COVID mobile vaccine clinics are held outdoors and may be canceled in rainy or stormy conditions. To learn more about pediatric vaccinations (ages 5-11), we invite you to visit the [facility] webpage. https://www.[facility].org/pages/1700-Xyeby-Wkufeqxtsny-Ostietuhkl-Zggoa-Nit stions.htmlTo learn more about the COVID-19 vaccine, we invite you to visit the CDC website for a list of frequently asked questions. https://www.cdc.gov/coronavirus/2019-ncov/vaccines/faq.html [facility] Patient Portal Access Instructions: Stay connected with your healthcare team and access your personal medical information anytime with the [facility] Patient Portal. If you would like a full copy of your medical records please contact the [facility] Medical Records Department Monday through Monday between 8a.m. and 4:30p.m. Please follow the directions below to access the portal: 1.Access the email account you provided upon registration to the [facility].2.Look for an invitation email from [facility].3.Open the email and access the invitation link: Accept Invitation to [facility]4.Fill in the required will to create your account. Sign into [email or web address] with your username and password that you [...] you will allow to register on the [facility] Patient Portal for access to your information. You can also access the [facility] Patient Portal on the Spredfast. Simply click on Health Records under VISEOData and then click on the (In)Touch Network logo. HOW TO SAFELY DISPOSE OF PRESCRIPTION [...] Call your local pharmacy or go to http://bit.SmartSignal/3J7Pc7a to find one close to you.3.Make use of household items: Use cat litter or old coffee grounds to dispose medications if other options arenot available. Mix your drugs with these household products, seal them in an airtight container andthrow it into the garbage. Call [facility]: [phone] to be sure your drugs can be [...] aware that I should contact my doctor. Patient/Medical Microbiologist Signature: Date/Time: Relationship to Patient: Witness Name/Signature: Date/Time: [facility]08-15-2023 Note ORIGINAL EXAMINATION: BONE DENSITOMETRY01/17/2023 11:33 am [...] Sign Date: 01/17/2023 11:40:16 AM [facility] Discharge instructions Patient Education 04/05/2021 [...] that stimulate the heart. This includes many mbva-gxg-abmoqqm cold and sinus decongestant pills and sprays, as well as diet pills. Check the warnings about high blood pressure onthe label. Before buying any gdza-vlh-oquatrt medicines or supplements, always ask the pharmacist [...] one of these at most pharmacies. The [place] [employer] recommends the following guidelines for [...] face You have problems speaking or seeing [employer]. [address] [place], [place] [address]. All rights reserved. This information is not [...] about: All medicines you take, including prescription, bsrb-hcb-demvqvk, herbs, and supplements Any other symptoms you [...] Chest, arm, neck, back, or jaw pain [employer]. [address] [place] [address]. All rights reserved. This information is not intended as a substitute for professional medical care. Always follow yourhealthcare professional's instructions. Follow Up Care 04/05/2021 07:20:22 With:MINE MONTANEZ Address: [phone] When:2-4 days [facility] Evaluation + Plan note Future Appointments Appointment Date:04/09/2021 10:00:00 AM Scheduled Provider:MINE MONTANEZ Location:[facility] Appointment Type:PC OV Appointment Date:06/14/2021 09:30:00 AM Scheduled Provider:FAUSTINO CARSON MD Location: [facility] Appointment Type: OV Appointment Date:06/22/2021 09:30:00 AM Scheduled Provider:MINE MONTANEZ Location:[facility] Appointment Type: OV [facility] Fashion Genome Projectaluation + Plan note Future Appointments Appointment Date:04/06/2021 11:30:00 AM Scheduled Provider:MINE MONTANEZ Location:[facility] Appointment Type:PC OV Appointment Date:04/09/2021 10:00:00 AM Scheduled Provider:MINE MONTANEZ Location:[facility] Appointment Type:PC OV Appointment Date:06/14/2021 09:30:00 AM Scheduled Provider:FAUSTINO CARSON MD Location: [facility] Appointment Type: OV Appointment Date:06/22/2021 09:30:00 AM Scheduled Provider:MINE MONTANEZ Location:[facility] Appointment Type: OV [facility] Evaluation + Plan note Future Appointments Appointment Date:06/22/2021 09:30:00 AM Scheduled Provider:MINE MONTANEZ Location:[facility] Appointment Type: OV [facility] Evaluation + Plan note Future Appointments Appointment Date:08/20/2021 09:30:00 AM Scheduled Provider: Location:[facility] Appointment Type:DB Diabetic Individual Visit Appointment Date:08/30/2021 02:30:00 PM Scheduled Provider: Location:[facility] Appointment Type:NUT Diet Visit Individual Appointment Date:09/17/2021 10:00:00 AM Scheduled Provider: Location:[facility] Appointment Type:DB Diabetic Individual Visit Appointment Date:12/14/2021 10:30:00 AM Scheduled Provider:MINE MONTANEZ Location:[facility] Appointment Type:PC OV [facility] Evaluation + Plan note Future Appointments Appointment Date:10/11/2021 11:30:00 AM Scheduled Provider: Location:[facility] Appointment Type:NUT Diet Visit Individual Appointment Date:12/14/2021 10:30:00 AM Scheduled Provider:MINE MONTANEZ Location:[facility] Appointment Type:PC OV Appointment Date:12/17/2021 09:00:00 AM Scheduled Provider: Location:[facility] Appointment Type:DB Diabetic Individual Visit [facility] Evaluation + Plan note Future Appointments Appointment Date:10/15/2021 09:30:00 AM Scheduled Provider:MINE MONTANEZ Location:[facility] Appointment Type:PC OV Appointment Date:11/08/2021 11:30:00 AM Scheduled Provider: Location:[facility] Appointment Type:NUT Diet Visit Individual Appointment Date:12/14/2021 10:30:00 AM Scheduled Provider:MINE MONTANEZ Location:[facility] Appointment Type:PC OV Appointment Date:12/17/2021 09:00:00 AM Scheduled Provider: Location:[facility] Appointment Type:DB Diabetic Individual Visit [facility] Evaluation + Plan note Future Appointments Appointment Date:11/08/2021 11:30:00 AM Scheduled Provider: Location:[facility] Appointment Type:NUT Diet Visit Individual Appointment Date:12/14/2021 10:30:00 AM Scheduled Provider:MINE MONTANEZ Location:[facility] Appointment Type:PC OV Appointment Date:12/17/2021 09:00:00 AM Scheduled Provider: Location:[facility] Appointment Type:DB Diabetic Individual Visit Diagnostic Tests Pending * Vitamin B12 Level 10/20/21 * Folate Level 10/20/21 [facility] Evaluation + Plan note Future Appointments Appointment Date:12/14/2021 10:30:00 AM Scheduled Provider:MINE MONTANEZ Location:[facility] Appointment Type:PC OV Appointment Date:12/17/2021 09:00:00 AM Scheduled Provider: Location:[facility] Appointment Type:DB Diabetic Individual Visit [facility] Evaluation + Plan note Future Appointments Appointment Date:03/24/2023 10:00:00 AM Scheduled Provider: Location:[facility] Appointment Type:DB Diabetic Individual Visit (AOH) Appointment Date:12/26/2023 09:00:00 AM Scheduled Provider:MINE MONTANEZ Location:[facility] Appointment Type:PC Wellness Medicare Future Scheduled Tests Laboratory* Complete Blood Count 06/24/22 * Lipid Profile 06/24/22 * Hepatitis C Antibody IgG 06/24/22 * Complete Metabolic Panel 06/24/22 [facility] Evaluation + Plan note Future Appointments Appointment Date:06/23/2023 10:00:00 AM Scheduled Provider: Location:[facility] Appointment Type:DB Diabetic Individual Visit (AOH) Appointment Date:12/26/2023 09:00:00 AM Scheduled Provider:MINE MONTANEZ Location:[facility] Appointment Type:PC Wellness Medicare Future Scheduled Tests Laboratory* Complete Blood Count 06/24/22 * Lipid Profile 06/24/22 * Hepatitis C Antibody IgG 06/24/22 * Complete Metabolic Panel 06/24/22 [facility] evaluation + Plan note Future Appointments Appointment Date:06/23/2023 10:00:00 AM Scheduled Provider: Location:[facility] Appointment Type:DB Diabetic Individual Visit (AOH) Appointment Date:08/21/2023 11:30:00 AM Scheduled Provider[facility] Appointment Type:CV OV Appointment Date:12/26/2023 09:00:00 AM Scheduled Provider:MINE MONTANEZ Location:[facility] Appointment Type:PC Wellness Medicare Future Scheduled Tests Laboratory* Complete Blood Count 06/24/22 * Lipid Profile 06/24/22 * Hepatitis C Antibody IgG 06/24/22 * Complete Metabolic Panel 06/24/22 [facility] evaluation + Plan note Future Appointments Appointment Date:08/18/2023 10:00:00 AM Scheduled Provider: Location:[facility] Appointment Type:MEDS - Diabetic Individual Visit Appointment Date:08/21/2023 11:30:00 AM Scheduled Provider: Location:[facility] Appointment Type:CV OV Appointment Date:12/26/2023 09:00:00 AM Scheduled Provider:MINE MONTANEZ Location:[facility] Appointment Type:PC Wellness Medicare [facility] evaluation + Plan note Future Appointments Appointment Date:08/21/2023 08:00:00 AM Scheduled Provider: Location:[facility] Appointment Type:NUT Diet Visit Individual Appointment Date:08/21/2023 11:30:00 AM Scheduled Provider: Location:[facility] Appointment Type:CV OV Appointment Date:09/18/2023 10:00:00 AM Scheduled Provider: Location:[facility] Appointment Type:MEDS - Diabetic Individual Visit Appointment Date:12/26/2023 09:00:00 AM Scheduled Provider:MINE MONTANEZ Location:[facility] Appointment Type:PC Wellness Medicare [facility] Evaluation + Plan note Future Appointments Appointment Date:09/18/2023 10:00:00 AM Scheduled Provider: Location:[facility] Appointment Type:MEDS - Diabetic Individual Visit Appointment Date:12/26/2023 09:00:00 AM Scheduled Provider:MINE MONTANEZ Location:[facility] Appointment Type:PC Wellness Medicare [facility] evaluation + Plan note Future Appointments Appointment Date:03/25/2024 10:00:00 AM Scheduled Provider: Location:[facility] Appointment Type:MEDS - Diabetic Individual Visit Appointment Date:07/05/2024 08:30:00 AM Scheduled Provider:MINE MONTANEZ Location:[facility] Appointment Type:PC OV [facility] Evaluation + Plan note Future Appointments Appointment Date:10/08/2024 03:00:00 PM Scheduled Provider: Location:[facility] Appointment Type:MEDS - Diabetic Individual Visit Appointment Date:11/21/2024 09:00:00 AM Scheduled Provider:MINE MONTANEZ Location:[facility] Appointment Type:PC OV [facility] Hospital course Narrative No data available for this section [facility] Hospital Discharge instructions No data available for this section [facility] Progress note No data available for this section [facility] Summary Purpose Family History No Family History [...] section and content) DATE CREATED AUTHOR 09/13/2018 [facility] DATE CREATED AUTHOR AUTHOR'S ORGANIZ ATION 02/04/2024 [facility] ([place]) DATE CREATED AUTHOR AUTHOR'S ORGANIZ ATION 02/11/2025 [facility] DATE CREATED AUTHOR AUTHOR'S ORGANIZ ATION 03/22/2025 [facility] Care Team (unrecognized sect ion and content) Personnel Name: MINE MONTANEZ Address: [address] [facility] [place], [place] [address] Personnel Name: MINE MONTANEZ Address: [address] [place] [address]- [place] Personnel Name: MINE MONTANEZ Address: [address] [place] [address]- Care Team Personnel Name: MINE MONTANEZ Position: P4 [employer] Member Role: Primary Care Physician Address: Address: [address] [place] [address]- [place] Name: LEDA MCLAUGHLIN MD Member Role: Orthopaedist Address: Address: [address] [address]- [place] Care Team Related Persons Name: AIDA, NOHEMI Care Team Personnel Name: MINE MNOTANEZ Position: P[employer] Member Role: Primary Care Physician Address: Address: [address] [place] [address]- [place] Name: LEDA MCLAUGHLIN MD Member Role: Orthopaedist Address: Address: [address] [address]- [place] Care Team Related Persons Name: AIDA, NOHEMI Care Team Personnel Name: MINE MONTANEZ Position: [facility] Member Role: Primary Care Physician Address: Address: [address] [place] [address]- Name: LEDA MCLAUGHLIN MD Member Role: Orthopaedist Address: Address: [address] [address]- [place] Care Team Related Persons Name: AIDA, NOHEMI Care Team Personnel Name: MINE MONTANEZ Position: [facility] Member Role: Primary Care Physician Address: Address: [address] [place] [address]- [place] Name: LEDA MCLAUGHLIN MD Member Role: Orthopaedist Address: Address: [address] [address]- [place] Care Team Related Persons Name: AIDA, NOHEMI Care Team Personnel Name: MINE MONTANEZ Position: [facility] Member Role: Primary Care Physician Address: Address: [address] [place] [facility] [place] [address]- Name: LEDA MCLAUGHLIN MD Member Role: Orthopaedist Address: Address: [address] [place] [id number]- Name: LOUISE Chin ([facility]) Shalonda Position: Quality Review Member Role: Shuffle Board Operator Care Team Related Persons Name: NOHEMI PARRA Care Team Personnel Name: MINE MONTANEZ Position: [facility] Member Role: Primary Care Physician Address: Address: [address] [place] [address]- Name: LEDA MCLAUGHLIN MD Member Role: Orthopaedist Address: Address: [address] [place] [address]- [place] Name: LOUISE Chin ([facility]) Shalonda Position: Quality Review Member Role: Shuffle Board Operator Care Team Related Persons Name: NOHEMI PARRA Care Team Personnel Name: MINE MONTANEZ Position: [facility] Member Role: Primary Care Physician Address: Address: [address] [place] [address]- Name: LEDA MCLAUGHLIN MD Member Role: Orthopaedist Address: Address: [address] [place] [phone]- Name: LOUISE Chin ([facility]) Shalonda Position: Quality Review Member Role: Shuffle Board Operator Care Team Related Persons Name: NOHEMI PARRA Care Team Personnel Name: MINE MONTANEZ Position: P4 [employer] Member Role: Primary Care Physician Address: Address: [address] [place] [address]- Name: LEDA MCLAUGHLIN MD Member Role: Orthopaedist Address: Address: [address] [place] [phone]- Name: LOUISE Chin ([facility]) Shalonda Position: Quality Review Member Role: Shuffle Board Operator Care Team Related Persons Name: NOHEMI PARRA Care Team Personnel Name: MINE MONTANEZ Position: P[employer] Member Role: Primary Care Physician Address: Address: [address] [place] [address] Name: LEDA MCLAUGHLIN MD Member Role: Orthopaedist Address: Address: [address] [place] [address]- Care Team Related Persons Name: AIDA, NOHEMI Care Team Personnel Name: MINE MONTANEZ Position: [facility] Member Role: Primary Care Physician Address: Address: [address] [place] [address]- Name: LEDA MCLAUGHLIN MD Member Role: Orthopaedist Address: Address: [address] [place] [address] Care Team Related Persons Name: AIDA, NOHEMI Care Team Personnel Name: MINE MONTANEZ Position: [facility] [employer] Member Role: Primary Care Physician Address: Address: [address] [place] [address] Name: LEDA MCLAUGHLIN MD Member Role: Orthopaedist Address: Address: [address] [place], [place] [id number]- Care Team Related Persons Name: AIDA, NOHEMI Care Team Personnel Name: MINE MONTANEZ Position: P[employer] Member Role: Primary Care Physician Address: Address: [address] [place] [address] Name: Candice Ricketts Position: Bed Management Member Role: Other Name: LEDA MCLAUGHLIN MD Member Role: Orthopaedist Address: Address: [address] [place], [place] [id number]- Care Team Related Persons Name: AIDA, NOHEMI Care Team Personnel Name: MINE MONTANEZ Position: P[employer] Member Role: Primary Care Physician Address: [address] [place] [address] Telecom: Name: Candice Ricketts Position: Bed Management Member Role: Other Name: LEDA MCLAUGHLIN MD Member Role: Orthopaedist Address: [address] [address] Telecom: Care Team Related Persons Name: NOHEMI PARRA Care Team Personnel Name: MINE MONTANEZ Position: P4 [employer] Member Role: Primary Care Physician Address: [address] [place], [place] [address] Telecom: Name: Candice Ricketts Position: Bed Management Member Role: Other Name: LEDA MCLAUGHLIN MD Member Role: Orthopaedist Address: [address] [address] Telecom: Care Team Related Persons Name: NOHEMI PARRA Care Team (unrecognized sect ion and content) Care Team Personnel Name: MINE MONTANEZ Position: P4 Advanced Practice Nurse Med Service: Active Provider Member Role: Primary Care Physician Address: Address: [address] [place] [address] Care Team Related Persons Name: NOHEMI PARRA [...] BE BASED ON THE PRIMARY CLINICAL RECORDS. [facility] [employer] provides no warranty or guarantee of the accuracy or completeness of information in this document.
[2025-03-24 08:20] LABS: Hematocrit 34.9 % (37-47); Hemoglobin 12.1 g/dL (12.0-15.0); Mean Corp Hgb Conc 34.7 g/dL (32-36); Mean Corpuscular Volume 91.4 fL (81-99); Mean Platelet Vol. 10.1 fl (6.2-12.0); Platelet Count 292 K/mm3 (150-450); RBC Distribution Width CV 12.5 % (11.6-14.6); RBC Distribution Width SD 41.4 fl (35.1-43.9); Red Blood Count 3.82 M/mm3 (4.2-5.4); White Blood Count 6.3 K/mm3 (4.4-11.0)
[2025-03-24 08:29] LABS: AST(SGOT) 34 U/L (<=31); Alanine Aminotransfer ALT/SGPT 31 U/L (<=34); Albumin, Serum 3.8 g/dL (3.4-4.8); Alkaline Phosphatase 93 U/L (35-104); Anion Gap 12 (5-15); BUN 21 mg/dL (4-19); BUN/Creat Ratio 28.2 RATIO (10-20); Calcium,Total 9.5 mg/dL (7.6-11.0); Carbon Dioxide 23.8 mmol/L (21.0-32.0); Chloride 103 mmol/L (98-108); Globulin 2.7 g/dL (2.2-4.2); Glucose 139 mg/dL (70-99); Potassium 4.2 mmol/L (3.3-5.1)
== END ==
LOC: OLS.ACH2 05:00
PROVIDERS: PCP Family Medicine; Visit Provider Internal Medicine
DX: G31.84 Mild cognitive impairment of uncertain or unknown etiology (principal); E11.9 Type 2 diabetes mellitus without complications
CPT/HCPCS: 36415; 80053; 83036; 85027

== ENCOUNTER → 2025-03-31 04:00 | Outpatient (REF) | payer MEDICARE, SELFPAY ==
[2025-03-31 09:08] LABS: Hematocrit 39.9 % (37-47); Hemoglobin 12.9 g/dL (12.0-15.0); Mean Corp Hgb Conc 32.3 g/dL (32-36); Mean Corpuscular Volume 93.2 fL (81-99); Mean Platelet Vol. 10.1 fl (6.2-12.0); Platelet Count 313 K/mm3 (150-450); RBC Distribution Width CV 12.2 % (11.6-14.6); RBC Distribution Width SD 42.5 fl (35.1-43.9); Red Blood Count 4.28 M/mm3 (4.2-5.4); White Blood Count 6.8 K/mm3 (4.4-11.0)
[2025-03-31 09:15] LABS: AST(SGOT) 27 U/L (<=31); Alanine Aminotransfer ALT/SGPT 25 U/L (<=34); Albumin, Serum 4.1 g/dL (3.4-4.8); Alkaline Phosphatase 113 U/L (35-104); Anion Gap 12 (5-15); BUN 19 mg/dL (4-19); BUN/Creat Ratio 22.8 RATIO (10-20); Bilirubin, Direct 0.16 mg/dL (0.00-0.30); Calcium,Total 9.7 mg/dL (7.6-11.0); Carbon Dioxide 24.8 mmol/L (21.0-32.0); Chloride 103 mmol/L (98-108); Globulin 3.4 g/dL (2.2-4.2); Glucose 157 mg/dL (70-99); Magnesium 2.1 mg/dL (1.5-2.2); Potassium 4.3 mmol/L (3.3-5.1)
== END ==
LOC: OLS.ACH2 04:00
PROVIDERS: PCP Family Medicine; Referring Provider Internal Medicine; Visit Provider Internal Medicine
DX: R00.8 Other abnormalities of heart beat (principal); E11.9 Type 2 diabetes mellitus without complications; R60.9 Edema, unspecified
CPT/HCPCS: 36415; 80048; 80076; 83735; 85027

== ENCOUNTER → 2025-04-22 05:00 | Outpatient (REF) | payer MEDICARE, SELFPAY ==
--- OUTSIDE RECORDS SUMMARY | 2025-04-22 03:48 | XMS RPT_ITS | CCD ---
Author Organization [facility] Care Team Providers Care Development Manager Name Role Phone Leda Singh Attending Unavailable PROVIDER, UNKNOWN Referring Unavailable Brown, Louis Primary Care Unavailable Leda Singh Attending Unavailable PROVIDER, UNKNOWN Referring Unavailable Brown, Louis Primary Care Unavailable Leda Singh Attending Unavailable PROVIDER, UNKNOWN Referring Unavailable Brown, Louis Primary Care Unavailable [employer] SPECIAL EDUCATION TEACHER-MEMBERSHIP SECRETARY, MINE Primary Care Physician BALTES [employer] SPECIAL EDUCATION TEACHER-MEMBERSHIP SECRETARY, MINE Attending Unavailabl e BALTES EBD SPECIAL EDUCATION TEACHER-MEMBERSHIP SECRETARY, MINE Primary Care Unavailabl e BALTES EBD SPECIAL EDUCATION TEACHER-MEMBERSHIP SECRETARY, MINE Attending Unavailabl e BALTES EBD SPECIAL EDUCATION TEACHER-MEMBERSHIP SECRETARY, MINE Primary Care Unavailabl e ALISE FLOWERS DO Attending Unavailable [employer] SPECIAL EDUCATION TEACHER-MEMBERSHIP SECRETARY, MINE Primary Care Unavailabl e BALTES EBD SPECIAL EDUCATION TEACHER-MEMBERSHIP SECRETARY, MINE Attending Unavailabl e BALTES EBD SPECIAL EDUCATION TEACHER-MEMBERSHIP SECRETARY, MINE Primary Care Unavailabl e BALTES EBD SPECIAL EDUCATION TEACHER-MEMBERSHIP SECRETARY, MINE Attending Unavailabl e BALTES EBD SPECIAL EDUCATION TEACHER-MEMBERSHIP SECRETARY, MINE Primary Care Unavailabl e BALTES EBD SPECIAL EDUCATION TEACHER-MEMBERSHIP SECRETARY, MINE Attending Unavailabl e BALTES EBD SPECIAL EDUCATION TEACHER-MEMBERSHIP SECRETARY, MINE Primary Care Unavailabl e BALTES EBD SPECIAL EDUCATION TEACHER-MEMBERSHIP SECRETARY, MINE Attending Unavailabl e BALTES EBD SPECIAL EDUCATION TEACHER-MEMBERSHIP SECRETARY, MINE Primary Care Unavailabl e GERARDO MANNING MD Attending Unavail able [employer]TES [employer] SPECIAL EDUCATION TEACHER-MEMBERSHIP SECRETARY, MINE Primary Care Unavailabl ALISE Sheikh DO Attending Unavailable [employer]TES [employer] SPECIAL EDUCATION TEACHER-MEMBERSHIP SECRETARY, MINE Primary Care Unavailabl ALISE Sheikh DO Attending Unavailable BALTES [employer] SPECIAL EDUCATION TEACHER-MEMBERSHIP SECRETARY, MINE Primary Care Unavailabl e VIKY SMITH MD Attending U navailable BALTES E[employer] SPECIAL EDUCATION TEACHER-MEMBERSHIP SECRETARY, MINE Primary Care Unavailabl e BALTES EBD SPECIAL EDUCATION TEACHER-MEMBERSHIP SECRETARY, MINE Attending Unavailabl e BALTES EBD SPECIAL EDUCATION TEACHER-MEMBERSHIP SECRETARY, MINE Primary Care Unavailabl e BALTES EBD SPECIAL EDUCATION TEACHER-MEMBERSHIP SECRETARY, MINE Attending Unavailabl e BALTES EBD SPECIAL EDUCATION TEACHER-MEMBERSHIP SECRETARY, MINE Primary Care Unavailabl e BALTES EBD SPECIAL EDUCATION TEACHER-MEMBERSHIP SECRETARY, MINE Attending Unavailabl e BALTES EBD SPECIAL EDUCATION TEACHER-MEMBERSHIP SECRETARY, MINE Primary Care Unavailabl e Candice Ricketts Unavailable Unavailable [employer] SPECIAL EDUCATION TEACHER-MEMBERSHIP SECRETARY, MINE Primary Care Unavailabl e PACO MARK ALOK M Attending Unavailable [employer]TES E[employer] SPECIAL EDUCATION TEACHER-MEMBERSHIP SECRETARY, MINE Primary Care Unavailabl e BALTES EBD SPECIAL EDUCATION TEACHER-MEMBERSHIP SECRETARY, MINE Attending Unavailabl e BALTES EBD SPECIAL EDUCATION TEACHER-MEMBERSHIP SECRETARY, MINE Primary Care Unavailabl e BALTES EBD SPECIAL EDUCATION TEACHER-MEMBERSHIP SECRETARY, MINE Attending Unavailabl e BALTES EBD SPECIAL EDUCATION TEACHER-MEMBERSHIP SECRETARY, MINE Primary Care Unavailabl e BALTES EBD SPECIAL EDUCATION TEACHER-MEMBERSHIP SECRETARY, MINE Attending Unavailabl e Deperro OLS, Adonay Referring Unavailable Jose, Louis R Primary Care Unavailable Deperro OLS, Adonay Attending Unavailable Baltes OLS, Mine Attending Unavailable Baltes OLS, Mine Referring Unavailable Brown, Louis R Primary Care Unavailable Brown, Louis R Primary Care Unavailable Deperro OLS, Adonay Attending Unavailable Brown, Louis R Primary Care Unavailable [facility] Attending Amy groves Allergies Allergy Classification Reported Allergen(s) Allergy Type Date of Onset Reaction(s) Facility (20 sources) Penicillins; Translations: [penicillins] Drug allergy 04-17-2018 [facility] (1 source) Acetaminophen Drug Allergy 04-17-2018 [facility] (1 source) HYDROcodone Drug Allergy 04-17-2018 [facility] Medications Current Medications Medication Drug Class(es) [...] q4h, # 18 gram(s), 0 Refill(s), Pharmacy: [facility]/pharmacy #[id number], Acute bronchitis, 169, cm, 01/29/24 11:38:00 EDT, Height, kg, 01/16/24 12:34:00 EDT, Dosing Weight Start Date: 01/29/24 Status: Ordered amLODIPine 5 mg oral tablet (20 sources) Dihydropyridine Calcium Channel Emely Start: 08-07-2024 End: 08-02-2025 amLODIPine 5 mg oral tablet Dose : 5 mg = 1 tab(s), Oral, qDay, TAKE 1 TABLET BY MOUTH EVERY DAY, # 90 tab(s), 3 Refill(s), Pharmacy: [facility], 170.2, cm, 02/16/24 7:41:00 EDT, [...] qDay, # 90 tab(s), 3 Refill(s), Pharmacy: [facility], Hypertension Type 2 diabetes mellitus, 170.2, cm, 06/24/22 9:30:00 EST, Height, kg, 06/24/22 9:30:00 EST, Dosing Weight Start Date: 07/25/22 Status: Ordered Start: 01-15-2021 amLODIPine 5 m g oral tablet Dose : 5 mg = 1 tab(s), Oral, qDay, # 90 tab(s), 3 Refill(s), Pharmacy: [facility], Hypertension Type 2 diabetes mellitus, 171.5, cm, 09/15/20 10:04:00 EDT, Height, kg, 09/15/20 10:04:00 EDT, Dosing Weight Start Date: 01/15/21 Status: Ordered apixaban 2.5 mg oral tablet (3 sources) Factor Xa Inhibitor Start: 06-21-2023 Eliquis 2. 5 mg oral tablet Dose : 2.5 mg = 1 tab(s), Oral, BID, # 60 tab(s), 2 Refill(s), Pharmacy: [facility], 170, cm, 05/22/23 14:08:00 EST, Height, 74.6, kg, 05/22/23 14:08:00 EST, Dosing Weight Start Date: 06/21/23 Status: Ordered Start: 05-10-2023 Eliquis 2.5 mg oral tablet Dose : 2.5 mg = 1 tab(s), Oral, BID, # 60 tab(s), 0 Refill(s), Pharmacy: [facility], 170.2, cm, 04/14/23 15:12:00 EST, Height, [...] 09-23-2022 DME MISCellane ous See Instructions, Libre2 Rosanky Use to scan Edward sensor at least once every 8 hours, # 1 EA, 0 Refill(s), Pharmacy: [facility], 170.2, cm, 09/23/22 11:04:00 EDT, Height, 72.9 Start Date: 09/23/22 Status: Ordered Start: 09-23-2022 DME MISCellane ous See Instructions, Libre2 Sensors. Apply one sensor to back of arm once every 14 days, # 2 EA, 11 Refill(s), Pharmacy: [facility], 170.2, cm, 09/23/22 11:04:00 EDT, Height, 72.9 Start Date: 09/23/22 Status: Ordered doxycycline hyclate 100 mg oral capsule (2 sources) Tetracycline-class Drug Start: 01-29-2024 End: 02-05-2024 doxycycline hyclate 100 mg oral capsule Dose : 100 mg = 1 cap(s), Oral, BID, X 7 day(s), # 14 cap(s), 0 Refill(s), 02/05/24 12:25:00 PM EDT, Pharmacy: [facility]/pharmacy #[id number], Acute rhinosinusitis, 169, cm, 01/29/24 11:38:00 EDT, [...] sites, # 2 mL, 6 Refill(s), Pharmacy: [facility], 170.2, cm, [...] sites, # 2 mL, 3 Refill(s), [facility], cm, 08/21/23 11:26:00 EDT, Height, kg, 09/18/23 11:16:00 EDT, Dosing Weight Start Date: 11/22/23 Status: Ordered Start: 06-23-2023 inject 0.5 mL by sub cutaneous injection every week Trulicity Pen 3 mg/0.5 mL subcutaneous solution Dose : 3 mg = 0.5 mL, Subcutaneous, qWeek, rotate injection sites, # 2 mL, 4 Refill(s), 0.5 mL/Pen, Pharmacy: [facility], 170, cm, 05/22/23 14:08:00 EST, Height, kg, 05/22/23 14:08:00 EST, Dosing Weight Start Date: 06/23/23 Status: Ordered Start: 05-25-2023 inject 0.5 mL by sub cutaneous injection every week Trulicity Pen 0.75 mg/0.5 mL subcutaneous solution Dose : 0.75 mg = 0.5 mL, Subcutaneous, qWeek, rotate injection sites, # 2 mL, 3 Refill(s), 0.5 mL/Pen, Pharmacy: [facility], 170, cm, 05/22/23 14:08:00 EST, Height, kg, 05/22/23 14:08:00 EST, Dosing Weight Start Date: 05/25/23 Status: Ordered Start: 08-26-2022 inject 0.5 mL by sub cutaneous injection every week Trulicity Pen 1.5 mg/0.5 mL subcutaneous solution Dose : 1.5 mg = 0.5 mL, Subcutaneous, qWeek, rotate injection sites, # 2 mL, 6 Refill(s), Pharmacy: [facility], 170.2, cm, 06/24/22 9:30:00 EST, Height Start Date: 08/26/22 Status: Ordered Start: 08-20-2021 Trulicity Pen 0.75 mg/0.5 mL subcutaneous solution Dose : 0.75 mg = 0.5 mL, Subcutaneous, qWeek, Patient is receiving medication through [facility] Patient Assistance Program., 0.5 mL/Pen [...] using, # 16 gram(s), 0 Refill(s), Pharmacy: [facility]/pharmacy #[id number], Acute rhinosinusitis, 169, cm, 01/29/24 11:38:00 [...] supply, # 2 EA, 11 Refill(s), Pharmacy: [facility], 170.2, cm, 02/16/24 7:41:00 [...] supply, # 2 EA, 5 Refill(s), Pharmacy: [facility], 170, cm, 08/21/23 11:26:00 [...] Date: 02/16/24 Status: Ordered FreeStyle Edward 3 Rosanky (2 sources) Start: 03-25-2024 FreeStyle Libr e 3 Rosanky See Instructions, Use reader to scan sensor once with every new sensor. Keep reader within 33 feet of the sensor and transmitter for daily blood sugar checks, # 1 EA, 0 Refill(s), Pharmacy: [facility], 170.2, cm, 02/16/24 7:41:00 EDT, Height, [...] checks., # 2 EA, 6 Refill(s), Pharmacy: [facility], 170.2, cm, 02/16/24 7:41:00 EDT, Height, 74.9, kg, 03/25/24 10:52:00 EDT, Dosing Weight Start Date: 03/25/24 Status: Ordered Quantity: 2.0 Unit: EA Repeat number: 7 furosemide 20 mg oral tablet (6 sources) Loop Diuretic Start: 08-22-2024 End: 11-30-2024 Lasix 20 mg oral tablet Dose : 10 mg = 0.5 tab(s), Oral, qDay, # 50 tab(s), 0 Refill(s), Pharmacy: [facility]/pharmacy #[id number], HTN - Hypertension Peripheral edema, 163.2, cm, [...] qDay, # 180 tab(s), 2 Refill(s), Pharmacy: [facility], 170.2, cm, 02/16/24 7:41:00 [...] qDay, # 60 tab(s), 1 Refill(s), Pharmacy: [facility], 169, cm, 01/05/24 9:04:00 EDT, Height, kg, 01/05/24 9:04:00 EDT, Dosing Weight Start Date: 01/08/24 Status: Ordered Start: 08-04-2023 glipiZIDE 10 m g oral tablet, extended release Dose : 10 mg = 1 tab(s), Oral, qDay, Take with food, # 30 tab(s), 0 Refill(s), Pharmacy: [facility]/pharmacy #[id number], 170, cm, 05/22/23 14:08:00 EST, Height, [...] 0 Refill(s), 02/08/24 12:25:00 PM EDT, Pharmacy: [facility]/pharmacy #[id number], Acute rhinosinusitis Acute bronchitis, 169, cm, 01/29/24 [...] BID, # 360 tab(s), 3 Refill(s), Pharmacy: [facility], 170, cm, 08/21/23 11:26:00 EDT, Height, kg, 09/18/23 11:16:00 EDT, Dosing Weight Start Date: 09/19/23 Status: Ordered Start: 09-02-2022 metFORMIN 500 mg oral tablet (IR) Dose : 1,000 mg = 2 tab(s), Oral, BID, # 360 tab(s), 3 Refill(s), Pharmacy: [facility], 170.2, cm, 06/24/22 9:30:00 EST, Height, kg, 06/24/22 9:30:00 EST, Dosing Weight Start Date: 09/02/22 Status: Ordered Start: 01-15-2021 metFORMIN 500 mg oral tablet (IR) Dose : 1,000 mg = 2 tab(s), Oral, BID, # 360 tab(s), 3 Refill(s), [facility]: [facility] [facility], Type 2 diabetes mellitus, 171.5, cm, 09/15/20 10:04:00 EDT, Height, kg, 09/15/20 10:04:00 EDT, Dosing Weight Start Date: 01/15/21 Status: Ordered [facility] Medication (2 sources) Start: 03-13-2024 [facility] [place] vitamins and things-for some reason they [...] BID, # 30 tab(s), 2 Refill(s), Pharmacy: [facility] Urinary incontinence Nocturia, 171.5, cm, 03/12/21 9:47:00 EDT, Height, kg, 03/12/21 9:47:00 EDT, Dosing Weight Start Date: 03/12/21 Status: Ordered polyethylene glycol 3350 17554 mg powder for oral solution (1 source) Osmotic Laxative Start: 02-17-2024 End: 03-18-2024 MiraLax oral powder for reconstitution Dose : 17 gram(s) =, Oral, qDay, May take every other day if having loose stools, X 30 day(s), # 255 gram(s), 0 Refill(s), 03/18/24 9:49:00 AM EDT, Pharmacy: [facility]/pharmacy #[id number], 170.2, cm, 02/16/24 7:41:00 EDT, Height, [...] day(s), # 10 tab(s), 0 Refill(s), Pharmacy: [facility]/pharmacy #[id number], 163.2, cm, 09/27/24 10:39:00 EDT, Height, [...] DAY, # 180 cap(s), 1 Refill(s), Pharmacy: [facility], 170.2, cm, 02/16/24 7:41:00 EDT, Height, kg, 03/25/24 10:52:00 EDT, Dosing Weight Start Date: 05/22/24 Status: Ordered Quantity: 180.0 Unit: cap(s) Repeat number: 2 Start: 02-16-2024 take 1 capsule by mo [facility] twice daily tolterodine 2 mg oral capsule, extended release TAKE 1 CAPSULE BY MOUTH TWICE A DAY Start Date: 02/16/24 Status: Ordered Start: 08-01-2023 End: 11-29-2023 take 1 capsule by mouth twice daily tolterodine 2 mg oral capsule, extended release 1 cap(s), Oral, BID, # 60 cap(s), 3 Refill(s), JANICE, Pharmacy: [facility], 170, cm, 05/22/23 14:08:00 EST, Height, kg, 05/22/23 14:08:00 EST, Dosing Weight Start Date: 08/01/23 Stop Date: 11/29/23 Status: Ordered Start: 12-29-2022 End: 04-28-2023 take 1 capsule by mouth twice daily tolterodine 2 mg oral capsule, extended release 1 cap(s), Oral, BID, # 60 cap(s), 3 Refill(s), JANICE, Pharmacy: [facility], 170.2, cm, 12/23/22 8:59:00 EDT, Height, kg, 12/23/22 8:59:00 EDT, Dosing Weight Start Date: 12/29/22 Stop Date: 04/28/23 Status: Ordered Start: 10-07-2021 tolterodine 2 mg oral capsule, extended release Dose : 2 mg = 1 cap(s), Oral, qDay, # 30 cap(s), 11 Refill(s), [facility]acy: [facility] [facility], 170.2, cm, 06/22/21 9:33:00 EST, Height [...] BID, # 60 cap(s), 0 Refill(s), Pharmacy: [facility], Peripheral neuropathy, 170.2, cm, 10/15/21 9:37:00 EDT, Height, 66.9 Start Date: 10/15/21 Stop Date: 11/14/21 Status: Ordered meloxicam 15 mg oral tablet (3 sources) Nonsteroidal Anti-inflammatory Drug Start: 10-17-2022 End: 10-24-2022 meloxicam 15 mg oral tablet Dose : 15 mg = 1 tab(s), Oral, qDay, # 7 tab(s), 0 Refill(s), Pharmacy: [facility]/pharmacy #[id number], Bursitis of left knee Left hip pain, [...] Urinary incontinence 03-14-2017 Chronic Heart valve disorders (11 sources) Heart murmur; Translations: [Other abnormalities of heart beat] Onset: 04-08-2005-22-2023 Episodic Mycoses (16 sources) Onychomycosis 10-15-2021 Episodic Osteoarthritis (20 sources) Arthritis; Translations: [Osteoarthritis of knee] 03-14-2017 Chronic 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 (2 sources) detention (current) use of oral hypoglycemic drugs; Translations: [detention (current) use of oral hypoglycemic drugs] Onset: 05-11-20 Other connective tissue disease (1 source) Iliotibial band friction syndrome of left knee; Translations: [Iliotibial band syndrome, left leg] Episodic Other connective tissue disease (14 sources) Bursitis of left knee 10-17-2022 Episodic Other gastrointestinal disorders (2 sources) Constipation, unspecified; Translations: [Constipation, unspecified] Onset: 02-04-20 Episodic Other hereditary and degenerative nervous system conditions (1 source) Mild cognitive impairment, so stated; Translations: [Mild cognitive impairment of uncertain or unknown etiology] Onset: 04-14-20 Chronic Other nervous system disorders (2 sources) [...] Peripheral edema 08-22-2024 Episodic Residual codes; unclassified (2 sources) Localized edema; Translations: [Localized edema] Onset: 04-08-20 Episodic Spondylosis; intervertebral disc disorders; other back [...] 09-27-2024 09-27-2024 Episodic 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 (2 sources) ocean transportation intermediary (current) use of aspirin; Translations: [ocean transportation intermediary (current) use of aspirin] Onset: 05-11-2018 Episodic [...] Range Facility Basic Metabolic Profile (BMP )on 03-31-2025 BUN/CRE 22.8 RATIO High 10-20 [facility] Comment on above: Order Comment: 403 Performed By: #### L [id number], L100.0500, [id number], [id number] #### [facility] [address] [place], [address] Calcium [Mass/Vol] 9.7 mg/dL Normal 7.6-11.0 [facility] Comment on above: Order Comment: 403 Performed By: #### L [id number], L100.0500, [id number], [id number] #### [facility] [address] [place], [address] Chloride [Moles/Vol] 103 mmol/L Normal 98-108 [facility] Comment on above: Order Comment: 403 Performed By: #### L [id number], L100.0500, [id number], [id number] #### [facility] [address] [place], [address] CO2 [Moles/Vol] 24.8 mmol/L Normal 21.0-32.0 [facility] Comment on above: Order Comment: 403 Performed By: #### L [id number], L100.0500, [id number], [id number] #### [facility] [address] [place], [address] Creatinine [Mass/Vol] 0.85 mg/dL Normal 0.70-1.20 [facility] Comment on above: Order Comment: 403 Performed By: #### L [id number], L100.0500, [id number], [id number] #### [facility] [address] [place], [address] GAP 12 Normal 5-15 [facility] Comment on above: Order Comment: 403 Performed By: #### L [id number], L100.0500, [id number], [id number] #### [facility] [address] [place], [address] GFR/1.73 sq M.predicted among non-blacks MDRD (S/P/Bld) [Vol rate/Area] 66 mL/min/{1.73_m2} Normal >60 [facility] Comment on above: Order Comment: 403 Result Comment: mL/m in/1.73m2 CKD-EPI Creatinine Equation (2020) Performed By: #### L [id number], L100.0500, L500.3400, L500.2500 #### [facility] [address] [place], [address] Glucose [Mass/Vol] 157 mg/dL High 70-99 [facility] Comment on above: Order Comment: 403 Performed By: #### L [id number], L100.0500, [id number], L500.2500 #### [facility] [address] [place], [address] Potassium [Moles/Vol] 4.3 mmol/L Normal 3.3-5.1 [facility] Comment on above: Order Comment: 403 Performed By: #### L [id number], L100.0500, L500.3400, [id number] #### [facility] [address] [place], [address] Sodium [Moles/Vol] 140 mmol/L Normal 133-145 [facility] Comment on above: Order Comment: 403 Performed By: #### L [id number], L100.0500, [id number], [id number] #### [facility] [address] [place], [address] Urea nitrogen [Mass/Vol] 19 mg/dL Normal 4-19 [facility] Comment on above: Order Comment: 403 Performed By: #### L [id number], L100.0500, [id number], [id number] #### [facility] [address] [place], [address] CBC-Complete Blood Cnt No Di ffon 03-31-2025 Erythrocyte distribution width (RBC) [Ratio] 12.2 % Normal 11.6-14.6 [facility] Comment on above: Order Comment: 403 Performed By: #### L [id number], L100.0500, L500.3400, L500.2500 #### [facility] [address] [place], [address] Hematocrit (Bld) [Volume fraction] 39.9 % Normal 37-47 [facility] Comment on above: Order Comment: 403 Performed By: #### L 501.5200, L100.0500, L500.3400, L500.2500 #### [facility] [address] [place], [address] Hemoglobin (Bld) [Mass/Vol] 12.9 g/dL Normal 12.0-15.0 [facility] Comment on above: Order Comment: 403 Performed By: #### L [id number], L100.0500, L500.3400, L500.2500 #### [facility] [address] [place], [address] MCH (RBC) [Entitic mass] 30.1 pg Normal 27.0-32.0 [facility] Comment on above: Order Comment: 403 Performed By: #### L [id number], L100.0500, L500.3400, L500.2500 #### [facility] [address] [place], [address] MCHC (RBC) [Mass/Vol] 32.3 g/dL Normal 32-36 [facility] Comment on above: Order Comment: 403 Performed By: #### L [id number], L100.0500, L500.3400, L500.2500 #### [facility] [address] [place], [address] MCV (RBC) [Entitic vol] 93.2 fL Normal 81-99 [facility] Comment on above: Order Comment: 403 Performed By: #### L 501.5200, L100.0500, L500.3400, L500.2500 #### [facility] [address] [place], [address] Platelet mean volume (Bld) [Entitic vol] 10.1 fL Normal 6.2-12.0 [facility] Comment on above: Order Comment: 403 Performed By: #### L 501.5200, L100.0500, L500.3400, L500.2500 #### [facility] [address] [place], [address] Platelets (Bld) [#/Vol] 313 10*3/uL Normal 150-450 [facility] Comment on above: Order Comment: 403 Performed By: #### L 501.5200, L100.0500, L500.3400, L500.2500 #### [facility] [address] [place], [address] RBC (Bld) [#/Vol] 4.28 10*6/uL Normal 4.2-5.4 [facility] Comment on above: Order Comment: 403 Performed By: #### L 501.5200, L100.0500, L500.3400, L500.2500 #### [facility] [address] [place], [address] RDW SD 42.5 fl Normal 35.1-43.9 [facility] Comment on above: Order Comment: 403 Performed By: #### L 501.5200, L100.0500, L500.3400, [id number] #### [facility] [address] [place], [address] WBC (Bld) [#/Vol] 6.8 10*3/uL Normal 4.4-11.0 [facility] Comment on above: Order Comment: 403 Performed By: #### L 501.5200, L100.0500, L500.3400, L500.2500 #### [facility] [address] [place], [address] Liver Profileon 03-31-2025 Albumin [Mass/Vol] 4.1 g/dL Normal 3.4-4.8 [facility] Comment on above: Order Comment: 403 Performed By: #### L 501.5200, L100.0500, L500.3400, L500.2500 #### [facility] [address] [place], [address] ALK PHOS 113 U/L High 35-104 [facility] Comment on above: Order Comment: 403 Performed By: #### L 501.5200, L100.0500, L500.3400, L500.2500 #### [facility] [address] [place], [address] ALT [Catalytic activity/Vol] 25 U/L Normal <=34 [facility] Comment on above: Order Comment: 403 Performed By: #### L 501.5200, L100.0500, L500.3400, L500.2500 #### [facility] [address] [place], [address] AST [Catalytic activity/Vol] 27 U/L Normal <=31 [facility] Comment on above: Order Comment: 403 Performed By: #### L 501.5200, L100.0500, L500.3400, L500.2500 #### [facility] [address] [place], [address] Bilirubin [Mass/Vol] 0.51 mg/dL Normal 0.00-1.30 [facility] Comment on above: Order Comment: 403 Performed By: #### L 501.5200, L100.0500, L500.3400, L500.2500 #### [facility] [address] [place], [address] Bilirubin.direct [Mass/Vol] 0.16 mg/dL Normal 0.00-0.30 [facility] Comment on above: Order Comment: 403 Performed By: #### L 501.5200, L100.0500, L500.3400, L500.2500 #### [facility] [address] [place], [address] Globulin (S) [Mass/Vol] 3.4 g/dL Normal 2.2-4.2 [facility] Comment on above: Order Comment: 403 Performed By: #### L 501.5200, L100.0500, L500.3400, L500.2500 #### [facility] [address] [place], [address] T PROT 7.5 g/dL Normal 5.9-8.4 [facility] Comment on above: Order Comment: 403 Performed By: #### L 501.5200, L100.0500, L500.3400, L500.2500 #### [facility] [address] [place], [address] Magnesiumon 03-31-2025 Magnesium [Mass/Vol] 2.1 mg/dL Normal 1.5-2.2 [facility] Comment on above: Order Comment: 403 Performed By: #### L 501.5200, L100.0500, L500.3400, L500.2500 #### [facility] [address] [place], [address] CBC-Complete Blood Cnt No Di ffon 03-24-2025 Erythrocyte distribution width (RBC) [Ratio] 12.5 % Normal 11.6-14.6 [facility] Comment on above: Order Comment: 403.1 Performed By: #### L 500.4050, L100.0500, L501.9985 #### [facility] [address] [place], [address] Hematocrit (Bld) [Volume fraction] 34.9 % Low 37-47 [facility] Comment on above: Order Comment: 403.1 Performed By: #### L 500.4050, L100.0500, [id number] #### [facility] [address] [place], [address] Hemoglobin (Bld) [Mass/Vol] 12.1 g/dL Normal 12.0-15.0 [facility] Comment on above: Order Comment: 403.1 Performed By: #### L 500.4050, L100.0500, [id number] #### [facility] [address] [place], [address] MCH (RBC) [Entitic mass] 31.7 pg Normal 27.0-32.0 [facility] Comment on above: Order Comment: 403.1 Performed By: #### L 500.4050, L100.0500, [id number] #### [facility] [address] [place], [address] MCHC (RBC) [Mass/Vol] 34.7 g/dL Normal 32-36 [facility] Comment on above: Order Comment: 403.1 Performed By: #### L 500.4050, L100.0500, [id number] #### [facility] [address] [place], [address] MCV (RBC) [Entitic vol] 91.4 fL Normal 81-99 [facility] Comment on above: Order Comment: 403.1 Performed By: #### L 500.4050, L100.0500, [id number] #### [facility] [address] [place], [address] Platelet mean volume (Bld) [Entitic vol] 10.1 fL Normal 6.2-12.0 [facility] Comment on above: Order Comment: 403.1 Performed By: #### L 500.4050, L100.0500, [id number] #### [facility] [address] [place], [address] Platelets (Bld) [#/Vol] 292 10*3/uL Normal 150-450 [facility] Comment on above: Order Comment: 403.1 Performed By: #### L 500.4050, L100.0500, [id number] #### [facility] [address] [place], [address] RBC (Bld) [#/Vol] 3.82 10*6/uL Low 4.2-5.4 [facility] Comment on above: Order Comment: 403.1 Performed By: #### L 500.4050, L100.0500, [id number] #### [facility] [address] [place], [address] RDW SD 41.4 fl Normal 35.1-43.9 [facility] Comment on above: Order Comment: 403.1 Performed By: #### L 500.4050, L100.0500, [id number] #### [facility] [address] [place], [address] WBC (Bld) [#/Vol] 6.3 10*3/uL Normal 4.4-11.0 [facility] Comment on above: Order Comment: 403.1 Performed By: #### L 500.4050, L100.0500, [id number] #### [facility] [address] [place], [address] Comprehensive Metabolic Prof ilon 03-24-2025 Albumin [Mass/Vol] 3.8 g/dL Normal 3.4-4.8 [facility] Comment on above: Order Comment: 403.1 Performed By: #### L 500.4050, L100.0500, [id number] #### [facility] [address] [place], [address] Albumin/Globulin [Mass ratio] 1.4 {ratio} Normal 0.9-2.4 [facility] Comment on above: Order Comment: 403.1 Performed By: #### L 500.4050, L100.0500, [id number] #### [facility] [address] [place], [address] ALK PHOS 93 U/L Normal 35-104 [facility] Comment on above: Order Comment: 403.1 Performed By: #### L 500.4050, L100.0500, [id number] #### [facility] [address] [place], [address] ALT [Catalytic activity/Vol] 31 U/L Normal <=34 [facility] Comment on above: Order Comment: 403.1 Performed By: #### L 500.4050, L100.0500, [id number] #### [facility] [address] [place], [address] AST [Catalytic activity/Vol] 34 U/L High <=31 [facility] Comment on above: Order Comment: 403.1 Performed By: #### L 500.4050, L100.0500, [id number] #### [facility] [address] [place], [address] Bilirubin [Mass/Vol] 0.48 mg/dL Normal 0.00-1.30 [facility] Comment on above: Order Comment: 403.1 Performed By: #### L 500.4050, L100.0500, [id number] #### [facility] [address] [place], [address] BUN/CRE 28.2 RATIO High 10-20 [facility] Comment on above: Order Comment: 403.1 Performed By: #### L 500.4050, L100.0500, [id number] #### [facility] [address] [place], [address] Calcium [Mass/Vol] 9.5 mg/dL Normal 7.6-11.0 [facility] Comment on above: Order Comment: 403.1 Performed By: #### L 500.4050, L100.0500, [id number] #### [facility] [address] [place], [address] Chloride [Moles/Vol] 103 mmol/L Normal 98-108 [facility] Comment on above: Order Comment: 403.1 Performed By: #### L 500.4050, L100.0500, [id number] #### [facility] [address] [place], [address] CO2 [Moles/Vol] 23.8 mmol/L Normal 21.0-32.0 [facility] Comment on above: Order Comment: 403.1 Performed By: #### L 500.4050, L100.0500, [id number] #### [facility] [address] [place], [address] Creatinine [Mass/Vol] 0.76 mg/dL Normal 0.70-1.20 [facility] Comment on above: Order Comment: 403.1 Performed By: #### L 500.4050, L100.0500, [id number] #### [facility] [address] [place], [address] GAP 12 Normal 5-15 [facility] Comment on above: Order Comment: 403.1 Performed By: #### L 500.4050, L100.0500, [id number] #### [facility] [address] [place], [address] GFR/1.73 sq M.predicted among non-blacks MDRD (S/P/Bld) [Vol rate/Area] 76 mL/min/{1.73_m2} Normal >60 [facility] Comment on above: Order Comment: 403.1 Result Comment: mL/m in/1.73m2 CKD-EPI Creatinine Equation (2020) Performed By: #### L 500.4050, L100.0500, [id number] #### [facility] [address] [place], [address] Globulin (S) [Mass/Vol] 2.7 g/dL Normal 2.2-4.2 [facility] Comment on above: Order Comment: 403.1 Performed By: #### L 500.4050, L100.0500, [id number] #### [facility] [address] [place], [address] Glucose [Mass/Vol] 139 mg/dL High 70-99 [facility] Comment on above: Order Comment: 403.1 Performed By: #### L 500.4050, L100.0500, [id number] #### [facility] [address] [place], [address] Potassium [Moles/Vol] 4.2 mmol/L Normal 3.3-5.1 [facility] Comment on above: Order Comment: 403.1 Performed By: #### L 500.4050, L100.0500, [id number] #### [facility] [address] [place], [address] Sodium [Moles/Vol] 139 mmol/L Normal 133-145 [facility] Comment on above: Order Comment: 403.1 Performed By: #### L 500.4050, L100.0500, [id number] #### [facility] [address] [place], [address] T PROT 6.5 g/dL Normal 5.9-8.4 [facility] Comment on above: Order Comment: 403.1 Performed By: #### L 500.4050, L100.0500, [id number] #### [facility] [address] [place], [address] Urea nitrogen [Mass/Vol] 21 mg/dL High 09-21 [facility] Comment on above: Order Comment: 403.1 Performed By: #### L 500.4050, L100.0500, [id number] #### [facility] [address] [place], [address] Hemoglobin A1con 03-24-2025 HbA1c (Bld) [Mass fraction] 7.8 % High <=5.6 [facility] Comment on above: Order Comment: 403 Result Comment: Norm al < 5.7 % Prediabetic 5.7 - 6.4 % Diabetic >or= 6.5 % Please note range changes. Performed By: #### L 501.5200, L100.0500, L500.3400, L500.2500 #### [facility] [address] [place], [address] Basic Metabolic Profile (BMP )on 02-04-2025 BUN/CRE 26.3 RATIO High 03-24 [facility] Comment on above: Order Comment: 403 Performed By: #### L 500.2500 #### [facility] [address] [place], [address] Calcium [Mass/Vol] 9.5 mg/dL Normal 7.6-11.0 [facility] Comment on above: Order Comment: 403 Performed By: #### L 500.2500 #### [facility] [address] [place], [address] Chloride [Moles/Vol] 104 mmol/L Normal 98-108 [facility] Comment on above: Order Comment: 403 Performed By: #### L 500.2500 #### [facility] [address] [place], [address] CO2 [Moles/Vol] 21.6 mmol/L Normal 21.0-32.0 [facility] Comment on above: Order Comment: 403 Performed By: #### L 500.2500 #### [facility] [address] [place], [address] Creatinine [Mass/Vol] 0.83 mg/dL Normal 0.70-1.20 [facility] Comment on above: Order Comment: 403 Performed By: #### L 500.2500 #### [facility] [address], [address] GAP 12 Normal 5-15 [facility] Comment on above: Order Comment: 403 Performed By: #### L 500.2500 #### [facility] [address] [place], [address] GFR/1.73 sq M.predicted among non-blacks MDRD (S/P/Bld) [Vol rate/Area] 69 mL/min/{1.73_m2} Normal >60 [facility] Comment on above: Order Comment: 403 Result Comment: mL/m in/1.73m2 CKD-EPI Creatinine Equation (2020) Performed By: #### L 500.2500 #### [facility] [address] [place], [address] Glucose [Mass/Vol] 152 mg/dL High 70-99 [facility] Comment on above: Order Comment: 403 Performed By: #### L 500.2500 #### [facility] [address] [place], [address] Potassium [Moles/Vol] 4.4 mmol/L Normal 3.3-5.1 [facility] Comment on above: Order Comment: 403 Performed By: #### L 500.2500 #### [facility] [address] [place], [address] Sodium [Moles/Vol] 138 mmol/L Normal 133-145 [facility] Comment on above: Order Comment: 403 Performed By: #### L 500.2500 #### [facility] [address] [place], [address] Urea nitrogen [Mass/Vol] 22 mg/dL High 4-19 [facility] Comment on above: Order Comment: 403 Performed By: #### L 500.2500 #### [facility] [address] [place], [address] CBC-Complete Blood Cnt No Di ffon 12-30-2024 Erythrocyte distribution width (RBC) [Ratio] 13.6 % Normal 11.6-14.6 [facility] Comment on above: Order Comment: 403 Performed By: #### L 100.0500, L500.4050, L501.9985 #### [facility] [address] [place], [address] Hematocrit (Bld) [Volume fraction] 34.9 % Low 37-47 [facility] Comment on above: Order Comment: 403 Performed By: #### L 100.0500, L500.4050, L501.9985 #### [facility] [address] [place], [address] Hemoglobin (Bld) [Mass/Vol] 11.5 g/dL Low 12.0-15.0 [facility] Comment on above: Order Comment: 403 Performed By: #### L 100.0500, L500.4050, [id number] #### [facility] [address] [place], [address] MCH (RBC) [Entitic mass] 31.2 pg Normal 27.0-32.0 [facility] Comment on above: Order Comment: 403 Performed By: #### L 100.0500, L500.4050, L501.9985 #### [facility] [address] [place], [address] MCHC (RBC) [Mass/Vol] 33.0 g/dL Normal 32-36 [facility] Comment on above: Order Comment: 403 Performed By: #### L 100.0500, L500.4050, L501.9985 #### [facility] [address] [place], [address] MCV (RBC) [Entitic vol] 94.6 fL Normal 81-99 [facility] Comment on above: Order Comment: 403 Performed By: #### L 100.0500, L500.4050, L501.9985 #### [facility] [address] [place], [address] Platelet mean volume (Bld) [Entitic vol] 10.2 fL Normal 6.2-12.0 [facility] Comment on above: Order Comment: 403 Performed By: #### L 100.0500, L500.4050, L501.9985 #### [facility] [address] [place], [address] Platelets (Bld) [#/Vol] 237 10*3/uL Normal 150-450 [facility] Comment on above: Order Comment: 403 Performed By: #### L 100.0500, L500.4050, L501.9985 #### [facility] [address] [place], [address] RBC (Bld) [#/Vol] 3.69 10*6/uL Low 4.2-5.4 [facility] Comment on above: Order Comment: 403 Performed By: #### L 100.0500, L500.4050, L501.9985 #### [facility] [address] [place], [address] RDW SD 46.9 fl High 35.1-43.9 [facility] Comment on above: Order Comment: 403 Performed By: #### L 100.0500, L500.4050, L501.9985 #### [facility] [address] [place], [address] WBC (Bld) [#/Vol] 6.2 10*3/uL Normal 4.4-11.0 [facility] Comment on above: Order Comment: 403 Performed By: #### L 100.0500, L500.4050, L501.9985 #### [facility] [address] [place], [address] Comprehensive Metabolic Prof [facility] 12-30-2024 Albumin [Mass/Vol] 3.8 g/dL Normal 3.4-4.8 [facility] Comment on above: Order Comment: 403 Performed By: #### L 100.0500, L500.4050, [id number] #### [facility] [address] [place], [address] Albumin/Globulin [Mass ratio] 1.4 {ratio} Normal 0.9-2.4 [facility] Comment on above: Order Comment: 403 Performed By: #### L 100.0500, L500.4050, L501.9985 #### [facility] [address] [place], [address] ALK PHOS 95 U/L Normal 35-104 [facility] Comment on above: Order Comment: 403 Performed By: #### L 100.0500, L500.4050, [id number] #### [facility] [address] [place], [address] ALT [Catalytic activity/Vol] 41 U/L High <=34 [facility] Comment on above: Order Comment: 403 Performed By: #### L 100.0500, L500.4050, L501.9985 #### [facility] [address] [place], [address] AST [Catalytic activity/Vol] 33 U/L High <=31 [facility] Comment on above: Order Comment: 403 Performed By: #### L 100.0500, L500.4050, L501.9985 #### [facility] [address] [place], [address] Bilirubin [Mass/Vol] 0.48 mg/dL Normal 0.00-1.30 [facility] Comment on above: Order Comment: 403 Performed By: #### L 100.0500, L500.4050, L501.9985 #### [facility] [address] [place], [address] BUN/CRE 26.3 RATIO High 10-20 [facility] Comment on above: Order Comment: 403 Performed By: #### L 100.0500, L500.4050, L501.9985 #### [facility] [address] [place], [address] Calcium [Mass/Vol] 9.3 mg/dL Normal 7.6-11.0 [facility] Comment on above: Order Comment: 403 Performed By: #### L 100.0500, L500.4050, [id number] #### [facility] [address] [place], [address] Chloride [Moles/Vol] 105 mmol/L Normal 98-108 [facility] Comment on above: Order Comment: 403 Performed By: #### L 100.0500, L500.4050, [id number] #### [facility] [address] [place], [address] CO2 [Moles/Vol] 20.8 mmol/L Low 21.0-32.0 [facility] Comment on above: Order Comment: 403 Performed By: #### L 100.0500, L500.4050, [id number] #### [facility] [address] [place], [address] Creatinine [Mass/Vol] 0.89 mg/dL Normal 0.70-1.20 [facility] Comment on above: Order Comment: 403 Performed By: #### L 100.0500, L500.4050, [id number] #### [facility] [address] [place], [address] GAP 14 Normal 5-15 [facility] Comment on above: Order Comment: 403 Performed By: #### L 100.0500, L500.4050, L501.9985 #### [facility] [address] [place], [address] GFR/1.73 sq M.predicted among non-blacks MDRD (S/P/Bld) [Vol rate/Area] 63 mL/min/{1.73_m2} Normal >60 [facility] Comment on above: Order Comment: 403 Result Comment: mL/m in/1.73m2 CKD-EPI Creatinine Equation (2020) Performed By: #### L 100.0500, L500.4050, [id number] #### [facility] [address] [place], [address] Globulin (S) [Mass/Vol] 2.6 g/dL Normal 2.2-4.2 [facility] Comment on above: Order Comment: 403 Performed By: #### L 100.0500, L500.4050, L501.9985 #### [facility] [address] [place], [address] Glucose [Mass/Vol] 145 mg/dL High 70-99 [facility] Comment on above: Order Comment: 403 Performed By: #### L 100.0500, L500.4050, L501.9985 #### [facility] [address] [place], [address] Potassium [Moles/Vol] 4.5 mmol/L Normal 3.3-5.1 [facility] Comment on above: Order Comment: 403 Performed By: #### L 100.0500, L500.4050, L501.9985 #### [facility] [address] [place], [address] Sodium [Moles/Vol] 139 mmol/L Normal 133-145 [facility] Comment on above: Order Comment: 403 Performed By: #### L 100.0500, L500.4050, [id number] #### [facility] [address] [place], [address] T PROT 6.4 g/dL Normal 5.9-8.4 [facility] Comment on above: Order Comment: 403 Performed By: #### L 100.0500, L500.4050, [id number] #### [facility] [address] [place], [address] Urea nitrogen [Mass/Vol] 23 mg/dL High 4-19 [facility] Comment on above: Order Comment: 403 Performed By: #### L 100.0500, L500.4050, L501.9985 #### [facility] [address] [place], [address] Hemoglobin A1con 12-30-2024 HbA1c (Bld) [Mass fraction] 7.4 % High <=5.6 [facility] Comment on above: Order Comment: 403 Result Comment: Norm al < 5.7 % Prediabetic 5.7 - 6.4 % Diabetic >or= 6.5 % Please note range changes. Performed By: #### L 100.0500, L500.4050, L501.9985 #### [facility] [address] [place], [address] .Auto Diffon 09-27-2024 Basophil, Absolute 0.0 10 3/mcL Normal 0.0-0.3 [facility] Comment on above: Performed By: #### A DIFF, GFR, CBC, CMP, ANEU #### [address] [address] Basophils/100 WBC (Bld) 0.4 % Normal 0.0-2.5 [facility] Comment on above: Performed By: #### A DIFF, GFR, CBC, CMP, ANEU #### [address] [address] Eosinophil, Absolute 0.0 10 3/mcL Normal 0.0-0.7 [facility] Comment on above: Performed By: #### A DIFF, GFR, CBC, CMP, ANEU #### [address] [address] Eosinophils/100 WBC (Bld) 0.4 % Normal 0.0-6.0 [facility] Comment on above: Performed By: #### A DIFF, GFR, CBC, CMP, ANEU #### [address] [address] Lymphocyte, Absolute 1.6 10 3/mcL Normal 0.9-4.3 [facility] Comment on above: Performed By: #### A DIFF, GFR, CBC, CMP, ANEU #### [address] [address] Lymphocytes/100 WBC (Bld) 16.7 % Low 20.0-40.0 [facility] Comment on above: Performed By: #### A DIFF, GFR, CBC, CMP, ANEU #### [address] [address] Monocyte, Absolute 0.7 10 3/mcL Normal 0.1-1.4 [facility] Comment on above: Performed By: #### A DIFF, GFR, CBC, CMP, ANEU #### [address] [address] Monocytes/100 WBC (Bld) 7.3 % Normal 2.0-13.0 [facility] Comment on above: Performed By: #### A DIFF, GFR, CBC, CMP, ANEU #### [address] [address] Neutrophils/100 WBC (Bld) 75.2 % High 50.0-75.0 [facility] Comment on above: Performed By: #### A DIFF, GFR, CBC, CMP, ANEU #### [address] [address] .GFRon 09-27-2024 Estimated Glomerular Filtration Rate 65 ml/min/1.73sqm Normal [facility] Comment on above: Result Comment: Stages [...] A DIFF, GFR, CBC, CMP, ANEU #### [address] [address] .NEUABSon 09-27-2024 Neutrophil, Absolute 7.2 10 3/mcL Normal 2.3-8.1 [facility] Comment on above: Performed By: #### A DIFF, GFR, CBC, CMP, ANEU #### [address] [address] CBCon 09-27-2024 Erythrocyte distribution width (RBC) [Ratio] 14.1 % Normal 11.5-15.5 [facility] Comment on above: Performed By: #### A DIFF, GFR, CBC, CMP, ANEU #### [address] [address] Hematocrit (Bld) [Volume fraction] 37.8 % Normal 34.0-46.0 [facility] Comment on above: Performed By: #### A DIFF, GFR, CBC, CMP, ANEU #### [address] [address] Hgb 12.6 G/dL Normal 12.0-16.0 [facility] Comment on above: Performed By: #### A DIFF, GFR, CBC, CMP, ANEU #### [address] [address] MCH (RBC) [Entitic mass] 30.8 pg Normal 27.0-33.0 [facility] Comment on above: Performed By: #### A DIFF, GFR, CBC, CMP, ANEU #### [address] [address] MCHC 33.4 G/dL Normal 32.0-36.0 [facility] Comment on above: Performed By: #### A DIFF, GFR, CBC, CMP, ANEU #### [address] [address] MCV (RBC) [Entitic vol] 92.3 fL Normal 80.0-99.0 [facility] Comment on above: Performed By: #### A DIFF, GFR, CBC, CMP, ANEU #### [address] [address] Platelet 235 10 3/mcL Normal 150-450 [facility] Comment on above: Performed By: #### A DIFF, GFR, CBC, CMP, ANEU #### [address] [address] Platelet mean volume (Bld) [Entitic vol] 8.8 fL Normal 6.6-10.5 [facility] Comment on above: Performed By: #### A DIFF, GFR, CBC, CMP, ANEU #### [address] [address] RBC 4.09 10 6/mcL Low 4.10-5.30 [facility] Comment on above: Performed By: #### A DIFF, GFR, CBC, CMP, ANEU #### [address] [address] WBC 9.6 10 3/mcL Normal 4.5-10.8 [facility] Comment on above: Performed By: #### A DIFF, GFR, CBC, CMP, ANEU #### [address] [address] CMPon 09-27-2024 Albumin Level 3.5 G/dL Normal 3.4-4.8 [facility] Comment on above: Performed By: #### A DIFF, GFR, CBC, CMP, ANEU #### [place] [address] Albumin/Globulin [Mass ratio] 0.9 {ratio} Low 1.1-2.5 [facility] Comment on above: Performed By: #### A DIFF, GFR, CBC, CMP, ANEU #### [place] [address] ALP [Catalytic activity/Vol] 135 U/L Normal 40-135 [facility] Comment on above: Performed By: #### A DIFF, GFR, CBC, CMP, ANEU #### [place] [address] ALT [Catalytic activity/Vol] 30 U/L Normal 14-59 [facility] Comment on above: Performed By: #### A DIFF, GFR, CBC, CMP, ANEU #### [place] [address] AST [Catalytic activity/Vol] 22 U/L Normal 10-40 [facility] Comment on above: Performed By: #### A DIFF, GFR, CBC, CMP, ANEU #### [place] [address] Bili Total 1.0 mg/dL Normal 0.2-1.0 [facility] Comment on above: Result Comment: Use of this assay is not recommended for patients undergoing treatment with eltrombopag due to the potential for falsely elevated results. Performed By: #### A DIFF, GFR, CBC, CMP, ANEU #### [address] [address] BUN/Creatinine Ratio 34 ratio High 7-27 [facility] Comment on above: Performed By: #### A DIFF, GFR, CBC, CMP, ANEU #### [address] [address] Calcium [Mass/Vol] 9.5 mg/dL Normal 8.4-10.2 [facility] Comment on above: Performed By: #### A DIFF, GFR, CBC, CMP, ANEU #### [address] [address] Chloride [Moles/Vol] 99 mmol/L Normal 98-107 [facility] Comment on above: Performed By: #### A DIFF, GFR, CBC, CMP, ANEU #### [place] [address] CO2 [Moles/Vol] 27 mmol/L Normal 23-31 [facility] Comment on above: Performed By: #### A DIFF, GFR, CBC, CMP, ANEU #### [address] [address] Creatinine [Mass/Vol] 0.86 mg/dL Normal 0.51-0.95 [facility] Comment on above: Performed By: #### A DIFF, GFR, CBC, CMP, ANEU #### [address] [address] Electrolyte Balance 8.0 mEq/L Normal 4.0-15.0 [facility] Comment on above: Performed By: #### A DIFF, GFR, CBC, CMP, ANEU #### [address] [address] Globulin 3.7 G/dL Normal 2.7-4.4 [facility] Comment on above: Performed By: #### A DIFF, GFR, CBC, CMP, ANEU #### [address] [address] Glucose [Mass/Vol] 359 mg/dL High 83-110 [facility] Comment on above: Performed By: #### A DIFF, GFR, CBC, CMP, ANEU #### [place] [id number] [place], [place] [address] Potassium [Moles/Vol] 5.0 mmol/L Normal 3.5-5.1 [facility] Comment on above: Performed By: #### A DIFF, GFR, CBC, CMP, ANEU #### [address] [place], [place] [address] Sodium [Moles/Vol] 134 mmol/L Low 136-145 [place] Comment on above: Performed By: #### A DIFF, GFR, CBC, CMP, ANEU #### [address] [address] Total Protein 7.2 G/dL Normal 6.4-8.2 [facility] Comment on above: Performed By: #### A DIFF, GFR, CBC, CMP, ANEU #### [address] [address] Urea nitrogen [Mass/Vol] 29 mg/dL High 7-18 [facility] Comment on above: Performed By: #### A DIFF, GFR, CBC, CMP, ANEU #### [address] [address] LABORATORYOrdered By: SYSTEM SYSTEM on 09-27-2024 Albumin [...] Probable Contamination. Suggest recollection if clinically indicated. [facility] .GFRon 08-19-2024 Estimated Glomerular Filtration Rate 50 ml/min/1.73sqm Normal [facility] Comment on above: Result Comment: Stages [...] the eGFR results. Performed By: #### G , BMP #### [address] [address] BMPon 08-19-2024 BUN/Creatinine Ratio 24 ratio Normal 7-27 [facility] Comment on above: Performed By: #### G , BMP #### [address] [address] Calcium [Mass/Vol] 9.9 mg/dL Normal 8.4-10.2 [place] Comment on above: Performed By: #### G FR, BMP #### [address] [address] Chloride [Moles/Vol] 100 mmol/L Normal 98-107 [facility] Comment on above: Performed By: #### G FR, BMP #### [address] [address] CO2 [Moles/Vol] 29 mmol/L Normal 23-31 [facility] Comment on above: Performed By: #### G FR, BMP #### [address] [address] Creatinine [Mass/Vol] 1.08 mg/dL High 0.55-1.02 [facility] Comment on above: Result Comment: Test ing performed on Siemens Dimension EXL analyzer using a modified kinetic Trung technique. Performed By: #### Ana HAMMER, BMP #### [address] [address] Electrolyte Balance 8.0 mEq/L Normal 4.0-15.0 [facility] Comment on above: Performed By: #### Ana HAMMER, BMP #### [address] [address] Glucose [Mass/Vol] 210 mg/dL High 83-110 [place] Comment on above: Performed By: #### Ana HAMMER, BMP #### [address] [address] Potassium [Moles/Vol] 4.8 mmol/L Normal 3.5-5.1 [facility] Comment on above: Performed By: #### Ana HAMMER, BMP #### [address] [address] Sodium [Moles/Vol] 137 mmol/L Normal 136-145 [place] Comment on above: Performed By: #### Ana HAMMER, BMP #### [address] [address] Urea nitrogen [Mass/Vol] 26 mg/dL High 7-18 [facility] Comment on above: Performed By: #### Ana HAMMER, BMP #### [address] [address] LABORATORYOrdered By: Avril Quinones on 02-17-2024 Blood Glucose Testing Reason Routine (02/17/24 12:03 PM) [facility] Glucose [Mass/Vol] 128 mg/dL High 82 - 115 mg/dL [facility] Blood Glucose Testing Reason Routine (02/17/24 7:57 AM) [facility] Glucose [Mass/Vol] 165 mg/dL High 82 - 115 mg/dL [facility] LABORATORYOrdered By: SYSTEM SYSTEM on 02-17-2024 [...] Workflow SS LABORATORYOrdered By: Ileana Kam on 09-13-2024 Blood Glucose Testing Reason Routine (02/16/24 9:29 PM) [facility] Glucose [Mass/Vol] 162 mg/dL High 82 - 115 mg/dL [facility] LABORATORYOrdered By: Jacqueline Brown on 02-16-2024 [...] MDW testing unable to be performed on [id number] instrumentation. UA Leuk Est Negative (02/16/24 4:16 [...] SS .GFRon 01-26-2024 GFR 63 ml/min/1.73sqm Normal [facility] ([place]) Comment on above: Result Comment: GFR Population [...] FR, ANEU, CMP, CBC, PBNP, ADIFF #### [address] [address] GFR Non- 52 ml/min/1.73sqm Normal [facility] ([place]) Comment on above: Result Comment: GFR Population [...] FR, ANEU, CMP, CBC, PBNP, ADIFF #### [address] [address] BMPon 01-26-2024 BUN/Creatinine Ratio 18 ratio Normal 7-27 [facility] ([place]) Comment on above: Performed By: #### G FR, ANEU, CMP, CBC, PBNP, ADIFF #### [address] [address] Calcium [Mass/Vol] 9.3 mg/dL Normal 8.4-10.2 [facility] ([place]) Comment on above: Performed By: #### G FR, ANEU, CMP, CBC, PBNP, ADIFF #### [address] [address] Chloride [Moles/Vol] 101 mmol/L Normal 98-107 [facility] ([place]) Comment on above: Performed By: #### G FR, ANEU, CMP, CBC, PBNP, ADIFF #### [address] [address] CO2 [Moles/Vol] 30 mmol/L Normal 23-31 [facility] ([place]) Comment on above: Performed By: #### G FR, ANEU, CMP, CBC, PBNP, ADIFF #### [address] [address] Creatinine [Mass/Vol] 1.01 mg/dL Normal 0.55-1.02 [facility] ([place]) Comment on above: Performed By: #### G FR, ANEU, CMP, CBC, PBNP, ADIFF #### [address] [address] Electrolyte Balance 7.0 mEq/L Normal 4.0-15.0 [facility] ([place]) Comment on above: Performed By: #### G FR, ANEU, CMP, CBC, PBNP, ADIFF #### [address] [place], [place] [address] Glucose [Mass/Vol] 188 mg/dL High 83-110 [facility] ([place]) Comment on above: Performed By: #### G FR, ANEU, CMP, CBC, PBNP, ADIFF #### [address] [place], [place] [address] Potassium [Moles/Vol] 4.6 mmol/L Normal 3.5-5.1 [facility] ([place]) Comment on above: Performed By: #### G FR, ANEU, CMP, CBC, PBNP, ADIFF #### [address] [place], [place] [address] Sodium [Moles/Vol] 138 mmol/L Normal 136-145 [facility] ([place]) Comment on above: Performed By: #### G FR, ANEU, CMP, CBC, PBNP, ADIFF #### [address] [place], [place] [address] Urea nitrogen [Mass/Vol] 18 mg/dL Normal 7-18 [facility] ([place]) Comment on above: Performed By: #### G FR, ANEU, CMP, CBC, PBNP, ADIFF #### [address] [address] LABORATORYOrdered By: Page Arce on 01-26-2024 Albumin DL <= 20 mg/L (U) [Mass/Vol] 6221 mcg/dL Invalid Interpretation Code AO ADM SS Albumin/Creatinine DL <= 20 mg/L (U) [Mass ratio] 49 mcg/mg High 0 - 30 mcg/mg AO ADM SS Creatinine (U) [Mass/Vol] 127.0 mg/dL High 28.0 - 117.0 mg/dL AO ADM SS LABORATORYOrdered By: BranchOut on 01-26-2024 Calcium [Mass/Vol] 9.3 mg/dL Normal [...] 01-26-2024 U Creatinine 127.0 mg/dL High 28.0-117.0 [facility] ([place]) Comment on above: Performed By: #### G FR, ANEU, CMP, CBC, PBNP, ADIFF #### [address] [address] U Microalb 6221 mcg/dL Normal [facility] ([place]) Comment on above: Performed By: #### G FR, ANEU, CMP, CBC, PBNP, ADIFF #### [address] [address] U Ratio Alb/Cre 49 mcg/mg High 0-30 [facility] ([place]) Comment on above: Performed By: #### G FR, ANEU, CMP, CBC, PBNP, ADIFF #### [address] [address] .Auto Diffon 01-16-2024 Basophil, Absolute 0.1 10 3/mcL Normal 0.0-0.2 [facility] ([place]) Comment on above: Performed By: #### C BC, BMP, PBNP, ADIFF, ANEU, TSH, GFR #### [address] [address] Basophils/100 WBC (Bld) 0.8 % Normal 0.0-2.5 [facility] ([place]) Comment on above: Performed By: #### C BC, BMP, PBNP, ADIFF, ANEU, TSH, GFR #### [address] [address] Eosinophil, Absolute 0.1 10 3/mcL Normal 0.0-0.4 [facility] ([place]) Comment on above: Performed By: #### C BC, BMP, PBNP, ADIFF, ANEU, TSH, GFR #### [address] [address] Eosinophils/100 WBC (Bld) 0.9 % Normal 0.0-7.0 [facility] ([place]) Comment on above: Performed By: #### C BC, BMP, PBNP, ADIFF, ANEU, TSH, GFR #### [address] [address] Lymphocyte, Absolute 1.9 10 3/mcL Normal 0.8-3.9 [facility] ([place]) Comment on above: Performed By: #### C BC, BMP, PBNP, ADIFF, ANEU, TSH, GFR #### [address] [address] Lymphocytes/100 WBC (Bld) 29.0 % Normal 10.0-50.0 [facility] ([place]) Comment on above: Performed By: #### C BC, BMP, PBNP, ADIFF, ANEU, TSH, GFR #### [address] [address] Monocyte, Absolute 0.5 10 3/mcL Normal 0.2-1.0 [facility] ([place]) Comment on above: Performed By: #### C BC, BMP, PBNP, ADIFF, ANEU, TSH, GFR #### [address] [address] Monocytes/100 WBC (Bld) 8.0 % Normal 1.7-13.0 [facility] ([place]) Comment on above: Performed By: #### C BC, BMP, PBNP, ADIFF, ANEU, TSH, GFR #### [address] [address] Neutrophils/100 WBC (Bld) 61.3 % Normal 37.0-80.0 [facility] ([place]) Comment on above: Performed By: #### C BC, BMP, PBNP, ADIFF, ANEU, TSH, GFR #### [address] [address] .GFRon 01-16-2024 GFR 72 ml/min/1.73sqm Normal [facility] ([place]) Comment on above: Result Comment: GFR Population [...] FR, ANEU, CMP, CBC, PBNP, ADIFF #### [address] [address] GFR Non- 59 ml/min/1.73sqm Normal [facility] ([place]) Comment on above: Result Comment: GFR Population [...] FR, ANEU, CMP, CBC, PBNP, ADIFF #### [address] [address] .NEUABSon 01-16-2024 Neutrophil, Absolute 4.1 10 3/mcL Normal 2.9-6.2 [facility] ([place]) Comment on above: Performed By: #### C BC, BMP, PBNP, ADIFF, ANEU, TSH, GFR #### [address] [address] BMPon 01-16-2024 BUN/Creatinine Ratio 20 ratio Normal 7-27 [facility] ([place]) Comment on above: Performed By: #### C BC, BMP, PBNP, ADIFF, ANEU, TSH, GFR #### [address] [address] Calcium [Mass/Vol] 10.0 mg/dL Normal 8.4-10.2 [facility] ([place]) Comment on above: Performed By: #### C BC, BMP, PBNP, ADIFF, ANEU, TSH, GFR #### [address] [address] Chloride [Moles/Vol] 103 mmol/L Normal 98-107 [facility] ([place]) Comment on above: Performed By: #### C BC, BMP, PBNP, ADIFF, ANEU, TSH, GFR #### [address] [address] CO2 [Moles/Vol] 27 mmol/L Normal 23-31 [facility] ([place]) Comment on above: Performed By: #### C BC, BMP, PBNP, ADIFF, ANEU, TSH, GFR #### [address] [address] Creatinine [Mass/Vol] 0.90 mg/dL Normal 0.55-1.02 [facility] ([place]) Comment on above: Performed By: #### C BC, BMP, PBNP, ADIFF, ANEU, TSH, GFR #### [address] [address] Electrolyte Balance 11.0 mEq/L Normal 4.0-15.0 [facility] ([place]) Comment on above: Performed By: #### C BC, BMP, PBNP, ADIFF, ANEU, TSH, GFR #### [address] [address] Glucose [Mass/Vol] 120 mg/dL High 83-110 [facility] ([place]) Comment on above: Performed By: #### C BC, BMP, PBNP, ADIFF, ANEU, TSH, GFR #### [address] [address] Potassium [Moles/Vol] 5.5 mmol/L High 3.5-5.1 [facility] ([place]) Comment on above: Performed By: #### C BC, BMP, PBNP, ADIFF, ANEU, TSH, GFR #### [address] [address] Sodium [Moles/Vol] 141 mmol/L Normal 136-145 [facility] ([place]) Comment on above: Performed By: #### C BC, BMP, PBNP, ADIFF, ANEU, TSH, GFR #### [address] [address] Urea nitrogen [Mass/Vol] 18 mg/dL Normal 7-18 [facility] ([place]) Comment on above: Performed By: #### C BC, BMP, PBNP, ADIFF, ANEU, TSH, GFR #### [address] [address] CBCon 01-16-2024 Erythrocyte distribution width (RBC) [Ratio] 13.8 % Normal 11.5-14.5 [facility] ([place]) Comment on above: Performed By: #### C BC, BMP, PBNP, ADIFF, ANEU, TSH, GFR #### [address] [id number] Hematocrit (Bld) [Volume fraction] 37.2 % Normal 37.0-47.0 [facility] ([place]) Comment on above: Performed By: #### C BC, BMP, PBNP, ADIFF, ANEU, TSH, GFR #### [address] [address] Hgb 12.3 G/dL Normal 12.0-16.0 [facility] ([place]) Comment on above: Performed By: #### C BC, BMP, PBNP, ADIFF, ANEU, TSH, GFR #### [address] [address] MCH (RBC) [Entitic mass] 30.6 pg Normal 27.0-31.2 [facility] ([place]) Comment on above: Performed By: #### C BC, BMP, PBNP, ADIFF, ANEU, TSH, GFR #### [address] [address] MCHC 33.0 G/dL Normal 33.0-37.0 [facility] ([place]) Comment on above: Performed By: #### C BC, BMP, PBNP, ADIFF, ANEU, TSH, GFR #### [address] [address] MCV (RBC) [Entitic vol] 92.7 fL Normal 80.0-94.0 [facility] ([place]) Comment on above: Performed By: #### C BC, BMP, PBNP, ADIFF, ANEU, TSH, GFR #### [address] [address] Platelet 248 10 3/mcL Normal 130-400 [facility] ([place]) Comment on above: Performed By: #### C BC, BMP, PBNP, ADIFF, ANEU, TSH, GFR #### [address] [address] Platelet mean volume (Bld) [Entitic vol] 8.8 fL Normal 7.4-10.4 [facility] ([place]) Comment on above: Performed By: #### C BC, BMP, PBNP, ADIFF, ANEU, TSH, GFR #### [address] [address] RBC 4.01 10 6/mcL Low 4.20-5.40 [facility] ([place]) Comment on above: Performed By: #### C BC, BMP, PBNP, ADIFF, ANEU, TSH, GFR #### [address] [address] WBC 6.6 10 3/mcL Normal 4.6-10.8 [facility] ([place]) Comment on above: Performed By: #### C BC, BMP, PBNP, ADIFF, ANEU, TSH, GFR #### [address] [address] PBNPon 01-16-2024 Natriuretic peptide B (Bld) [Mass/Vol] 189 pg/mL Normal 0-450 [facility] ([place]) Comment on above: Result Comment: NT-p roBNP results of less than 300 pg/mL effectively rules out acute congestive heart failure with 99% negative predictive value. Performed By: #### G FR, ANEU, CMP, CBC, PBNP, ADIFF #### [facility] [address] [place], [place] [address] TSHon 01-16-2024 TSH Qn 1.47 m[IU]/L Normal 0.36-3.74 [facility] ([place]) Comment on above: Performed By: #### G FR, ANEU, CMP, CBC, PBNP, ADIFF #### [address] [place], [place] [address] XR CHEST 2 VIEWSon 4 XR CHEST [...] 08/22/2023 10:25:13 AM Ordering Provider: ALISE Swanson [facility] ([place]) .Auto Diffon 08-18-2023 Basophil, Absolute 0.0 10 3/mcL Normal 0.0-0.2 [facility]) Comment on above: Performed By: #### G FR, ANEU, CMP, CBC, PBNP, ADIFF #### [address] [place], [place] [address] Basophils/100 WBC (Bld) 0.7 % Normal 0.0-2.5 [facility] ([place]) Comment on above: Performed By: #### G FR, ANEU, CMP, CBC, PBNP, ADIFF #### [address] [address] Eosinophil, Absolute 0.0 10 3/mcL Normal 0.0-0.4 [facility] ([place]) Comment on above: Performed By: #### G FR, ANEU, CMP, CBC, PBNP, ADIFF #### [address] [address] Eosinophils/100 WBC (Bld) 0.4 % Normal 0.0-7.0 [facility] ([place]) Comment on above: Performed By: #### G FR, ANEU, CMP, CBC, PBNP, ADIFF #### [address] [address] Lymphocyte, Absolute 1.6 10 3/mcL Normal 0.8-3.9 [facility] ([place]) Comment on above: Performed By: #### G FR, ANEU, CMP, CBC, PBNP, ADIFF #### [address] [address] Lymphocytes/100 WBC (Bld) 23.1 % Normal 10.0-50.0 [facility] ([place]) Comment on above: Performed By: #### G FR, ANEU, CMP, CBC, PBNP, ADIFF #### [address] [address] Monocyte, Absolute 0.5 10 3/mcL Normal 0.2-1.0 [facility] ([place]) Comment on above: Performed By: #### G FR, ANEU, CMP, CBC, PBNP, ADIFF #### [address] [address] Monocytes/100 WBC (Bld) 7.6 % Normal 1.7-13.0 [facility] ([place]) Comment on above: Performed By: #### G FR, ANEU, CMP, CBC, PBNP, ADIFF #### [address] [address] Neutrophils/100 WBC (Bld) 68.2 % Normal 37.0-80.0 [facility] ([place]) Comment on above: Performed By: #### G FR, ANEU, CMP, CBC, PBNP, ADIFF #### [address] [address] .GFRon 08-18-2023 GFR 75 ml/min/1.73sqm Normal [facility] ([place]) Comment on above: Result Comment: GFR Population [...] FR, ANEU, CMP, CBC, PBNP, ADIFF #### [address] [address] GFR Non- 62 ml/min/1.73sqm Normal [facility] ([place]) Comment on above: Result Comment: GFR Population [...] FR, ANEU, CMP, CBC, PBNP, ADIFF #### [address] [address] .NEUABSon 08-18-2023 Neutrophil, Absolute 4.6 10 3/mcL Normal 2.9-6.2 [facility] ([place]) Comment on above: Performed By: #### G FR, ANEU, CMP, CBC, PBNP, ADIFF #### [address] [address] APTTon 08-18-2023 aPTT Coag (Bld) [Time] 31.9 s Normal 25.0-35.0 [facility] ([place]) Comment on above: Result Comment: For Heparin anticoagulation therapy, the recommended therapeutic range is: 50.6-87.4 seconds. Patients on heparin therapy may have an extreme result. Performed By: #### G FR, ANEU, CMP, CBC, PBNP, ADIFF #### [address] [address] Heparin dose (APTT) Unknown Normal [facility] ([place]) Comment on above: Performed By: #### G FR, ANEU, CMP, CBC, PBNP, ADIFF #### [address] [address] BMPon 08-18-2023 BUN/Creatinine Ratio 29 ratio High 7-27 [facility] ([place]) Comment on above: Performed By: #### G FR, ANEU, CMP, CBC, PBNP, ADIFF #### [address] [address] Calcium [Mass/Vol] 9.9 mg/dL Normal 8.4-10.2 [facility] ([place]) Comment on above: Performed By: #### G FR, ANEU, CMP, CBC, PBNP, ADIFF #### [address] [address] Chloride [Moles/Vol] 100 mmol/L Normal 98-107 [facility] ([place]) Comment on above: Performed By: #### G FR, ANEU, CMP, CBC, PBNP, ADIFF #### [address] [address] CO2 [Moles/Vol] 29 mmol/L Normal 23-31 [facility] ([place]) Comment on above: Performed By: #### G FR, ANEU, CMP, CBC, PBNP, ADIFF #### [address] [address] Creatinine [Mass/Vol] 0.87 mg/dL Normal 0.55-1.02 [facility] ([place]) Comment on above: Performed By: #### G FR, ANEU, CMP, CBC, PBNP, ADIFF #### [address] [address] Electrolyte Balance 8.0 mEq/L Normal 4.0-15.0 [facility] ([place]) Comment on above: Performed By: #### G FR, ANEU, CMP, CBC, PBNP, ADIFF #### [address] [address] Glucose [Mass/Vol] 187 mg/dL High 83-110 [facility] ([place]) Comment on above: Performed By: #### G FR, ANEU, CMP, CBC, PBNP, ADIFF #### [address] [address] Potassium [Moles/Vol] 5.4 mmol/L High 3.5-5.1 [facility] ([place]) Comment on above: Performed By: #### G FR, ANEU, CMP, CBC, PBNP, ADIFF #### [address] [address] Sodium [Moles/Vol] 137 mmol/L Normal 136-145 [facility] ([place]) Comment on above: Performed By: #### G FR, ANEU, CMP, CBC, PBNP, ADIFF #### [address] [address] Urea nitrogen [Mass/Vol] 25 mg/dL High 7-18 [facility] ([place]) Comment on above: Performed By: #### G FR, ANEU, CMP, CBC, PBNP, ADIFF #### [address] [address] CBCon 08-18-2023 Erythrocyte distribution width (RBC) [Ratio] 13.8 % Normal 11.5-14.5 [facility] ([place]) Comment on above: Performed By: #### G FR, ANEU, CMP, CBC, PBNP, ADIFF #### [address] [address] Hematocrit (Bld) [Volume fraction] 36.0 % Low 37.0-47.0 [facility] ([place]) Comment on above: Performed By: #### G FR, ANEU, CMP, CBC, PBNP, ADIFF #### [address] [address] Hgb 12.3 G/dL Normal 12.0-16.0 [facility] ([place]) Comment on above: Performed By: #### G FR, ANEU, CMP, CBC, PBNP, ADIFF #### [address] [address] MCH (RBC) [Entitic mass] 30.8 pg Normal 27.0-31.2 [facility] ([place]) Comment on above: Performed By: #### G FR, ANEU, CMP, CBC, PBNP, ADIFF #### [address] [address] MCHC 34.1 G/dL Normal 33.0-37.0 [facility] ([place]) Comment on above: Performed By: #### G FR, ANEU, CMP, CBC, PBNP, ADIFF #### [address] [address] MCV (RBC) [Entitic vol] 90.6 fL Normal 80.0-94.0 [facility] ([place]) Comment on above: Performed By: #### G FR, ANEU, CMP, CBC, PBNP, ADIFF #### [address] [address] Platelet 261 10 3/mcL Normal 130-400 [facility] ([place]) Comment on above: Performed By: #### G FR, ANEU, CMP, CBC, PBNP, ADIFF #### [address] [address] Platelet mean volume (Bld) [Entitic vol] 8.3 fL Normal 7.4-10.4 [facility] ([place]) Comment on above: Performed By: #### G FR, ANEU, CMP, CBC, PBNP, ADIFF #### [address] [place], [place] [address] RBC 3.98 10 6/mcL Low 4.20-5.40 [facility] ([place]) Comment on above: Performed By: #### G FR, ANEU, CMP, CBC, PBNP, ADIFF #### [facility] [address] [place], [place] [address] WBC 6.7 10 3/mcL Normal 4.6-10.8 [facility] ([place]) Comment on above: Performed By: #### G FR, ANEU, CMP, CBC, PBNP, ADIFF #### [address] [place], [place] [address] LABORATORYOrdered By: Jazmin Ascencio on 08-18-2023 aPTT [...] Comment on above: Interpretive Data: Maximiliano sen [employer] (CHEST, 1992, [id number]) [...] Coag (PPP) [Time] 12.0 s Normal 9.0-14.2 [facility] ([place]) Comment on above: Performed By: #### G FR, ANEU, CMP, CBC, PBNP, ADIFF #### [address] [place], [place] [address] PT International Ratio 1.0 Normal [facility] ([place]) Comment on above: Result Comment: [employer] (CHEST, 1992, [id number]) recommended therapeutic range for oral anticoagulant therapy is: LOW RISK: Prophylaxis of venous thrombosis INR: 2.0-3.0 Treatment of pulmonary embolism 2.0-3.0 Prevention of systemic embolism 2.0-3.0 HIGH RISK: Mechanical prosthetic valves 2.5-3.5 Performed By: #### G FR, ANEU, CMP, CBC, PBNP, ADIFF #### [address] [address] CPEPon 08-04-2023 C-Peptide 4.24 ng/mL High 0.81-3.85 [facility] ([place]) Comment on above: Performed By: #### G FR, ANEU, CMP, CBC, PBNP, ADIFF #### [address] [place], [place] [address] LABORATORYOrdered By: SYSTEM SYSTEM on 08-04-2023 C peptide [Mass/Vol] 4.24 ng/mL High 0.81 - 3.85 ng/mL AH ADM SS .Auto Diffon 05-02-2023 Basophil, Absolute 0.1 10 3/mcL Normal 0.0-0.2 [facility] ([place]) Comment on above: Performed By: #### G FR, ANEU, CMP, CBC, PBNP, ADIFF #### [address] [address] Basophils/100 WBC (Bld) 0.9 % Normal 0.0-2.5 [facility] ([place]) Comment on above: Performed By: #### G FR, ANEU, CMP, CBC, PBNP, ADIFF #### [address] [address] Eosinophil, Absolute 0.1 10 3/mcL Normal 0.0-0.4 [facility] ([place]) Comment on above: Performed By: #### G FR, ANEU, CMP, CBC, PBNP, ADIFF #### [address] [address] Eosinophils/100 WBC (Bld) 1.3 % Normal 0.0-7.0 [facility] ([place]) Comment on above: Performed By: #### G FR, ANEU, CMP, CBC, PBNP, ADIFF #### [address] [address] Lymphocyte, Absolute 1.7 10 3/mcL Normal 0.8-3.9 [facility] ([place]) Comment on above: Performed By: #### G FR, ANEU, CMP, CBC, PBNP, ADIFF #### [address] [address] Lymphocytes/100 WBC (Bld) 23.2 % Normal 10.0-50.0 [facility] ([place]) Comment on above: Performed By: #### G FR, ANEU, CMP, CBC, PBNP, ADIFF #### [address] [address] Monocyte, Absolute 0.6 10 3/mcL Normal 0.2-1.0 [facility] ([place]) Comment on above: Performed By: #### G FR, ANEU, CMP, CBC, PBNP, ADIFF #### [address] [address] Monocytes/100 WBC (Bld) 8.4 % Normal 1.7-13.0 [facility] ([place]) Comment on above: Performed By: #### G FR, ANEU, CMP, CBC, PBNP, ADIFF #### [address] [address] Neutrophils/100 WBC (Bld) 66.2 % Normal 37.0-80.0 [facility] ([place]) Comment on above: Performed By: #### G FR, ANEU, CMP, CBC, PBNP, ADIFF #### [address] [place], [place] [address] .GFRon 05-02-2023 GFR 75 ml/min/1.73sqm Normal [facility] ([place]) Comment on above: Result Comment: GFR Population [...] FR, ANEU, CMP, CBC, PBNP, ADIFF #### [address] [place], [place] [address] GFR Non- 62 ml/min/1.73sqm Normal [facility] ([place]) Comment on above: Result Comment: GFR Population [...] FR, ANEU, CMP, CBC, PBNP, ADIFF #### [address] [address] .NEUABSon 05-02-2023 Neutrophil, Absolute 4.9 10 3/mcL Normal 2.9-6.2 [facility] ([place]) Comment on above: Performed By: #### G FR, ANEU, CMP, CBC, PBNP, ADIFF #### [address] [address] APTTon 05-02-2023 aPTT Coag (Bld) [Time] 33.0 s Normal 25.0-35.0 [facility] ([place]) Comment on above: Result Comment: For Heparin anticoagulation therapy, the recommended therapeutic range is: 50.6-87.4 seconds. Patients on heparin therapy may have an extreme result. Performed By: #### G FR, ANEU, CMP, CBC, PBNP, ADIFF #### [address] [address] Heparin dose (APTT) Unknown Normal [facility] ([place]) Comment on above: Performed By: #### G FR, ANEU, CMP, CBC, PBNP, ADIFF #### [address] [address] BMPon 05-02-2023 BUN/Creatinine Ratio 26 ratio Normal 7-27 [facility]ly [facility], later [facility] ([place]) Comment on above: Performed By: #### G FR, ANEU, CMP, CBC, PBNP, ADIFF #### [address] [address] Calcium [Mass/Vol] 9.4 mg/dL Normal 8.4-10.2 [facility] ([place]) Comment on above: Performed By: #### G FR, ANEU, CMP, CBC, PBNP, ADIFF #### [address] [address] Chloride [Moles/Vol] 102 mmol/L Normal 98-107 [facility] ([place]) Comment on above: Performed By: #### G FR, ANEU, CMP, CBC, PBNP, ADIFF #### [address] [address] CO2 [Moles/Vol] 29 mmol/L Normal 23-31 [facility] ([place]) Comment on above: Performed By: #### G FR, ANEU, CMP, CBC, PBNP, ADIFF #### [address] [address] Creatinine [Mass/Vol] 0.87 mg/dL Normal 0.55-1.02 [facility] ([place]) Comment on above: Performed By: #### G FR, ANEU, CMP, CBC, PBNP, ADIFF #### [address] [address] Electrolyte Balance 8.0 mEq/L Normal 4.0-15.0 [facility] ([place]) Comment on above: Performed By: #### G FR, ANEU, CMP, CBC, PBNP, ADIFF #### [address] [address] Glucose [Mass/Vol] 187 mg/dL High 83-110 [facility] ([place]) Comment on above: Performed By: #### G FR, ANEU, CMP, CBC, PBNP, ADIFF #### [address] [address] Potassium [Moles/Vol] 5.3 mmol/L High 3.5-5.1 [facility] ([place]) Comment on above: Performed By: #### G FR, ANEU, CMP, CBC, PBNP, ADIFF #### [address] [address] Sodium [Moles/Vol] 139 mmol/L Normal 136-145 [facility] ([place]) Comment on above: Performed By: #### G FR, ANEU, CMP, CBC, PBNP, ADIFF #### [address] [address] Urea nitrogen [Mass/Vol] 23 mg/dL High 7-18 [facility] ([place]) Comment on above: Performed By: #### G FR, ANEU, CMP, CBC, PBNP, ADIFF #### [address] [address] CBCon 05-02-2023 Erythrocyte distribution width (RBC) [Ratio] 13.5 % Normal 11.5-14.5 [facility] ([place]) Comment on above: Performed By: #### G FR, ANEU, CMP, CBC, PBNP, ADIFF #### [address] [address] Hematocrit (Bld) [Volume fraction] 37.0 % Normal 37.0-47.0 [facility] ([place]) Comment on above: Performed By: #### G FR, ANEU, CMP, CBC, PBNP, ADIFF #### [address] [address] Hgb 12.3 G/dL Normal 12.0-16.0 [facility] ([place]) Comment on above: Performed By: #### G FR, ANEU, CMP, CBC, PBNP, ADIFF #### [address] [address] MCH (RBC) [Entitic mass] 30.6 pg Normal 27.0-31.2 [facility] ([place]) Comment on above: Performed By: #### G FR, ANEU, CMP, CBC, PBNP, ADIFF #### [address] [address] MCHC 33.4 G/dL Normal 33.0-37.0 [facility] ([place]) Comment on above: Performed By: #### G FR, ANEU, CMP, CBC, PBNP, ADIFF #### [address] [address] MCV (RBC) [Entitic vol] 91.8 fL Normal 80.0-94.0 [facility] ([place]) Comment on above: Performed By: #### G FR, ANEU, CMP, CBC, PBNP, ADIFF #### [address] [address] Platelet 336 10 3/mcL Normal 130-400 [facility] ([place]) Comment on above: Performed By: #### G FR, ANEU, CMP, CBC, PBNP, ADIFF #### [address] [address] Platelet mean volume (Bld) [Entitic vol] 7.8 fL Normal 7.4-10.4 [facility] ([place]) Comment on above: Performed By: #### G FR, ANEU, CMP, CBC, PBNP, ADIFF #### [address] [address] RBC 4.03 10 6/mcL Low 4.20-5.40 [facility] ([place]) Comment on above: Performed By: #### G FR, ANEU, CMP, CBC, PBNP, ADIFF #### [address] [address] WBC 7.4 10 3/mcL Normal 4.6-10.8 [facility] ([place]) Comment on above: Performed By: #### G FR, ANEU, CMP, CBC, PBNP, ADIFF #### [address] [address] PROon 05-02-2023 PT Coag (PPP) [Time] 11.6 s Normal 9.0-14.2 [facility]) Comment on above: Performed By: #### G FR, ANEU, CMP, CBC, PBNP, ADIFF #### [address] [address] PT International Ratio 1.0 Normal [facility] ([place]) Comment on above: Result Comment: The [employer] (CHEST, 1992, 102:312S-25S) recommended therapeutic range for oral anticoagulant therapy is: LOW RISK: Prophylaxis of venous thrombosis INR: 2.0-3.0 Treatment of pulmonary embolism 2.0-3.0 Prevention of systemic embolism 2.0-3.0 HIGH RISK: Mechanical prosthetic valves 2.5-3.5 Performed By: #### G FR, ANEU, CMP, CBC, PBNP, ADIFF #### [address] [address] XR CHEST 2 VIEWSon 3 XR CHEST [...] pulmonary process. Question lung hyperexpansion/COPD. Interpreted by: oJse Matthew MD Preliminary Report By: Jose Matthew MD Electronically signed By Jose Matthew MD Dictated Date: 05/02/2023 5:03:10 PM Prelim Date: 05/02/2023 5:04:28 PM Sign Date: 05/02/2023 5:04:28 PM Ordering Provider: ALISE FLOWERS Normal [facility] ([place]) .GFRon 04-17-2023 GFR 78 ml/min/1.73sqm Normal [facility] ([place]) Comment on above: Result Comment: GFR Population [...] ANEU, CMP, CBC, PBNP, ADIFF #### Tiff[place] [address] [address] GFR Non- 64 ml/min/1.73sqm Normal [facility] ([place]) Comment on above: Result Comment: GFR Population [...] FR, ANEU, CMP, CBC, PBNP, ADIFF #### [address] [address] BMPon 04-17-2023 BUN/Creatinine Ratio 24 ratio Normal 7-27 [facility] ([place]) Comment on above: Order Comment: STAT Performed By: #### G FR, ANEU, CMP, CBC, PBNP, ADIFF #### [address] [address] Calcium [Mass/Vol] 9.3 mg/dL Normal 8.4-10.2 [facility] ([place]) Comment on above: Order Comment: STAT Performed By: #### G FR, ANEU, CMP, CBC, PBNP, ADIFF #### [address] [address] Chloride [Moles/Vol] 98 mmol/L Normal 98-107 [facility] ([place]) Comment on above: Order Comment: STAT Performed By: #### G FR, ANEU, CMP, CBC, PBNP, ADIFF #### [address] [address] CO2 [Moles/Vol] 26 mmol/L Normal 23-31 [facility] ([place]) Comment on above: Order Comment: STAT Performed By: #### G FR, ANEU, CMP, CBC, PBNP, ADIFF #### [address] [address] Creatinine [Mass/Vol] 0.84 mg/dL Normal 0.55-1.02 [facility] ([place]) Comment on above: Order Comment: STAT Performed By: #### G FR, ANEU, CMP, CBC, PBNP, ADIFF #### [address] [address] Electrolyte Balance 12.0 mEq/L Normal 4.0-15.0 [facility] ([place]) Comment on above: Order Comment: STAT Performed By: #### G FR, ANEU, CMP, CBC, PBNP, ADIFF #### [address] [address] Glucose [Mass/Vol] 126 mg/dL High 83-110 [facility] ([place]) Comment on above: Order Comment: STAT Performed By: #### G FR, ANEU, CMP, CBC, PBNP, ADIFF #### [address] [address] Potassium [Moles/Vol] 4.4 mmol/L Normal 3.5-5.1 [facility] ([place]) Comment on above: Order Comment: STAT Performed By: #### G FR, ANEU, CMP, CBC, PBNP, ADIFF #### [address] [address] Sodium [Moles/Vol] 136 mmol/L Normal 136-145 [facility] ([place]) Comment on above: Order Comment: STAT Performed By: #### G FR, ANEU, CMP, CBC, PBNP, ADIFF #### [address] [address] Urea nitrogen [Mass/Vol] 20 mg/dL High 7-18 [facility] ([place]) Comment on above: Order Comment: STAT Performed By: #### G FR, ANEU, CMP, CBC, PBNP, ADIFF #### [address] [address] LABORATORYOrdered By: SYSTEM SYSTEM on 04-17-2023 Calcium [...] Basophil, Absolute 0.1 10 3/mcL Normal 0.0-0.2 [facility] ([place]) Comment on above: Performed By: #### G FR, ANEU, CMP, CBC, PBNP, ADIFF #### [address] [address] Basophils/100 WBC (Bld) 0.9 % Normal 0.0-2.5 [facility] ([place]) Comment on above: Performed By: #### G FR, ANEU, CMP, CBC, PBNP, ADIFF #### [address] [address] Eosinophil, Absolute 0.1 10 3/mcL Normal 0.0-0.4 [facility] ([place]) Comment on above: Performed By: #### G FR, ANEU, CMP, CBC, PBNP, ADIFF #### [address] [address] Eosinophils/100 WBC (Bld) 1.2 % Normal 0.0-7.0 [facility] ([place]) Comment on above: Performed By: #### G FR, ANEU, CMP, CBC, PBNP, ADIFF #### [address] [address] Lymphocyte, Absolute 1.8 10 3/mcL Normal 0.8-3.9 [facility] ([place]) Comment on above: Performed By: #### G FR, ANEU, CMP, CBC, PBNP, ADIFF #### [address] [address] Lymphocytes/100 WBC (Bld) 25.9 % Normal 10.0-50.0 [facility] ([place]) Comment on above: Performed By: #### G FR, ANEU, CMP, CBC, PBNP, ADIFF #### [address] [address] Monocyte, Absolute 0.6 10 3/mcL Normal 0.2-1.0 [facility] ([place]) Comment on above: Performed By: #### G FR, ANEU, CMP, CBC, PBNP, ADIFF #### [address] [address] Monocytes/100 WBC (Bld) 9.4 % Normal 1.7-13.0 [facility] ([place]) Comment on above: Performed By: #### G FR, ANEU, CMP, CBC, PBNP, ADIFF #### [address] [address] Neutrophils/100 WBC (Bld) 62.6 % Normal 37.0-80.0 [facility] ([place]) Comment on above: Performed By: #### G FR, ANEU, CMP, CBC, PBNP, ADIFF #### [address] [address] .GFRon 04-14-2023 GFR 72 ml/min/1.73sqm Normal [facility] ([place]) Comment on above: Result Comment: GFR Population [...] FR, ANEU, CMP, CBC, PBNP, ADIFF #### [address] [address] GFR Non- 60 ml/min/1.73sqm Normal [facility] ([place]) Comment on above: Result Comment: GFR Population [...] FR, ANEU, CMP, CBC, PBNP, ADIFF #### [address] [address] .NEUABSon 04-14-2023 Neutrophil, Absolute 4.3 10 3/mcL Normal 2.9-6.2 [facility] ([place]) Comment on above: Performed By: #### G FR, ANEU, CMP, CBC, PBNP, ADIFF #### [address] [address] CBCon 04-14-2023 Erythrocyte distribution width (RBC) [Ratio] 13.7 % Normal 11.5-14.5 [facility] ([place]) Comment on above: Performed By: #### G FR, ANEU, CMP, CBC, PBNP, ADIFF #### [address] [address] Hematocrit (Bld) [Volume fraction] 37.9 % Normal 37.0-47.0 [facility] ([place]) Comment on above: Performed By: #### G FR, ANEU, CMP, CBC, PBNP, ADIFF #### [address] [address] Hgb 12.4 G/dL Normal 12.0-16.0 [facility] ([place]) Comment on above: Performed By: #### G FR, ANEU, CMP, CBC, PBNP, ADIFF #### [address] [address] MCH (RBC) [Entitic mass] 30.5 pg Normal 27.0-31.2 [facility] ([place]) Comment on above: Performed By: #### G FR, ANEU, CMP, CBC, PBNP, ADIFF #### [address] [address] MCHC 32.9 G/dL Low 33.0-37.0 [facility] ([place]) Comment on above: Performed By: #### G FR, ANEU, CMP, CBC, PBNP, ADIFF #### [address] [address] MCV (RBC) [Entitic vol] 92.7 fL Normal 80.0-94.0 [facility] ([place]) Comment on above: Performed By: #### G FR, ANEU, CMP, CBC, PBNP, ADIFF #### [address] [address] Platelet 295 10 3/mcL Normal 130-400 [facility] ([place]) Comment on above: Performed By: #### G FR, ANEU, CMP, CBC, PBNP, ADIFF #### [address] [address] Platelet mean volume (Bld) [Entitic vol] 8.3 fL Normal 7.4-10.4 [facility] ([place]) Comment on above: Performed By: #### G FR, ANEU, CMP, CBC, PBNP, ADIFF #### [address] [address] RBC 4.08 10 6/mcL Low 4.20-5.40 [facility] ([place]) Comment on above: Performed By: #### G FR, ANEU, CMP, CBC, PBNP, ADIFF #### [address] [address] WBC 6.9 10 3/mcL Normal 4.6-10.8 [facility] ([place]) Comment on above: Performed By: #### G FR, ANEU, CMP, CBC, PBNP, ADIFF #### [address] [address] CMPon 04-14-2023 Albumin Level 3.7 G/dL Normal 3.4-4.8 [facility] ([place]) Comment on above: Performed By: #### G FR, ANEU, CMP, CBC, PBNP, ADIFF #### [address] [address] Albumin/Globulin [Mass ratio] 1.0 {ratio} Low 1.1-2.5 [facility] ([place]) Comment on above: Performed By: #### G FR, ANEU, CMP, CBC, PBNP, ADIFF #### [address] [address] ALP [Catalytic activity/Vol] 124 U/L Normal 40-135 [facility] ([place]) Comment on above: Performed By: #### G FR, ANEU, CMP, CBC, PBNP, ADIFF #### [address] [address] ALT [Catalytic activity/Vol] 29 U/L Normal 14-59 [facility] ([place]) Comment on above: Performed By: #### G FR, ANEU, CMP, CBC, PBNP, ADIFF #### [address] [address] AST [Catalytic activity/Vol] 19 U/L Normal 10-40 [facility] ([place]) Comment on above: Performed By: #### G FR, ANEU, CMP, CBC, PBNP, ADIFF #### [address] [address] Bili Total 0.6 mg/dL Normal 0.2-1.0 [facility] ([place]) Comment on above: Result Comment: Use of this assay is not recommended for patients undergoing treatment with eltrombopag due to the potential for falsely elevated results. Performed By: #### G FR, ANEU, CMP, CBC, PBNP, ADIFF #### [address] [address] BUN/Creatinine Ratio 24 ratio Normal 7-27 [facility] ([place]) Comment on above: Performed By: #### G FR, ANEU, CMP, CBC, PBNP, ADIFF #### [address] [address] Calcium [Mass/Vol] 9.9 mg/dL Normal 8.4-10.2 [facility] ([place]) Comment on above: Performed By: #### G FR, ANEU, CMP, CBC, PBNP, ADIFF #### [address] [address] Chloride [Moles/Vol] 101 mmol/L Normal 98-107 [facility] ([place]) Comment on above: Performed By: #### G FR, ANEU, CMP, CBC, PBNP, ADIFF #### [address] [address] CO2 [Moles/Vol] 28 mmol/L Normal 23-31 [facility] ([place]) Comment on above: Performed By: #### G FR, ANEU, CMP, CBC, PBNP, ADIFF #### [address] [address] Creatinine [Mass/Vol] 0.90 mg/dL Normal 0.55-1.02 [facility] ([place]) Comment on above: Performed By: #### G FR, ANEU, CMP, CBC, PBNP, ADIFF #### [address] [address] Electrolyte Balance 10.0 mEq/L Normal 4.0-15.0 [facility] ([place]) Comment on above: Performed By: #### G FR, ANEU, CMP, CBC, PBNP, ADIFF #### [address] [address] Globulin 3.7 G/dL Normal [facility] ([place]) Comment on above: Performed By: #### G FR, ANEU, CMP, CBC, PBNP, ADIFF #### [address] [address] Glucose [Mass/Vol] 216 mg/dL High 83-110 [facility] ([place]) Comment on above: Performed By: #### G FR, ANEU, CMP, CBC, PBNP, ADIFF #### [address] [address] Potassium [Moles/Vol] 5.9 mmol/L High 3.5-5.1 [facility] ([place]) Comment on above: Performed By: #### G FR, ANEU, CMP, CBC, PBNP, ADIFF #### [address] [address] Sodium [Moles/Vol] 139 mmol/L Normal 136-145 [facility] ([place]) Comment on above: Performed By: #### G FR, ANEU, CMP, CBC, PBNP, ADIFF #### [address] [address] Total Protein 7.4 G/dL Normal 6.4-8.2 [facility] ([place]) Comment on above: Performed By: #### G FR, ANEU, CMP, CBC, PBNP, ADIFF #### [address] [address] Urea nitrogen [Mass/Vol] 22 mg/dL High 7-18 [facility] ([place]) Comment on above: Performed By: #### G FR, ANEU, CMP, CBC, PBNP, ADIFF #### [address] [address] PBNPon 04-14-2023 Natriuretic peptide B (Bld) [Mass/Vol] 158 pg/mL Normal 0-450 [facility] ([place]) Comment on above: Result Comment: NT-p roBNP results of less than 300 pg/mL effectively rules out acute congestive heart failure with 99% negative predictive value. Performed By: #### G FR, ANEU, CMP, CBC, PBNP, ADIFF #### [address] [address] MRI SPINE LUMBAR W/O CONTRAS Ton 03-02-2023 [...] to superimposed disc uncovering. Moderate left and nlai-[id number]-jaivauds right neural foraminal narrowing. L5-S1: Flattened anterior [...] 03/02/2023 3:44:20 PM Ordering Provider: ALISE FLOWERS [facility] ([place]) LABORATORYOrdered By: Sahara Clancy on 10-20-2021 Albumin [...] Mixed growth consistent with normal urogenital laura. [facility] LABORATORYOrdered By: Homer Hurd on 04-05-2021 [...] Probable Contamination. Suggest recollection if clinically indicated. [facility] Glucose,Bedsideon 05-11-2018 Glucose mass conc 143 mg/dL High 70-100 [employer] [facility] Comment on above: Result Comment: Test performed by glucose meter. Results may be 10%-15% lower than serum/plasma values. (CLIA ID [id number]) Performed By: #### B GLU #### [employer] [address] [place] [address] Glucose mass conc 170 mg/dL High 70-100 [employer] Comment on above: Result Comment: Test performed by glucose meter. Results may be 10%-15% lower than serum/plasma values. (CLIA ID [id number]) Performed By: #### B GLU #### [facility] [address] [place] [address] Surgical Pathologyon 018 Surgical Pathology [id number] [facility] DEPARTMENT OF [facility] PATHOLOGY AND LABORATORY MEDICINE [address] [facility] [place] [address] Fax - FINAL SURGICAL PATHOLOGY REPORT NAME: AIDAMICKEY DURAN N [id number] : 1935 83 [facility] NO[facility] [id number] LOCATION: [place] [address] PROCEDURE 05/11/2018 DATE: SURGEON: LEDA SINGH MD RECEIVED 05/11/2018 DATE: ATTENDING: LEDA SINGH MD REPORT DATE: 05/16/2018 COPIES TO: DIAGNOSIS: LEFT MIDDLE FINGER MASS, EXCISION - PORTION OF FIBROCONNECTIVE TISSUE WITH FEATURES CONSISTENT WITH GANGLION CYST. PORTION OF BONE AND CARTILAGE WITH DEGENERATIVE CHANGES. T/KMS1 Signature> Bonny SMITH M.D. CLINICAL INFORMATION: Left carpal tunnel syndrome SPECIMEN: MASS - SMALL, EXCISION GROSS DESCRIPTION: Left middle finger mass" Received in formalin are rubbery ivltro-gthh-qwy tissue segments which aggregate to 0.5 x [...] characteristics determined by the clinical laboratories of [facility]. They have not been cleared by [...] negativity on decalcified specimens. [place] [address]. DEPARTMENT OF PATHOLOGY AND LABORATORY MEDICINE [place], [place] [address] Normal [facility] Glucose,Bedsideon 03-06-2018 Glucose mass conc 133 mg/dL High 70-100 [facility] Comment on above: Result Comment: Test performed by glucose meter. Results may be 10%-15% lower than serum/plasma values. (CLIA ID [id number]) Performed By: #### B GLU #### [facility] [address] [place] [address] Glucose mass conc 157 mg/dL High 70-100 [facility] [employer] [facility] Comment on above: Result Comment: Test performed by glucose meter. Results may be 10%-15% lower than serum/plasma values. (CLIA ID [id number]) Performed By: #### B GLU #### [facility] [address] [place] [address] Vital Signs Date Time Vital Sign Value Performing Clinician Facility 02-17-2024 12:02-0400 Body temperature 97.7 [degF] DR NOHEMI EDGAR MD [facility] 02-17-2024 12:02-0400 Diastolic Blood Pressure Non-Invasive 93 mm[Hg] DR NOHEMI EDGAR MD [facility] 02-17-2024 12:02-0400 Heart rate 76 /min DR NOHEMI EDGAR MD [facility] 02-17-2024 12:02-0400 Respiratory rate 18 /min DR NOHEMI EDGAR MD [facility] 02-17-2024 12:02-0400 Systolic Blood Pressure Non-Invasive 144 mm[Hg] DR NOHEMI EDGAR MD [facility] 02-17-2024 06:23-0400 Body temperature 98.06 [degF] DR NOHEMI EDGAR MD [facility] 02-17-2024 06:23-0400 Diastolic Blood Pressure Non-Invasive 77 mm[Hg] DR NOHEMI EDGAR MD [facility] 02-17-2024 06:23-0400 Heart rate 80 /min DR NOHEMI EDGAR MD [facility] 02-17-2024 06:23-0400 Respiratory rate 18 /min DR NOHEMI EDGAR MD [facility] 02-17-2024 06:23-0400 Systolic Blood Pressure Non-Invasive 137 mm[Hg] DR NOHEMI EDGAR MD [facility] 02-17-2024 04:01-0400 Body temperature 97.7 [degF] DR NOHEMI EDGAR MD [facility] 02-17-2024 04:01-0400 Diastolic Blood Pressure Non-Invasive 71 mm[Hg] DR NOHEMI EDGAR MD [facility] 02-17-2024 04:01-0400 Heart rate 71 /min DR NOHEMI EDGAR MD [facility] 02-17-2024 04:01-0400 Respiratory rate 18 /min DR NOHEMI EDGAR MD [facility] 02-17-2024 04:01-0400 Systolic Blood Pressure Non-Invasive 137 mm[Hg] DR NOHEMI EDGAR MD [address] [place] [address] 02-16-2024 23:07-0400 Heart rate 80 /min DR NOHEMI EDGAR MD [address] [place] [address] 02-16-2024 19:19-0400 Heart rate 85 /min DR NOHEMI EDGAR MD [address] [place] [address] 02-16-2024 11:53-0400 Heart rate 85 /min DR NOHEMI EDGAR MD [address] [place] [address] 02-16-2024 07:41-0400 Body height 170.[address] NOHEMI EDGAR MD [address] [place] [address] 02-16-2024 07:41-0400 Body weight 72.[address] NOHEMI EDGAR MD [address] [place] [address] 02-16-2024 07:41-0400 Body weight 25.06 kg/m2 DR NOHEMI EDGAR MD [address] [place] [address] 02-16-2024 06:41-0400 Body weight 72.[address] NOHEMI EDGAR MD [address] [place] [address] 02-16-2024 06:37-0400 Mean blood pressure 109 mm[Hg] DR NOHEMI EDGAR MD [address] [place] [address] 02-16-2024 03:57-0400 Body height 170.[address] NOHEMI EDGAR MD [facility] 02-16-2024 03:57-0400 Body weight 72.[address] NOHEMI EDGAR MD [facility] 02-04-2024 06:39-0400 Diastolic Blood Pressure Non-Invasive 84 mm[Hg] GERARDO MANNING MD [facility] 02-04-2024 06:39-0400 Heart rate 82 /min GERARDO MANNING MD [facility] 02-04-2024 06:39-0400 Respiratory rate 18 /min GERARDO MANNING MD [facility] 02-04-2024 06:39-0400 Systolic Blood Pressure Non-Invasive 164 mm[Hg] GERARDO AMNNING MD [facility] 02-04-2024 05:31-0400 Blood Pressure Cuff Size GERARDO MANNING MD [facility] 02-04-2024 05:31-0400 Blood Pressure Location GERARDO MANNING MD [facility] 02-04-2024 05:31-0400 Blood Pressure Method GERARDO MANNNIG MD [facility] 02-04-2024 05:31-0400 Body height 172.7 cm GERAROD MANNING MD [facility] 02-04-2024 05:31-0400 Body temperature 96.98 [degF] GERARDO MANNING MD [facility] 02-04-2024 05:31-0400 Body weight 72.7 kg GERARDO MANNING MD [facility] 02-04-2024 05:31-0400 Diastolic Blood Pressure Non-Invasive 90 mm[Hg] GERARDO MANNING MD [facility] 02-04-2024 05:31-0400 Heart rate 85 /min GERARDO MANNING MD [facility] 02-04-2024 05:31-0400 Respiratory rate 18 /min GERARDO MANNING MD [facility] 02-04-2024 05:31-0400 Systolic Blood Pressure Non-Invasive 182 mm[Hg] GERARDO MANNING MD [facility] 08-21-2023 07:58-0400 Body height 170 cm MINE TARIK EBD [employer]UC[employer] TE[employer]BER[employer] SECRETARY [facility] 08-21-2023 07:58-0400 Body weight 75.3 kg MINE MONTANEZ EBD [employer] EDUCATION TE[employer]ER[employer]BER[employer] SECRETARY [facility] Comment on above: Result Comment: 160# pt reports 08-21-2023 07:58-0400 Body weight 26.06 kg/m2 MINE TARIK EBD [employer] EDUCATION TEACHER[employer]BER[employer] SECRETARY [facility] 04-05-2021 09:39-0400 Diastolic blood pressure 71 mm[Hg] SHAGGY VAZ DO [facility] 04-05-2021 09:39-0400 Heart rate 67 /min SHAGGY VAZ DO [facility] 04-05-2021 09:39-0400 Respiratory rate 16 /min SHAGGY VAZ DO [facility] 04-05-2021 09:39-0400 Systolic blood pressure 120 mm[Hg] SHAGGY VAZ DO [facility] 04-05-2021 09:01-0400 Diastolic blood pressure 73 mm[Hg] SHAGGY VAZ DO [facility] 04-05-2021 09:01-0400 Heart rate 64 /min SHAGGY VAZ DO [facility] 04-05-2021 09:01-0400 Mean blood pressure 111 mm[Hg] SHAGGY VAZ DO [facility] 04-05-2021 09:01-0400 Respiratory rate 16 /min SHAGGY VAZ DO [facility] 04-05-2021 09:01-0400 Systolic blood pressure 188 mm[Hg] SHAGGY VAZ DO [facility] 04-05-2021 07:31-0400 Body temperature 98.06 [degF] SHAGGY VAZ DO [facility] 04-05-2021 07:31-0400 Diastolic blood pressure 78 mm[Hg] SHAGGY VAZ DO [facility] 04-05-2021 07:31-0400 Heart rate 66 /min SHAGGY VAZ DO [facility] 04-05-2021 07:31-0400 Mean blood pressure 119 mm[Hg] SHAGGY VAZ DO [facility] 04-05-2021 07:31-0400 Respiratory rate 16 /min SHAGGY VAZ DO [facility] 04-05-2021 07:31-0400 Systolic blood pressure 200 mm[Hg] SHAGGY VAZ DO [facility] Encounters Encounter Date Encounter Type Care Provider Facility Start: 03-31-2025 ambulatory Adonay REINOSO Facili ty:[facility] Start: 03-24-2025 ambulatory Louis Garcia Facilit y:[facility] Start: 03-20-2025 ambulatory MINE BALTES EBD SPECIAL EDUCATION TEACHER-MEMBERSHIP SECRETARY Fa cility:[facility] Start: 02-04-2025 End: 02-04-2025 ambulatory Mine REINOSO Facility:[facility] Start: 12-30-2024 ambulatory Louis Garcia Facilit y:[facility] Start: 09-27-2024 End: 10-01-2024 ambulatory MINE BALTES EBD SPECIAL EDUCATION TEACHER-MEMBERSHIP SECRETARY Facility:[facility] Start: 09-27-2024 End: 10-01-2024 Outreach Lab ALOK ANTONIO DO [facility] Start: 09-27-2024 End: 09-27-2024 ambulatory MINE BALTES EBD SPECIAL EDUCATION TEACHER-MEMBERSHIP SECRETARY Facility:[facility] Start: 09-27-2024 End: 09-27-2024 Patient encounter procedure MINE BALTES EBD SPECIAL EDUCATION TEACHER-MEMBERSHIP SECRETARY [facility] Start: 08-19-2024 End: 08-19-2024 ambulatory MINE BALTES EBD SPECIAL EDUCATION TEACHER-MEMBERSHIP SECRETARY Facility:[facility] Start: 02-16-2024 End: 02-17-[address] NOHEMI EDGAR MD [facility] Start: 02-04-2024 End: 02-04-2024 Emergency department patient visit GERARDO MANNING MD Facility:B Start: 01-26-2024 End: 01-30-2024 ambulatory MINE BALTES EBD SPECIAL EDUCATION TEACHER-MEMBERSHIP SECRETARY Facility:[facility] Start: 01-26-2024 End: 01-30-2024 Outreach Lab MINE BALTES EBD SPECIAL EDUCATION TEACHER-MEMBERSHIP SECRETARY [facility] Start: 01-26-2024 End: 01-26-2024 ambulatory MINE BALTES EBD SPECIAL EDUCATION TEACHER-MEMBERSHIP SECRETARY Facility:[facility] Start: 01-26-2024 End: 01-26-2024 Patient encounter procedure MINE BALTES EBD SPECIAL EDUCATION TEACHER-MEMBERSHIP SECRETARY [facility] Start: 01-16-2024 End: 01-16-2024 ambulatory MINE BALTES EBD SPECIAL EDUCATION TEACHER-MEMBERSHIP SECRETARY Facility:[facility] Start: 12-20-2023 ambulatory MINE BALTES EBD SPECIAL EDUCATION TEACHER-MEMBERSHIP SECRETARY Fa cility:[facility] Start: 08-21-2023 End: 08-21-2023 ambulatory MINE BALTES EBD SPECIAL EDUCATION TEACHER-MEMBERSHIP SECRETARY Facility:[facility] Start: 08-21-2023 End: 08-21-2023 Patient encounter procedure MINE BALTES EBD SPECIAL EDUCATION TEACHER-MEMBERSHIP SECRETARY [facility] Start: 08-18-2023 End: 08-18-2023 ambulatory ALISE FLOWERS DO Facility:[facility] Start: 08-18-2023 End: 08-18-2023 Patient encounter procedure ALISE FLOWERS DO [facility] Start: 08-04-2023 End: 08-04-2023 ambulatory MINE BALTES EBD SPECIAL EDUCATION TEACHER-MEMBERSHIP SECRETARY Facility:[facility] Start: 08-04-2023 End: 08-04-2023 Patient encounter procedure MINE BALTES EBD SPECIAL EDUCATION TEACHER-MEMBERSHIP SECRETARY [facility] Start: 06-12-2023 End: 06-12-2023 ambulatory VIKY SMITH MD Facility:[facility] Start: 06-12-2023 End: 06-12-2023 Patient encounter procedure VIKY SMITH MD [facility] Start: 05-02-2023 End: 05-02-2023 ambulatory ALISE FLOWERS DO Facility:[facility] Start: 04-17-2023 End: 04-17-2023 ambulatory MINE BALCHRIS EBD SPECIAL EDUCATION TEACHER-MEMBERSHIP SECRETARY Facility:[facility] Start: 04-17-2023 End: 04-17-2023 Patient encounter procedure MINE BALCHRIS EBD SPECIAL EDUCATION TEACHER-MEMBERSHIP SECRETARY [facility] Start: 04-14-2023 End: 04-14-2023 ambulatory MINE BALTES EBD SPECIAL EDUCATION TEACHER-MEMBERSHIP SECRETARY Facility:[facility] Start: 02-27-2023 End: 02-27-2023 ambulatory ALISE FLOWERS DO Facility:[facility] Start: 02-27-2023 End: 02-27-2023 Patient encounter procedure ALISE FLOWERS DO [facility] Start: 01-17-2023 End: 01-17-2023 Patient encounter procedure MINE BALCHRIS EBD SPECIAL EDUCATION TEACHER-MEMBERSHIP SECRETARY [facility] Start: 11-24-2022 End: 01-17-2023 Physical therapy management KOKO SOLITARIO PA-C [facility] Start: 12-13-2021 End: 12-13-2021 Patient encounter procedure MINE BALCHRIS EBD SPECIAL EDUCATION TEACHER-MEMBERSHIP SECRETARY [facility] Start: 10-20-2021 End: 10-20-2021 Patient encounter procedure MINE FAIZACHRIS EBD SPECIAL EDUCATION TEACHER-MEMBERSHIP SECRETARY [facility] Start: 10-11-2021 End: 10-11-2021 Patient encounter procedure MINE MONTANEZ EBD SPECIAL EDUCATION TEACHER-MEMBERSHIP SECRETARY [facility] Start: 09-20-2021 End: 09-20-2021 Patient encounter procedure MINE MONTANEZ EBD SPECIAL EDUCATION TEACHER-MEMBERSHIP SECRETARY [facility] Start: 08-09-2021 End: 08-09-2021 Patient encounter procedure MINE MONTANEZ EBD SPECIAL EDUCATION TEACHER-MEMBERSHIP SECRETARY [facility] Start: 06-14-2021 End: 06-18-2021 Outreach Lab FLORIN BERGMAN MD [facility] Start: 04-05-2021 End: 04-05-2021 Emergency department patient visit SHAGGY VAZ DO [facility] Start: 03-25-2021 End: 03-29-2021 Outreach Lab MINE MONTANEZ EBD SPECIAL EDUCATION TEACHER-MEMBERSHIP SECRETARY [facility] Start: 05-24-2018 [facility] Start: 05-11-2018 Patient encounter procedure [facility] Start: 03-06-2018 Patient encounter procedure [facility] Procedures Date Procedure Procedure Detail Performing Clinician Start: 07-31-2020 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 L x1, R x2. Laceration of toe (disorder) MINE MONTANEZ EBD SPECIAL EDUCATION TEACHER-MEMBERSHIP SECRETARY Comment on above: Right foot Oral surgery (qualif ier value) MINE MONTANEZ EBD SPECIAL EDUCATION TEACHER-MEMBERSHIP SECRETARY Umbilical hernia (disorder) MINE MONTANEZ EBD SPECIAL EDUCATION TEACHER-MEMBERSHIP SECRETARY Payers Date Payer Category Payer Medicare [id number] 2024 Self-pay [id number] 2024 Unknown 2021 Medicare [id number] 2021 Unknown [id number] 2019 Medicare 1937 Unknown [id number] 2.16.8 40.1.776786.3.579.2.668 1937 Unknown [id number] 2.16.8 40.1.958784.3.579.2.668 1937 Unknown [id number] 2.16.8 40.1.238199.3.579.2.668 1937 Unknown [id number] 2.16.8 40.1.944114.3.579.2.627 1937 Unknown [id number] 2.16.8 40.1.646330.3.579.2.627 1937 Unknown [id number] 2.16.8 40.1.518467.3.579.2.627 1937 Unknown [id number] 2.16.8 40.1.787896.3.579.2.627 1937 Unknown [id number] 2.16.8 40.1.444108.3.579.2.627 1937 Unknown [id number] 2.16.8 40.1.516530.3.579.2.7 1937 Unknown [id number] 2.16.8 40.1.767904.3.579.2. 1937 Unknown [id number] 2.16.8 40.1.403193.3.579.2.7 1937 Unknown [id number] 2.16.8 40.1.313620.3.579.2. 1937 Unknown [id number] 2.16.8 40.1.294782.3.579.2. 1937 Unknown [id number] 2.16.8 40.1.811446.3.579.2.7 1937 Unknown [id number] 2.16.8 40.1.896357.3.579.2. 1937 Unknown [id number] 2.16.8 40.1.692121.3.579.2.7 1937 Unknown [id number] 2.16.8 40.1.736821.3.579.2. 1937 Unknown [id number] 2.16. 840.1.631798.3.579.2. 1937 Unknown [id number] 2.16.8 40.1.018263.3.579.2. 1937 Unknown [id number] 2.16.8 40.1.458384.3.579.2.7 1937 Unknown [id number] 2.16.8 40.1.881833.3.579.2.627 Unknown [id number] 2.16.8 40.1.771647.3.579.2.462 Unknown [id number] 2.16.8 40.1.759420.3.579.2.462 Unknown [id number] 2.16.8 40.1.378565.3.579.2.462 Unknown [id number] 2.16.8 40.1.802686.3.579.2.462 Social History Date Type Detail Facility Start: 01-04-2019 End: 08-22-2024 Never smoked tobacco (finding) [facility] Comment on above: Smoke exposure for 4 0 yrs at work Sex Assigned At Female [facility] Sexual Orientation [facility] Start: 11-28-2018 Sex Female (finding) [facility] Medical Equipment Procedure Code Equipment Code Equipment Origin al Text Equipment Identifier Dates Blood Glucose Te st Strips Start: 03-16-[address]ps Start: 03-16-[address]ps Start: 03-16-[address]ps Start: 06-25-2021 See Instructions , FreeStyle Lite Test Strips, 2 Strips daily Dx: E11.9 Replaces old script., # 1 EA, 11 Refill(s), [facility] Controlled diabetes mellitus, 170.2, cm, 06/22/21 9:33:00 EST, Height, 75.7, kg, 06/22/21 9:33:00 E... Start: 06-25-2021 See Instructions , FreeStyle Lite Test Strips, 2 Strips daily Dx: E11.9 Replaces old script., # 1 EA, 11 Refill(s), [facility]: [facility] Controlled diabetes mellitus, 170.2, cm, 06/22/21 9:33:00 EST, Height, 75.7, kg, 06/22/21 9:33:00 E... Start: 06-25-2021 See Instructions , FreeStyle Lite Test Strips, 2 Strips daily Dx: E11.9 Replaces old script., # 1 EA, 11 Refill(s), [facility] Controlled diabetes mellitus, 170.2, cm, 06/22/21 9:33:00 EST, Height, 75.7, kg, 06/22/21 9:33:00 E... Start: 06-25-2021 See Instructions , FreeStyle Lite Test Strips, 2 Strips daily Dx: E11.9 Replaces old script., # 1 EA, 11 Refill(s), Pharmacy: [address], Controlled diabetes mellitus, 170.2, cm, 06/22/21 9:33:00 EST, Height, 75.7, kg, 06/22/21 9:33:00 E... Start: 06-25-2021 See Instructions , FreeStyle Lite Test Strips, 2 Strips daily Dx: E11.9 Replaces old script., # 1 EA, 11 Refill(s), Pharmacy: [address], Controlled diabetes mellitus, 170.2, cm, 06/22/21 9:33:00 EST, Height, 75.7, kg, 06/22/21 9:33:00 EST, Dosing Weight Start: 06-25-2021 See Instructions , FreeStyle Lite Test Strips, 2 Strips daily Dx: E11.9 Replaces old script., # 1 EA, 11 Refill(s), Pharmacy: [address], Controlled diabetes mellitus, 170.2, cm, 06/22/21 9:33:00 EST, Height, 75.7, kg, 06/22/21 9:33:00 EST, Dosing Weight Start: 06-25-2021 See Instructions , FreeStyle Lite Test Strips, 2 Strips daily Dx: E11.9 Replaces old script., # 1 EA, 11 Refill(s), Pharmacy: [address], Controlled diabetes mellitus, 170.2, cm, 06/22/21 9:33:00 EST, Height, 75.7, kg, 06/22/21 9:33:00 EST, Dosing Weight Start: 06-25-2021 See Instructions , FreeStyle Lite Test Strips, 2 Strips daily Dx: E11.9 Replaces old script., # 1 EA, 11 Refill(s), Pharmacy: [address], Controlled diabetes mellitus, 170.2, cm, 06/22/21 9:33:00 EST, Height, 75.7, kg, 06/22/21 9:33:00 EST, Dosing Weight Start: 06-25-2021 See Instructions , FreeStyle Lite Test Strips, 2 Strips daily Dx: E11.9 Replaces old script., # 1 EA, 11 Refill(s), Pharmacy: [address], Controlled diabetes mellitus, 170.2, cm, 06/22/21 9:33:00 EST, Height, 75.7, kg, 06/22/21 9:33:00 EST, Dosing Weight Start: 06-25-2021 See Instructions , FreeStyle Lite Test Strips, 2 Strips daily Dx: E11.9 Replaces old script., # 1 EA, 11 Refill(s), Pharmacy: [address], Controlled diabetes mellitus, 170.2, cm, 06/22/21 9:33:00 EST, Height, 75.7, kg, 06/22/21 9:33:00 EST, Dosing Weight Start: 06-25-2021 See Instructions , FreeStyle Lite Test Strips, 2 Strips daily Dx: E11.9 Replaces old script., # 1 EA, 11 Refill(s), Pharmacy: [address], Controlled diabetes mellitus, 170.2, cm, 06/22/21 9:33:00 EST, Height, 75.7, kg, 06/22/21 9:33:00 EST, Dosing Weight Start: 06-25-2021 See Instructions , FreeStyle Lite Test Strips, 2 Strips daily Dx: E11.9 Replaces old script., # 1 EA, 11 Refill(s), Pharmacy: [address], Controlled diabetes mellitus, 170.2, cm, 06/22/21 9:33:00 EST, Height, 75.7, kg, 06/22/21 9:33:00 EST, Dosing Weight Start: 06-25-2021 See Instructions , FreeStyle Lite Test Strips, 2 Strips daily Dx: E11.9 Replaces old script., # 1 EA, 11 Refill(s), Pharmacy: [address], Controlled diabetes mellitus, 170.2, cm, 06/22/21 9:33:00 EST, Height, 75.7, kg, 06/22/21 9:33:00 EST, Dosing Weight Start: 06-25-2021 See Instructions , FreeStyle Lite Test Strips, 2 Strips daily Dx: E11.9 Replaces old script., # 1 EA, 11 Refill(s), Pharmacy: [address], Controlled diabetes mellitus, 170.2, cm, 06/22/21 9:33:00 EST, Height, 75.7, kg, 06/22/21 9:33:00 EST, Dosing Weight Start: 06-25-2021 See Instructions , FreeStyle Lite Test Strips, 2 Strips daily Dx: E11.9 Replaces old script., # 1 EA, 11 Refill(s), Pharmacy: [address], Controlled diabetes mellitus, 170.2, cm, 06/22/21 9:33:00 EST, Height, 75.7, kg, 06/22/21 9:33:00 EST, Dosing Weight Start: 06-25-2021 Functional Status Date Assessment Result Facility 02-17-2024 Functional Status Nurse Serg butler q2hrs Performed Other: [id number] [facility] 02-17-2024 Functional Status Room check performed [facility] 02-17-2024 Functional Status [facility] 02-17-2024 Functional Status [facility] 02-16-2024 Functional Status [facility] 02-16-2024 Functional Status [facility] 02-16-2024 Functional Status Other[facility] Functional Status Lunch Percent 95 [facility] 02-16-2024 Functional Status None [facility] 02-16-2024 Functional Status Minimum assistance [facility] 02-04-2024 Functional Status Up ad emy [facility] 11-24-2022 Functional Status Home Living Ad ditional [...] excess warmth or obvious signs of infection [facility] Mental Status Date Assessment Result Facility 02-17-2024 Mental Status Oriented x 4, Forgetful [facility] 02-16-2024 Mental Status [facility] 02-16-2024 Mental Status [facility] 02-16-2024 Mental Status [facility] 02-04-2024 Mental Status Orientation Oriented x 4 [facility] 02-04-2024 Mental Status [facility] Clinical Notes 04-05-2021 to 09-29-2024 Note Date [...] Locations *1: This test was performed at: [facility], [address] [place] [address], [address] , [facility] 02-17-2024 Note Discharge Instructions Thank you for allowing [facility] to assist you with your healthcare needs. The following is important discharge information regarding your hospital visit. Your Care Team [facility] Team Your Diagnosis Constipation HTN - Hypertension Type 2 diabetes mellitus What to do next Scheduled Follow-Up Appointments Appointment Type When With Where Contact Information StatusMEDS - Diabetic Individual Visit 03/25/2024 10:00 AM EDT [facility] [phone] Confirmed PC OV 07/05/2024 08:30 AM MINE WISDOM [address] [phone] Confirmed Follow Up Appointments Follow Up with Go to emergency room if symptoms worsen When:Within 2-4 days Follow Up with MINE MONTANEZ When:Within 2-4 days Where:[address] [place] [phone] The Following Activity and Diet Have Been [...] day if having loose stools Pickup at [facility]/pharmacy #[id number] Unchanged albuterol (Albuterol (Eqv-Ventolin HFA) 90 mcg/ [...] BY MOUTH TWICE A DAY Pharmacy Information [facility]/pharmacy #[id number]: [address], [place] [phone] Please take this list to your next [...] Black, tarry stool Involuntary weight loss Weakness [phone] [employer]. [address] [place] [address]. All rights reserved. This information is not intended as a substitute for professional medical care. Always follow your healthcare professional's instructions. Additional Information VACCINATE! IT SAVES LIVES! Members of the community who have not yet received the COVID-19 vaccine and would like to receive it can visit one of [facility] vaccine clinics. There are many vaccine clinic locations within the [facility]. For locations and available times, please visit [email or web address] It is important to note that some COVID mobile vaccine clinics are held outdoors and may be canceled in rainy or stormy conditions. To learn more about pediatric vaccinations (ages 5-11), we invite you to visit the [facility] webpage. https://www.[facility].org/pages/2 883-Zhxza-Owamjummfro-Frequently-Asked -Questions.html To learn more about the COVID-19 vaccine, we invite you to visit the CDC website for a list of frequently asked questions.https://www.cdc.gov/coronavi oscar/2019-ncov/vaccines/faq.html [facility] Patient Portal Access Instructions: Stay connected with your healthcare team and access your personal medical information anytime with the [facility] Patient Portal. Please follow the directions below to create your [facility] account: 1.Access the email account you provided upon registration to the hospital/physician office.2.Look for an invitation email from [facility].3.Open the email and access the invitation link: Accept Invitation to [facility].4.Fill in the required will to create your account. To access your account, visit [email or web address]. Click the blue button labeled "Access Patient [...] you will allow to register on the [facility] Patient Portal for access to your information. You can also access the [facility] Patient Portal on the [facility]. Simply click on "Patient Portal" and then log into your account. If you would like to receive a full copy of your medical records, please contact the [facility] Medical Records Department by calling [phone], Monday through Monday between 8 a.m. and [...] Call your local pharmacy or go to [email or web address] to find one close to you.3.Make use of household items: Use cat litter or old coffee grounds to dispose medications if other options are not available. Mix your drugs with these household products, seal them in an airtight container and throw it into the garbage. Call [facility]: [phone] to be sure your drugs can be [...] aware that I should contact my doctor. Patient/Senior Technical Editor Signature: _ Date/Time: Relationship to Patient: Witness Name/Signature: Date/Time: [facility] 02-16-2024 Note Date of Service 02/16/24 Chief Complaint rectal and abdominal pain started tonight around 0100, denies N/V, here recently for constipation, unknown last BM History of Present Illness 88-year-old female with past medical history significant for hypertension, type 2 diabetes mellitus, HLD. Patient presented to [facility] emergency department on 02/16/2024 with abdominal/rectal pain [...] Exercise type: Walking., 09/01/2020 Home/Environment Self Primary Nuclear Medicine Officer:., 01/04/2019 Nutrition/Health Type of diet: Diabetic, is folllowing pharmacy order entry technician suggestions. Appetite Good. Eating Difficulties None, If [...] by LUIS GUZMÁN on 02/16/2024 04:01 PM [facility] 02-16-2024 Evaluation + Plan note Extrac [...] Appointments Appointment Date:03/25/2024 10:00:00 AM Scheduled Provider: Location:[facility] Appointment Type:MEDS - Diabetic Individual Visit Appointment Date:07/05/2024 08:30:00 AM Scheduled Provider:MINE MONTANEZ Location:[facility] Appointment Type:PC OV [facility] 09-13-2024 Pastoral care Progress note Pastoral Care Note Entered On: 02/16/2024 9:44 EDT Performed On: 02/16/2024 9:42 EDT by Rodolfo Márquez Pastoral Care Type of Pastoral Visit : Initial visit Spiritual Care Visit Initiated by : Levi Maker Spiritual Care Reason for Visit : General [...] by Rodolfo Márquez on 02/16/2024 09:42 AM [facility]09-13-2024 Hospital Discharge instructions Patient Education 02/16/2024 [...] Black, tarry stool Involuntary weight loss Weakness [phone] [employer]. [address] [place] [address]. All rights reserved. This information is not intended as a substitute for professional medical care. Always follow yourhealthcare professional's instructions. Follow Up Care 02/16/2024 03:47:03 With:Go to emergency room if symptoms worsen Address:Unknown When:2-4 days With:MINE MONTANEZ APRN-MEMBERSHIP SECRETARY Address: [address] [facility] [place] [phone] When:2-4 days [facility] 09-13-2024 Note ORIGINAL EXAMINATION: CT OF [...] Sign Date: 02/16/2024 5:52:34 AM Ordering Provider: [facility]09-01-2024 Hospital Discharge instructions Patient Education 02/04/2024 06:00:03 [...] Black, tarry stool Involuntary weight loss Weakness [phone] [employer]. [address] [place] [address], [place] [address]. All rights reserved. This information is not intended as a substitute for professional medical care. Always follow yourhealthcare professional's instructions. Follow Up Care 02/04/2024 05:28:55 With:MINE MONTANEZ APRN-MEMBERSHIP SECRETARY Address: [address] [facility] [place], [place] [address]- [phone] When:2-4 days [facility] 09-01-2024 Note Discharge Instructions Thank you for allowing [facility] to assist you with your healthcare needs. The following is importantdischarge information regarding your hospital visit. Diagnosis from Today's Visit Constipation What to Do Next Instructions from Your Care Team No qualifying data available. Post Acute Orders No qualifying data available. You Need to Schedule the Following Appointments Follow Up with MINE MONTANEZ When:Within 2-4 days Where:[address], [place] [phone] Allergies penicillins Rash Medications Please ask your [...] Unchanged DME (DME MISCellaneous) See instructions Libre2 Rosanky Use to scan Edward sensor at least [...] Black, tarry stool Involuntary weight loss Weakness [phone] [employer]. [address] [place], [place] [address]. All rights reserved. This information is not intended as a substitute for professional medical care. Always follow yourhealthcare professional's instructions. Additional Information VACCINATE! IT SAVES LIVES! Members of the community who have not yet received the COVID-19 vaccine and would like to receive it can visit one of [facility] vaccine clinics. There are many vaccine clinic locations within the [facility]. For locations and available times, please visit [email or web address] It is important to note that some COVID mobile vaccine clinics are held outdoors and may be canceled in rainy or stormy conditions. To learn more about pediatric vaccinations (ages 5-11), we invite you to visit the [facility] webpage. https://www.[email or web address].org/pages/7768-Hcbym-Qarzbqgnpod-Tlujjwvdvd-Ewbhd-Qmn [email or web address].htmlTo learn more about the COVID-19 vaccine, we invite you to visit the CDC website for a list of frequently asked questions. https://www.cdc.gov/coronavirus/2019-ncov/vaccines/faq.html [facility] Patient Portal Access Instructions: Stay connected with your healthcare team and access your personal medical information anytime with the [facility] [employer] [facility] [employer] Patient Portal. If you would like a full copy of your medical records please contact the [facility] Medical Records Department Monday through Monday between 8a.m. and 4:30p.m. Please follow the directions below to access the portal: 1.Access the email account you provided upon registration to the [facility].2.Look for an invitation email from [facility].3.Open the email and access the invitation link: Accept Invitation to [facility]4.Fill in the required will to create your account. Sign into [email or web address] with your username and password that you [...] you will allow to register on the [employer] ([employer] Patient Portal for access to your information. You can also access the [employer] ([employer] Patient Portal on the Remicalm. Simply click on "Health Records" under "HealthData" and then click on the BitPay logo. HOW TO SAFELY DISPOSE OF PRESCRIPTION [...] Call your local pharmacy or go to http://bit.ly/9T6Wo8h to find one close to you.3.Make use of household items: Use cat litter or old coffee grounds to dispose medications if other options arenot available. Mix your drugs with these household products, seal them in an airtight container andthrow it into the garbage. Call [facility]: [phone] to be sure your drugs can be [...] aware that I should contact my doctor. Patient/Senior Technical Editor Signature: Date/Time: Relationship to Patient: Witness Name/Signature: Date/Time: [facility]08-15-2023 Note ORIGINAL EXAMINATION: BONE DENSITOMETRY01/17/2023 11:33 [...] Date: 01/17/2023 11:40:16 AM [facility] Discharge instructions Patient Education 04/05/2021 12:24:07 [...] that stimulate the heart. This includes many zhft-gob-cpeltng cold and sinus decongestant pills and sprays, as well as diet pills. Check the warnings about high blood pressure onthe label. Before buying any kori-ecj-dlrtrvo medicines or supplements, always ask the pharmacist [...] one of these at most pharmacies. The [place] [employer] recommends the following guidelines for [...] appointment as directed. Bring the record of your[place] blood pressure readings to the appointment. When [...] face You have problems speaking or seeing [phone] [employer]. [address] [place] [address]. All rights reserved. This information is not [...] about: All medicines you take, including prescription, rocu-vdd-kmukwah, herbs, and supplements Any other symptoms you [...] Chest, arm, neck, back, or jaw pain [phone] [employer]. [address] [place] [address]. All rights reserved. This information is not intended as a substitute for professional medical care. Always follow yourhealthcare professional's instructions. Follow Up Care 04/05/2021 07:20:22 With:MINE MONTANEZ Address: [phone] When:2-4 days [facility] Evaluation + Plan note Future Appointments Appointment Date:04/09/2021 10:00:00 AM Scheduled Provider:MINE MONTANEZ Location:[facility] Appointment Type:PC OV Appointment Date:06/14/2021 09:30:00 AM Scheduled Provider:FAUSTINO CARSON MD Location: [facility] Appointment Type: OV Appointment Date:06/22/2021 09:30:00 AM Scheduled Provider:MINE MONTANEZ Location:[facility] Appointment Type:PC OV [facility] Evaluation + Plan note Future Appointments Appointment Date:04/06/2021 11:30:00 AM Scheduled Provider:MINE MONTANEZ Location:[facility] Appointment Type:PC OV Appointment Date:04/09/2021 10:00:00 AM Scheduled Provider:MINE MONTANEZ Location:[facility] Appointment Type:PC OV Appointment Date:06/14/2021 09:30:00 AM Scheduled Provider:FAUSTINO CARSON MD Location: [facility] Appointment Type: OV Appointment Date:06/22/2021 09:30:00 AM Scheduled Provider:MINE MONTANEZ Location:[facility] Appointment Type:PC OV [facility] Evaluation + Plan note Future Appointments Appointment Date:06/22/2021 09:30:00 AM Scheduled Provider:MINE MONTANEZ Location:[facility] Appointment Type:PC OV [facility] Evaluation + Plan note Future Appointments Appointment Date:08/20/2021 09:30:00 AM Scheduled Provider: Location:[facility] Appointment Type:DB Diabetic Individual Visit Appointment Date:08/30/2021 02:30:00 PM Scheduled Provider: Location:[facility] Appointment Type:NUT Diet Visit Individual Appointment Date:09/17/2021 10:00:00 AM Scheduled Provider: Location:[facility] Appointment Type:DB Diabetic Individual Visit Appointment Date:12/14/2021 10:30:00 AM Scheduled Provider:MINE MONTANEZ Location:[facility] Appointment Type:PC OV [facility] Evaluation + Plan note Future Appointments Appointment Date:10/11/2021 11:30:00 AM Scheduled Provider: Location:[facility] Appointment Type:NUT Diet Visit Individual Appointment Date:12/14/2021 10:30:00 AM Scheduled Provider:MINE MONTANEZ Location:[facility] Appointment Type:PC OV Appointment Date:12/17/2021 09:00:00 AM Scheduled Provider: Location:[facility] Appointment Type:DB Diabetic Individual Visit [facility] Evaluation + Plan note Future Appointments Appointment Date:10/15/2021 09:30:00 AM Scheduled Provider:MINE MONTANEZ Location:[facility] Appointment Type:PC OV Appointment Date:11/08/2021 11:30:00 AM Scheduled Provider: Location:[facility] Appointment Type:NUT Diet Visit Individual Appointment Date:12/14/2021 10:30:00 AM Scheduled Provider:MINE MONTANEZ Location:[facility] Appointment Type:PC OV Appointment Date:12/17/2021 09:00:00 AM Scheduled Provider: Location:[facility] Appointment Type:DB Diabetic Individual Visit [facility] Evaluation + Plan note Future Appointments Appointment Date:11/08/2021 11:30:00 AM Scheduled Provider: Location:[facility] Appointment Type:NUT Diet Visit Individual Appointment Date:12/14/2021 10:30:00 AM Scheduled Provider:MINE MONTANEZ Location:[facility] Appointment Type:PC OV Appointment Date:12/17/2021 09:00:00 AM Scheduled Provider: Location:[facility] Appointment Type:DB Diabetic Individual Visit Diagnostic Tests Pending * Vitamin B12 Level 10/20/21 * Folate Level 10/20/21 [facility] Evaluation + Plan note Future Appointments Appointment Date:12/14/2021 10:30:00 AM Scheduled Provider:MINE MONTANEZ Location:[facility] Appointment Type:PC OV Appointment Date:12/17/2021 09:00:00 AM Scheduled Provider: Location:[facility] Appointment Type:DB Diabetic Individual Visit [facility] Motostranoaluation + Plan note Future Appointments Appointment Date:03/24/2023 10:00:00 AM Scheduled Provider: Location:[facility] Appointment Type:DB Diabetic Individual Visit (AOH) Appointment Date:12/26/2023 09:00:00 AM Scheduled Provider:MINE MONTANEZ Location:[facility] Appointment Type:PC Wellness Medicare Future Scheduled Tests Laboratory* Complete Blood Count 06/24/22 * Lipid Profile 06/24/22 * Hepatitis C Antibody IgG 06/24/22 * Complete Metabolic Panel 06/24/22 [facility] [employer] + Plan note Future Appointments Appointment Date:06/23/2023 10:00:00 AM Scheduled Provider: Location:[facility] Appointment Type:DB Diabetic Individual Visit (AOH) Appointment Date:12/26/2023 09:00:00 AM Scheduled Provider:MINE MONTANEZ Location:[facility] Appointment Type:PC Wellness Medicare Future Scheduled Tests Laboratory* Complete Blood Count 06/24/22 * Lipid Profile 06/24/22 * Hepatitis C Antibody IgG 06/24/22 * Complete Metabolic Panel 06/24/22 [facility] [employer] + Plan note Future Appointments Appointment Date:06/23/2023 10:00:00 AM Scheduled Provider: Location:[facility] Appointment Type:DB Diabetic Individual Visit (AOH) Appointment Date:08/21/2023 11:30:00 AM Scheduled Provider: Location:[facility] Appointment Type:CV OV Appointment Date:12/26/2023 09:00:00 AM Scheduled Provider:MINE MONTANEZ Location:[facility] Appointment Type:PC Wellness Medicare Future Scheduled Tests Laboratory* Complete Blood Count 06/24/22 * Lipid Profile 06/24/22 * Hepatitis C Antibody IgG 06/24/22 * Complete Metabolic Panel 06/24/22 [facility] Evaluation + Plan note Future Appointments Appointment Date:08/18/2023 10:00:00 AM Scheduled Provider: Location:[facility] Appointment Type:MEDS - Diabetic Individual Visit Appointment Date:08/21/2023 11:30:00 AM Scheduled Provider: Location:[facility] Appointment Type:CV OV Appointment Date:12/26/2023 09:00:00 AM Scheduled Provider:MINE MONTANEZ Location:[facility] Appointment Type:PC Wellness Medicare [facility] Evaluation + Plan note Future Appointments Appointment Date:08/21/2023 08:00:00 AM Scheduled Provider: Location:[facility] Appointment Type:NUT Diet Visit Individual Appointment Date:08/21/2023 11:30:00 AM Scheduled Provider: Location:[facility] Appointment Type:CV OV Appointment Date:09/18/2023 10:00:00 AM Scheduled Provider: Location:[facility] Appointment Type:MEDS - Diabetic Individual Visit Appointment Date:12/26/2023 09:00:00 AM Scheduled Provider:MINE MONTANEZ Location:[facility] Appointment Type:PC Wellness Medicare [facility] Evaluation + Plan note Future Appointments Appointment Date:09/18/2023 10:00:00 AM Scheduled Provider: Location:[facility] Appointment Type:MEDS - Diabetic Individual Visit Appointment Date:12/26/2023 09:00:00 AM Scheduled Provider:MINE MONTANEZ Location:[facility] Appointment Type:PC Wellness Medicare [facility] Evvin[employer]iusation + Plan note Future Appointments Appointment Date:03/25/2024 10:00:00 AM Scheduled Provider: Location:[facility] Appointment Type:MEDS - Diabetic Individual Visit Appointment Date:07/05/2024 08:30:00 AM Scheduled Provider:MINE MONTANEZ Location:[facility] Appointment Type:[facility] Evviniciusation + Plan note Future Appointments Appointment Date:10/08/2024 03:00:00 PM Scheduled Provider: Location:[facility] Appointment Type:MEDS - Diabetic Individual Visit Appointment Date:11/21/2024 09:00:00 AM Scheduled Provider:MINE MONTANEZ Location:[facility] Appointment Type:PC OV [facility] Hospital course Narrative No data available for this section [facility] Hospital Discharge instructions No data available for this section [facility] Progress note No data available for this section [facility] Summary Purpose Family History No Family [...] section and content) DATE CREATED AUTHOR 09/13/2018 [facility] DATE CREATED AUTHOR AUTHOR'S ORGANIZ ATION 02/04/2024 [facility] ([place]) DATE CREATED AUTHOR AUTHOR'S ORGANIZ ATION 03/22/2025 [facility] DATE CREATED AUTHOR AUTHOR'S ORGANIZ ATION 04/14/2025 [facility] Care Team (unrecognized sect ion and content) Personnel Name: MINE MONTANEZ Address: [address] [place] [address]- [place] Personnel Name: MINE MONATNEZ Address: [address] [place] [address]- [place] Personnel Name: MINE MONTANEZ Address: [address] [place] [address]- [place] Care Team Personnel Name: MINE MONTANEZ Position: P4 Advanced Manager Subway Member Role: Primary Care Physician Address: Address: [address] [place] [address]- [place] Name: LEDA SINGH MD Member Role: Orthopaedist Address: Address: [address] [address]- Care Team Related Persons Name: AIDA, NOHEMI Care Team Personnel Name: MINE MONTANEZ Position: P4 Advanced Manager Subway Member Role: Primary Care Physician Address: Address: [address] [place] [address]- Name: LEDA SINGH MD Member Role: Orthopaedist Address: Address: [address] [address]- Care Team Related Persons Name: AIDA, NOHEMI Care Team Personnel Name: MINE MONTANEZ Position: P4 Advanced Manager Subway Member Role: Primary Care Physician Address: Address: [address] [place] [address]- [place] Name: LEDA SINGH MD Member Role: Orthopaedist Address: Address: [address] [address]- Care Team Related Persons Name: AIDA, NOHEMI Care Team Personnel Name: MINE MONTANEZ Position: P4 Advanced Manager Subway Member Role: Primary Care Physician Address: Address: [address] [place] [address]- [place] Name: LEDA SINGH MD Member Role: Orthopaedist Address: Address: [address] [address]- [place] Care Team Related Persons Name: AIDA, NOHEMI Care Team Personnel Name: MINE MONTANEZMEMBERSHIP SECRETARY Position: P4 Advanced Manager Subway Member Role: Primary Care Physician Address: Address: [address] [place] [address]- [place] Name: LEDA SINGH MD Member Role: Orthopaedist Address: Address: [address] [place] [address]- Name: LOUISE Chin ([facility]) Shalonda Position: Quality Review Member Role: Wallpaper Embosser Helper Care Team Related Persons Name: NOHEMI PARRA Care Team Personnel Name: MINE MONTANEZ Position: P4 Advanced Manager Subway Member Role: Primary Care Physician Address: Address: [address] [place] [address]- Name: LEDA SINGH MD Member Role: Orthopaedist Address: Address: [address] [place] [address]- Name: LOUISE Chin ([facility]) Shalonda Position: Quality Review Member Role: Wallpaper Embosser Helper Care Team Related Persons Name: NOHEMI PARRA Care Team Personnel Name: MINE MONTANEZ Position: P4 Advanced Manager Subway Member Role: Primary Care Physician Address: Address: [address] [place] [phone] [place] [address] Name: LEDA SINGH MD Member Role: Orthopaedist Address: Address: [address] [place] [address]- [place] Name: LOUISE Chin ([facility]) Shalonda Position: Quality Review Member Role: Wallpaper Embosser Helper Care Team Related Persons Name: NOHEMI PARRA Care Team Personnel Name: MINE MONTANEZ Position: P4 Advanced Manager Subway Member Role: Primary Care Physician Address: Address: [address] [place] [address]- Name: LEDA SINGH MD Member Role: Orthopaedist Address: Address: [address] [place] [address]- [place] Name: LOUISE Chin ([facility]) Shalonda Position: Quality Review Member Role: Wallpaper Embosser Helper Care Team Related Persons Name: NOHEMI PARRA Care Team Personnel Name: MINE MONTANEZ Position: P4 Advanced Manager Subway Member Role: Primary Care Physician Address: Address: [address] [place] [address]- Name: LEDA SINGH MD Member Role: Orthopaedist Address: Address: [address] [place] [address] Care Team Related Persons Name: AIDA NOHEMI Care Team Personnel Name: MINE MONTANEZ Position: P4 Advanced Manager Subway Member Role: Primary Care Physician Address: Address: [address] [place] [address] Name: LEDA SINGH MD Member Role: Orthopaedist Address: Address: [address] [place] [address] Care Team Related Persons Name: AIDA, NOHEMI Care Team Personnel Name: MINE MONTANEZ Position: P4 Advanced Manager Subway Member Role: Primary Care Physician Address: Address: [address] [place] [address] Name: LEDA SINGH MD Member Role: Orthopaedist Address: Address: [address] [place] [address] Care Team Related Persons Name: AIDA, NOHEMI Care Team Personnel Name: MINE MONTANEZ Position: P4 Advanced Manager Subway Member Role: Primary Care Physician Address: Address: [address] [place] [address] Name: Candice Ricketts Position: Bed Management Member Role: Other Name: LEDA SINGH MD Member Role: Orthopaedist Address: Address: [address] [place] [address] Care Team Related Persons Name: AIDA, NOHEMI Care Team Personnel Name: MINE MONTANEZ Position: P4 Advanced Manager Subway Member Role: Primary Care Physician Address: [address] [place] [address] Telecom: Name: Candice Ricketts Position: Bed Management Member Role: Other Name: LEDA SINGH MD Member Role: Orthopaedist Address: [address] [place] [address] Telecom: Care Team Related Persons Name: AIDA, NOHEMI Care Team Personnel Name: BALTES, MINE EBD SPECIAL EDUCATION TEACHER-MEMBERSHIP SECRETARY Position: P4 Advanced Manager Subway Member Role: Primary Care Physician Address: [address] [place] [address]- [place] Telecom: Name: Candice Ricketts Position: Bed Management Member Role: Other Name: LEDA SINGH MD Member Role: Orthopaedist Address: [address] [place] [address] [place] Tele[employer]: Care Team Related Persons Name: NOHEMI PARRA Care Team (unrecognized sect ion and content) Care Team Personnel Name: MIEN MONTANEZ APRN-MEMBERSHIP SECRETARY Position: P4 Advanced Practice Nurse Med Service: Active Provider Member Role: Primary Care Physician Address: Address: [address] [place] [address]- [place] Care Team Related Persons Name: NOHEMI PARRA [...] BE BASED ON THE PRIMARY CLINICAL RECORDS. [facility] [employer] [facility]. provides no warranty or guarantee of the accuracy or completeness of information in this document.
[2025-04-22 08:17] LABS: Hematocrit 38.0 % (37-47); Hemoglobin 12.4 g/dL (12.0-15.0); Mean Corp Hgb Conc 32.6 g/dL (32-36); Mean Corpuscular Volume 93.4 fL (81-99); Mean Platelet Vol. 10.1 fl (6.2-12.0); Platelet Count 293 K/mm3 (150-450); RBC Distribution Width CV 12.8 % (11.6-14.6); RBC Distribution Width SD 44.0 fl (35.1-43.9); Red Blood Count 4.07 M/mm3 (4.2-5.4); White Blood Count 6.2 K/mm3 (4.4-11.0)
[2025-04-22 08:50] LABS: Anion Gap 12 (5-15); BUN 19 mg/dL (4-19); BUN/Creat Ratio 24.8 RATIO (10-20); Calcium,Total 9.4 mg/dL (7.6-11.0); Carbon Dioxide 24.8 mmol/L (21.0-32.0); Chloride 102 mmol/L (98-108); Glucose 164 mg/dL (70-99); Potassium 4.4 mmol/L (3.3-5.1)
== END ==
LOC: OLS.ACH2 05:00
PROVIDERS: PCP Family Medicine; Visit Provider Internal Medicine
DX: E11.9 Type 2 diabetes mellitus without complications (principal); I10 Essential (primary) hypertension
CPT/HCPCS: 36415; 80048; 84439; 84443; 85027

== ENCOUNTER → 2025-04-28 05:00 | Outpatient (REF) | payer MEDICARE, SELFPAY ==
--- OUTSIDE RECORDS SUMMARY | 2025-04-28 04:03 | XMS RPT_ITS | CCD ---
Author Organization [facility] Care Team Providers Care Overhead Door Technician Name Role Phone Leda Singh Attending Unavailable PROVIDER, UNKNOWN Referring Unavailable Brown, Louis Primary Care Unavailable Leda Singh Attending Unavailable PROVIDER, UNKNOWN Referring Unavailable Brown, Louis Primary Care Unavailable Leda Singh Attending Unavailable PROVIDER, UNKNOWN Referring Unavailable Brown, Louis Primary Care Unavailable [facility] DRAW IN HAND-IN STORE BANKER, MINE Primary Care Physician BALTES DRAW IN HAND-IN STORE BANKER, MINE Attending Unavailabl e BALTES DRAW IN HAND-IN STORE BANKER, MINE Primary Care Unavailabl e BALTES DRAW IN HAND-IN STORE BANKER, MINE Attending Unavailabl e BALTES DRAW IN HAND-IN STORE BANKER, MINE Primary Care Unavailabl e ALISE FLOWERS DO Attending Unavailable BALTES DRAW IN HAND-IN STORE BANKER, MINE Primary Care Unavailabl e BALTES DRAW IN HAND-IN STORE BANKER, MINE Attending Unavailabl e BALTES DRAW IN HAND-IN STORE BANKER, MINE Primary Care Unavailabl e BALTES DRAW IN HAND-IN STORE BANKER, MINE Attending Unavailabl e BALTES DRAW IN HAND-IN STORE BANKER, MINE Primary Care Unavailabl e BALTES DRAW IN HAND-IN STORE BANKER, MINE Attending Unavailabl e BALTES DRAW IN HAND-IN STORE BANKER, MINE Primary Care Unavailabl e BALTES DRAW IN HAND-IN STORE BANKER, MINE Attending Unavailabl e BALTES DRAW IN HAND-IN STORE BANKER, MINE Primary Care Unavailabl e GERARDO MANNING MD Attending Unavail able BALTES DRAW IN HAND-IN STORE BANKER, MINE Primary Care Unavailabl ALISE Shekih DO Attending Unavailable BALTES DRAW IN HAND-IN STORE BANKER, MINE Primary Care Unavailabl ALISE Sheikh DO Attending Unavailable BALTES DRAW IN HAND-IN STORE BANKER, MINE Primary Care Unavailabl e VIKY SMITH MD Attending U navailable BALTES DRAW IN HAND-IN STORE BANKER, MINE Primary Care Unavailabl e BALTES DRAW IN HAND-IN STORE BANKER, MINE Attending Unavailabl e BALTES DRAW IN HAND-IN STORE BANKER, MINE Primary Care Unavailabl e BALTES DRAW IN HAND-IN STORE BANKER, MINE Attending Unavailabl e BALTES DRAW IN HAND-IN STORE BANKER, MINE Primary Care Unavailabl e BALTES DRAW IN HAND-IN STORE BANKER, MINE Attending Unavailabl e BALTES DRAW IN HAND-IN STORE BANKER, MINE Primary Care Unavailabl e Candice Ricketts Unavailable Unavailable [facility]TES DRAW IN HAND-IN STORE BANKER, MINE Primary Care Unavailabl e PACO MARK ALOK M Attending Unavailable BALTES DRAW IN HAND-IN STORE BANKER, MINE Primary Care Unavailabl e BALTES DRAW IN HAND-IN STORE BANKER, MINE Attending Unavailabl e BALTES DRAW IN HAND-IN STORE BANKER, MINE Primary Care Unavailabl e BALTES DRAW IN HAND-IN STORE BANKER, MINE Attending Unavailabl e BALTES DRAW IN HAND-IN STORE BANKER, MINE Primary Care Unavailabl e BALTES DRAW IN HAND-IN STORE BANKER, MINE Attending Unavailabl e Deperro OLS, Aodnay Referring Unavailable Jose, Louis R Primary Care Unavailable Deperro OLS, Adonay Attending Unavailable Baltes OLS, Mine Attending Unavailable Baltes OLS, Mine Referring Unavailable Brown, Louis R Primary Care Unavailable Brown, Louis R Primary Care Unavailable Deperro OLS, Adonay Attending Unavailable Brown, Louis R Primary Care Unavailable [facility] Amy groves Allergies Allergy Classification Reported Allergen(s) Allergy Type Date of Onset Reaction(s) Facility (20 sources) Penicillins; Translations: [penicillins] Drug allergy 04-17-2018 [facility] (1 source) Acetaminophen Drug Allergy 04-17-2018 [facility] (1 source) HYDROcodone Drug Allergy 04-17-2018 [facility] Medications Current Medications Medication Drug [...] q4h, # 18 gram(s), 0 Refill(s), Pharmacy: [facility]/pharmacy #[id number], Acute bronchitis, 169, cm, 01/29/24 11:38:00 EDT, Height, kg, 01/16/24 12:34:00 EDT, Dosing Weight Start Date: 01/29/24 Status: Ordered amLODIPine 5 mg oral tablet (20 sources) Dihydropyridine Calcium Channel Emely Start: 08-07-2024 End: 08-02-2025 amLODIPine 5 mg oral tablet Dose : 5 mg = 1 tab(s), Oral, qDay, TAKE 1 TABLET BY MOUTH EVERY DAY, # 90 tab(s), 3 Refill(s), Pharmacy: [facility], 170.2, cm, 02/16/24 7:41:00 EDT, [...] qDay, # 90 tab(s), 3 Refill(s), Pharmacy: [facility], Hypertension Type 2 diabetes mellitus, 170.2, cm, 06/24/22 9:30:00 EST, Height, kg, 06/24/22 9:30:00 EST, Dosing Weight Start Date: 07/25/22 Status: Ordered Start: 01-15-2021 amLODIPine 5 m g oral tablet Dose : 5 mg = 1 tab(s), Oral, qDay, # 90 tab(s), 3 Refill(s), Pharmacy: [facility], Hypertension Type 2 diabetes mellitus, 171.5, cm, 09/15/20 10:04:00 EDT, Height, kg, 09/15/20 10:04:00 EDT, Dosing Weight Start Date: 01/15/21 Status: Ordered apixaban 2.5 mg oral tablet (3 sources) Factor Xa Inhibitor Start: 06-21-2023 Eliquis 2. 5 mg oral tablet Dose : 2.5 mg = 1 tab(s), Oral, BID, # 60 tab(s), 2 Refill(s), Pharmacy: [facility], 170, cm, 05/22/23 14:08:00 EST, Height, 74.6, kg, 05/22/23 14:08:00 EST, Dosing Weight Start Date: 06/21/23 Status: Ordered Start: 05-10-2023 Eliquis 2.5 mg oral tablet Dose : 2.5 mg = 1 tab(s), Oral, BID, # 60 tab(s), 0 Refill(s), Pharmacy: [facility], 170.2, cm, 04/14/23 15:12:00 EST, [...] 09-23-2022 DME MISCellane ous See Instructions, Libre2 [place] Use to scan Edward sensor at least once every 8 hours, # 1 EA, 0 Refill(s), Pharmacy: [facility], 170.2, cm, 09/23/22 11:04:00 EDT, Height, 72.9 Start Date: 09/23/22 Status: Ordered Start: 09-23-2022 DME MISCellane ous See Instructions, Libre2 Sensors. Apply one sensor to back of arm once every 14 days, # 2 EA, 11 Refill(s), Pharmacy: [facility], 170.2, cm, 09/23/22 11:04:00 EDT, Height, 72.9 Start Date: 09/23/22 Status: Ordered doxycycline hyclate 100 mg oral capsule (2 sources) Tetracycline-class Drug Start: 01-29-2024 End: 02-05-2024 doxycycline hyclate 100 mg oral capsule Dose : 100 mg = 1 cap(s), Oral, BID, X 7 day(s), # 14 cap(s), 0 Refill(s), 02/05/24 12:25:00 PM EDT, Pharmacy: [facility]/pharmacy #[id number], Acute rhinosinusitis, 169, cm, 01/29/24 11:38:00 EDT, [...] sites, # 2 mL, 3 Refill(s), [facility], 170, cm, 08/21/23 11:26:00 EDT, Height, kg, 09/18/23 11:16:00 EDT, Dosing Weight Start Date: 11/22/23 Status: Ordered Start: 06-23-2023 inject 0.5 mL by sub cutaneous injection every week Trulicity Pen 3 mg/0.5 mL subcutaneous solution Dose : 3 mg = 0.5 mL, Subcutaneous, qWeek, rotate injection sites, # 2 mL, 4 Refill(s), 0.5 mL/Pen, Pharmacy: [facility], 170, cm, 05/22/23 14:08:00 EST, Height, kg, 05/22/23 14:08:00 EST, Dosing Weight Start Date: 06/23/23 Status: Ordered Start: 05-25-2023 inject 0.5 mL by sub cutaneous injection every week Trulicity Pen 0.75 mg/0.5 mL subcutaneous solution Dose : 0.75 mg = 0.5 mL, Subcutaneous, qWeek, rotate injection sites, # 2 mL, 3 Refill(s), 0.5 mL/Pen, Pharmacy: [facility], 170, cm, 05/22/23 14:08:00 EST, Height, kg, 05/22/23 14:08:00 EST, Dosing Weight Start Date: 05/25/23 Status: Ordered Start: 08-26-2022 inject 0.5 mL by sub cutaneous injection every week Trulicity Pen 1.5 mg/0.5 mL subcutaneous solution Dose : 1.5 mg = 0.5 mL, Subcutaneous, qWeek, rotate injection sites, # 2 mL, 6 Refill(s), Pharmacy: [facility], 170.2, cm, 06/24/22 9:30:00 EST, Height Start Date: 08/26/22 Status: Ordered Start: 08-20-2021 Trulicity Pen 0.75 mg/0.5 mL subcutaneous solution Dose : 0.75 mg = 0.5 mL, Subcutaneous, qWeek, Patient is receiving medication through [facility] Patient Assistance Program., 0.5 mL/Pen [...] using, # 16 gram(s), 0 Refill(s), Pharmacy: [facility]/pharmacy #[id number], Acute rhinosinusitis, 169, cm, 01/29/24 [...] supply, # 2 EA, 11 Refill(s), Pharmacy: [facility], 170.2, cm, 02/16/24 7:41:00 EDT, [...] supply, # 2 EA, 5 Refill(s), Pharmacy: [facility], 170, cm, 08/21/23 11:26:00 EDT, [...] Date: 02/16/24 Status: Ordered FreeStyle Edward 3 [place] (2 sources) Start: 03-25-2024 FreeStyle Libr e 3 [place] See Instructions, Use reader to scan sensor once with every new sensor. Keep reader within 33 feet of the sensor and transmitter for daily blood sugar checks, # 1 EA, 0 Refill(s), Pharmacy: [facility], 170.2, cm, 02/16/24 7:41:00 EDT, Height, [...] checks., # 2 EA, 6 Refill(s), Pharmacy: [facility], 170.2, cm, 02/16/24 7:41:00 EDT, Height, 74.9, kg, 03/25/24 10:52:00 EDT, Dosing Weight Start Date: 03/25/24 Status: Ordered Quantity: 2.0 Unit: EA Repeat number: 7 furosemide 20 mg oral tablet (6 sources) Loop Diuretic Start: 08-22-2024 End: 11-30-2024 Lasix 20 mg oral tablet Dose : 10 mg = 0.5 tab(s), Oral, qDay, # 50 tab(s), 0 Refill(s), Pharmacy: [facility]/pharmacy #[id number], HTN - Hypertension Peripheral edema, 163.2, cm, [...] qDay, # 180 tab(s), 2 Refill(s), Pharmacy: [facility], 170.2, cm, 02/16/24 7:41:00 EDT, [...] qDay, # 60 tab(s), 1 Refill(s), Pharmacy: [facility], 169, cm, 01/05/24 9:04:00 EDT, Height, kg, 01/05/24 9:04:00 EDT, Dosing Weight Start Date: 01/08/24 Status: Ordered Start: 08-04-2023 glipiZIDE 10 m g oral tablet, extended release Dose : 10 mg = 1 tab(s), Oral, qDay, Take with food, # 30 tab(s), 0 Refill(s), Pharmacy: [facility]/pharmacy #[id number], 170, cm, 05/22/23 14:08:00 EST, [...] 0 Refill(s), 02/08/24 12:25:00 PM EDT, Pharmacy: [facility]/pharmacy #[id number], Acute rhinosinusitis Acute bronchitis, 169, cm, [...] BID, # 360 tab(s), 3 Refill(s), Pharmacy: [facility], 170, cm, 08/21/23 11:26:00 EDT, Height, kg, 09/18/23 11:16:00 EDT, Dosing Weight Start Date: 09/19/23 Status: Ordered Start: 09-02-2022 metFORMIN 500 mg oral tablet (IR) Dose : 1,000 mg = 2 tab(s), Oral, BID, # 360 tab(s), 3 Refill(s), Pharmacy: [facility], 170.2, cm, 06/24/22 9:30:00 EST, Height, kg, 06/24/22 9:30:00 EST, Dosing Weight Start Date: 09/02/22 Status: Ordered Start: 01-15-2021 metFORMIN 500 mg oral tablet (IR) Dose : 1,000 mg = 2 tab(s), Oral, BID, # 360 tab(s), 3 Refill(s), [facility]: [facility], Type 2 diabetes mellitus, 171.5, cm, 09/15/20 10:04:00 EDT, Height, kg, 09/15/20 10:04:00 EDT, Dosing Weight Start Date: 01/15/21 Status: Ordered [facility] Medication (2 sources) Start: 03-13-2024 [facility] Medicatio n [facility] Mannatech vitamins and things-for some reason they [...] BID, # 30 tab(s), 2 Refill(s), Pharmacy: [facility] Urinary incontinence Nocturia, 171.5, cm, 03/12/21 9:47:00 EDT, Height, kg, 03/12/21 9:47:00 EDT, Dosing Weight Start Date: 03/12/21 Status: Ordered polyethylene glycol 3350 92393 mg powder for oral solution (1 source) Osmotic Laxative Start: 02-17-2024 End: 03-18-2024 MiraLax oral powder for reconstitution Dose : 17 gram(s) =, Oral, qDay, May take every other day if having loose stools, X 30 day(s), # 255 gram(s), 0 Refill(s), 03/18/24 9:49:00 AM EDT, Pharmacy: [facility]/pharmacy #[id number], 170.2, cm, 02/16/24 7:41:00 EDT, [...] day(s), # 10 tab(s), 0 Refill(s), Pharmacy: [facility]/pharmacy #[id number], 163.2, cm, 09/27/24 10:39:00 EDT, [...] DAY, # 180 cap(s), 1 Refill(s), Pharmacy: [facility], 170.2, cm, 02/16/24 7:41:00 EDT, Height, kg, 03/25/24 10:52:00 EDT, Dosing Weight Start Date: 05/22/24 Status: Ordered Quantity: 180.0 Unit: cap(s) Repeat number: 2 Start: 02-16-2024 take 1 capsule by mo [facility] twice daily tolterodine 2 mg oral capsule, extended release TAKE 1 CAPSULE BY MOUTH TWICE A DAY Start Date: 02/16/24 Status: Ordered Start: 08-01-2023 End: 11-29-2023 take 1 capsule by mouth twice daily tolterodine 2 mg oral capsule, extended release 1 cap(s), Oral, BID, # 60 cap(s), 3 Refill(s), JANICE, Pharmacy: [facility], 170, cm, 05/22/23 14:08:00 EST, Height, kg, 05/22/23 14:08:00 EST, Dosing Weight Start Date: 08/01/23 Stop Date: 11/29/23 Status: Ordered Start: 12-29-2022 End: 04-28-2023 take 1 capsule by mouth twice daily tolterodine 2 mg oral capsule, extended release 1 cap(s), Oral, BID, # 60 cap(s), 3 Refill(s), JANICE, Pharmacy: [facility], 170.2, cm, 12/23/22 8:59:00 EDT, Height, kg, 12/23/22 8:59:00 EDT, Dosing Weight Start Date: 12/29/22 Stop Date: 04/28/23 Status: Ordered Start: 10-07-2021 tolterodine 2 mg oral capsule, extended release Dose : 2 mg = 1 cap(s), Oral, qDay, # 30 cap(s), 11 Refill(s), [facility]: [facility] [facility], 170.2, cm, 06/22/21 9:33:00 EST, Height [...] # 60 cap(s), 0 Refill(s), Pharmacy: [facility], Peripheral neuropathy, 170.2, cm, 10/15/21 9:37:00 EDT, Height, 66.9 Start Date: 10/15/21 Stop Date: 11/14/21 Status: Ordered meloxicam 15 mg oral tablet (3 sources) Nonsteroidal Anti-inflammatory Drug Start: 10-17-2022 End: 10-24-2022 meloxicam 15 mg oral tablet Dose : 15 mg = 1 tab(s), Oral, qDay, # 7 tab(s), 0 Refill(s), Pharmacy: [facility]/pharmacy #[id number], Bursitis of left knee Left hip pain, [...] knee] 03-14-2017 Chronic 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 (2 sources) half-way (current) use of oral hypoglycemic drugs; Translations: [half-way (current) use of oral hypoglycemic drugs] Onset: [...] 09-27-2024 09-27-2024 Episodic 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 (2 sources) [employer] for [employer] terminology (current) use of aspirin; 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, [address] Calcium [Mass/Vol] 9.7 mg/dL Normal 7.6-11.0 [facility] Comment on above: Order Comment: 403 Performed By: #### L [id number], L100.0500, L500.3400, L500.2500 #### [facility] [address] [place], [address] Chloride [Moles/Vol] 103 mmol/L Normal 98-[address] [facility] Comment on above: Order Comment: 403 Performed By: #### L [id number], L100.0500, L500.3400, L500.2500 #### [facility] [address] [place], [address] CO2 [Moles/Vol] 24.8 mmol/L Normal 21.0-32.0 [facility] Comment on above: Order Comment: 403 Performed By: #### L [id number], L100.0500, L500.3400, L500.2500 #### [facility] [address] [place], [address] Creatinine [Mass/Vol] 0.85 mg/dL Normal 0.70-1.20 [facility] Comment on above: Order Comment: 403 Performed By: #### L [id number], L100.0500, L500.3400, L500.2500 #### [facility] [address] [place], [address] GAP 12 Normal 5-15 [facility] Comment on above: Order Comment: 403 Performed By: #### L [id number], L100.0500, L500.3400, L500.2500 #### [facility] [address] [place], [address] GFR/1.73 sq M.predicted among non-blacks MDRD (S/P/Bld) [Vol rate/Area] 66 mL/min/{1.73_m2} Normal >60 [facility] Comment on above: Order Comment: 403 Result Comment: mL/m in/1.73m2 CKD-EPI Creatinine Equation (2020) Performed By: #### L [id number], L100.0500, L500.3400, L500.2500 #### [facility] [address] [place], [address] Glucose [Mass/Vol] 157 mg/dL High 70-99 [facility] Comment on above: Order Comment: 403 Performed By: #### L 501.5200, L100.0500, L500.3400, L500.2500 #### [facility] [address] [place], [address] Potassium [Moles/Vol] 4.3 mmol/L Normal 3.3-5.1 [facility] Comment on above: Order Comment: 403 Performed By: #### L [id number], L100.0500, L500.3400, L500.2500 #### [facility] [address] [place], [address] Sodium [Moles/Vol] 140 mmol/L Normal 133-145 [facility] Comment on above: Order Comment: 403 Performed By: #### L 501.5200, L100.0500, L500.3400, L500.2500 #### [facility] [address] [place], [address] Urea nitrogen [Mass/Vol] 19 mg/dL Normal 4-19 [facility] Comment on above: Order Comment: 403 Performed By: #### L 501.5200, L100.0500, L500.3400, L500.2500 #### [facility] [address] [place], [address] CBC-Complete Blood Cnt No Di ffon 03-31-2025 Erythrocyte distribution width (RBC) [Ratio] 12.2 % Normal 11.6-14.6 [facility] Comment on above: Order Comment: 403 Performed By: #### L 501.5200, L100.0500, L500.3400, L500.2500 #### [facility] [address] [place], [address] Hematocrit (Bld) [Volume fraction] 39.9 % Normal 37-47 [facility] Comment on above: Order Comment: 403 Performed By: #### L 501.5200, L100.0500, L500.3400, L500.2500 #### [facility] [address] [place], [address] Hemoglobin (Bld) [Mass/Vol] 12.9 g/dL Normal 12.0-15.0 [facility] Comment on above: Order Comment: 403 Performed By: #### L 501.5200, L100.0500, L500.3400, L500.2500 #### [facility] [address] [place], [address] MCH (RBC) [Entitic mass] 30.1 pg Normal 27.0-32.0 [facility] Comment on above: Order Comment: 403 Performed By: #### L 501.5200, L100.0500, L500.3400, L500.2500 #### [facility] [address] [place], [address] MCHC (RBC) [Mass/Vol] 32.3 g/dL Normal 32-36 [facility] Comment on above: Order Comment: 403 Performed By: #### L 501.5200, L100.0500, L500.3400, L500.2500 #### [facility] [address] [place], [address] MCV (RBC) [Entitic vol] 93.2 fL Normal 81-99 [facility] Comment on above: Order Comment: 403 Performed By: #### L 501.5200, L100.0500, L500.3400, L500.2500 #### [facility] [address] [place], [address] Platelet mean volume (Bld) [Entitic vol] 10.1 fL Normal 6.2-12.0 [facility] Comment on above: Order Comment: 403 Performed By: #### L 501.5200, L100.0500, L500.3400, L500.2500 #### [facility] [address] [place], [address] Platelets (Bld) [#/Vol] 313 10*3/uL Normal 150-450 [facility] Comment on above: Order Comment: 403 Performed By: #### L 501.5200, L100.0500, L500.3400, L500.2500 #### [facility] [address] [place], [address] RBC (Bld) [#/Vol] 4.28 10*6/uL Normal 4.2-5.4 [facility] Comment on above: Order Comment: 403 Performed By: #### L 501.5200, L100.0500, L500.3400, L500.2500 #### [facility] [address] [place], [address] RDW SD 42.5 fl Normal 35.1-43.9 [facility] Comment on above: Order Comment: 403 Performed By: #### L 501.5200, L100.0500, L500.3400, L500.2500 #### [facility] [address] [place], [address] WBC (Bld) [#/Vol] 6.8 10*3/uL Normal 4.4-11.0 [facility] Comment on above: Order Comment: 403 Performed By: #### L 501.5200, L100.0500, L500.3400, L500.2500 #### [facility] [address] [place], [address] Liver Profileon 03-31-2025 Albumin [Mass/Vol] 4.1 g/dL Normal 3.4-4.8 [facility] Comment on above: Order Comment: 403 Performed By: #### L 501.5200, L100.0500, L500.3400, L500.2500 #### [facility] [address] [place], [address] ALK PHOS 113 U/L High 35-104 [facility] Comment on above: Order Comment: 403 Performed By: #### L 501.5200, L100.0500, L500.3400, L500.2500 #### [facility] [address] [place], [address] ALT [Catalytic activity/Vol] 25 U/L Normal <=34 [facility] Comment on above: Order Comment: 403 Performed By: #### L 501.5200, L100.0500, L500.3400, L500.2500 #### [facility] [address] [place], [address] AST [Catalytic activity/Vol] 27 U/L Normal <=31 [facility] Comment on above: Order Comment: 403 Performed By: #### L 501.5200, L100.0500, L500.3400, L500.2500 #### [facility] [address] [place], [address] Bilirubin [Mass/Vol] 0.51 mg/dL Normal 0.00-1.[address] [facility] Comment on above: Order Comment: 403 Performed By: #### L 501.5200, L100.0500, L500.3400, L500.2500 #### [facility] [address] [place], [address] Bilirubin.direct [Mass/Vol] 0.16 mg/dL Normal 0.00-0.30 [facility] Comment on above: Order Comment: 403 Performed By: #### L 501.5200, L100.0500, L500.3400, L500.2500 #### [facility] [address] [place], [address] Globulin (S) [Mass/Vol] 3.4 g/dL Normal 2.2-4.2 [facility] Comment on above: Order Comment: 403 Performed By: #### L 501.5200, L100.0500, L500.3400, L500.2500 #### [facility] [address] [place], [address] T PROT 7.5 g/dL Normal 5.9-8.4 [facility] Comment on above: Order Comment: 403 Performed By: #### L 501.5200, L100.0500, L500.3400, L500.2500 #### [facility] [address] [place], [address] Magnesiumon 03-31-2025 Magnesium [Mass/Vol] 2.1 mg/dL Normal 1.5-2.[address] [facility] Comment on above: Order Comment: 403 Performed By: #### L 501.5200, L100.0500, L500.3400, L500.2500 #### [facility] [address] [place], [address] CBC-Complete Blood Cnt No Di ffon 03-24-2025 Erythrocyte distribution width (RBC) [Ratio] 12.5 % Normal 11.6-14.6 [facility] Comment on above: Order Comment: 403.1 Performed By: #### L 500.4050, L100.0500, L501.9985 #### [facility] [address] [place], [address] Hematocrit (Bld) [Volume fraction] 34.9 % Low 37-47 [facility] Comment on above: Order Comment: 403.1 Performed By: #### L 500.4050, L100.0500, L501.9985 #### [facility] [address] [place], [address] Hemoglobin (Bld) [Mass/Vol] 12.1 g/dL Normal 12.0-15.0 [facility] Comment on above: Order Comment: 403.1 Performed By: #### L 500.4050, L100.0500, L501.9985 #### [facility] [address] [place], [address] MCH (RBC) [Entitic mass] 31.7 pg Normal 27.0-32.0 [facility] Comment on above: Order Comment: 403.1 Performed By: #### L 500.4050, L100.0500, L501.9985 #### [facility] [address] [place], [address] MCHC (RBC) [Mass/Vol] 34.7 g/dL Normal 32-36 [facility] Comment on above: Order Comment: 403.1 Performed By: #### L 500.4050, L100.0500, L501.9985 #### [facility] [address] [place], [address] MCV (RBC) [Entitic vol] 91.4 fL Normal 81-99 [facility] Comment on above: Order Comment: 403.1 Performed By: #### L 500.4050, L100.0500, L501.9985 #### [facility] [address] [place], [address] Platelet mean volume (Bld) [Entitic vol] 10.1 fL Normal 6.2-12.0 [facility] Comment on above: Order Comment: 403.1 Performed By: #### L 500.4050, L100.0500, L501.9985 #### [facility] [address] [place], [address] Platelets (Bld) [#/Vol] 292 10*3/uL Normal 150-450 [facility] Comment on above: Order Comment: 403.1 Performed By: #### L 500.4050, L100.0500, [id number] #### [facility] [address] [place], [address] RBC (Bld) [#/Vol] 3.82 10*6/uL Low 4.2-5.4 [facility] Comment on above: Order Comment: 403.1 Performed By: #### L 500.4050, L100.0500, [id number] #### [facility] [address] [place], [address] RDW SD 41.4 fl Normal 35.1-43.9 [facility] Comment on above: Order Comment: 403.1 Performed By: #### L 500.4050, L100.0500, [id number] #### [facility] [address] [place], [address] WBC (Bld) [#/Vol] 6.3 10*3/uL Normal 4.4-11.0 [facility] Comment on above: Order Comment: 403.1 Performed By: #### L 500.4050, L100.0500, [id number] #### [facility] [address] [place], [address] Comprehensive Metabolic Prof ilon 03-24-2025 Albumin [Mass/Vol] 3.8 g/dL Normal 3.4-4.8 [facility] Comment on above: Order Comment: 403.1 Performed By: #### L 500.4050, L100.0500, [id number] #### [facility] [address] [place], [address] Albumin/Globulin [Mass ratio] 1.4 {ratio} Normal 0.9-2.4 [facility] Comment on above: Order Comment: 403.1 Performed By: #### L 500.4050, L100.0500, [id number] #### [facility] [address] [place], [address] ALK PHOS 93 U/L Normal 35-104 [facility] Comment on above: Order Comment: 403.1 Performed By: #### L 500.4050, L100.0500, [id number] #### [facility] [address] [place], [address] ALT [Catalytic activity/Vol] 31 U/L Normal <=34 [facility] Comment on above: Order Comment: 403.1 Performed By: #### L 500.4050, L100.0500, [id number] #### [facility] [address] [place], [address] AST [Catalytic activity/Vol] 34 U/L High <=31 [facility] Comment on above: Order Comment: 403.1 Performed By: #### L 500.4050, L100.0500, [id number] #### [facility] [address] [place], [address] Bilirubin [Mass/Vol] 0.48 mg/dL Normal 0.00-1.[address] [facility] Comment on above: Order Comment: 403.1 Performed By: #### L 500.4050, L100.0500, [id number] #### [facility] [address] [place], [address] BUN/CRE 28.2 RATIO High 10-20 [facility] Comment on above: Order Comment: 403.1 Performed By: #### L 500.4050, L100.0500, [id number] #### [facility] [address] [place], [address] Calcium [Mass/Vol] 9.5 mg/dL Normal 7.6-11.0 [facility] Comment on above: Order Comment: 403.1 Performed By: #### L 500.4050, L100.0500, [id number] #### [facility] [address] [place], [address] Chloride [Moles/Vol] 103 mmol/L Normal 98-[address] [facility] Comment on above: Order Comment: 403.1 Performed By: #### L 500.4050, L100.0500, [id number] #### [facility] [address] [place], [address] CO2 [Moles/Vol] 23.8 mmol/L Normal 21.0-32.0 [facility] Comment on above: Order Comment: 403.1 Performed By: #### L 500.4050, L100.0500, [id number] #### [facility] [address] [place], [address] Creatinine [Mass/Vol] 0.76 mg/dL Normal 0.70-1.20 [facility] Comment on above: Order Comment: 403.1 Performed By: #### L 500.4050, L100.0500, [id number] #### [facility] [address] [place], [address] GAP 12 Normal 5-15 [facility] Comment on above: Order Comment: 403.1 Performed By: #### L 500.4050, L100.0500, [id number] #### [facility] [address] [place], [address] GFR/1.73 sq M.predicted among non-blacks MDRD (S/P/Bld) [Vol rate/Area] 76 mL/min/{1.73_m2} Normal >60 [facility] Comment on above: Order Comment: 403.1 Result Comment: mL/m in/1.73m2 CKD-EPI Creatinine Equation (2020) Performed By: #### L 500.4050, L100.0500, L501.9985 #### [facility] [address] [place], [address] Globulin (S) [Mass/Vol] 2.7 g/dL Normal 2.2-4.2 [facility] Comment on above: Order Comment: 403.1 Performed By: #### L 500.4050, L100.0500, L501.9985 #### [facility] [address] [place], [address] Glucose [Mass/Vol] 139 mg/dL High 70-99 [facility] Comment on above: Order Comment: 403.1 Performed By: #### L 500.4050, L100.0500, L501.9985 #### [facility] [address] [place], [address] Potassium [Moles/Vol] 4.2 mmol/L Normal 3.3-5.1 [facility] Comment on above: Order Comment: 403.1 Performed By: #### L 500.4050, L100.0500, L501.9985 #### [facility] [address] [place], [address] Sodium [Moles/Vol] 139 mmol/L Normal 133-145 [facility] Comment on above: Order Comment: 403.1 Performed By: #### L 500.4050, L100.0500, [id number] #### [facility] [address] [place], [address] T PROT 6.5 g/dL Normal 5.9-8.4 [facility] Comment on above: Order Comment: 403.1 Performed By: #### L 500.4050, L100.0500, [id number] #### [facility] [address] [place], [address] Urea nitrogen [Mass/Vol] 21 mg/dL High 09-21 [facility] Comment on above: Order Comment: 403.1 Performed By: #### L 500.4050, L100.0500, [id number] #### [facility] [address] [place], [address] Hemoglobin A1con 03-24-2025 HbA1c (Bld) [Mass fraction] 7.8 % High <=5.6 [facility] Comment on above: Order Comment: 403 Result Comment: Norm al < 5.7 % Prediabetic 5.7 - 6.4 % Diabetic >or= 6.5 % Please note range changes. Performed By: #### L 501.5200, L100.0500, L500.3400, L500.2500 #### [facility] [address] [place], [address] Basic Metabolic Profile (BMP )on 02-04-2025 BUN/CRE 26.3 RATIO High 03-24 [facility] Comment on above: Order Comment: 403 Performed By: #### L 500.2500 #### [facility] [address] [place], [address] Calcium [Mass/Vol] 9.5 mg/dL Normal 7.6-11.0 [facility] Comment on above: Order Comment: 403 Performed By: #### L 500.2500 #### [facility] [address] [place], [address] Chloride [Moles/Vol] 104 mmol/L Normal 98-[address] [facility] Comment on above: Order Comment: 403 Performed By: #### L 500.2500 #### [facility] [address] [place], [address] CO2 [Moles/Vol] 21.6 mmol/L Normal 21.0-32.0 [facility] Comment on above: Order Comment: 403 Performed By: #### L 500.2500 #### [facility] [address] [place], [address] Creatinine [Mass/Vol] 0.83 mg/dL Normal 0.70-1.20 [facility] Comment on above: Order Comment: 403 Performed By: #### L 500.2500 #### [facility] [address] [place], [address] GAP 12 Normal 5-15 [facility] Comment on above: Order Comment: 403 Performed By: #### L 500.2500 #### [facility] [address] [place], [address] GFR/1.73 sq M.predicted among non-blacks MDRD (S/P/Bld) [Vol rate/Area] 69 mL/min/{1.73_m2} Normal >60 [facility] Comment on above: Order Comment: 403 Result Comment: mL/m in/1.73m2 CKD-EPI Creatinine Equation (2020) Performed By: #### L 500.2500 #### [facility] [address] [place], [address] Glucose [Mass/Vol] 152 mg/dL High 70-99 [facility] Comment on above: Order Comment: 403 Performed By: #### L 500.2500 #### [facility] [address] [place], [address] Potassium [Moles/Vol] 4.4 mmol/L Normal 3.3-5.1 [facility] Comment on above: Order Comment: 403 Performed By: #### L 500.2500 #### [facility] [address] [place], [address] Sodium [Moles/Vol] 138 mmol/L Normal 133-145 [facility] Comment on above: Order Comment: 403 Performed By: #### L 500.2500 #### [facility] [address] [place], [address] Urea nitrogen [Mass/Vol] 22 mg/dL High 4-19 [facility] Comment on above: Order Comment: 403 Performed By: #### L 500.2500 #### [facility] [address] [place], [address] CBC-Complete Blood Cnt No Di ffon 12-30-2024 Erythrocyte distribution width (RBC) [Ratio] 13.6 % Normal 11.6-14.6 [facility] Comment on above: Order Comment: 403 Performed By: #### L 100.0500, L500.4050, L501.9985 #### [facility] [address] [place], [address] Hematocrit (Bld) [Volume fraction] 34.9 % Low 37-47 [facility] Comment on above: Order Comment: 403 Performed By: #### L 100.0500, L500.4050, L501.9985 #### [facility] [address] [place], [address] Hemoglobin (Bld) [Mass/Vol] 11.5 g/dL Low 12.0-15.0 [facility] Comment on above: Order Comment: 403 Performed By: #### L 100.0500, L500.4050, L501.9985 #### [facility] [address] [place], [address] MCH (RBC) [Entitic mass] 31.2 pg Normal 27.0-32.0 [facility] Comment on above: Order Comment: 403 Performed By: #### L 100.0500, L500.4050, L501.9985 #### [facility] [address] [place], [address] MCHC (RBC) [Mass/Vol] 33.0 g/dL Normal 32-36 [facility] Comment on above: Order Comment: 403 Performed By: #### L 100.0500, L500.4050, L501.9985 #### [facility] [address] [place], [address] MCV (RBC) [Entitic vol] 94.6 fL Normal 81-99 [facility] Comment on above: Order Comment: 403 Performed By: #### L 100.0500, L500.4050, L501.9985 #### [facility] [address] [place], [address] Platelet mean volume (Bld) [Entitic vol] 10.2 fL Normal 6.2-12.0 [facility] Comment on above: Order Comment: 403 Performed By: #### L 100.0500, L500.4050, L501.9985 #### [facility] [address] [place], [address] Platelets (Bld) [#/Vol] 237 10*3/uL Normal 150-450 [facility] Comment on above: Order Comment: 403 Performed By: #### L 100.0500, L500.4050, L501.9985 #### [facility] [address] [place], [address] RBC (Bld) [#/Vol] 3.69 10*6/uL Low 4.2-5.4 [facility] Comment on above: Order Comment: 403 Performed By: #### L 100.0500, L500.4050, L501.9985 #### [facility] [address] [place], [address] RDW SD 46.9 fl High 35.1-43.9 [facility] Comment on above: Order Comment: 403 Performed By: #### L 100.0500, L500.4050, L501.9985 #### [facility] [address] [place], [address] WBC (Bld) [#/Vol] 6.2 10*3/uL Normal 4.4-11.0 [facility] Comment on above: Order Comment: 403 Performed By: #### L 100.0500, L500.4050, L501.9985 #### [facility] [address] [place], [address] Comprehensive Metabolic Prof [facility] 12-30-2024 Albumin [Mass/Vol] 3.8 g/dL Normal 3.4-4.8 [facility] Comment on above: Order Comment: 403 Performed By: #### L 100.0500, L500.4050, L501.9985 #### [facility] [address] [place], [address] Albumin/Globulin [Mass ratio] 1.4 {ratio} Normal 0.9-2.4 [facility] Comment on above: Order Comment: 403 Performed By: #### L 100.0500, L500.4050, L501.9985 #### [facility] [address] [place], [address] ALK PHOS 95 U/L Normal 35-104 [facility] Comment on above: Order Comment: 403 Performed By: #### L 100.0500, L500.4050, L501.9985 #### [facility] [address] [place], [address] ALT [Catalytic activity/Vol] 41 U/L High <=34 [facility] Comment on above: Order Comment: 403 Performed By: #### L 100.0500, L500.4050, L501.9985 #### [facility] [address] [place], [address] AST [Catalytic activity/Vol] 33 U/L High <=31 [facility] Comment on above: Order Comment: 403 Performed By: #### L 100.0500, L500.4050, L501.9985 #### [facility] [address] [place], [address] Bilirubin [Mass/Vol] 0.48 mg/dL Normal 0.00-1.[address] [facility] Comment on above: Order Comment: 403 Performed By: #### L 100.0500, L500.4050, L501.9985 #### [facility] [address] [place], [address] BUN/CRE 26.3 RATIO High 10-20 [facility] Comment on above: Order Comment: 403 Performed By: #### L 100.0500, L500.4050, L501.9985 #### [facility] [address] [place], [address] Calcium [Mass/Vol] 9.3 mg/dL Normal 7.6-11.0 [facility] Comment on above: Order Comment: 403 Performed By: #### L 100.0500, L500.4050, L501.9985 #### [facility] [address] [place], [address] Chloride [Moles/Vol] 105 mmol/L Normal 98-[address] [facility] Comment on above: Order Comment: 403 Performed By: #### L 100.0500, L500.4050, L501.9985 #### [facility] [address] [place], [address] CO2 [Moles/Vol] 20.8 mmol/L Low 21.0-32.0 [facility] Comment on above: Order Comment: 403 Performed By: #### L 100.0500, L500.4050, L501.9985 #### [facility] [address] [place], [address] Creatinine [Mass/Vol] 0.89 mg/dL Normal 0.70-1.20 [facility] Comment on above: Order Comment: 403 Performed By: #### L 100.0500, L500.4050, L501.9985 #### [facility] [address] [place], [address] GAP 14 Normal 5-15 [facility] Comment on above: Order Comment: 403 Performed By: #### L 100.0500, L500.4050, L501.9985 #### [facility] [address] [place], [address] GFR/1.73 sq M.predicted among non-blacks MDRD (S/P/Bld) [Vol rate/Area] 63 mL/min/{1.73_m2} Normal >60 [facility] Comment on above: Order Comment: 403 Result Comment: mL/m in/1.73m2 CKD-EPI Creatinine Equation (2020) Performed By: #### L 100.0500, L500.4050, L501.9985 #### [facility] [address] [place], [address] Globulin (S) [Mass/Vol] 2.6 g/dL Normal 2.2-4.2 [facility] Comment on above: Order Comment: 403 Performed By: #### L 100.0500, L500.4050, L501.9985 #### [facility] [address] [place], [address] Glucose [Mass/Vol] 145 mg/dL High 70-99 [facility] Comment on above: Order Comment: 403 Performed By: #### L 100.0500, L500.4050, L501.9985 #### [facility] [address] [place], [address] Potassium [Moles/Vol] 4.5 mmol/L Normal 3.3-5.1 [facility] Comment on above: Order Comment: 403 Performed By: #### L 100.0500, L500.4050, L501.9985 #### [facility] [address] [place], [address] Sodium [Moles/Vol] 139 mmol/L Normal 133-145 [facility] Comment on above: Order Comment: 403 Performed By: #### L 100.0500, L500.4050, L501.9985 #### [facility] [address] [place], [address] T PROT 6.4 g/dL Normal 5.9-8.4 [facility] Comment on above: Order Comment: 403 Performed By: #### L 100.0500, L500.4050, L501.9985 #### [facility] [address] [place], [address] Urea nitrogen [Mass/Vol] 23 mg/dL High 4-19 [facility] Comment on above: Order Comment: 403 Performed By: #### L 100.0500, L500.4050, L501.9985 #### [facility] [address] [place], [address] Hemoglobin A1con 12-30-2024 HbA1c (Bld) [Mass fraction] 7.4 % High <=5.6 [facility] Comment on above: Order Comment: 403 Result Comment: Norm al < 5.7 % Prediabetic 5.7 - 6.4 % Diabetic >or= 6.5 % Please note range changes. Performed By: #### L 100.0500, L500.4050, L501.9985 #### [facility] [address] [place], [address] .Auto Diffon 09-27-2024 Basophil, Absolute 0.0 10 3/mcL Normal 0.0-0.3 [facility] Comment on above: Performed By: #### A DIFF, GFR, CBC, CMP, ANEU #### [address] [address] Basophils/100 WBC (Bld) 0.4 % Normal 0.0-2.[address] [facility] Comment on above: Performed By: #### A DIFF, GFR, CBC, CMP, ANEU #### [address] [address] Eosinophil, Absolute 0.0 10 3/mcL Normal 0.0-0.7 [facility] Comment on above: Performed By: #### A DIFF, GFR, CBC, CMP, ANEU #### [address] [address] Eosinophils/100 WBC (Bld) 0.4 % Normal 0.0-6.[address] [facility] Comment on above: Performed By: #### A DIFF, GFR, CBC, CMP, ANEU #### [address] [address] Lymphocyte, Absolute 1.6 10 3/mcL Normal 0.9-4.3 [facility] Comment on above: Performed By: #### A DIFF, GFR, CBC, CMP, ANEU #### [address] [address] Lymphocytes/100 WBC (Bld) 16.7 % Low 20.0-40.[address] [facility] Comment on above: Performed By: #### A DIFF, GFR, CBC, CMP, ANEU #### [address] [address] Monocyte, Absolute 0.7 10 3/mcL Normal 0.1-1.4 [facility] Comment on above: Performed By: #### A DIFF, GFR, CBC, CMP, ANEU #### [address] [address] Monocytes/100 WBC (Bld) 7.3 % Normal 2.0-13.[address] [facility] Comment on above: Performed By: #### A DIFF, GFR, CBC, CMP, ANEU #### [address] [address] Neutrophils/100 WBC (Bld) 75.2 % High 50.0-75.[address] [facility] Comment on above: Performed By: #### A DIFF, GFR, CBC, CMP, ANEU #### [address] [address] .GFRon 09-27-2024 Estimated Glomerular Filtration Rate 65 ml/min/1.73sqm Normal [facility] Comment on above: Result Comment: Stages [...] A DIFF, GFR, CBC, CMP, ANEU #### [address] [address] .NEUABSon 09-27-2024 Neutrophil, Absolute 7.2 10 3/mcL Normal 2.3-8.1 [facility] Comment on above: Performed By: #### A DIFF, GFR, CBC, CMP, ANEU #### [address] [address] CBCon 09-27-2024 Erythrocyte distribution width (RBC) [Ratio] 14.1 % Normal 11.5-15.[address] [facility] Comment on above: Performed By: #### A DIFF, GFR, CBC, CMP, ANEU #### [address] [address] Hematocrit (Bld) [Volume fraction] 37.8 % Normal 34.0-46.[address] [facility] Comment on above: Performed By: #### A DIFF, GFR, CBC, CMP, ANEU #### [address] [address] Hgb 12.6 G/dL Normal 12.0-16.[address] [facility] Comment on above: Performed By: #### A DIFF, GFR, CBC, CMP, ANEU #### [address] [address] MCH (RBC) [Entitic mass] 30.8 pg Normal 27.0-33.[address] [facility] Comment on above: Performed By: #### A DIFF, GFR, CBC, CMP, ANEU #### [address] [address] MCHC 33.4 G/dL Normal 32.0-36.[address] [facility] Comment on above: Performed By: #### A DIFF, GFR, CBC, CMP, ANEU #### [address] [address] MCV (RBC) [Entitic vol] 92.3 fL Normal 80.0-99.[address] [facility] Comment on above: Performed By: #### A DIFF, GFR, CBC, CMP, ANEU #### [address] [address] Platelet 235 10 3/mcL Normal 150-[address] [facility] Comment on above: Performed By: #### A DIFF, GFR, CBC, CMP, ANEU #### [address] [address] Platelet mean volume (Bld) [Entitic vol] 8.8 fL Normal 6.6-10.[address] [facility] Comment on above: Performed By: #### A DIFF, GFR, CBC, CMP, ANEU #### [address] [address] RBC 4.09 10 6/mcL Low 4.10-5.[address] [facility] Comment on above: Performed By: #### A DIFF, GFR, CBC, CMP, ANEU #### [address] [address] WBC 9.6 10 3/mcL Normal 4.5-10.[address] [facility] Comment on above: Performed By: #### A DIFF, GFR, CBC, CMP, ANEU #### [address] [address] CMPon 09-27-2024 Albumin Level 3.5 G/dL Normal 3.4-4.[address] [facility] Comment on above: Performed By: #### A DIFF, GFR, CBC, CMP, ANEU #### [place] [address] Albumin/Globulin [Mass ratio] 0.9 {ratio} Low 1.1-2.[address] [facility] Comment on above: Performed By: #### A DIFF, GFR, CBC, CMP, ANEU #### [place] [address] ALP [Catalytic activity/Vol] 135 U/L Normal 40-[address] [facility] Comment on above: Performed By: #### A DIFF, GFR, CBC, CMP, ANEU #### [place] [address] ALT [Catalytic activity/Vol] 30 U/L Normal 14-[address] [facility] Comment on above: Performed By: #### A DIFF, GFR, CBC, CMP, ANEU #### [place] [address] AST [Catalytic activity/Vol] 22 U/L Normal 10-[address] [facility] Comment on above: Performed By: #### A DIFF, GFR, CBC, CMP, ANEU #### [place] [address] Bili Total 1.0 mg/dL Normal 0.2-1.[address] [facility] Comment on above: Result Comment: Use of this assay is not recommended for patients undergoing treatment with eltrombopag due to the potential for falsely elevated results. Performed By: #### A DIFF, GFR, CBC, CMP, ANEU #### [address] [address] BUN/Creatinine Ratio 34 ratio High 7-27 [facility] Comment on above: Performed By: #### A DIFF, GFR, CBC, CMP, ANEU #### [address] [address] Calcium [Mass/Vol] 9.5 mg/dL Normal 8.4-10.2 [facility] Comment on above: Performed By: #### A DIFF, GFR, CBC, CMP, ANEU #### [address] [address] Chloride [Moles/Vol] 99 mmol/L Normal 98-107 [facility] Comment on above: Performed By: #### A DIFF, GFR, CBC, CMP, ANEU #### [place] [address] CO2 [Moles/Vol] 27 mmol/L Normal 23-[address] [facility] Comment on above: Performed By: #### A DIFF, GFR, CBC, CMP, ANEU #### [address] [address] Creatinine [Mass/Vol] 0.86 mg/dL Normal 0.51-0.95 [facility] Comment on above: Performed By: #### A DIFF, GFR, CBC, CMP, ANEU #### [address] [address] Electrolyte Balance 8.0 mEq/L Normal 4.0-15.0 [facility] Comment on above: Performed By: #### A DIFF, GFR, CBC, CMP, ANEU #### [address] [address] Globulin 3.7 G/dL Normal 2.7-4.[address] [facility] Comment on above: Performed By: #### A DIFF, GFR, CBC, CMP, ANEU #### [address] [address] Glucose [Mass/Vol] 359 mg/dL High 83-110 [facility] Comment on above: Performed By: #### A DIFF, GFR, CBC, CMP, ANEU #### [place] [address] [place], [place] [address] Potassium [Moles/Vol] 5.0 mmol/L Normal 3.5-5.1 [facility] Comment on above: Performed By: #### A DIFF, GFR, CBC, CMP, ANEU #### [place] [id number] [place], [place] [address] Sodium [Moles/Vol] 134 mmol/L Low 136-145 [facility] Comment on above: Performed By: #### A DIFF, GFR, CBC, CMP, ANEU #### [address] [address] Total Protein 7.2 G/dL Normal 6.4-8.[address] [facility] Comment on above: Performed By: #### A DIFF, GFR, CBC, CMP, ANEU #### [address] [address] Urea nitrogen [Mass/Vol] 29 mg/dL High 7-[address] [facility] Comment on above: Performed By: #### A DIFF, GFR, CBC, CMP, ANEU #### [address] [address] LABORATORYOrdered By: SYSTEM SYSTEM on 09-27-2024 Albumin [...] Probable Contamination. Suggest recollection if clinically indicated. [facility] .GFRon 08-19-2024 Estimated Glomerular Filtration Rate 50 ml/min/1.73sqm Normal [facility] Comment on above: Result Comment: Stages [...] Performed By: #### G , BMP #### [address] [address] BMPon 08-19-2024 BUN/Creatinine Ratio 24 ratio Normal 7-27 [facility] Comment on above: Performed By: #### G , BMP #### [address] [address] Calcium [Mass/Vol] 9.9 mg/dL Normal 8.4-10.2 [facility] Comment on above: Performed By: #### G FR, BMP #### [address] [address] Chloride [Moles/Vol] 100 mmol/L Normal 98-107 [facility] Comment on above: Performed By: #### G FR, BMP #### [address] [address] CO2 [Moles/Vol] 29 mmol/L Normal 23-[address] [facility] Comment on above: Performed By: #### G FR, BMP #### [address] [address] Creatinine [Mass/Vol] 1.08 mg/dL High 0.55-1.02 [facility] Comment on above: Result Comment: Test ing performed on Siemens Dimension EXL analyzer using a modified kinetic Trung technique. Performed By: #### Ana HAMMER, BMP #### [address] [address] Electrolyte Balance 8.0 mEq/L Normal 4.0-15.0 [facility] Comment on above: Performed By: #### Ana HAMMER, BMP #### [address] [address] Glucose [Mass/Vol] 210 mg/dL High 83-110 [facility] Comment on above: Performed By: #### Ana HAMMER, BMP #### [address] [address] Potassium [Moles/Vol] 4.8 mmol/L Normal 3.5-5.1 [facility] Comment on above: Performed By: #### Ana HAMMER, BMP #### [address] [address] Sodium [Moles/Vol] 137 mmol/L Normal 136-145 [facility] Comment on above: Performed By: #### Ana HAMMER, BMP #### [address] [address] Urea nitrogen [Mass/Vol] 26 mg/dL High 7-[address] [facility] Comment on above: Performed By: #### Ana HAMMER, BMP #### [address] [address] LABORATORYOrdered By: Avril Quinones on 02-17-2024 Blood Glucose Testing Reason Routine (02/17/24 12:03 PM) [facility] Glucose [Mass/Vol] 128 mg/dL High 82 - 115 mg/dL [facility] Blood Glucose Testing Reason Routine (02/17/24 7:57 AM) [facility] Glucose [Mass/Vol] 165 mg/dL High 82 - 115 mg/dL [facility] LABORATORYOrdered By: SYSTEM SYSTEM on 02-17-2024 Albumin [...] Glucose Testing Reason Routine (02/16/24 9:29 PM) [facility] Glucose [Mass/Vol] 162 mg/dL High 82 - 115 mg/dL [facility] LABORATORYOrdered By: Jacqueline Brown on 02-16-2024 Appearance [...] MDW testing unable to be performed on [id number] instrumentation. UA Leuk Est Negative (02/16/24 4:16 [...] SS .GFRon 01-26-2024 GFR 63 ml/min/1.73sqm [facility] [place] Comment on above: Result Comment: GFR Population [...] FR, ANEU, CMP, CBC, PBNP, ADIFF #### [address] [address] GFR Non- 52 ml/min/1.73sqm Normal [facility] [place] Comment on above: Result Comment: GFR Population [...] FR, ANEU, CMP, CBC, PBNP, ADIFF #### [address] [address] BMPon 01-26-2024 BUN/Creatinine Ratio 18 ratio Normal 7-27 [facility] ([place]) Comment on above: Performed By: #### G FR, ANEU, CMP, CBC, PBNP, ADIFF #### [address] [address] Calcium [Mass/Vol] 9.3 mg/dL Normal 8.4-10.2 [facility] ([place]) Comment on above: Performed By: #### G FR, ANEU, CMP, CBC, PBNP, ADIFF #### [address] [address] Chloride [Moles/Vol] 101 mmol/L Normal 98-107 [facility] ([place] Comment on above: Performed By: #### G FR, ANEU, CMP, CBC, PBNP, ADIFF #### [address] [address] CO2 [Moles/Vol] 30 mmol/L Normal 23-31 [facility] ([place]) Comment on above: Performed By: #### G FR, ANEU, CMP, CBC, PBNP, ADIFF #### [address] [address] Creatinine [Mass/Vol] 1.01 mg/dL Normal 0.55-1.02 [facility] ([place] Comment on above: Performed By: #### G FR, ANEU, CMP, CBC, PBNP, ADIFF #### [address] [address] Electrolyte Balance 7.0 mEq/L Normal 4.0-15.0 [facility] ([place]) Comment on above: Performed By: #### G FR, ANEU, CMP, CBC, PBNP, ADIFF #### [place] [address] [place], [place] [address] Glucose [Mass/Vol] 188 mg/dL High 83-110 [facility] ([place] Comment on above: Performed By: #### G FR, ANEU, CMP, CBC, PBNP, ADIFF #### [address] [place], [place] [address] Potassium [Moles/Vol] 4.6 mmol/L Normal 3.5-5.1 [facility] ([place] Comment on above: Performed By: #### G FR, ANEU, CMP, CBC, PBNP, ADIFF #### [address] [place], [place] [address] Sodium [Moles/Vol] 138 mmol/L Normal 136-145 [facility] ([place] Comment on above: Performed By: #### G FR, ANEU, CMP, CBC, PBNP, ADIFF #### [address] [place], [place] [address] Urea nitrogen [Mass/Vol] 18 mg/dL Normal 7-18 [facility] [place] Comment on above: Performed By: #### G FR, ANEU, CMP, CBC, PBNP, ADIFF #### [address] [address] LABORATORYOrdered By: Page Arce on 01-26-2024 Albumin DL <= 20 mg/L (U) [Mass/Vol] 6221 mcg/dL Invalid Interpretation Code AO ADM SS Albumin/Creatinine DL <= 20 mg/L (U) [Mass ratio] 49 mcg/mg High 0 - 30 mcg/mg AO ADM SS Creatinine (U) [Mass/Vol] 127.0 mg/dL High 28.0 - 117.0 mg/dL AO ADM SS LABORATORYOrdered By: [facility] on 01-26-2024 Calcium [Mass/Vol] 9.3 mg/dL Normal [...] 01-26-2024 U Creatinine 127.0 mg/dL High 28.0-117.0 [facility] ([place] Comment on above: Performed By: #### G FR, ANEU, CMP, CBC, PBNP, ADIFF #### [address] [address] U Microalb 6221 mcg/dL Normal [facility] ([place]) Comment on above: Performed By: #### G FR, ANEU, CMP, CBC, PBNP, ADIFF #### [address] [address] U Ratio Alb/Cre 49 mcg/mg High 0-30 [facility] ([place] Comment on above: Performed By: #### G FR, ANEU, CMP, CBC, PBNP, ADIFF #### [address] [address] .Auto Diffon 01-16-2024 Basophil, Absolute 0.1 10 3/mcL Normal 0.0-0.2 [facility] ([place] Comment on above: Performed By: #### C BC, BMP, PBNP, ADIFF, ANEU, TSH, GFR #### [address] [address] Basophils/100 WBC (Bld) 0.8 % Normal 0.0-2.5 [facility] [place] Comment on above: Performed By: #### C BC, BMP, PBNP, ADIFF, ANEU, TSH, GFR #### [address] [address] Eosinophil, Absolute 0.1 10 3/mcL Normal 0.0-0.4 [facility] ([place] Comment on above: Performed By: #### C BC, BMP, PBNP, ADIFF, ANEU, TSH, GFR #### [address] [address] Eosinophils/100 WBC (Bld) 0.9 % Normal 0.0-7.0 [facility] [place] Comment on above: Performed By: #### C BC, BMP, PBNP, ADIFF, ANEU, TSH, GFR #### [address] [address] Lymphocyte, Absolute 1.9 10 3/mcL Normal 0.8-3.9 [facility] ([place] Comment on above: Performed By: #### C BC, BMP, PBNP, ADIFF, ANEU, TSH, GFR #### [address] [address] Lymphocytes/100 WBC (Bld) 29.0 % Normal 10.0-50.0 [facility] [place] Comment on above: Performed By: #### C BC, BMP, PBNP, ADIFF, ANEU, TSH, GFR #### [address] [address] Monocyte, Absolute 0.5 10 3/mcL Normal 0.2-1.0 [facility] ([place] Comment on above: Performed By: #### C BC, BMP, PBNP, ADIFF, ANEU, TSH, GFR #### [address] [address] Monocytes/100 WBC (Bld) 8.0 % Normal 1.7-13.0 [facility] [place] Comment on above: Performed By: #### C BC, BMP, PBNP, ADIFF, ANEU, TSH, GFR #### [address] [address] Neutrophils/100 WBC (Bld) 61.3 % Normal 37.0-80.0 [facility] [place] Comment on above: Performed By: #### C BC, BMP, PBNP, ADIFF, ANEU, TSH, GFR #### [address] [address] .GFRon 01-16-2024 GFR 72 ml/min/1.73sqm Normal [facility] [place] Comment on above: Result Comment: GFR Population [...] FR, ANEU, CMP, CBC, PBNP, ADIFF #### [address] [address] GFR Non- 59 ml/min/1.73sqm Normal [facility] [place] Comment on above: Result Comment: GFR Population [...] FR, ANEU, CMP, CBC, PBNP, ADIFF #### [address] [address] .NEUABSon 01-16-2024 Neutrophil, Absolute 4.1 10 3/mcL Normal 2.9-6.2 [facility] ([place] Comment on above: Performed By: #### C BC, BMP, PBNP, ADIFF, ANEU, TSH, GFR #### [address] [address] BMPon 01-16-2024 BUN/Creatinine Ratio 20 ratio Normal 7-27 [facility] ([place] Comment on above: Performed By: #### C BC, BMP, PBNP, ADIFF, ANEU, TSH, GFR #### [address] [address] Calcium [Mass/Vol] 10.0 mg/dL Normal 8.4-10.2 [facility] ([place] Comment on above: Performed By: #### C BC, BMP, PBNP, ADIFF, ANEU, TSH, GFR #### [address] [address] Chloride [Moles/Vol] 103 mmol/L Normal 98-107 [facility] ([place] Comment on above: Performed By: #### C BC, BMP, PBNP, ADIFF, ANEU, TSH, GFR #### [address] [address] CO2 [Moles/Vol] 27 mmol/L Normal 23-31 [facility] ([place] Comment on above: Performed By: #### C BC, BMP, PBNP, ADIFF, ANEU, TSH, GFR #### [address] [address] Creatinine [Mass/Vol] 0.90 mg/dL Normal 0.55-1.02 [facility] ([place] Comment on above: Performed By: #### C BC, BMP, PBNP, ADIFF, ANEU, TSH, GFR #### [address] [address] Electrolyte Balance 11.0 mEq/L Normal 4.0-15.0 [facility] ([place] Comment on above: Performed By: #### C BC, BMP, PBNP, ADIFF, ANEU, TSH, GFR #### [address] [address] Glucose [Mass/Vol] 120 mg/dL High 83-110 [facility] ([place] Comment on above: Performed By: #### C BC, BMP, PBNP, ADIFF, ANEU, TSH, GFR #### [address] [address] Potassium [Moles/Vol] 5.5 mmol/L High 3.5-5.1 [facility] ([place] Comment on above: Performed By: #### C BC, BMP, PBNP, ADIFF, ANEU, TSH, GFR #### [address] [address] Sodium [Moles/Vol] 141 mmol/L Normal 136-145 [facility] ([place] Comment on above: Performed By: #### C BC, BMP, PBNP, ADIFF, ANEU, TSH, GFR #### [address] [address] Urea nitrogen [Mass/Vol] 18 mg/dL Normal 7-18 [facility] [place] Comment on above: Performed By: #### C BC, BMP, PBNP, ADIFF, ANEU, TSH, GFR #### [address] [address] CBCon 01-16-2024 Erythrocyte distribution width (RBC) [Ratio] 13.8 % Normal 11.5-14.5 [facility] [place] Comment on above: Performed By: #### C BC, BMP, PBNP, ADIFF, ANEU, TSH, GFR #### [place] [id number] Hematocrit (Bld) [Volume fraction] 37.2 % Normal 37.0-47.0 [facility] [place] Comment on above: Performed By: #### C BC, BMP, PBNP, ADIFF, ANEU, TSH, GFR #### [address] [address] Hgb 12.3 G/dL Normal 12.0-16.0 [facility] [place] Comment on above: Performed By: #### C BC, BMP, PBNP, ADIFF, ANEU, TSH, GFR #### [address] [address] MCH (RBC) [Entitic mass] 30.6 pg Normal 27.0-31.2 [facility] [place] Comment on above: Performed By: #### C BC, BMP, PBNP, ADIFF, ANEU, TSH, GFR #### [address] [address] MCHC 33.0 G/dL Normal 33.0-37.0 [facility] [place] Comment on above: Performed By: #### C BC, BMP, PBNP, ADIFF, ANEU, TSH, GFR #### [address] [address] MCV (RBC) [Entitic vol] 92.7 fL Normal 80.0-94.0 [facility] [place] Comment on above: Performed By: #### C BC, BMP, PBNP, ADIFF, ANEU, TSH, GFR #### [address] [address] Platelet 248 10 3/mcL Normal 130-400 [facility] ([place] Comment on above: Performed By: #### C BC, BMP, PBNP, ADIFF, ANEU, TSH, GFR #### [address] [address] Platelet mean volume (Bld) [Entitic vol] 8.8 fL Normal 7.4-10.4 [facility] ([place] Comment on above: Performed By: #### C BC, BMP, PBNP, ADIFF, ANEU, TSH, GFR #### [address] [address] RBC 4.01 10 6/mcL Low 4.20-5.40 [facility] ([place] Comment on above: Performed By: #### C BC, BMP, PBNP, ADIFF, ANEU, TSH, GFR #### [address] [address] WBC 6.6 10 3/mcL Normal 4.6-10.8 [facility] ([place] Comment on above: Performed By: #### C BC, BMP, PBNP, ADIFF, ANEU, TSH, GFR #### [address] [address] PBNPon 01-16-2024 Natriuretic peptide B (Bld) [Mass/Vol] 189 pg/mL Normal 0-450 [facility] [place] Comment on above: Result Comment: NT-p roBNP results of less than 300 pg/mL effectively rules out acute congestive heart failure with 99% negative predictive value. Performed By: #### G FR, ANEU, CMP, CBC, PBNP, ADIFF #### [facility] [address] [place], [place] [address] TSHon 01-16-2024 TSH Qn 1.47 m[IU]/L Normal 0.36-3.74 [facility] ([place] Comment on above: Performed By: #### G FR, ANEU, CMP, CBC, PBNP, ADIFF #### [address] [place], [place] [address] XR CHEST 2 VIEWSon 4 XR CHEST [...] 08/22/2023 10:25:13 AM Ordering Provider: ALISE Swanson [facility] ([place] .Auto Diffon 08-18-2023 Basophil, Absolute 0.0 10 3/mcL Normal 0.0-0.2 [facility]) Comment on above: Performed By: #### G FR, ANEU, CMP, CBC, PBNP, ADIFF #### [address] [place], [place] [address] Basophils/100 WBC (Bld) 0.7 % Normal 0.0-2.5 [facility] [place] Comment on above: Performed By: #### G FR, ANEU, CMP, CBC, PBNP, ADIFF #### [address] [address] Eosinophil, Absolute 0.0 10 3/mcL Normal 0.0-0.4 [facility] ([place] Comment on above: Performed By: #### G FR, ANEU, CMP, CBC, PBNP, ADIFF #### [address] [address] Eosinophils/100 WBC (Bld) 0.4 % Normal 0.0-7.0 [facility] ([place]) Comment on above: Performed By: #### G FR, ANEU, CMP, CBC, PBNP, ADIFF #### [address] [address] Lymphocyte, Absolute 1.6 10 3/mcL Normal 0.8-3.9 [facility] ([place] Comment on above: Performed By: #### G FR, ANEU, CMP, CBC, PBNP, ADIFF #### [address] [address] Lymphocytes/100 WBC (Bld) 23.1 % Normal 10.0-50.0 [facility] [place] Comment on above: Performed By: #### G FR, ANEU, CMP, CBC, PBNP, ADIFF #### [address] [address] Monocyte, Absolute 0.5 10 3/mcL Normal 0.2-1.0 [facility] ([place] Comment on above: Performed By: #### G FR, ANEU, CMP, CBC, PBNP, ADIFF #### [address] [address] Monocytes/100 WBC (Bld) 7.6 % Normal 1.7-13.0 [facility] [place] Comment on above: Performed By: #### G FR, ANEU, CMP, CBC, PBNP, ADIFF #### [address] [address] Neutrophils/100 WBC (Bld) 68.2 % Normal 37.0-80.0 [facility] [place] Comment on above: Performed By: #### G FR, ANEU, CMP, CBC, PBNP, ADIFF #### [address] [address] .GFRon 08-18-2023 GFR 75 ml/min/1.73sqm Normal [facility] [place] Comment on above: Result Comment: GFR Population [...] FR, ANEU, CMP, CBC, PBNP, ADIFF #### [address] [address] GFR Non- 62 ml/min/1.73sqm Normal [facility] [place] Comment on above: Result Comment: GFR Population [...] FR, ANEU, CMP, CBC, PBNP, ADIFF #### [address] [address] .NEUABSon 08-18-2023 Neutrophil, Absolute 4.6 10 3/mcL Normal 2.9-6.2 [facility] ([place] Comment on above: Performed By: #### G FR, ANEU, CMP, CBC, PBNP, ADIFF #### [address] [address] APTTon 08-18-2023 aPTT Coag (Bld) [Time] 31.9 s Normal 25.0-35.0 [facility] [place] Comment on above: Result Comment: For Heparin anticoagulation therapy, the recommended therapeutic range is: 50.6-87.4 seconds. Patients on heparin therapy may have an extreme result. Performed By: #### G FR, ANEU, CMP, CBC, PBNP, ADIFF #### [address] [address] Heparin dose (APTT) Unknown Normal [facility] ([place] Comment on above: Performed By: #### G FR, ANEU, CMP, CBC, PBNP, ADIFF #### [address] [address] BMPon 08-18-2023 BUN/Creatinine Ratio 29 ratio High 7-27 [facility] ([place] Comment on above: Performed By: #### G FR, ANEU, CMP, CBC, PBNP, ADIFF #### [address] [address] Calcium [Mass/Vol] 9.9 mg/dL Normal 8.4-10.2 [facility] ([place] Comment on above: Performed By: #### G FR, ANEU, CMP, CBC, PBNP, ADIFF #### [address] [address] Chloride [Moles/Vol] 100 mmol/L Normal 98-107 [facility] ([place] Comment on above: Performed By: #### G FR, ANEU, CMP, CBC, PBNP, ADIFF #### [address] [address] CO2 [Moles/Vol] 29 mmol/L Normal 23-31 [facility] ([place] Comment on above: Performed By: #### G FR, ANEU, CMP, CBC, PBNP, ADIFF #### [address] [address] Creatinine [Mass/Vol] 0.87 mg/dL Normal 0.55-1.02 [facility] ([place] Comment on above: Performed By: #### G FR, ANEU, CMP, CBC, PBNP, ADIFF #### [address] [address] Electrolyte Balance 8.0 mEq/L Normal 4.0-15.0 [facility] ([place] Comment on above: Performed By: #### G FR, ANEU, CMP, CBC, PBNP, ADIFF #### [address] [address] Glucose [Mass/Vol] 187 mg/dL High 83-110 [facility] ([place] Comment on above: Performed By: #### G FR, ANEU, CMP, CBC, PBNP, ADIFF #### [address] [address] Potassium [Moles/Vol] 5.4 mmol/L High 3.5-5.1 [facility] ([place] Comment on above: Performed By: #### G FR, ANEU, CMP, CBC, PBNP, ADIFF #### [address] [address] Sodium [Moles/Vol] 137 mmol/L Normal 136-145 [facility] ([place] Comment on above: Performed By: #### G FR, ANEU, CMP, CBC, PBNP, ADIFF #### [address] [address] Urea nitrogen [Mass/Vol] 25 mg/dL High 7-18 [facility] [place] Comment on above: Performed By: #### G FR, ANEU, CMP, CBC, PBNP, ADIFF #### [address] [address] CBCon 08-18-2023 Erythrocyte distribution width (RBC) [Ratio] 13.8 % Normal 11.5-14.5 [facility] [place] Comment on above: Performed By: #### G FR, ANEU, CMP, CBC, PBNP, ADIFF #### [address] [address] Hematocrit (Bld) [Volume fraction] 36.0 % Low 37.0-47.0 [facility] [place] Comment on above: Performed By: #### G FR, ANEU, CMP, CBC, PBNP, ADIFF #### [address] [address] Hgb 12.3 G/dL Normal 12.0-16.0 [facility] [place] Comment on above: Performed By: #### G FR, ANEU, CMP, CBC, PBNP, ADIFF #### [address] [address] MCH (RBC) [Entitic mass] 30.8 pg Normal 27.0-31.2 [facility] [place] Comment on above: Performed By: #### G FR, ANEU, CMP, CBC, PBNP, ADIFF #### [address] [address] MCHC 34.1 G/dL Normal 33.0-37.0 [facility] [place] Comment on above: Performed By: #### G FR, ANEU, CMP, CBC, PBNP, ADIFF #### [address] [address] MCV (RBC) [Entitic vol] 90.6 fL Normal 80.0-94.0 [facility] [place] Comment on above: Performed By: #### G FR, ANEU, CMP, CBC, PBNP, ADIFF #### [address] [address] Platelet 261 10 3/mcL Normal 130-400 [facility] ([place] Comment on above: Performed By: #### G FR, ANEU, CMP, CBC, PBNP, ADIFF #### [address] [address] Platelet mean volume (Bld) [Entitic vol] 8.3 fL Normal 7.4-10.4 [facility] ([place] Comment on above: Performed By: #### G FR, ANEU, CMP, CBC, PBNP, ADIFF #### [address] [place] [place], [place] [address] RBC 3.98 10 6/mcL Low 4.20-5.40 [facility] ([place] Comment on above: Performed By: #### G FR, ANEU, CMP, CBC, PBNP, ADIFF #### [facility] [address] [place], [place] [address] WBC 6.7 10 3/mcL Normal 4.6-10.8 [facility] ([place] Comment on above: Performed By: #### G FR, ANEU, CMP, CBC, PBNP, ADIFF #### [place] [place], [place] [address] LABORATORYOrdered By: Jazmin Ascencio on 08-18-2023 aPTT [...] Comment on above: Interpretive Data: Maximiliano sen [employer] (CHEST, 1992, [id number]) [...] [Time] 12.0 s Normal 9.0-14.2 [facility] ([place] Comment on above: Performed By: #### G FR, ANEU, CMP, CBC, PBNP, ADIFF #### [address] [place], [place] [address] PT International Ratio 1.0 Normal [facility] [place] Comment on above: Result Comment: [employer] (CHEST, 1992, [id number]) recommended therapeutic range for oral anticoagulant therapy is: LOW RISK: Prophylaxis of venous thrombosis INR: 2.0-3.0 Treatment of pulmonary embolism 2.0-3.0 Prevention of systemic embolism 2.0-3.0 HIGH RISK: Mechanical prosthetic valves 2.5-3.5 Performed By: #### G FR, ANEU, CMP, CBC, PBNP, ADIFF #### [address] [address] CPEPon 08-04-2023 C-Peptide 4.24 ng/mL High 0.81-3.85 [facility] [place] Comment on above: Performed By: #### G FR, ANEU, CMP, CBC, PBNP, ADIFF #### [address] [place] [place], [place] [address] LABORATORYOrdered By: SYSTEM SYSTEM on 08-04-2023 C peptide [Mass/Vol] 4.24 ng/mL High 0.81 - 3.85 ng/mL AH ADM SS .Auto Diffon 05-02-2023 Basophil, Absolute 0.1 10 3/mcL Normal 0.0-0.2 [facility] ([place] Comment on above: Performed By: #### G FR, ANEU, CMP, CBC, PBNP, ADIFF #### [address] [address] Basophils/100 WBC (Bld) 0.9 % Normal 0.0-2.5 [facility] [place] Comment on above: Performed By: #### G FR, ANEU, CMP, CBC, PBNP, ADIFF #### [address] [address] Eosinophil, Absolute 0.1 10 3/mcL Normal 0.0-0.4 [facility] ([place]) Comment on above: Performed By: #### G FR, ANEU, CMP, CBC, PBNP, ADIFF #### [address] [address] Eosinophils/100 WBC (Bld) 1.3 % Normal 0.0-7.0 [facility] ([place]) Comment on above: Performed By: #### G FR, ANEU, CMP, CBC, PBNP, ADIFF #### [address] [address] Lymphocyte, Absolute 1.7 10 3/mcL Normal 0.8-3.9 [facility] ([place]) Comment on above: Performed By: #### G FR, ANEU, CMP, CBC, PBNP, ADIFF #### [address] [address] Lymphocytes/100 WBC (Bld) 23.2 % Normal 10.0-50.0 [facility] [place] Comment on above: Performed By: #### G FR, ANEU, CMP, CBC, PBNP, ADIFF #### [address] [address] Monocyte, Absolute 0.6 10 3/mcL Normal 0.2-1.0 [facility] ([place] Comment on above: Performed By: #### G FR, ANEU, CMP, CBC, PBNP, ADIFF #### [address] [address] Monocytes/100 WBC (Bld) 8.4 % Normal 1.7-13.0 [facility] ([place]) Comment on above: Performed By: #### G FR, ANEU, CMP, CBC, PBNP, ADIFF #### [address] [address] Neutrophils/100 WBC (Bld) 66.2 % Normal 37.0-80.0 [facility] [place] Comment on above: Performed By: #### G FR, ANEU, CMP, CBC, PBNP, ADIFF #### [place] [place], [place] [address] .GFRon 05-02-2023 GFR 75 ml/min/1.73sqm Normal [facility] [place] Comment on above: Result Comment: GFR Population [...] FR, ANEU, CMP, CBC, PBNP, ADIFF #### [place] [address] [place], [place] [address] GFR Non- 62 ml/min/1.73sqm Normal [facility] [place] Comment on above: Result Comment: GFR Population [...] FR, ANEU, CMP, CBC, PBNP, ADIFF #### [address] [address] .NEUABSon 05-02-2023 Neutrophil, Absolute 4.9 10 3/mcL Normal 2.9-6.2 [facility] ([place] Comment on above: Performed By: #### G FR, ANEU, CMP, CBC, PBNP, ADIFF #### [address] [address] APTTon 05-02-2023 aPTT Coag (Bld) [Time] 33.0 s Normal 25.0-35.0 [facility] [place] Comment on above: Result Comment: For Heparin anticoagulation therapy, the recommended therapeutic range is: 50.6-87.4 seconds. Patients on heparin therapy may have an extreme result. Performed By: #### G FR, ANEU, CMP, CBC, PBNP, ADIFF #### [address] [address] Heparin dose (APTT) Unknown Normal [facility] ([place]) Comment on above: Performed By: #### G FR, ANEU, CMP, CBC, PBNP, ADIFF #### [address] [address] BMPon 05-02-2023 BUN/Creatinine Ratio 26 ratio Normal 7-27 [facility] ([place] Comment on above: Performed By: #### G FR, ANEU, CMP, CBC, PBNP, ADIFF #### [address] [address] Calcium [Mass/Vol] 9.4 mg/dL Normal 8.4-10.2 [facility] ([place] Comment on above: Performed By: #### G FR, ANEU, CMP, CBC, PBNP, ADIFF #### [address] [address] Chloride [Moles/Vol] 102 mmol/L Normal 98-107 [facility] ([place] Comment on above: Performed By: #### G FR, ANEU, CMP, CBC, PBNP, ADIFF #### [address] [address] CO2 [Moles/Vol] 29 mmol/L Normal 23-31 [facility] ([place] Comment on above: Performed By: #### G FR, ANEU, CMP, CBC, PBNP, ADIFF #### [address] [address] Creatinine [Mass/Vol] 0.87 mg/dL Normal 0.55-1.02 [facility] ([place] Comment on above: Performed By: #### G FR, ANEU, CMP, CBC, PBNP, ADIFF #### [address] [address] Electrolyte Balance 8.0 mEq/L Normal 4.0-15.0 [facility] ([place]) Comment on above: Performed By: #### G FR, ANEU, CMP, CBC, PBNP, ADIFF #### [address] [address] Glucose [Mass/Vol] 187 mg/dL High 83-110 [facility] ([place]) Comment on above: Performed By: #### G FR, ANEU, CMP, CBC, PBNP, ADIFF #### [address] [address] Potassium [Moles/Vol] 5.3 mmol/L High 3.5-5.1 [facility] ([place] Comment on above: Performed By: #### G FR, ANEU, CMP, CBC, PBNP, ADIFF #### [address] [address] Sodium [Moles/Vol] 139 mmol/L Normal 136-145 [facility] ([place] Comment on above: Performed By: #### G FR, ANEU, CMP, CBC, PBNP, ADIFF #### [address] [address] Urea nitrogen [Mass/Vol] 23 mg/dL High 7-18 [facility] ([place] Comment [place]: Performed By: #### G FR, ANEU, CMP, CBC, PBNP, ADIFF #### [address] [address] CBCon 05-02-2023 Erythrocyte distribution width (RBC) [Ratio] 13.5 % Normal 11.5-14.5 [facility] [place] Comment [place]: Performed By: #### G FR, ANEU, CMP, CBC, PBNP, ADIFF #### [address] [address] Hematocrit (Bld) [Volume fraction] 37.0 % Normal 37.0-47.0 [facility] [place] Comment [place]: Performed By: #### G FR, ANEU, CMP, CBC, PBNP, ADIFF #### [address] [address] Hgb 12.3 G/dL Normal 12.0-16.0 [facility] [place] Comment [place] above: Performed By: #### G FR, ANEU, CMP, CBC, PBNP, ADIFF #### [address] [address] MCH (RBC) [Entitic mass] 30.6 pg Normal 27.0-31.2 [facility] [place] Comment [place] above: Performed By: #### G FR, ANEU, CMP, CBC, PBNP, ADIFF #### [address] [address] MCHC 33.4 G/dL Normal 33.0-37.0 [facility] [place] Comment [place] above: Performed By: #### G FR, ANEU, CMP, CBC, PBNP, ADIFF #### [address] [address] MCV (RBC) [Entitic vol] 91.8 fL Normal 80.0-94.0 [facility] [place] Comment [place] above: Performed By: #### G FR, ANEU, CMP, CBC, PBNP, ADIFF #### [address] [address] Platelet 336 10 3/mcL Normal 130-400 [facility] ([place] Comment on above: Performed By: #### G FR, ANEU, CMP, CBC, PBNP, ADIFF #### [address] [address] Platelet mean volume (Bld) [Entitic vol] 7.8 fL Normal 7.4-10.4 [facility] ([place] Comment on above: Performed By: #### G FR, ANEU, CMP, CBC, PBNP, ADIFF #### [address] [address] RBC 4.03 10 6/mcL Low 4.20-5.40 [facility] ([place] Comment on above: Performed By: #### G FR, ANEU, CMP, CBC, PBNP, ADIFF #### [address] [address] WBC 7.4 10 3/mcL Normal 4.6-10.8 [facility] ([place] Comment on above: Performed By: #### G FR, ANEU, CMP, CBC, PBNP, ADIFF #### [address] [address] PROon 05-02-2023 PT Coag (PPP) [Time] 11.6 s Normal 9.0-14.2 [facility]) Comment on above: Performed By: #### G FR, ANEU, CMP, CBC, PBNP, ADIFF #### [address] [address] PT International Ratio 1.0 Normal [facility] [place] Comment on [place]: Result Comment: The [employer] (CHEST, 1992, 102:[id number]) recommended therapeutic range for oral anticoagulant therapy is: LOW RISK: Prophylaxis of venous thrombosis INR: 2.0-3.0 Treatment of pulmonary embolism 2.0-3.0 Prevention of systemic embolism 2.0-3.0 HIGH RISK: Mechanical prosthetic valves 2.5-3.5 Performed By: #### G FR, ANEU, CMP, CBC, PBNP, ADIFF #### [address] [address] XR CHEST 2 VIEWSon 3 XR CHEST [...] 5:04:28 PM Ordering Provider: ALISE FLOWERS Normal [facility] [place] .GFRon 04-17-2023 GFR 78 ml/min/1.73sqm Normal [facility] [place] Comment on above: Result Comment: GFR Population [...] ANEU, CMP, CBC, PBNP, ADIFF #### Tiffanie [address] [address] GFR Non- 64 ml/min/1.73sqm Normal [facility] [place] Comment on above: Result Comment: GFR Population [...] FR, ANEU, CMP, CBC, PBNP, ADIFF #### [address] [address] BMPon 04-17-2023 BUN/Creatinine Ratio 24 ratio Normal 7-27 [facility] ([place]) Comment on above: Order Comment: STAT Performed By: #### G FR, ANEU, CMP, CBC, PBNP, ADIFF #### [address] [address] Calcium [Mass/Vol] 9.3 mg/dL Normal 8.4-10.2 [facility] ([place]) Comment on above: Order Comment: STAT Performed By: #### G FR, ANEU, CMP, CBC, PBNP, ADIFF #### [address] [address] Chloride [Moles/Vol] 98 mmol/L Normal 98-107 [facility] ([place]) Comment on above: Order Comment: STAT Performed By: #### G FR, ANEU, CMP, CBC, PBNP, ADIFF #### [address] [address] CO2 [Moles/Vol] 26 mmol/L Normal 23-31 [facility] ([place]) Comment on above: Order Comment: STAT Performed By: #### G FR, ANEU, CMP, CBC, PBNP, ADIFF #### [address] [address] Creatinine [Mass/Vol] 0.84 mg/dL Normal 0.55-1.02 [facility] ([place] Comment on above: Order Comment: STAT Performed By: #### G FR, ANEU, CMP, CBC, PBNP, ADIFF #### [address] [address] Electrolyte Balance 12.0 mEq/L Normal 4.0-15.0 [facility] ([place]) Comment on above: Order Comment: STAT Performed By: #### G FR, ANEU, CMP, CBC, PBNP, ADIFF #### [address] [address] Glucose [Mass/Vol] 126 mg/dL High 83-110 [facility] ([place]) Comment on above: Order Comment: STAT Performed By: #### G FR, ANEU, CMP, CBC, PBNP, ADIFF #### [address] [address] Potassium [Moles/Vol] 4.4 mmol/L Normal 3.5-5.1 [facility] ([place] Comment on above: Order Comment: STAT Performed By: #### G FR, ANEU, CMP, CBC, PBNP, ADIFF #### [address] [address] Sodium [Moles/Vol] 136 mmol/L Normal 136-145 [facility] ([place] Comment on above: Order Comment: STAT Performed By: #### G FR, ANEU, CMP, CBC, PBNP, ADIFF #### [address] [address] Urea nitrogen [Mass/Vol] 20 mg/dL High 7-18 [facility] [place] Comment [place] above: Order Comment: STAT Performed By: #### G FR, ANEU, CMP, CBC, PBNP, ADIFF #### [address] [address] LABORATORYOrdered By: SYSTEM SYSTEM on 04-17-2023 Calcium [...] 0.1 10 3/mcL Normal 0.0-0.2 [facility] ([place] Comment on above: Performed By: #### G FR, ANEU, CMP, CBC, PBNP, ADIFF #### [address] [address] Basophils/100 WBC (Bld) 0.9 % Normal 0.0-2.5 [facility] [place] Comment on above: Performed By: #### G FR, ANEU, CMP, CBC, PBNP, ADIFF #### [address] [address] Eosinophil, Absolute 0.1 10 3/mcL Normal 0.0-0.4 [facility] ([place] Comment on above: Performed By: #### G FR, ANEU, CMP, CBC, PBNP, ADIFF #### [address] [address] Eosinophils/100 WBC (Bld) 1.2 % Normal 0.0-7.0 [facility] [place] Comment on above: Performed By: #### G FR, ANEU, CMP, CBC, PBNP, ADIFF #### [address] [address] Lymphocyte, Absolute 1.8 10 3/mcL Normal 0.8-3.9 [facility] ([place] Comment on above: Performed By: #### G FR, ANEU, CMP, CBC, PBNP, ADIFF #### [address] [address] Lymphocytes/100 WBC (Bld) 25.9 % Normal 10.0-50.0 [facility] [place] Comment on above: Performed By: #### G FR, ANEU, CMP, CBC, PBNP, ADIFF #### [address] [address] Monocyte, Absolute 0.6 10 3/mcL Normal 0.2-1.0 [facility] ([place] Comment on above: Performed By: #### G FR, ANEU, CMP, CBC, PBNP, ADIFF #### [address] [address] Monocytes/100 WBC (Bld) 9.4 % Normal 1.7-13.0 [facility] [place] Comment on above: Performed By: #### G FR, ANEU, CMP, CBC, PBNP, ADIFF #### [address] [address] Neutrophils/100 WBC (Bld) 62.6 % Normal 37.0-80.0 [facility] [place] Comment on above: Performed By: #### G FR, ANEU, CMP, CBC, PBNP, ADIFF #### [address] [address] .GFRon 04-14-2023 GFR 72 ml/min/1.73sqm Normal [facility] [place] Comment on above: Result Comment: GFR Population [...] FR, ANEU, CMP, CBC, PBNP, ADIFF #### [address] [address] GFR Non- 60 ml/min/1.73sqm Normal [facility] [place] Comment on above: Result Comment: GFR Population [...] FR, ANEU, CMP, CBC, PBNP, ADIFF #### [address] [address] .NEUABSon 04-14-2023 Neutrophil, Absolute 4.3 10 3/mcL Normal 2.9-6.2 [facility] ([place] Comment on above: Performed By: #### G FR, ANEU, CMP, CBC, PBNP, ADIFF #### [address] [address] CBCon 04-14-2023 Erythrocyte distribution width (RBC) [Ratio] 13.7 % Normal 11.5-14.5 [facility] [place] Comment on above: Performed By: #### G FR, ANEU, CMP, CBC, PBNP, ADIFF #### [address] [address] Hematocrit (Bld) [Volume fraction] 37.9 % Normal 37.0-47.0 [facility] ([place] Comment on above: Performed By: #### G FR, ANEU, CMP, CBC, PBNP, ADIFF #### [address] [address] Hgb 12.4 G/dL Normal 12.0-16.0 [facility] [place] Comment on above: Performed By: #### G FR, ANEU, CMP, CBC, PBNP, ADIFF #### [address] [address] MCH (RBC) [Entitic mass] 30.5 pg Normal 27.0-31.2 [facility] [place] Comment on above: Performed By: #### G FR, ANEU, CMP, CBC, PBNP, ADIFF #### [address] [address] MCHC 32.9 G/dL Low 33.0-37.0 [facility] ([place] Comment on above: Performed By: #### G FR, ANEU, CMP, CBC, PBNP, ADIFF #### [address] [address] MCV (RBC) [Entitic vol] 92.7 fL Normal 80.0-94.0 [facility] ([place] Comment on above: Performed By: #### G FR, ANEU, CMP, CBC, PBNP, ADIFF #### [address] [address] Platelet 295 10 3/mcL Normal 130-400 [facility] ([place]) Comment on above: Performed By: #### G FR, ANEU, CMP, CBC, PBNP, ADIFF #### [address] [address] Platelet mean volume (Bld) [Entitic vol] 8.3 fL Normal 7.4-10.4 [facility] ([place]) Comment on above: Performed By: #### G FR, ANEU, CMP, CBC, PBNP, ADIFF #### [address] [address] RBC 4.08 10 6/mcL Low 4.20-5.40 [facility] ([place]) Comment on above: Performed By: #### G FR, ANEU, CMP, CBC, PBNP, ADIFF #### [address] [address] WBC 6.9 10 3/mcL Normal 4.6-10.8 [facility] ([place] Comment on above: Performed By: #### G FR, ANEU, CMP, CBC, PBNP, ADIFF #### [address] [address] CMPon 04-14-2023 Albumin Level 3.7 G/dL Normal 3.4-4.8 [facility] ([place]) Comment on above: Performed By: #### G FR, ANEU, CMP, CBC, PBNP, ADIFF #### [address] [address] Albumin/Globulin [Mass ratio] 1.0 {ratio} Low 1.1-2.5 [facility] ([place] Comment on above: Performed By: #### G FR, ANEU, CMP, CBC, PBNP, ADIFF #### [address] [address] ALP [Catalytic activity/Vol] 124 U/L Normal 40-135 [facility] ([place] Comment on above: Performed By: #### G FR, ANEU, CMP, CBC, PBNP, ADIFF #### [address] [address] ALT [Catalytic activity/Vol] 29 U/L Normal 14-59 [facility] ([place] Comment on above: Performed By: #### G FR, ANEU, CMP, CBC, PBNP, ADIFF #### [address] [address] AST [Catalytic activity/Vol] 19 U/L Normal 10-40 [facility] ([place] Comment on above: Performed By: #### G FR, ANEU, CMP, CBC, PBNP, ADIFF #### [address] [address] Bili Total 0.6 mg/dL Normal 0.2-1.0 [facility] ([place] Comment on above: Result Comment: Use of this assay is not recommended for patients undergoing treatment with eltrombopag due to the potential for falsely elevated results. Performed By: #### G FR, ANEU, CMP, CBC, PBNP, ADIFF #### [address] [address] BUN/Creatinine Ratio 24 ratio Normal 7-27 [facility] ([place]) Comment on above: Performed By: #### G FR, ANEU, CMP, CBC, PBNP, ADIFF #### [address] [address] Calcium [Mass/Vol] 9.9 mg/dL Normal 8.4-10.2 [facility] ([place]) Comment on above: Performed By: #### G FR, ANEU, CMP, CBC, PBNP, ADIFF #### [address] [address] Chloride [Moles/Vol] 101 mmol/L Normal 98-107 [facility] ([place] Comment on above: Performed By: #### G FR, ANEU, CMP, CBC, PBNP, ADIFF #### [address] [address] CO2 [Moles/Vol] 28 mmol/L Normal 23-31 [facility] ([place]) Comment on above: Performed By: #### G FR, ANEU, CMP, CBC, PBNP, ADIFF #### [address] [address] Creatinine [Mass/Vol] 0.90 mg/dL Normal 0.55-1.02 [facility] ([place] Comment on above: Performed By: #### G FR, ANEU, CMP, CBC, PBNP, ADIFF #### [address] [address] Electrolyte Balance 10.0 mEq/L Normal 4.0-15.0 [facility] ([place]) Comment on above: Performed By: #### G FR, ANEU, CMP, CBC, PBNP, ADIFF #### [address] [address] Globulin 3.7 G/dL Normal [facility] ([place] Comment on above: Performed By: #### G FR, ANEU, CMP, CBC, PBNP, ADIFF #### [address] [address] Glucose [Mass/Vol] 216 mg/dL High 83-110 [facility] ([place] Comment on above: Performed By: #### G FR, ANEU, CMP, CBC, PBNP, ADIFF #### [address] [address] Potassium [Moles/Vol] 5.9 mmol/L High 3.5-5.1 [facility] ([place] Comment on above: Performed By: #### G FR, ANEU, CMP, CBC, PBNP, ADIFF #### [address] [address] Sodium [Moles/Vol] 139 mmol/L Normal 136-145 [facility] ([place] Comment on above: Performed By: #### G FR, ANEU, CMP, CBC, PBNP, ADIFF #### [address] [address] Total Protein 7.4 G/dL Normal 6.4-8.2 [facility] ([place] Comment on above: Performed By: #### G FR, ANEU, CMP, CBC, PBNP, ADIFF #### [address] [address] Urea nitrogen [Mass/Vol] 22 mg/dL High 7-18 [facility] ([place] Comment on above: Performed By: #### G FR, ANEU, CMP, CBC, PBNP, ADIFF #### [address] [address] PBNPon 04-14-2023 Natriuretic peptide B (Bld) [Mass/Vol] 158 pg/mL Normal 0-450 [facility] ([place] Comment on above: Result Comment: NT-p roBNP results of less than 300 pg/mL effectively rules out acute congestive heart failure with 99% negative predictive value. Performed By: #### G FR, ANEU, CMP, CBC, PBNP, ADIFF #### [address] [address] MRI SPINE LUMBAR W/O CONTRAS Ton 03-02-2023 [...] to superimposed disc uncovering. Moderate left and [id number] right neural foraminal narrowing. L5-S1: Flattened anterior [...] 03/02/2023 3:44:20 PM Ordering Provider: ALISE FLOWERS [facility] ([place]) LABORATORYOrdered By: Sahara Clancy on 10-20-2021 Albumin [...] Mixed growth consistent with normal urogenital laura. [facility] LABORATORYOrdered By: Homer Hurd on 04-05-2021 Albumin [...] Probable Contamination. Suggest recollection if clinically indicated. [facility] Glucose,Bedsideon 05-11-2018 Glucose mass conc 143 mg/dL High 70-[address] [facility] Comment on above: Result Comment: Test performed by glucose meter. Results may be 10%-15% lower than serum/plasma values. (CLIA ID [id number]) Performed By: #### B GLU #### [employer] [address] [place] [address] Glucose mass conc 170 mg/dL High 70-[address] [facility] Comment on above: Result Comment: Test performed by glucose meter. Results may be 10%-15% lower than serum/plasma values. (CLIA ID [id number]) Performed By: #### B GLU #### [facility] [address] [place] [address] Surgical Pathologyon 018 Surgical Pathology [id number] [facility] PATHOLOGY AND LABORATORY MEDICINE [address] [facility] [place] [address] Fax - FINAL SURGICAL PATHOLOGY REPORT NAME: AIDAMICKEY DURAN N [id number] : 1935 83 [facility] [id number] LOCATION: [place] [address] PROCEDURE 05/11/2018 DATE: SURGEON: LEDA SINGH MD [...] finger mass" Received in formalin are rubbery hifvmc-egvn-hiw tissue segments which aggregate to 0.5 x [...] characteristics determined by the clinical laboratories of [facility]. They have not been cleared by the [...] negativity on decalcified specimens. [place] [address]. DEPARTMENT OF PATHOLOGY AND LABORATORY MEDICINE [place], [place] [address] Normal [facility] Glucose,Bedsideon 03-06-2018 Glucose mass conc 133 mg/dL High 70-100 [facility] Comment on above: Result Comment: Test performed by glucose meter. Results may be 10%-15% lower than serum/plasma values. (CLIA ID [id number]) Performed By: #### B GLU #### [facility] [address] [facility] [place] [address] Glucose mass conc 157 mg/dL High 70-100 [facility] Comment on above: Result Comment: Test performed by glucose meter. Results may be 10%-15% lower than serum/plasma values. (CLIA ID [id number]) Performed By: #### B GLU #### [facility] [address] [place] [address] Vital Signs Date Time Vital Sign Value Performing Clinician Facility 02-17-2024 12:02-0400 Body temperature 97.7 [degF] DR NOHEMI EDGAR MD [facility] 02-17-2024 12:02-0400 Diastolic Blood Pressure Non-Invasive 93 mm[Hg] DR NOHEMI EDGAR MD [facility] 02-17-2024 12:02-0400 Heart rate 76 /min DR NOHEMI EDGAR MD [facility] 02-17-2024 12:02-0400 Respiratory rate 18 /min DR NOHEMI EDGAR MD [facility] 02-17-2024 12:02-0400 Systolic Blood Pressure Non-Invasive 144 mm[Hg] DR NOHEMI EDGAR MD [facility] 02-17-2024 06:23-0400 Body temperature 98.06 [degF] DR NOHEMI EDGAR MD [facility] 02-17-2024 06:23-0400 Diastolic Blood Pressure Non-Invasive 77 mm[Hg] DR NOHEMI EDGAR MD [facility] 02-17-2024 06:23-0400 Heart rate 80 /min DR NOHEMI EDGAR MD [facility] 02-17-2024 06:23-0400 Respiratory rate 18 /min DR NOHEMI EDGAR MD [facility] 02-17-2024 06:23-0400 Systolic Blood Pressure Non-Invasive 137 mm[Hg] DR NOHEMI EDGAR MD [facility] 02-17-2024 04:01-0400 Body temperature 97.7 [degF] DR NOHEMI EDGAR MD [facility] 02-17-2024 04:01-0400 Diastolic Blood Pressure Non-Invasive 71 mm[Hg] DR NOHEMI EDGAR MD [facility] 02-17-2024 04:01-0400 Heart rate 71 /min DR NOHEMI EDGAR MD [facility] 02-17-2024 04:01-0400 Respiratory rate 18 /min DR NOHEMI EDGAR MD [facility] 02-17-2024 04:01-0400 Systolic Blood Pressure Non-Invasive 137 mm[Hg] DR NOHEMI EDGAR MD [address] [place] [address] 02-16-2024 23:07-0400 Heart rate 80 /min DR NOHEMI EDGAR MD [address] [place] [address] 02-16-2024 19:19-0400 Heart rate 85 /min DR NOHEMI EDGAR MD [address] [place] [address] 02-16-2024 11:53-0400 Heart rate 85 /min DR NOHEMI EDGAR MD [address] [place] [address] 02-16-2024 07:41-0400 Body height 170.[address] NOHEMI EDGAR MD [address] [place] [address] 02-16-2024 07:41-0400 Body weight 72.[address] NOHEMI EDGAR MD [address] [place] [address] 02-16-2024 07:41-0400 Body weight 25.06 kg/m2 DR NOHEMI EDGAR MD [address] [place] [address] 02-16-2024 06:41-0400 Body weight 72.[address] NOHEMI EDGAR MD [address] [place] [address] 02-16-2024 06:37-0400 Mean blood pressure 109 mm[Hg] DR NOHEMI EDGAR MD [address] [place] [address] 02-16-2024 03:57-0400 Body height 170.[address] NOHEMI EDGAR MD [facility] 02-16-2024 03:57-0400 Body weight 72.[address] NOHEMI EDGAR MD [facility] 02-04-2024 06:39-0400 Diastolic Blood Pressure Non-Invasive 84 mm[Hg] GERARDO MANNING MD [facility] 02-04-2024 06:39-0400 Heart rate 82 /min GERARDO MANNING MD [facility] 02-04-2024 06:39-0400 Respiratory rate 18 /min GERARDO MANNING MD [facility] 02-04-2024 06:39-0400 Systolic Blood Pressure Non-Invasive 164 mm[Hg] GERARDO MANNING MD [facility] 02-04-2024 05:31-0400 Blood Pressure Cuff Size GERARDO MANNING MD [facility] 02-04-2024 05:31-0400 Blood Pressure Location GERARDO MANNING MD [facility] 02-04-2024 05:31-0400 Blood Pressure Method GERARDO MANNING MD [facility] 02-04-2024 05:31-0400 Body height 172.7 cm GERARDO MANNING MD [facility] 02-04-2024 05:31-0400 Body temperature 96.98 [degF] GERARDO MANNING MD [facility] 02-04-2024 05:31-0400 Body weight 72.7 kg GERARDO MANNING MD [facility] 02-04-2024 05:31-0400 Diastolic Blood Pressure Non-Invasive 90 mm[Hg] GERARDO MANNING MD [facility] 02-04-2024 05:31-0400 Heart rate 85 /min GERARDO MANNING MD [facility] 02-04-2024 05:31-0400 Respiratory rate 18 /min GERARDO MANNING MD [facility] 02-04-2024 05:31-0400 Systolic Blood Pressure Non-Invasive 182 mm[Hg] GERARDO MANNING MD [facility] 08-21-2023 07:58-0400 Body height 170 cm MINE TARIK DRAW IN [facility] 08-21-2023 07:58-0400 Body weight 75.3 kg MINE MONTANEZ DRAW IN [employer]IN [facility]ORE [facility] Comment on above: Result Comment: 160# pt reports 08-21-2023 07:58-0400 Body weight 26.06 kg/m2 MINE TARIK [facility] 04-05-2021 09:39-0400 Diastolic blood pressure 71 mm[Hg] SHAGGY VAZ DO [facility] 04-05-2021 09:39-0400 Heart rate 67 /min SHAGGY VAZ DO [facility] 04-05-2021 09:39-0400 Respiratory rate 16 /min SHAGGY VAZ DO [facility] 04-05-2021 09:39-0400 Systolic blood pressure 120 mm[Hg] SHAGGY VAZ DO [facility] 04-05-2021 09:01-0400 Diastolic blood pressure 73 mm[Hg] SHAGGY VAZ DO [facility] 04-05-2021 09:01-0400 Heart rate 64 /min SHAGGY VAZ DO [facility] 04-05-2021 09:01-0400 Mean blood pressure 111 mm[Hg] SHAGGY VAZ DO [facility] 04-05-2021 09:01-0400 Respiratory rate 16 /min SHAGGY VAZ DO [facility] 04-05-2021 09:01-0400 Systolic blood pressure 188 mm[Hg] SHAGGY VAZ DO [facility] 04-05-2021 07:31-0400 Body temperature 98.06 [degF] SHAGGY VAZ DO [facility] 04-05-2021 07:31-0400 Diastolic blood pressure 78 mm[Hg] SHAGGY VAZ DO [facility] 04-05-2021 07:31-0400 Heart rate 66 /min SHAGGY VAZ DO [facility] 04-05-2021 07:31-0400 Mean blood pressure 119 mm[Hg] SHAGGY VAZ DO [facility] 04-05-2021 07:31-0400 Respiratory rate 16 /min SHAGGY VAZ DO [facility] 04-05-2021 07:31-0400 Systolic blood pressure 200 mm[Hg] SHAGGY VAZ DO [facility] Encounters Encounter Date Encounter Type Care Provider Facility Start: 03-31-2025 ambulatory Adonay REINOSO Facili ty:[facility] Start: 03-24-2025 ambulatory Louis Garcia Facilit y:[facility] Start: 03-20-2025 ambulatory MINE BALTES DRAW IN [facility]ER Fa cility:[facility] Start: 02-04-2025 End: 02-04-2025 ambulatory Mine REINOSO Facility:[facility] Start: 12-30-2024 ambulatory Louis Garcia Facilit y:[facility] Start: 09-27-2024 End: 10-01-2024 ambulatory MINE BALTES D[employer] IN [employer] Facility:[facility] Start: 09-27-2024 End: 10-01-2024 Outreach Lab ALOK ANTONIO DO [facility] Start: 09-27-2024 End: 09-27-2024 ambulatory MINE BALTES D[employer] IN [facility] Facility:[facility] Start: 09-27-2024 End: 09-27-2024 Patient encounter procedure MINE BALTES DRAW IN [employer]IN STORE B[facility]ER [facility] Start: 08-19-2024 End: 08-19-2024 ambulatory MINE BALTES DRAW IN [employer] [facility] Facility:[facility] Start: 02-16-2024 End: 02-17-[address] NOHEMI EDGAR MD [facility] Start: 02-04-2024 End: 02-04-2024 Emergency department patient visit GERARDO MANNING MD Facility:[facility] Start: 01-26-2024 End: 01-30-2024 ambulatory MINE BALTES D[employer] [facility] Facility:[facility] Start: 01-26-2024 End: 01-30-2024 Outreach Lab MINE BALTES DRAW IN HAND-IN STORE BANKER [facility] Start: 01-26-2024 End: 01-26-2024 ambulatory MINE BALTES DRAW IN HAND-IN STORE BANKER Facility:B Start: 01-26-2024 End: 01-26-2024 Patient encounter procedure MINE BALTES DRAW IN HAND-IN STORE BANKER [facility] Start: 01-16-2024 End: 01-16-2024 ambulatory MINE BALTES DRAW IN HAND-IN STORE BANKER Facility:B Start: 12-20-2023 ambulatory MINE BALTES DRAW IN HAND-IN STORE BANKER Fa cility:B Start: 08-21-2023 End: 08-21-2023 ambulatory MINE BALTES DRAW IN HAND-IN STORE BANKER Facility:B Start: 08-21-2023 End: 08-21-2023 Patient encounter procedure MINE BALTES DRAW IN HAND-IN STORE BANKER [facility] Start: 08-18-2023 End: 08-18-2023 ambulatory ALISE FLOWERS DO Facility:B Start: 08-18-2023 End: 08-18-2023 Patient encounter procedure ALISE FLOWERS DO [facility] Start: 08-04-2023 End: 08-04-2023 ambulatory MINE BALTES DRAW IN HAND-IN STORE BANKER Facility:B Start: 08-04-2023 End: 08-04-2023 Patient encounter procedure MINE BALTES DRAW IN HAND-IN STORE BANKER [facility] Start: 06-12-2023 End: 06-12-2023 ambulatory VIKY SMITH MD Facility:B Start: 06-12-2023 End: 06-12-2023 Patient encounter procedure VIKY SMITH MD [facility] Start: 05-02-2023 End: 05-02-2023 ambulatory ALISE FLOWERS DO Facility:B Start: 04-17-2023 End: 04-17-2023 ambulatory MINE BALCHRIS DRAW IN HAND-IN STORE BANKER Facility:B Start: 04-17-2023 End: 04-17-2023 Patient encounter procedure MINE BALCHRIS DRAW IN HAND-IN STORE BANKER [facility] Start: 04-14-2023 End: 04-14-2023 ambulatory MINE BALTES DRAW IN HAND-IN STORE BANKER Facility:B Start: 02-27-2023 End: 02-27-2023 ambulatory ALISE FLOWERS DO Facility:B Start: 02-27-2023 End: 02-27-2023 Patient encounter procedure ALISE FLOWERS DO [facility] Start: 01-17-2023 End: 01-17-2023 Patient encounter procedure MINE BALCHRIS DRAW IN HAND-IN STORE BANKER [facility] Start: 11-24-2022 End: 01-17-2023 Physical therapy management KOKO SOLITARIO PA-C [facility] Start: 12-13-2021 End: 12-13-2021 Patient encounter procedure MINE BALCHRIS DRAW IN HAND-IN STORE BANKER [facility] Start: 10-20-2021 End: 10-20-2021 Patient encounter procedure MINE FAIZACHRIS DRAW IN HAND-IN STORE BANKER [facility] Start: 10-11-2021 End: 10-11-2021 Patient encounter procedure MINE MONTANEZ DRAW IN HAND-IN STORE BANKER [facility] Start: 09-20-2021 End: 09-20-2021 Patient encounter procedure MINE MONTANEZ DRAW IN HAND-IN STORE BANKER [facility] Start: 08-09-2021 End: 08-09-2021 Patient encounter procedure MINE MONTANEZ DRAW IN HAND-IN STORE BANKER [facility] Start: 06-14-2021 End: 06-18-2021 Outreach Lab FLORIN BERGMAN MD [facility] Start: 04-05-2021 End: 04-05-2021 Emergency department patient visit SHAGGY VAZ DO [facility] Start: 03-25-2021 End: 03-29-2021 Outreach Lab MINE MONTANEZ DRAW IN HAND-IN STORE BANKER [facility] Start: 05-24-2018 [facility] Start: 05-11-2018 Patient encounter procedure [facility] Start: 03-06-2018 Patient encounter procedure [facility] Procedures Date Procedure Procedure Detail Performing Clinician Start: 07-31-2020 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 L x1, R x2. Laceration of toe (disorder) MINE MONTANEZ DRAW IN HAND-IN STORE BANKER Comment on above: Right foot Oral surgery (qualif ier value) MINE MONTANEZ DRAW IN HAND-IN STORE BANKER Umbilical hernia (disorder) MINE MONTANEZ DRAW IN HAND-IN STORE BANKER Payers Date Payer Category Payer Medicare [id number] 2024 Self-pay [id number] 2024 Unknown 2021 Medicare [id number] 2021 Unknown [id number] 2019 Medicare 1937 Unknown [id number] 2.16.8 40.1.357557.3.579.2.668 1937 Unknown [id number] 2.16.8 40.1.448642.3.579.2.668 1937 Unknown [id number] 2.16.8 40.1.248254.3.579.2.668 1937 Unknown [id number] 2.16.8 40.1.709392.3.579.2.627 1937 Unknown [id number] 2.16.8 40.1.589506.3.579.2.627 1937 Unknown [id number] 2.16.8 40.1.358769.3.579.2.627 1937 Unknown [id number] 2.16.8 40.1.480470.3.579.2.627 1937 Unknown [id number] 2.16.8 40.1.364966.3.579.2.627 1937 Unknown [id number] 2.16.8 40.1.079226.3.579.2.7 1937 Unknown [id number] 2.16.8 40.1.793401.3.579.2. 1937 Unknown [id number] 2.16.8 40.1.915374.3.579.2.7 1937 Unknown [id number] 2.16.8 40.1.487659.3.579.2. 1937 Unknown [id number] 2.16.8 40.1.815740.3.579.2. 1937 Unknown [id number] 2.16.8 40.1.441366.3.579.2.7 1937 Unknown [id number] 2.16.8 40.1.877063.3.579.2. 1937 Unknown [id number] 2.16.8 40.1.125300.3.579.2.7 1937 Unknown [id number] 2.16.8 40.1.210616.3.579.2. 1937 Unknown [id number] 2.16. 840.1.178288.3.579.2. 1937 Unknown [id number] 2.16.8 40.1.277332.3.579.2. 1937 Unknown [id number] 2.16.8 40.1.062739.3.579.2.7 1937 Unknown [id number] 2.16.8 40.1.322967.3.579.2.627 Unknown [id number] 2.16.8 40.1.017810.3.579.2.462 Unknown [id number] 2.16.8 40.1.970616.3.579.2.462 Unknown [id number] 2.16.8 40.1.279552.3.579.2.462 Unknown [id number] 2.16.8 40.1.427092.3.579.2.462 Social History Date Type Detail Facility Start: 01-04-2019 End: 08-22-2024 Never smoked tobacco (finding) [facility] Comment on above: Smoke exposure for 4 0 yrs at work Sex Assigned At Female [facility] Sexual Orientation [facility] Start: 11-28-2018 Sex Female (finding) [facility] Medical Equipment Procedure Code Equipment Code Equipment Origin al Text Equipment Identifier Dates Blood Glucose Te st Strips Start: 03-16-[address]ps Start: 03-16-[address]ps Start: 03-16-[address]ps Start: 06-25-2021 See Instructions , FreeStyle Lite Test Strips, 2 Strips daily Dx: E11.9 Replaces old script., # 1 EA, 11 Refill(s), [facility] Controlled diabetes mellitus, [...] script., # 1 EA, 11 Refill(s), [facility] Controlled diabetes mellitus, 170.2, cm, 06/22/21 9:33:00 EST, Height, 75.7, kg, 06/22/21 9:33:00 E... Start: 06-25-2021 See Instructions , FreeStyle Lite Test Strips, 2 Strips daily Dx: E11.9 Replaces old script., # 1 EA, 11 Refill(s), Pharmacy: [address], Controlled diabetes mellitus, 170.2, cm, 06/22/21 9:33:00 EST, Height, 75.7, kg, 06/22/21 9:33:00 E... Start: 06-25-2021 See Instructions , FreeStyle Lite Test Strips, 2 Strips daily Dx: E11.9 Replaces old script., # 1 EA, 11 Refill(s), Pharmacy: [address], Controlled diabetes mellitus, 170.2, cm, 06/22/21 9:33:00 EST, Height, 75.7, kg, 06/22/21 9:33:00 EST, Dosing Weight Start: 06-25-2021 See Instructions , FreeStyle Lite Test Strips, 2 Strips daily Dx: E11.9 Replaces old script., # 1 EA, 11 Refill(s), Pharmacy: [address], Controlled diabetes mellitus, 170.2, cm, 06/22/21 9:33:00 EST, Height, 75.7, kg, 06/22/21 9:33:00 EST, Dosing Weight Start: 06-25-2021 See Instructions , FreeStyle Lite Test Strips, 2 Strips daily Dx: E11.9 Replaces old script., # 1 EA, 11 Refill(s), Pharmacy: [address], Controlled diabetes mellitus, 170.2, cm, 06/22/21 9:33:00 EST, Height, 75.7, kg, 06/22/21 9:33:00 EST, Dosing Weight Start: 06-25-2021 See Instructions , FreeStyle Lite Test Strips, 2 Strips daily Dx: E11.9 Replaces old script., # 1 EA, 11 Refill(s), Pharmacy: [address], Controlled diabetes mellitus, 170.2, cm, 06/22/21 9:33:00 EST, Height, 75.7, kg, 06/22/21 9:33:00 EST, Dosing Weight Start: 06-25-2021 See Instructions , FreeStyle Lite Test Strips, 2 Strips daily Dx: E11.9 Replaces old script., # 1 EA, 11 Refill(s), Pharmacy: [address], Controlled diabetes mellitus, 170.2, cm, 06/22/21 9:33:00 EST, Height, 75.7, kg, 06/22/21 9:33:00 EST, Dosing Weight Start: 06-25-2021 See Instructions , FreeStyle Lite Test Strips, 2 Strips daily Dx: E11.9 Replaces old script., # 1 EA, 11 Refill(s), Pharmacy: [address], Controlled diabetes mellitus, 170.2, cm, 06/22/21 9:33:00 EST, Height, 75.7, kg, 06/22/21 9:33:00 EST, Dosing Weight Start: 06-25-2021 See Instructions , FreeStyle Lite Test Strips, 2 Strips daily Dx: E11.9 Replaces old script., # 1 EA, 11 Refill(s), Pharmacy: [address], Controlled diabetes mellitus, 170.2, cm, 06/22/21 9:33:00 EST, Height, 75.7, kg, 06/22/21 9:33:00 EST, Dosing Weight Start: 06-25-2021 See Instructions , FreeStyle Lite Test Strips, 2 Strips daily Dx: E11.9 Replaces old script., # 1 EA, 11 Refill(s), Pharmacy: [address], Controlled diabetes mellitus, 170.2, cm, 06/22/21 9:33:00 EST, Height, 75.7, kg, 06/22/21 9:33:00 EST, Dosing Weight Start: 06-25-2021 See Instructions , FreeStyle Lite Test Strips, 2 Strips daily Dx: E11.9 Replaces old script., # 1 EA, 11 Refill(s), Pharmacy: [address], Controlled diabetes mellitus, 170.2, cm, 06/22/21 9:33:00 EST, Height, 75.7, kg, 06/22/21 9:33:00 EST, Dosing Weight Start: 06-25-2021 See Instructions , FreeStyle Lite Test Strips, 2 Strips daily Dx: E11.9 Replaces old script., # 1 EA, 11 Refill(s), Pharmacy: [address], Controlled diabetes mellitus, 170.2, cm, 06/22/21 9:33:00 EST, Height, 75.7, kg, 06/22/21 9:33:00 EST, Dosing Weight Start: 06-25-2021 See Instructions , FreeStyle Lite Test Strips, 2 Strips daily Dx: E11.9 Replaces old script., # 1 EA, 11 Refill(s), Pharmacy: [address], Controlled diabetes mellitus, 170.2, cm, 06/22/21 9:33:00 EST, Height, 75.7, kg, 06/22/21 9:33:00 EST, Dosing Weight Start: 06-25-2021 Functional Status Date Assessment Result Facility 02-17-2024 Functional Status Nurse Serg butler q2hrs Performed Other: [id number] [facility] 02-17-2024 Functional Status Room check performed [facility] 02-17-[address] [facility] 02-17-[address] [facility] 02-16-[address] [facility] 02-16-[address] [facility] 02-16-2024 Functional Status Other: [facility] Functional Status Lunch Percent 95 [facility] 02-16-[address] [facility] 02-16-2024 Functional Status Minimum assistance [facility] 02-04-2024 Functional Status Up ad emy [facility] 11-24-2022 Functional Status Home Living Ad [...] excess warmth or obvious signs of infection [facility] Mental Status Date Assessment Result Facility 02-17-2024 Mental Status Oriented x 4, Forgetful [facility] 02-16-2024 Mental Status [facility] 02-16-2024 Mental Status [facility] 02-16-2024 Mental Status [facility] 02-04-2024 Mental Status Orientation Oriented x 4 [facility] 02-04-2024 Mental Status [facility] Clinical Notes 04-05-2021 to 09-29-2024 Note Date [...] Locations *1: This test was performed at: [facility], [address] [place] [address], [id number] , [facility] 02-17-2024 Note Discharge Instructions Thank you for allowing [facility] to assist you with your healthcare needs. The following is important discharge information regarding your hospital visit. Your Care Team [facility] Team Your Diagnosis Constipation HTN - Hypertension Type 2 diabetes mellitus What to do next Scheduled Follow-Up Appointments Appointment Type When With Where Contact Information StatusMEDS - Diabetic Individual Visit 03/25/2024 10:00 AM EDT [facility] [phone] Confirmed PC OV 07/05/2024 08:30 AM MINE WISDOM [address] [phone] Confirmed Follow Up Appointments Follow Up with Go to emergency room if symptoms worsen When:Within 2-4 days Follow Up with MINE MONTANEZ When:Within 2-4 days Where:[address] [place] [phone] The Following Activity and Diet Have Been [...] day if having loose stools Pickup at [facility]/pharmacy #[id number] Unchanged albuterol (Albuterol (Eqv-Ventolin HFA) 90 mcg/ [...] BY MOUTH TWICE A DAY Pharmacy Information [facility]/pharmacy #[id number]: [address], [place] [phone] Please take this list to your next [...] Black, tarry stool Involuntary weight loss Weakness 9423-9292 [employer]. [address] [place] [address]. All rights reserved. This information is not intended as a substitute for professional medical care. Always follow your healthcare professional's instructions. Additional Information VACCINATE! IT SAVES LIVES! Members of the community who have not yet received the COVID-19 vaccine and would like to receive it can visit one of [facility] vaccine clinics. There are many vaccine clinic locations within the [facility]. For locations and available times, please visit [email or web address] It is important to note that some COVID mobile vaccine clinics are held outdoors and may be canceled in rainy or stormy conditions. To learn more about pediatric vaccinations (ages 5-11), we invite you to visit the [facility] webpage. https://www.[facility].org/pages/2 969-Jqfca-Sxjyvdsgctq-Frequently-Asked -Questions.html To learn more about the COVID-19 vaccine, we invite you to visit the CDC website for a list of frequently asked questions.https://www.cdc.gov/coronavi oscar/2019-ncov/vaccines/faq.html [employer] Patient Portal Access Instructions: Stay connected with your healthcare team and access your personal medical information anytime with the [employer] Patient Portal. Please follow the directions below to create your [employer] account: 1.Access the email account you provided upon registration to the hospital/physician office.2.Look for an invitation email from [facility].3.Open the email and access the invitation link: Accept Invitation to [employer].4.Fill in the required will to create your account. To access your account, visit [employer]. Click the blue button labeled "Access Patient [...] you will allow to register on the [facility] Patient Portal for access to your information. You can also access the [facility] Patient Portal on the [facility] angelina. Simply click on "Patient Portal" and then log into your account. If you would like to receive a full copy of your medical records, please contact the [facility] Medical Records Department by calling [phone], Monday through Monday between 8 a.m. and [...] Call your local pharmacy or go to [email or web address] TubeX.UrbanFarmers/3S3Um2t to find one close to you.3.Make use of household items: Use cat litter or old coffee grounds to dispose medications if other options are not available. Mix your drugs with these household products, seal them in an airtight container and throw it into the garbage. Call [facility]: [phone] to be sure your drugs can be [...] aware that I should contact my doctor. Patient/Grinding Room Inspector Signature: _ Date/Time: Relationship to Patient: Witness Name/Signature: Date/Time: [facility] 02-16-2024 Note Date of Service 02/16/24 Chief Complaint rectal and abdominal pain started tonight around 0100, denies N/V, here recently for constipation, unknown last BM History of Present Illness 88-year-old female with past medical history significant for hypertension, type 2 diabetes mellitus, HLD. Patient presented to [facility] emergency department on 02/16/2024 with [...] Exercise type: Walking., 09/01/2020 Home/Environment Self Primary Pin Sticker:., 01/04/2019 Nutrition/Health Type of diet: Diabetic, is folllowing factory clerk suggestions. Appetite Good. Eating Difficulties None, If [...] by LUIS GUZMÁN on 02/16/2024 04:01 PM [facility] 02-16-2024 Evaluation + Plan note Extrac zachary [...] Appointments Appointment Date:03/25/2024 10:00:00 AM Scheduled Provider: Location:[facility] Appointment Type:MEDS - Diabetic Individual Visit Appointment Date:07/05/2024 08:30:00 AM Scheduled Provider:MINE MONTANEZ Location:[facility] Appointment Type:PC OV [facility] 09-13-2024 Pastoral care Progress note Pastoral Care Note Entered On: 02/16/2024 9:44 EDT Performed On: 02/16/2024 9:42 EDT by Rodolfo Márquez Pastoral Care Type of Pastoral Visit : Initial visit Spiritual Care Visit Initiated by : Flute Teacher Spiritual Care Reason for Visit : General [...] by Rodolfo Márquez on 02/16/2024 09:42 AM [facility]09-13-2024 Hospital Discharge instructions Patient Education 02/16/2024 04:03:29 [...] Black, tarry stool Involuntary weight loss Weakness 7476-6118 [employer]. [address] [place] [address]. All rights reserved. This information is not intended as a substitute for professional medical care. Always follow yourhealthcare professional's instructions. Follow Up Care 02/16/2024 03:47:03 With:Go to emergency room if symptoms worsen Address:Unknown When:2-4 days With:MINE MONTANEZ APRN-IN STORE BANKER Address: [address] [facility] [place] [address]- [phone] When:2-4 days [facility] 09-13-2024 Note ORIGINAL EXAMINATION: CT OF THE [...] Sign Date: 02/16/2024 5:52:34 AM Ordering Provider: [facility]09-01-2024 Hospital Discharge instructions Patient Education 02/04/2024 06:00:03 [...] Black, tarry stool Involuntary weight loss Weakness 5202-1993 [employer]. [address] [place] [address], [place] [address]. All rights reserved. This information is not intended as a substitute for professional medical care. Always follow yourhealthcare professional's instructions. Follow Up Care 02/04/2024 05:28:55 With:MINE MONTANEZ APRN-IN STORE BANKER Address: [address] [facility] [place], [place] [address]- [phone] When:2-4 days [facility] 09-01-2024 Note Discharge Instructions Thank you for [...] with MINE MONTANEZ When:Within 2-4 days Where:[address], [place] [phone] Allergies penicillins Rash Medications Please ask your [...] Unchanged DME (DME MISCellaneous) See instructions Libre[employer] [place] Use to scan Edward sensor at least [...] Black, tarry stool Involuntary weight loss Weakness 3850-7337 [employer]. [address] [place], [place] [address]. All rights reserved. This information is not intended as a substitute for professional medical care. Always follow yourhealthcare professional's instructions. Additional Information VACCINATE! IT SAVES LIVES! Members of the community who have not yet received the COVID-19 vaccine and would like to receive it can visit one of [facility] vaccine clinics. There are many vaccine clinic locations within the [facility]. For locations and available times, please visit www.[email or web address]/. It is important to note that some COVID mobile vaccine clinics are held outdoors and may be canceled in rainy or stormy conditions. To learn more about pediatric vaccinations (ages 5-11), we invite you to visit the [facility] webpage. https://www.[facility].org/pages/2165-Trtgm-Paxwqcomufg-Qaotekimif-Wxkfg-Fdx stions.htmlTo learn more about the COVID-19 vaccine, we invite you to visit the CDC website for a list of frequently asked questions. https://www.cdc.gov/coronavirus/2019-ncov/vaccines/faq.html [facility] Patient Portal Access Instructions: Stay connected with your healthcare team and access your personal medical information anytime with the [facility] Patient Portal. If you would like a full copy of your medical records please contact the [facility] Medical Records Department Monday through Monday between 8a.m. and 4:30p.m. Please follow the directions below to access the portal: 1.Access the email account you provided upon registration to the [facility].2.Look for an invitation email from [facility].3.Open the email and access the invitation link: Accept Invitation to [facility]4.Fill in the required will to create your account. Sign into www.[employer] with your username and password that you [...] you will allow to register on the [facility] Patient Portal for access to your information. You can also access the [facility] Patient Portal on the [employer]. Simply click on "Health Records" under "HealthData" and then click on the [employer] logo. HOW TO SAFELY DISPOSE OF PRESCRIPTION [...] Call your local pharmacy or go to http://bit.ly/8Z9Zt9j to find one close to you.3.Make use of household items: Use cat litter or old coffee grounds to dispose medications if other options arenot available. Mix your drugs with these household products, seal them in an airtight container andthrow it into the garbage. Call [facility]: [phone] to be sure your drugs can be [...] aware that I should contact my doctor. Patient/Grinding Room Inspector Signature: Date/Time: Relationship to Patient: Witness Name/Signature: Date/Time: [facility]08-15-2023 Note ORIGINAL EXAMINATION: BONE DENSITOMETRY01/17/2023 11:33 am [...] Date: 01/17/2023 11:40:16 AM [facility] Discharge instructions Patient Education [...] that stimulate the heart. This includes many xjho-tfq-kctevje cold and sinus decongestant pills and sprays, as well as diet pills. Check the warnings about high blood pressure onthe label. Before buying any ujfq-uux-mbcoqiz medicines or supplements, always ask the pharmacist [...] one of these at most pharmacies. The [place] [employer] recommends the following guidelines for [...] appointment as directed. Bring the record of yourstanton blood pressure readings to the appointment. When [...] face You have problems speaking or seeing 3218-6170 [employer]. [address] [place] [address]. All rights reserved. This information is not [...] about: All medicines you take, including prescription, ogim-kxo-oivklyp, herbs, and supplements Any other symptoms you [...] Chest, arm, neck, back, or jaw pain 2171-7127 [employer]. [address] [place] [address]. All rights reserved. This information is not intended as a substitute for professional medical care. Always follow yourhealthcare professional's instructions. Follow Up Care 04/05/2021 07:20:22 With:MINE MONTANEZ Address: [phone] When:2-4 days [facility] Evaluation + Plan note Future Appointments Appointment Date:04/09/2021 10:00:00 AM Scheduled Provider:MINE MONTANEZ Location:[facility] Appointment Type:PC OV Appointment Date:06/14/2021 09:30:00 AM Scheduled Provider:FAUSTINO CARSON MD Location: [facility] Appointment Type: OV Appointment Date:06/22/2021 09:30:00 AM Scheduled Provider:MINE MONTANEZ Location:[facility] Appointment Type:PC OV [facility] Evaluation + Plan note Future Appointments Appointment Date:04/06/2021 11:30:00 AM Scheduled Provider:MINE MONTANEZ Location:[facility] Appointment Type:PC OV Appointment Date:04/09/2021 10:00:00 AM Scheduled Provider:MINE MONTANEZ [facility] [facility] Appointment Type:PC OV Appointment Date:06/14/2021 09:30:00 AM Scheduled Provider:FAUSTINO CARSON MD Location: [facility] Appointment Type: OV Appointment Date:06/22/2021 09:30:00 AM Scheduled Provider:MINE MONTANEZ Location:[facility] Appointment Type:PC OV [facility] Evaluation + Plan note Future Appointments Appointment Date:06/22/2021 09:30:00 AM Scheduled Provider:MINE MONTANEZ Location:[facility] Appointment Type:PC OV [facility] Evaluation + Plan note Future Appointments Appointment Date:08/20/2021 09:30:00 AM Scheduled Provider: Location:[facility] Appointment Type:DB Diabetic Individual Visit Appointment Date:08/30/2021 02:30:00 PM Scheduled Provider: Location:[facility] Appointment Type:NUT Diet Visit Individual Appointment Date:09/17/2021 10:00:00 AM Scheduled Provider: Location:[facility] Appointment Type:DB Diabetic Individual Visit Appointment Date:12/14/2021 10:30:00 AM Scheduled Provider:MINE MONTANEZ Location:[facility] Appointment Type:PC OV [facility] Evaluation + Plan note Future Appointments Appointment Date:10/11/2021 11:30:00 AM Scheduled Provider: Location:[facility] Appointment Type:NUT Diet Visit Individual Appointment Date:12/14/2021 10:30:00 AM Scheduled Provider:MINE MONTANEZ Location:[facility] Appointment Type:PC OV Appointment Date:12/17/2021 09:00:00 AM Scheduled Provider: Location:[facility] Appointment Type:DB Diabetic Individual Visit [facility] Evaluation + Plan note Future Appointments Appointment Date:10/15/2021 09:30:00 AM Scheduled Provider:MINE MONTANEZ Location:[facility] Appointment Type:PC OV Appointment Date:11/08/2021 11:30:00 AM Scheduled Provider: Location:[facility] Appointment Type:NUT Diet Visit Individual Appointment Date:12/14/2021 10:30:00 AM Scheduled Provider:MINE MONTANEZ Location:[facility] Appointment Type:PC OV Appointment Date:12/17/2021 09:00:00 AM Scheduled Provider: Location:[facility] Appointment Type:DB Diabetic Individual Visit [facility] Evaluation + Plan note Future Appointments Appointment Date:11/08/2021 11:30:00 AM Scheduled Provider: Location:[facility] Appointment Type:NUT Diet Visit Individual Appointment Date:12/14/2021 10:30:00 AM Scheduled Provider:MINE MONTANEZ Location:[facility] Appointment Type:PC OV Appointment Date:12/17/2021 09:00:00 AM Scheduled Provider: Location:[facility] Appointment Type:DB Diabetic Individual Visit Diagnostic Tests Pending * Vitamin B12 Level 10/20/21 * Folate Level 10/20/21 [facility] Evaluation + Plan note Future Appointments Appointment Date:12/14/2021 10:30:00 AM Scheduled Provider:MINE MONTANEZ Location:[facility] Appointment Type:PC OV Appointment Date:12/17/2021 09:00:00 AM Scheduled Provider: Location:[facility] Appointment Type:DB Diabetic Individual Visit [facility] Zaarlyaluation + Plan note Future Appointments Appointment Date:03/24/2023 10:00:00 AM Scheduled Provider: Location:[facility] Appointment Type:DB Diabetic Individual Visit (AOH) Appointment Date:12/26/2023 09:00:00 AM Scheduled Provider:MINE MONTANEZ Location:[facility] Appointment Type:PC Wellness Medicare Future Scheduled Tests Laboratory* Complete Blood Count 06/24/22 * Lipid Profile 06/24/22 * Hepatitis C Antibody IgG 06/24/22 * Complete Metabolic Panel 06/24/22 [facility] Intelenation + Plan note Future Appointments Appointment Date:06/23/2023 10:00:00 AM Scheduled Provider: Location:[facility] Appointment Type:DB Diabetic Individual Visit (AOH) Appointment Date:12/26/2023 09:00:00 AM Scheduled Provider:MINE MONTANEZ Location:[facility] Appointment Type:PC Wellness Medicare Future Scheduled Tests Laboratory* Complete Blood Count 06/24/22 * Lipid Profile 06/24/22 * Hepatitis C Antibody IgG 06/24/22 * Complete Metabolic Panel 06/24/22 [facility] Intelenation + Plan note Future Appointments Appointment Date:06/23/2023 10:00:00 AM Scheduled Provider: Location:[facility] Appointment Type:DB Diabetic Individual Visit (AOH) Appointment Date:08/21/2023 11:30:00 AM Scheduled Provider: Location:[facility] Appointment Type:CV OV Appointment Date:12/26/2023 09:00:00 AM Scheduled Provider:MINE MONTANEZ Location:[facility] Appointment Type:PC Wellness Medicare Future Scheduled Tests Laboratory* Complete Blood Count 06/24/22 * Lipid Profile 06/24/22 * Hepatitis C Antibody IgG 06/24/22 * Complete Metabolic Panel 06/24/22 [facility] Evaluation + Plan note Future Appointments Appointment Date:08/18/2023 10:00:00 AM Scheduled Provider: Location:[facility] Appointment Type:MEDS - Diabetic Individual Visit Appointment Date:08/21/2023 11:30:00 AM Scheduled Provider: Location:[facility] Appointment Type:CV OV Appointment Date:12/26/2023 09:00:00 AM Scheduled Provider:MINE MONTANEZ Location:[facility] Appointment Type:PC Wellness Medicare [facility] Evaluation + Plan note Future Appointments Appointment Date:08/21/2023 08:00:00 AM Scheduled Provider: Location:[facility] Appointment Type:NUT Diet Visit Individual Appointment Date:08/21/2023 11:30:00 AM Scheduled Provider: Location:[facility] Appointment Type:CV OV Appointment Date:09/18/2023 10:00:00 AM Scheduled Provider: Location:[facility] Appointment Type:MEDS - Diabetic Individual Visit Appointment Date:12/26/2023 09:00:00 AM Scheduled Provider:MINE MONTANZE Location:[facility] Appointment Type:PC Wellness Medicare [facility] Evaluation + Plan note Future Appointments Appointment Date:09/18/2023 10:00:00 AM Scheduled Provider: Location:[facility] Appointment Type:MEDS - Diabetic Individual Visit Appointment Date:12/26/2023 09:00:00 AM Scheduled Provider:MINE MONTANEZ Location:[facility] Appointment Type:PC Wellness Medicare [facility] Evviniciusation + Plan note Future Appointments Appointment Date:03/25/2024 10:00:00 AM Scheduled Provider: Location:[facility] Appointment Type:MEDS - Diabetic Individual Visit Appointment Date:07/05/2024 08:30:00 AM Scheduled Provider:MINE MONTANEZ Location:[facility] Appointment Type:[facility] Evviniciusation + Plan note Future Appointments Appointment Date:10/08/2024 03:00:00 PM Scheduled Provider: Location:[facility] Appointment Type:MEDS - Diabetic Individual Visit Appointment Date:11/21/2024 09:00:00 AM Scheduled Provider:MINE MONTANEZ Location:[facility] Appointment Type:PC OV [facility] Hospital course Narrative No data available for this section [facility] Hospital Discharge instructions No data available for this section [facility] Progress note No data available for this section [facility] Summary Purpose Family History No Family History [...] section and content) DATE CREATED AUTHOR 09/13/2018 [facility] DATE CREATED AUTHOR AUTHOR'S ORGANIZ ATION 02/04/2024 [facility] ([place]) DATE CREATED AUTHOR AUTHOR'S ORGANIZ ATION 03/22/[address] [facility] DATE CREATED AUTHOR AUTHOR'S ORGANIZ ATION 04/14/2025 [facility] Care Team (unrecognized sect ion and content) Personnel Name: MINE MONTANEZ Address: [address] [place] [address]- [place] Personnel Name: MINE MONTANEZ Address: [address] [place] [address]- [place] Personnel Name: MINE MONTANEZ Address: [address] [place] [address]- [place] Care Team Personnel Name: MINE MONTANEZ Position: P4 Advanced Assistant To The Ceo Member Role: Primary Care Physician Address: Address: [address] [place] [address]- [place] Name: LEDA SINGH MD Member Role: Orthopaedist Address: Address: [address] [address]- Care Team Related Persons Name: AIDA, NOHEMI Care Team Personnel Name: MINE MONTANEZ Position: P4 Advanced Assistant To The Ce[employer] Member Role: Primary Care Physician Address: Address: [address] [place] [address]- Name: LEDA SINGH MD Member Role: Orthopaedist Address: Address: [address] [address]- Care Team Related Persons Name: AIDA, NOHEMI Care Team Personnel Name: MINE MONTANEZ Position: P4 Advanced Assistant To The Ceo Member Role: Primary Care Physician Address: Address: [address] [place] [address]- [place] Name: LEDA SINGH MD Member Role: Orthopaedist Address: Address: [address] [address]- Care Team Related Persons Name: AIDA, NOHEMI Care Team Personnel Name: MINE MONTANEZ Position: P4 Advanced Assistant To The Ceo Member Role: Primary Care Physician Address: Address: [address] [place] [address]- [place] Name: LEDA SINGH MD Member Role: Orthopaedist Address: Address: [address] [address]- [place] Care Team Related Persons Name: AIDA, NOHEMI Care Team Personnel Name: MINE MONTANEZIN STORE BANKER Position: P4 Advanced Assistant To The Ceo Member Role: Primary Care Physician Address: Address: [address] [place] [address]- [place] Name: LEDA SINGH MD Member Role: Orthopaedist Address: Address: [address] [place] [address]- Name: LOUISE Chin ([facility]) Shalonda Position: Quality Review Member Role: Visual Specialist Care Team Related Persons Name: NOHEMI PARRA Care Team Personnel Name: MINE MONTANEZ Position: P4 Advanced Assistant To The Ceo Member Role: Primary Care Physician Address: Address: [address] [place] [address]- Name: LEDA SINGH MD Member Role: Orthopaedist Address: Address: [address] [place] [address]- Name: LOUISE Chin ([facility]) Shalonda Position: Quality Review Member Role: Visual Specialist Care Team Related Persons Name: NOHEMI PARRA Care Team Personnel Name: MINE MONTANEZ Position: P4 Advanced Assistant To The Ceo Member Role: Primary Care Physician Address: Address: [address] [place] [id number] [place] [address] Name: LEDA SINGH MD Member Role: Orthopaedist Address: Address: [address] [place] [address]- [place] Name: LOUISE Chin ([facility]) Shalonda Position: Quality Review Member Role: Visual Specialist Care Team Related Persons Name: NOHEMI PARRA Care Team Personnel Name: MINE MONTANEZ Position: P4 Advanced Assistant To The Ceo Member Role: Primary Care Physician Address: Address: [address] [place] [address]- Name: LEDA SINGH MD Member Role: Orthopaedist Address: Address: [address] [place] [address]- [place] Name: LOUISE Chin ([facility]) Shalonda Position: Quality Review Member Role: Visual Specialist Care Team Related Persons Name: NOHEMI PARRA Care Team Personnel Name: MINE MONTANEZ Position: P4 Advanced Assistant To The Ceo Member Role: Primary Care Physician Address: Address: [address] [place] [address]- Name: LEDA SINGH MD Member Role: Orthopaedist Address: Address: [address] [place] [address] Care Team Related Persons Name: AIDA NOHEMI Care Team Personnel Name: MINE MONTANEZ Position: P4 Advanced Assistant To The Ceo Member Role: Primary Care Physician Address: Address: [address] [place] [address] Name: LEDA SINGH MD Member Role: Orthopaedist Address: Address: [address] [place] [address] Care Team Related Persons Name: AIDA, NOHEMI Care Team Personnel Name: MINE MONTANEZ Position: P4 Advanced Assistant To The Ce[employer] Member Role: Primary Care Physician Address: Address: [address] [place] [address] Name: LEDA SINGH MD Member Role: Orthopaedist Address: Address: [address] [place] [address] Care Team Related Persons Name: AIDA, NOHEMI Care Team Personnel Name: MINE MONTANEZ Position: P4 Advanced Assistant To The Ceo Member Role: Primary Care Physician Address: Address: [address] [place] [address] Name: Candice Ricketts Position: Bed Management Member Role: Other Name: LEDA SINGH MD Member Role: Orthopaedist Address: Address: [address] [place] [address] Care Team Related Persons Name: AIDA, NOHEMI Care Team Personnel Name: MINE MONTANEZ Position: P4 Advanced Assistant To The Ceo Member Role: Primary Care Physician Address: [address] [place] [address] Telecom: Name: Candice Ricketts Position: Bed Management Member Role: Other Name: LEDA SINGH MD Member Role: Orthopaedist Address: [address] [place] [address] Telecom: Care Team Related Persons Name: AIDA, NOHEMI Care Team Personnel Name: BALTES, MINE DRAW IN HAND-IN STORE BANKER Position: P4 Advanced Assistant To The Ceo Member Role: Primary Care Physician Address: [address] [place] [address]- [place] Telecom: Name: Candice Ricketts Position: Bed Management Member Role: Other Name: LEDA SINGH MD Member Role: Orthopaedist Address: [address] [place] [address] [place] Telecom: Care Team Related Persons Name: NOHEMI PARRA Care Team (unrecognized sect ion and content) Care Team Personnel Name: MINE MONTANEZ APRN-IN STORE BANKER Position: P4 Advanced Practice Nurse Med Service: Active Provider Member Role: Primary Care Physician Address: Address: [address] [place] [address]- [place] Care Team Related Persons Name: NOHEMI [...] BE BASED ON THE PRIMARY CLINICAL RECORDS. [facility] [employer] [facility]. provides no warranty or guarantee of the accuracy or completeness of information in this document.
[2025-04-28 08:12] LABS: Hematocrit 39.5 % (37-47); Hemoglobin 12.8 g/dL (12.0-15.0); Mean Corp Hgb Conc 32.4 g/dL (32-36); Mean Corpuscular Volume 93.4 fL (81-99); Mean Platelet Vol. 10.0 fl (6.2-12.0); Platelet Count 314 K/mm3 (150-450); RBC Distribution Width CV 12.9 % (11.6-14.6); RBC Distribution Width SD 44.1 fl (35.1-43.9); Red Blood Count 4.23 M/mm3 (4.2-5.4); White Blood Count 7.4 K/mm3 (4.4-11.0)
[2025-04-28 08:27] LABS: Anion Gap 15 (5-15); BUN 22 mg/dL (4-19); BUN/Creat Ratio 23.4 RATIO (10-20); Calcium,Total 9.5 mg/dL (7.6-11.0); Carbon Dioxide 23.9 mmol/L (21.0-32.0); Chloride 101 mmol/L (98-108); Glucose 176 mg/dL (70-99); Potassium 4.6 mmol/L (3.3-5.1)
== END ==
LOC: OLS.ACH2 05:00
PROVIDERS: PCP Family Medicine; Visit Provider Internal Medicine
DX: E11.9 Type 2 diabetes mellitus without complications (principal)
CPT/HCPCS: 36415; 80048; 85027; 87086; 87088